=== PATIENT | male | born 1945 | race Caucasian/White ===

== ENCOUNTER 2018-04-30 09:05 | Emergency (ER) | payer MEDICARE, SELFPAY ==
[2018-04-30 09:10] VITALS: BP 137/78; PULSE 77; RESP 22; TEMP 36.6; O2SAT 96
--- NOTE | 2018-04-30 09:15 | ED.SKABFB ---
HPI - Skin/Abscess/Foreign Bdy General Chief complaint: Allergic Reaction Stated complaint: STUNG BY BEE ON RIGHT EYE, EYE SWOLLEN Time Seen by Provider: 04/30/18 09:06 Source: patient Mode of arrival: ambulatory Limitations: no limitations History of Present Illness HPI narrative: Patient is a 72-year-old male here for evaluation of irritation under his right eye. Patient states that he was stung by a yellow jacket under his right eye approximately 24 hr ago. He states since that he has had irritation and itching to the area. Has not tried anything at home for it. No problems breathing. Related Data Home Medications Medication Instructions Recorded Confirmed CA PANTOTHENATE/FOLIC ACID/VIT 1 tab PO QDAY #0 03/22/13 (MULTIVITAMIN) glipizide 5 mg PO BIDAC #0 03/22/13 loperamide 2 mg PO PRN #0 03/22/13 tamsulosin [Flomax] 0.4 mg PO HS #0 03/22/13 gabapentin 200 mg PO/SL BID #0 08/25/16 ipratropium-albuterol [Combivent #0 08/25/16 Respimat] metoprolol tartrate 25 mg PO BID #0 08/25/16 simvastatin 80 mg PO QHS #0 08/25/16 insulin glargine [Lantus U-100 10 unit SQ BID #0 11/01/16 Insulin] insulin aspart U-100 [Novolog 10 unit SQ ACHS #0 12/06/16 U-100 Insulin aspart] Previous Rx's Medication Instructions Recorded aspirin 325 mg PO QDAY #30 10/30/16 hydrocodone-acetaminophen [[place]] 1 - 2 tab PO Q6HP PRN #10 tab 11/23/16 prednisone 2 tab PO QDAY 3 Days #0 tab 11/23/16 oxycodone-acetaminophen [Percocet] 1 tab PO Q4HP PRN #10 tab 11/25/16 prednisone 10 mg PO QDAY #30 tab 11/25/16 ciprofloxacin HCl [Cipro] 500 mg PO BID #20 tab 12/04/16 clotrimazole 1 gm TOPICAL SEE INSTRUCTIONS 12/06/16 #14.1 gm prednisone 40 mg PO DAILY 2 Days #4 tab 04/30/18 Allergies Allergy/AdvReac Type Severity Reaction Status Date / Time No Known Drug Allergies Allergy Verified 04/30/18 09:41 Review of Systems Constitutional Denies fatigue, Denies fever(s) and Denies headache(s) Eyes Comments: Swelling under his right eye with irritation and itching over the site where he was stung ENT Ears, Nose, Mouth, and Throat: Denies headache(s), Denies sore throat, Denies throat swelling and Denies tongue swelling Cardiovascular Denies chest pain and Denies dyspnea Respiratory Denies dyspnea Gastrointestinal Gastrointestinal: Denies abdominal pain, Denies nausea and Denies vomiting Musculoskeletal Denies myalgias and Denies arthralgias Integumentary/Breasts Comments: Redness of the skin under his right eye Neurologic Denies headache(s) Endocrine Denies fatigue Hematologic/Lymphatic Denies easy bleeding Allergic/Immunologic Denies throat swelling and Denies tongue swelling [facility] Medical History Diabetes (Acute) Comment: Reviewed patient's past medical surgical family social history Exam Initial Vital Signs Initial Vital Signs: Vital Signs Temperature 97.8 F 04/30/18 09:10 Pulse Rate 77 04/30/18 09:10 Respiratory Rate 22 04/30/18 09:10 Blood Pressure 137/78 H 04/30/18 09:10 Pulse Oximetry 96 04/30/18 09:10 Const General: cooperative, healthy appearing, comfortable, well developed, well groomed and No acute distress Orientation: alert, awake and oriented x3 HENMT Head: normal to inspection and normocephalic Face and sinus: other (Patient with mild redness and swelling under his right eye.) Eyes General: appearance normal, both eyes and all related structures Sclera: sclerae normal Pupils: PERRL EOM: EOM intact bilaterally Resp Effort & Inspection: normal respiratory effort Skin Other: Redness and swelling under his right eye Neuro General: alert, awake and oriented x3 Psych Appearance: grossly normal and well kempt Course Orders Ordered: Discontinued Medications Prednisone (Deltasone) 40 mg PO NOW ONE Stop: 04/30/18 09:29 Last Admin: 04/30/18 09:42 Dose: 40 mg Vital Signs - 8 hr 04/30/18 09:10 Temperature 97.8 F Pulse Rate 77 Respiratory Rate 22 Blood Pressure 137/78 H Pulse Oximetry 96 MDM - Skin/Abscess/Foreign Bdy MDM Narrative Medical decision making narrative: Patient with redness and swelling under his right eye at the site where he states he was stung by a yellow jacket. I feel that given his physical exam today that cellulitis is less likely and that the redness is just from the irritation in him itching his eye. The orbit itself looks fine. Patient's physical exam is not consistent with anaphylaxis. Will start the patient on prednisone. We also discussed the use of Benadryl. He was given return precautions. He is instructed he needed to follow up with primary doctor. He expressed understanding and agreement with plan Discharge Plan Departure Patient Disposition: Home, Self-Care Clinical Impression: Allergic reaction Discharge Date/Time: 04/30/18 09:51 Interventions: ED Discharge Assessment Last Done: 04/30/18 09:49 Instructions: DI for General Allergic Reactions Activity Restrictions/Additional Instructions: Recommend you take the prednisone as directed. You can also take [id number] Benadryl every 4 hr as needed. Call your primary care doctor for a follow-up. Return to the emergency department for any new symptoms, worsening redness around your eye, problems breathing, or any other worsening symptoms. Prescriptions: New prednisone 20 mg tablet 40 mg PO DAILY 2 Days Qty: 4 RF: 0 No Action loperamide 2 MG capsule 2 mg PO PRN Qty: 0 RF: 0 tamsulosin [Flomax] 0.4 MG capsule,extended release 24hr 0.4 mg PO HS Qty: 0 RF: 0 glipizide 5 MG tablet 5 mg PO BIDAC Qty: 0 RF: 0 CA PANTOTHENATE/FOLIC ACID/VIT (MULTIVITAMIN) 1 tab PO QDAY Qty: 0 RF: 0 metoprolol tartrate 25 MG tablet 25 mg PO BID Qty: 0 RF: 0 ipratropium-albuterol [Combivent Respimat] 4 GM mist Qty: 0 RF: 0 simvastatin 40 MG tablet 80 mg PO QHS Qty: 0 RF: 0 gabapentin 100 MG capsule 200 mg PO/SL BID Qty: 0 RF: 0 aspirin 325 MG tablet,delayed release (DR/EC) 325 mg PO QDAY Qty: 30 RF: 0 insulin glargine [Lantus U-100 Insulin] 100 UNIT/1 ML solution 10 unit SQ BID Qty: 0 RF: 0 hydrocodone-acetaminophen [[place]] 5 MG/325 MG tablet 1 - 2 tab PO Q6HP PRNQty: 10 RF: 0 prednisone 20 MG tablet 2 tab PO QDAY 3 Days Qty: 0 RF: 0 prednisone 10 MG tablet 10 mg PO QDAY Qty: 30 RF: 0 oxycodone-acetaminophen [Percocet] 5 MG/325 MG tablet 1 tab PO Q4HP PRNQty: 10 RF: 0 ciprofloxacin HCl [Cipro] 500 MG tablet 500 mg PO BID Qty: 20 RF: 0 insulin aspart U-100 [Novolog U-100 Insulin aspart] 100 UNIT/1 ML solution 10 unit SQ ACHS Qty: 0 RF: 0 clotrimazole 1 % cream 1 gm Topical SEE INSTRUCTIONS Qty: 14.1 RF: 0
[2018-04-30] MEDS: predniSONE 20 MG TABLET 40 MG PO (09:42)
== END 2018-04-30 09:51 | disposition home or self-care (01) ==
PROVIDERS: Emergency Provider Emergency Medicine; PCP Internal Medicine
DX: T63.441A Toxic effect of venom of bees, accidental (unintentional), initial encounter (principal)
CPT/HCPCS: 99282; 99283

== ENCOUNTER 2020-01-11 12:36 | Emergency (ER) | payer MEDICARE, SELFPAY ==
[2020-01-11 12:45] VITALS: BP 164/70; PULSE 66; RESP 18; TEMP 36.2; O2SAT 95; BMI 38.5
--- NOTE | 2020-01-11 13:29 | ED.WOUNDLAC ---
HPI - Wound/Laceration <JUSTYNA Isaacs - Last Filed: 01/11/20 13:51> General Chief Complaint: Wound/Laceration Stated Complaint: Rt hand index finger cut Time Seen by Provider: 01/11/20 12:45 Source: patient Mode of arrival: Ambulatory Limitations: no limitations History of Present Illness HPI narrative: This is a 74-year-old male who presents to ED with laceration on right 2nd distal aspect on index finger from a pocket knife when he was working on a motorcycle. Patient reports his last tetanus immunization has been updated in 5-6 years ago. Right dominant hand. Patient has history of diabetes and takes 3 different medications including insulin. Patient states he was bleeding quite a lot immediately after the laceration but now it has been stopped. Patient denies severe pain, decreased sensation, weakness to affected finger. Related Data Home Medications Medication Instructions Recorded Confirmed CA PANTOTHENATE/FOLIC ACID/VIT 1 tab PO QDAY #0 03/22/13 (MULTIVITAMIN) glipizide 5 mg PO BIDAC #0 03/22/13 loperamide 2 mg PO PRN #0 03/22/13 tamsulosin [Flomax] 0.4 mg PO HS #0 03/22/13 gabapentin 200 mg PO/SL BID #0 08/25/16 ipratropium-albuterol [Combivent #0 08/25/16 Respimat] metoprolol tartrate 25 mg PO BID #0 08/25/16 simvastatin 80 mg PO QHS #0 08/25/16 insulin glargine [Lantus U-100 10 unit SQ BID #0 11/01/16 Insulin] insulin aspart U-100 [Novolog 10 unit SQ ACHS #0 12/06/16 U-100 Insulin aspart] Previous Rx's Medication Instructions Recorded aspirin 325 mg PO QDAY #30 10/30/16 hydrocodone-acetaminophen [[place]] 1 - 2 tab PO Q6HP PRN #10 tab 11/23/16 prednisone 2 tab PO QDAY 3 Days #0 tab 11/23/16 oxycodone-acetaminophen [Percocet] 1 tab PO Q4HP PRN #10 tab 11/25/16 prednisone 10 mg PO QDAY #30 tab 11/25/16 ciprofloxacin HCl [Cipro] 500 mg PO BID #20 tab 12/04/16 clotrimazole 1 gm TOPICAL SEE INSTRUCTIONS 12/06/16 #14.1 gm Allergies Allergy/AdvReac Type Severity Reaction Status Date / Time No Known Drug Allergies Allergy Verified 01/11/20 12:45 Review of Systems <JUSTYNA Isaacs - Last Filed: 01/11/20 13:51> Review of Systems Narrative: General: Denies fever, chills, fatigue, malaise, sweats. HEENT: Denies sinus pain, ear pain, sore throat, difficulty swallowing, dizziness. Respiratory: Denies dyspnea, cough, wheezing, hemoptysis, sputum. Cardiovascular: Denies chest pain, palpitations, orthopnea, edema. Gastrointestinal: Denies nausea, vomiting, abdominal pain, diarrhea, constipation, melena. : Denies dysuria, frequency, incontinence, hematuria, urinary retention. Musculoskeletal: See HPI Skin: See HPI Neurologic: Denies weakness, headache, numbness, change in speech, confusion, seizures, incoordination. Psychiatric: No concerning psychosocial issues. 12-point review of systems is negative except for those stated above. Patient History <JUSTYNA Isaacs - Last Filed: 01/11/20 13:51> Medical History Diabetes (Acute) Substance Use Type: does not use Exam <JUSTYNA Isaacs - Last Filed: 01/11/20 13:51> Narrative Exam Narrative: General appearance: well developed, well nourished, in no acute distress. Head: normocephalic, atraumatic, no scalp lesions, non-tender. ENT: Bilateral auditory canals and tympanic membranes clear. Mucous membrane moist, no mucosal lesion. Throat without erythema, tonsillar hypertrophy or exudate. Uvula in midline, airway patent. Neck/Thyroid: neck supple, full range of motion, no visible masses or meningeal signs. No JVD, non-tender without lymphadenopathy. Skin: 1.5 vertical superficial laceration to epidermis on right 2nd distal finger. No active bleeding noted. No suspicious rashes, lesions over visible areas. Warm and dry and appropriate color for ethnicity. Heart: no clubbing, no cyanosis, no edema. S1 and S2 normal. RRR w/o murmurs, clicks, or bruits. Lungs: Breathing even and unlabored. No stridor. No accessory muscles used. Able to speak in full sentences. Chest: normal shape and expansion. Abdomen: non-obese, non-distended. Neurologic: alert and oriented. Cognitive exam, PRACTICE ADVISOR and PNS grossly intact on informal exam. Psych: good eye contact, normal affect. Initial Vital Signs Initial Vital Signs: Vital Signs Temperature 97.1 F L 01/11/20 12:45 Pulse Rate 66 01/11/20 12:45 Respiratory Rate 18 01/11/20 12:45 Blood Pressure 164/70 H 01/11/20 12:45 Pulse Oximetry 95 01/11/20 12:45 <Tressa Mathew MD - Last Filed: 01/12/20 07:21> Initial Vital Signs Initial Vital Signs: Vital Signs Temperature 97.1 F L 01/11/20 12:45 Pulse Rate 66 01/11/20 12:45 Respiratory Rate 18 01/11/20 12:45 Blood Pressure 164/70 H 01/11/20 12:45 Pulse Oximetry 95 01/11/20 12:45 Procedures <JUSTYNA Isaacs - Last Filed: 01/11/20 13:51> Laceration Repair Laceration 1: Site: hand (2nd distal digit) Side (If applicable): right Size (cm): 1.5 Description: linear Depth: simple, single layer Pre-repair: wound explored and irrigated extensively Skin layer closed with: steri-strips Orthopedic Splinting/Casting Injury #1: Side: right Upper Extremity Injury Location: finger Upper Extremity Immobilizer: aluminum form splint Scores <JUSTYNA Isaacs - Last Filed: 01/11/20 13:51> GCS [place] coma scale eye opening: Spontaneous [place] coma scale verbal response: Orientated Chin coma scale motor response: Obey commands Chin coma scale total score: 15 Course <JUSTYNA Isaacs - Last Filed: 01/11/20 13:51> Vital Signs Vital signs: Vital Signs - 8 hr 01/11/20 12:45 Temperature 97.1 F L Pulse Rate 66 Respiratory Rate 18 Blood Pressure 164/70 H Pulse Oximetry 95 <Tressa Mathew MD - Last Filed: 01/12/20 07:21> Vital Signs Vital signs: Vital Signs - 8 hr 01/11/20 12:45 Temperature 97.1 F L Pulse Rate 66 Respiratory Rate 18 Blood Pressure 164/70 H Pulse Oximetry 95 [facility] - Wound/Laceration <JUSTYNA Isaacs - Last Filed: 01/11/20 13:51> Differential Diagnosis Differential diagnosis: Likely laceration Medical Records Attestation: I reviewed the patient's medical records. [facility] Narrative Medical decision making narrative: See procedure note for vertical 1.5 cm laceration repair on the right 2nd distal finger pad. Patient tolerated procedure well. We discussed wound care at home for laceration repaired with Steri-Strips and Dermabond and not to soak affected finger until laceration heals. Return precautions were discussed with patient and advised to follow up with PCP in 2 days for wound recheck. Patient verbalized understanding and agreement with the treatment plan. Discharge Plan Departure Patient Disposition: Home Clinical Impression: Laceration of finger of right hand Qualifiers: Encounter type: initial encounter Finger: index finger Damage to nail status: unspecified Foreign body presence: without foreign body Qualified Code(s): S61.210A - Laceration without foreign body of right index finger without damage to nail, initial encounter Discharge Date/Time: 01/11/20 13:45 Instructions: DI for Laceration Repair Steri-Strips, DI for Laceration Repair With Dermabond Activity Restrictions/Additional Instructions: You have been diagnosed with [right 2nd digit in distal finger laceration which has been repaired with Steri-Strips and Dermabond.]. What to do: *Take your medications as directed. No new medications to go home with. Please do not get your wound soaked in the water until the laceration has healed. Keep your dressing intact for next 24 hrs. After then, you could remove your dressing, wash with soap and water. Pat dry with clean papertowel and dress it. Please avoid using oil based ointment, cream, lotion and etc since this may make dermabond lose and remove prematurely. Dermabond will come off in 5-7 days on its own. Do not peel this off or pick on it. You can change dressing as needed and daily. Please monitor for signs and symptoms for infection such as increasing redness, swelling, warmth, pain, fever, purulent discharge. If this occurs, please return to ED or follow up with your primary care physician since your wound may be infected. Please follow up with your primary care provider in 2-3 days for recheck wound. Please keep your wound clean, dry and intact all times. If Steri-Strips and Dermabond does not come off in 10 days, you can use oil based lotion, ointment, Vaseline to removed days. Please avoid putting pressure on affected finger to prevent opening up the laceration/wound. Prescriptions: No Action loperamide 2 MG capsule 2 mg PO PRN Qty: 0 RF: 0 tamsulosin [Flomax] 0.4 MG capsule,extended release 24hr 0.4 mg PO HS Qty: 0 RF: 0 glipizide 5 MG tablet 5 mg PO BIDAC Qty: 0 RF: 0 CA PANTOTHENATE/FOLIC ACID/VIT (MULTIVITAMIN) 1 tab PO QDAY Qty: 0 RF: 0 metoprolol tartrate 25 MG tablet 25 mg PO BID Qty: 0 RF: 0 ipratropium-albuterol [Combivent Respimat] 4 GM mist Qty: 0 RF: 0 simvastatin 40 MG tablet 80 mg PO QHS Qty: 0 RF: 0 gabapentin 100 MG capsule 200 mg PO/SL BID Qty: 0 RF: 0 aspirin 325 MG tablet,delayed release (DR/EC) 325 mg PO QDAY Qty: 30 RF: 0 insulin glargine [Lantus U-100 Insulin] 100 UNIT/1 ML solution 10 unit SQ BID Qty: 0 RF: 0 hydrocodone-acetaminophen [[place]] 5 MG/325 MG tablet 1 - 2 tab PO Q6HP PRNQty: 10 RF: 0 prednisone 20 MG tablet 2 tab PO QDAY 3 Days Qty: 0 RF: 0 prednisone 10 MG tablet 10 mg PO QDAY Qty: 30 RF: 0 oxycodone-acetaminophen [Percocet] 5 MG/325 MG tablet 1 tab PO Q4HP PRNQty: 10 RF: 0 ciprofloxacin HCl [Cipro] 500 MG tablet 500 mg PO BID Qty: 20 RF: 0 insulin aspart U-100 [Novolog U-100 Insulin aspart] 100 UNIT/1 ML solution 10 unit SQ ACHS Qty: 0 RF: 0 clotrimazole 1 % cream 1 gm Topical SEE INSTRUCTIONS Qty: 14.1 RF: 0 Referrals: Edgardo Devlin MD [Primary Care Provider] - <Tressa Mathew MD - Last Filed: 01/12/20 07:21> Cosign ED Attending Cosignature Attestation: I was immediately available in the department for consultation throughout this patient's visit. I agree with documentation as above. Tressa Mathew MD
== END 2020-01-11 13:45 | disposition home or self-care (01) ==
PROVIDERS: Emergency Provider Nurse Practitioner Family; PCP Internal Medicine
DX: S61.210A Laceration without foreign body of right index finger without damage to nail, initial encounter (principal); W26.0XXA Contact with knife, initial encounter
CPT/HCPCS: 99282; 99283

== ENCOUNTER 2020-04-21 03:18 | Emergency (ER) | payer MEDICARE, SELFPAY ==
[2020-04-21 03:20] VITALS: BP 194/86; PULSE 65; RESP 20; O2SAT 97; BMI 38.5
[2020-04-21] MEDS: dexAMETHasone 4 MG TABLET 10 MG PO (04:02)
[2020-04-21] MEDS: KETOROLAC 60 MG/2 ML VIAL 30 MG IM (04:03)
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
[2020-04-21 05:12] VITALS: BP 187/88; PULSE 68; RESP 16; O2SAT 97
== END 2020-04-21 05:12 | disposition home or self-care (01) ==
PROVIDERS: Emergency Provider Emergency Medicine; PCP Internal Medicine
DX: M54.40 Lumbago with sciatica, unspecified side (principal); M48.07 Spinal stenosis, lumbosacral region; E11.9 Type 2 diabetes mellitus without complications; Z79.4 Long term (current) use of insulin
CPT/HCPCS: 96372; 99283; J1885

== ENCOUNTER 2020-04-25 01:49 | Emergency (ER) | payer MEDICARE, SELFPAY ==
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
[2020-04-25 02:03] VITALS: BP 178/65; PULSE 60; RESP 18; TEMP 36.6; O2SAT 100
[2020-04-25] MEDS: KETOROLAC 60 MG/2 ML VIAL IM (02:08)
[2020-04-25] MEDS: DEXAMETHASONE 10 MG/ML VIAL PO (02:21)
[2020-04-25 02:43] VITALS: BP 169/69; PULSE 64; RESP 18; O2SAT 96
--- NOTE | 2020-04-25 02:44 | PC.NURSE ---
he verbalized pain control and wanted to go home.
== END 2020-04-25 02:43 | disposition home or self-care (01) ==
PROVIDERS: Emergency Provider Emergency Medicine; PCP Internal Medicine
DX: M54.16 Radiculopathy, lumbar region (principal); M54.40 Lumbago with sciatica, unspecified side
CPT/HCPCS: 96372; 99283; J1100; J1885

== ENCOUNTER 2020-04-27 03:21 | Emergency (ER) | payer MEDICARE, SELFPAY ==
[2020-04-27 03:25] VITALS: BP 132/72; PULSE 56; RESP 16; TEMP 36.6; O2SAT 100; BMI 38.5
--- NOTE | 2020-04-27 03:29 | ED.GENADULT ---
HPI - General Adult General Chief complaint: Back Pain/Injury Stated complaint: sciatica really bad Time Seen by Provider: 04/27/20 03:25 Source: patient Mode of arrival: Ambulatory Limitations: no limitations History of Present Illness HPI narrative: Patient is a 74-year-old male who was seen here in the emergency department several times in the past couple days for the same symptoms that brought him in today. Patient has had radiologic studies performed if his back. He states he has a follow-up with Orthopedic Spine surgery coming up in the next several weeks. He states that the last 2 times that he was here he received a shot of a medication that seemed to improve/resolve his symptoms he is here seeking another shot. He is unsure what this medication is. Review the patient's medical record show that he has received a shot of Toradol the last 2 times that he was here. During his last visit he was given a prescription for Toradol however he states that he went to the pharmacy to pick it up and he was told by the pharmacist that if he started taking this medication ?it will kill me? patient has no other information why the pharmacist told him this other than it was because of the other medications that he was on. He reports no new symptoms just continued symptoms. Inform me multiple times ?I just want the shot ? Related Data Home Medications Medication Instructions Recorded Confirmed CA PANTOTHENATE/FOLIC ACID/VIT 1 tab PO QDAY #0 03/22/13 (MULTIVITAMIN) glipizide 5 mg PO BIDAC #0 03/22/13 loperamide 2 mg PO PRN #0 03/22/13 tamsulosin [Flomax] 0.4 mg PO HS #0 03/22/13 gabapentin 200 mg PO/SL BID #0 08/25/16 ipratropium-albuterol [Combivent #0 08/25/16 Respimat] metoprolol tartrate 25 mg PO BID #0 08/25/16 simvastatin 80 mg PO QHS #0 08/25/16 insulin glargine [Lantus U-100 10 unit SQ BID #0 11/01/16 Insulin] insulin aspart U-100 [Novolog 10 unit SQ ACHS #0 12/06/16 U-100 Insulin aspart] Previous Rx's Medication Instructions Recorded aspirin 325 mg PO QDAY #30 10/30/16 hydrocodone-acetaminophen [Baxter] 1 - 2 tab PO Q6HP PRN #10 tab 11/23/16 prednisone 2 tab PO QDAY 3 Days #0 tab 11/23/16 oxycodone-acetaminophen [Percocet] 1 tab PO Q4HP PRN #10 tab 11/25/16 prednisone 10 mg PO QDAY #30 tab 11/25/16 ciprofloxacin HCl [Cipro] 500 mg PO BID #20 tab 12/04/16 clotrimazole 1 gm TOPICAL SEE INSTRUCTIONS 12/06/16 #14.1 gm ketorolac 10 mg PO Q6H PRN #14 tab 04/25/20 Allergies Allergy/AdvReac Type Severity Reaction Status Date / Time No Known Drug Allergies Allergy Verified 04/27/20 03:31 Review of Systems Constitutional Constitutional: Denies fever(s) and Denies headache(s) ENT Ears, Nose, Mouth, and Throat: Denies headache(s) Cardiovascular Cardiovascular: Denies chest pain and Denies dyspnea Respiratory Respiratory: Denies dyspnea Gastrointestinal Gastrointestinal: Denies abdominal pain Genitourinary Genitourinary: Denies dysuria, Denies urinary hesitancy, Denies urinary incontinence and Denies urinary urgency Genitourinary: Denies dysuria, Denies urinary incontinence, Denies urinary hesitancy and Denies urinary urgency Musculoskeletal Musculoskeletal: Reports back pain and Reports radiating pain into limb (Right-sided) Integumentary/Breasts Skin/Breast: Denies lesions and Denies rash Neurologic Neurologic: Denies headache(s) and Reports radicular pain Psychiatric Psychiatric: Denies anxiety Hematologic/Lymphatic Hematologic/Lymphatic: Denies easy bleeding and Denies easy bruising Allergic/Immunologic Allergic/Immunologic: Denies urticaria Patient History Medical History Acute urinary retention (Inactive) Diabetes (Acute) Hyperlipidemia (Acute) TIA (transient ischemic attack) (Inactive) Surgical History H/O laminectomy (Acute) Social History Smoking Status: Never smoker Smoking Status: Never smoker Substance Use Type: does not use Exam Initial Vital Signs Initial Vital Signs: Vital Signs Temperature 97.9 F 04/27/20 03:25 Pulse Rate 56 L 04/27/20 03:25 Respiratory Rate 16 04/27/20 03:25 Blood Pressure 132/72 04/27/20 03:25 Pulse Oximetry 100 04/27/20 03:25 Const General: cooperative Limitations: mental status not altered [facility] Head: normal to inspection and normocephalic Resp Effort & Inspection: normal respiratory effort Cardio Rate: regular rate Back/Spine/Pelvis Thoracic/Lumbar Spine: paraspinal tenderness Skin Lesions: no lesions Rashes: no rashes Extrem General: normal to inspection and capillary refill normal Psych Appearance: grossly normal and well kempt Course Orders Ordered: ED Orders 04/27/20 03:46 Basic Metabolic Panel Stat Complete Blood Count AUTO DIFF Stat Discontinued Medications Ketorolac Tromethamine (Toradol) 30 mg IM NOW ONE Stop: 04/27/20 04:16 Last Admin: 04/27/20 04:24 Dose: 30 mg Documented by: CTRROSINA Vital Signs Vital signs: Vital Signs - 8 hr 04/27/20 03:25 04/27/20 04:55 Temperature 97.9 F Pulse Rate 56 L 75 Respiratory Rate 16 24 Blood Pressure 132/72 129/73 Pulse Oximetry 100 98 Medical Decision Making Lab Data Lab results reviewed: Yes I reviewed the patient's lab results. Result diagrams: 04/27/20 03:46 04/27/20 03:46 Labs: Lab Results 04/27/20 04/27/20 Range/Units 03:46 03:46 WBC 6.1 (4.5-11.0) X10^3/uL RBC 4.88 (4.5-5.9) X10^6/uL Hgb 13.1 L (13.5-17.5) g/dL Hct 39.7 L (41-53) % MCV 81.5 (80-100) fL MCH 26.9 (26-34) PG MCHC 33.0 (30-36) % RDW 14.0 (11.6-14.8) % Plt Count 144 L (150-400) X10^3/uL Neut % (Auto) 57.2 (50-75) % Lymph % (Auto) 31.6 (25-40) % [place] % (Auto) 10.9 (3-14) % Eos % (Auto) 0.1 L (2-4) % Baso % (Auto) 0.2 (0-2) % Neut # (Auto) 3500 (0773-8229) /uL Lymph # (Auto) 1900 (6461-2377) /uL [place] # (Auto) 700 (0-900) /uL Eos # (Auto) 0 (0-450) /uL Baso # (Auto) 0 (0-100) /uL Sodium 137 (137-145) mmol/L Potassium 4.0 (3.4-5.1) mmol/L Chloride 108 H (98-107) mmol/L Carbon Dioxide 23 (22-32) mmol/L BUN 37 H (9-20) mg/dL Creatinine 1.33 H (0.66-1.25) mg/dL Estimated GFR 52.3 L (>60) mL/min BUN/Creatinine Ratio 27.8 H (6-22) Glucose 222 H (80-110) mg/dL Calcium 9.1 (8.4-10.2) mg/dL MDM Narrative Medical decision making narrative: It is extremely difficult to determine what medications the patient is taking. He describes them by their shape and color not by what medications he is on. Does appear that he has not been taking the Toradol that he was given a prescription for during his last visit. I am also unsure whether not he is on any steroids. He does have a follow-up with Orthopedic Spine coming up in the next couple weeks. He has had radiologic studies of his back. He does have degenerative disc disease which has been seen on a CT scan per prior ED reports. I have low suspicion for cauda equina. Low suspicion for epidural abscess/hematoma. He has not had any instrumentation. Initially patient was very reluctant to have any blood drawn stating that he just wanted the shot of what is most likely Toradol given the prior ED notes. I did inform him that we do not have any recent kidney studies and given the fact that he has had 2 shots within the past couple days and also has diabetes that checking his kidney function would not be unreasonable. He did agree to have this done. After this was resulted he was given a shot of Toradol. He had minimal relief from the pain. Informed him that we could provide other pain medications however he would need to find a ride home. He states he does not have a ride. He does have oxycodone at home. Inform the patient that unfortunately we would not prescribe anything stronger than that out of the emergency department. I am hesitant to start any new medications on him given the uncertainty of what medications he is currently taking. I do not feel we need to perform any further radiologic studies today. I did try to reassure the patient. Informed him that he can contact his primary doctor or the orthopedic provider for further medications. He was given return precautions. He expressed understanding and agreement. Discharge Plan Departure Patient Disposition: Home Clinical Impression: Acute lumbar radiculopathy Instructions: DI for Low Back Pain, Activity May Be Better Than Rest for Low Back Pain Recovery, Exercise May Reduce Risk of Low Back Pain Activity Restrictions/Additional Instructions: Recommend that you increase the gabapentin to 200 mg 3 times a day. You can also increase your Percocets to 1 tablet every 4 hours or 2 tablets every 6 hours. Recommend that you contact your orthopedic provider on Tuesday to see if they can see you sooner. Prescriptions: No Action loperamide 2 MG capsule 2 mg PO PRN Qty: 0 RF: 0 tamsulosin [Flomax] 0.4 MG capsule,extended release 24hr 0.4 mg PO HS Qty: 0 RF: 0 glipizide 5 MG tablet 5 mg PO BIDAC Qty: 0 RF: 0 CA PANTOTHENATE/FOLIC ACID/VIT (MULTIVITAMIN) 1 tab PO QDAY Qty: 0 RF: 0 metoprolol tartrate 25 MG tablet 25 mg PO BID Qty: 0 RF: 0 ipratropium-albuterol [Combivent Respimat] 4 GM mist Qty: 0 RF: 0 simvastatin 40 MG tablet 80 mg PO QHS Qty: 0 RF: 0 gabapentin 100 MG capsule 200 mg PO/SL BID Qty: 0 RF: 0 aspirin 325 MG tablet,delayed release (DR/EC) 325 mg PO QDAY Qty: 30 RF: 0 insulin glargine [Lantus U-100 Insulin] 100 UNIT/1 ML solution 10 unit SQ BID Qty: 0 RF: 0 hydrocodone-acetaminophen [Baxter] 5 MG/325 MG tablet 1 - 2 tab PO Q6HP PRNQty: 10 RF: 0 prednisone 20 MG tablet 2 tab PO QDAY 3 Days Qty: 0 RF: 0 prednisone 10 MG tablet 10 mg PO QDAY Qty: 30 RF: 0 oxycodone-acetaminophen [Percocet] 5 MG/325 MG tablet 1 tab PO Q4HP PRNQty: 10 RF: 0 ciprofloxacin HCl [Cipro] 500 MG tablet 500 mg PO BID Qty: 20 RF: 0 insulin aspart U-100 [Novolog U-100 Insulin aspart] 100 UNIT/1 ML solution 10 unit SQ ACHS Qty: 0 RF: 0 clotrimazole 1 % cream 1 gm Topical SEE INSTRUCTIONS Qty: 14.1 RF: 0 ketorolac 10 mg tablet 10 mg PO Q6H PRN (Reason: pain) Qty: 14 RF: 0 Referrals: Edgardo Devlin MD [Primary Care Provider] -
[2020-04-27 04:00] LABS: Add Manual Diff / Slide Review NO; Basophils Absolute Auto 0 /uL (0-100); Basophils Percent Auto 0.2 % (0-2); Eosinophils Absolute Auto 0 /uL (0-450); Eosinophils Percent Auto 0.1 % (2-4); Hematocrit 39.7 % (41-53); Hemoglobin 13.1 g/dL (13.5-17.5); Lymphocytes Absolute Auto 1900 /uL (1100-4500); Lymphocytes Percent Auto 31.6 % (25-40); Mean Corpuscular Hemoglobin 26.9 PG (26-34); Mean Corpuscular Volume 81.5 fL (80-100); Monocytes Absolute Auto 700 /uL (0-900); Monocytes Percent Auto 10.9 % (3-14); Neutrophils Absolute Auto 3500 /uL (1500-7000); Neutrophils Percent Auto 57.2 % (50-75); Platelet Count 144 X10^3/uL (150-400); Red Blood Cell Count 4.88 X10^6/uL (4.5-5.9); White Blood Cell Count 6.1 X10^3/uL (4.5-11.0)
[2020-04-27 04:08] LABS: BUN Creatinine Ratio 27.8 (6-22); Blood Urea Nitrogen 37 mg/dL (9-20); Calcium 9.1 mg/dL (8.4-10.2); Carbon Dioxide 23 mmol/L (22-32); Chloride 108 mmol/L (98-107); Estimated Glomerular Filt Rate 52.3 mL/min (>60); Glucose 222 mg/dL (80-110); HEMOLYSIS < 15 (0-50); Sodium 137 mmol/L (137-145)
[2020-04-27] MEDS: KETOROLAC 60 MG/2 ML VIAL 30 MG IM (04:24)
[2020-04-27 04:55] VITALS: BP 129/73; PULSE 75; RESP 24; O2SAT 98
[2020-04-27 05:30] VITALS: BP 141/79; PULSE 79; RESP 16; O2SAT 95
== END 2020-04-27 05:30 | disposition home or self-care (01) ==
PROVIDERS: Emergency Provider Emergency Medicine; PCP Internal Medicine
DX: M54.16 Radiculopathy, lumbar region (principal); E11.9 Type 2 diabetes mellitus without complications
CPT/HCPCS: 36415; 80048; 85025; 96372; 99283; J1885

== ENCOUNTER 2020-05-04 11:28 | Emergency (ER) | payer MEDICARE, SELFPAY ==
[2020-05-04 11:34] VITALS: BP 158/76; PULSE 67; RESP 21; TEMP 37; O2SAT 97; BMI 38.5
--- NOTE | 2020-05-04 12:20 | ED.BACK ---
HPI - Back Pain/Injury <JUSTYNA Isaacs - Last Filed: 05/04/20 15:54> General Chief Complaint: Back Pain/Injury Stated Complaint: sciatica - wants rx Time Seen by Provider: 05/04/20 11:31 Source: patient Mode of arrival: Wheelchair Limitations: no limitations History of Present Illness HPI Narrative: This is a 74-year-old male, former smoker, who has history of L3 laminectomy, presents to ED with severe back pain in right low back radiating down to his right foot. This is his 4th visit in last 2 weeks with the same chief complain. Patient reports his back pain use to be radiating up to his right knee but noticed now it is down to his foot. Patient reports slightly decreased strength to right leg but intact sensation. Patient reports pain is constant and occasionally has tightening up right low back muscle. He has been staying off right low back to easy the pain. Patient has a history of BPH with urinary frequency but denies burning sensation or pain with urination. Patient reports he has been ambulating in the house holding onto delgado and funny triggers. He does have a cane at home but has not been using this when he is ambulating outside. Patient denies saddle anesthesia, incontinence for stool or urine, fever/chills, nausea or vomiting. Patient reports he has been taking oxycodone 2 tabs up to 4 times a day which ran out midnight last night. Patient has 1 tab of cyclobenzaprine left. He has been taking Naprosyn as instructed but little more frequently after oxycodone had ran out. Patient has been taking stool softener to prevent constipation. He noticed slightly decreased appetite. Patient denies prior IV drug use. Patient is to see Dr. Hoff in 2 days for his back pain. Related Data Home Medications Medication Instructions Recorded Confirmed CA PANTOTHENATE/FOLIC ACID/VIT 1 tab PO QDAY #0 03/22/13 (MULTIVITAMIN) glipizide 5 mg PO BIDAC #0 03/22/13 loperamide 2 mg PO PRN #0 03/22/13 tamsulosin [Flomax] 0.4 mg PO HS #0 03/22/13 gabapentin 200 mg PO/SL BID #0 08/25/16 ipratropium-albuterol [Combivent #0 08/25/16 Respimat] metoprolol tartrate 25 mg PO BID #0 08/25/16 simvastatin 80 mg PO QHS #0 08/25/16 insulin glargine [Lantus U-100 10 unit SQ BID #0 11/01/16 Insulin] insulin aspart U-100 [Novolog 10 unit SQ ACHS #0 12/06/16 U-100 Insulin aspart] Previous Rx's Medication Instructions Recorded oxycodone-acetaminophen [Percocet] 1 tab PO Q4HP PRN #10 tab 11/25/16 clotrimazole 1 gm TOPICAL SEE INSTRUCTIONS 12/06/16 #14.1 gm cyclobenzaprine 10 mg PO BID PRN #7 tab 05/04/20 lidocaine 1 patch TOP DAILY #30 each 05/04/20 oxycodone-acetaminophen [Percocet] 1 - 2 tab PO Q6H PRN #10 tab 05/04/20 prednisone 40 mg PO DAILY 5 Days #10 tab 05/04/20 Allergies Allergy/AdvReac Type Severity Reaction Status Date / Time No Known Drug Allergies Allergy Verified 04/27/20 03:31 Review of Systems <JUSTYNA Isaacs - Last Filed: 05/04/20 15:54> Review of Systems Narrative: General: Denies fever, chills, fatigue, malaise, sweats. HEENT: Denies sinus pain, ear pain, sore throat, difficulty swallowing, dizziness. Respiratory: Denies dyspnea, cough, wheezing, hemoptysis, sputum. Cardiovascular: Denies chest pain, palpitations, orthopnea, edema. Gastrointestinal: See HPI : See HPI Musculoskeletal: See HPI Skin: Denies rash, skin lesions, or other. Neurologic: Denies weakness, headache, numbness, change in speech, confusion, seizures, incoordination. Psychiatric: No concerning psychosocial issues. 12-point review of systems is negative except for those stated above. Patient History <JUSTYNA Isaacs - Last Filed: 05/04/20 15:54> Medical History Acute urinary retention (Inactive) Diabetes (Acute) Hyperlipidemia (Acute) TIA (transient ischemic attack) (Inactive) Surgical History H/O laminectomy (Acute) Social History Smoking Status: Never smoker Smoking Status: Never smoker Substance Use Type: does not use Exam <JUSTYNA Isaacs - Last Filed: 05/04/20 15:54> Narrative Exam Narrative: General appearance: well developed, well nourished, in no acute distress. Head: normocephalic, atraumatic, no scalp lesions, non-tender. ENT: Hearing difficulty. Nose without bleeding, purulent discharge. Airway patent. Neck/Thyroid: neck supple, full range of motion, no visible masses or meningeal signs. No JVD, non-tender without lymphadenopathy. Skin: no suspicious rashes, lesions over visible areas. Warm and dry and appropriate color for ethnicity. Heart: no clubbing, no cyanosis, no edema. Lungs: Breathing even and unlabored. No stridor. No accessory muscles used. Able to speak in full sentences. Chest: normal shape and expansion. Abdomen: non-obese, non-distended. Neurologic: alert and oriented. Cognitive exam, CARPENTER ROUGH and PNS grossly intact on informal exam. Psych: good eye contact, normal affect. Initial Vital Signs Initial Vital Signs: Vital Signs Temperature 98.6 F 05/04/20 11:34 Pulse Rate 67 05/04/20 11:34 Respiratory Rate 21 05/04/20 11:34 Blood Pressure 158/76 H 05/04/20 11:34 Pulse Oximetry 97 05/04/20 11:34 Back/Spine/Pelvis Thoracic/Lumbar Spine: thoracic and lumbar spine normal to inspection (No redness, rash, warmth on back. Old well-healed vertical surgical scar o), pain with thoraco-lumbar ROM, paraspinal tenderness (Right lumbar region), thoraco-lumbar ROM limited, No thoracic spinal tenderness and No lumbar spinal tenderness <Gee Villa MD - Last Filed: 05/04/20 19:50> Initial Vital Signs Initial Vital Signs: Vital Signs Temperature 98.6 F 05/04/20 11:34 Pulse Rate 67 05/04/20 11:34 Respiratory Rate 21 05/04/20 11:34 Blood Pressure 158/76 H 05/04/20 11:34 Pulse Oximetry 97 05/04/20 11:34 Scores <JUSTYNA Isaacs - Last Filed: 05/04/20 15:54> GCS Hickman coma scale eye opening: Spontaneous Hickman coma scale verbal response: Orientated Hickman coma scale motor response: Obey commands Hickman coma scale total score: 15 Course <JUSTYNA Isaacs - Last Filed: 05/04/20 15:54> Vital Signs Vital signs: Vital Signs - 8 hr 05/04/20 12:21 Pulse Rate 61 Respiratory Rate 16 Blood Pressure 165/74 H Pulse Oximetry 96 <Gee Villa MD - Last Filed: 05/04/20 19:50> Vital Signs Vital signs: Vital Signs - 8 hr 05/04/20 12:21 Pulse Rate 61 Respiratory Rate 16 Blood Pressure 165/74 H Pulse Oximetry 96 [facility] - Back Pain/Injury <JUSTYNA Isaacs - Last Filed: 05/04/20 15:54> Differential Diagnosis Differential diagnosis: Likely lumbar radiculopathy and sciatica Medical Records Attestation: I reviewed the patient's medical records. MDM Narrative Medical decision making narrative: This is a 74-year-old gentleman who presents to ED with recurring right low back pain and radiculopathy. Patient reports today he noticed pain is actually radiating down to his foot instead of anterior thigh. Patient reports mild weakness to right leg and physical exam is consistent with mildly decreased strength right leg. There is no rash in his back. Patient denies saddle anesthesia, fever, incontinence. He reports ran out of oxycodone last night that he has been taking 2 tabs 4 times a day. He has a follow-up appointment with Dr. Hoff in 2 days at [facility]. This is is 4th visit in last 2 weeks with similar discomfort. Patient has been taking Naprosyn frequently. Prior ED visit indicates prior CT scan report shows degenerative disc disease. Patient denies using IV drugs or recent instrumentation on his back. Considered epidural abscess but it is not likely. I have low suspicion for cauda equina. I have discussed with patient that since patient has been taking Naprosyn frequently, it is not suggested for IM Toradol medication at this time. I discussed medication side effects including GI irritations/bleed from using Naprosyn and Steroids concurrently. Also discussed hyperglycemic state by using steroids. Advised to use [id number] omeprazole to protect stomach. Since patient has drove to ED, informed patient that refill oxycodone, Flexeril, lidocaine, short course of prednisone will be transmitted to pharmacy and he can use it when he gets home. Narcotic medication, Flexeril medication precautions were discussed with patient. Advised to follow-up with Dr. Hoff in 2 days as scheduled and return precautions were discussed with patient. Patient advised to use a cane for ambulation to prevent falls. Patient verbalized understanding and agreement with the treatment plan. Discharge Plan Departure Patient Disposition: Home Clinical Impression: Back pain of lumbar region with sciatica Discharge Date/Time: 05/04/20 12:28 Instructions: DI for Back Pain With Sciatica Activity Restrictions/Additional Instructions: You have been diagnosed with [right-side low back pain radiating to your foot which likely sciatica. I have been prescribed the medication [facility] What to do: *Take your medications as directed. Please take oxycodone 1-2 tabs every 6 hours as needed for pain. You can take 1 tab of oxycodone with 1 tab of regular Tylenol. Cyclobenzaprine/Flexeril for muscle relaxant as needed. These medication will cause drowsiness so please do not drive, drink alcohol, or operate heavy equipments. When you take these 2 medications together, it can increase sedation so please take precautions and try to avoid taking together. Lidocaine patch on affected site on her back for pain. ED stays on for 12 hours and off for 12 hours. Prednisone/steroids for next 5 days. Steroids can increase her blood sugar and cause GI irritation. Please purchase [id number] omeprazole to avoid GI irritation especially if your taking Naprosyn together. 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 Increase hydration with water, eat high-fiber diets. *Follow up with your primary care provider in 2-3 days, call for an appointment. Please keep your appointment with Dr. maria on Tuesday as scheduled. Let them know you were seen in the ED and that we asked you to be seen in follow up. *Return to ED if you have any new, worsening, or concerning symptoms, such as [fever, chills, nausea or vomiting, chest pain, breathing difficulty, unable to tolerate fluids, increasing numbness/weakness on affected leg, rash or any acute concerns]. Prescriptions: New oxycodone-acetaminophen [Percocet] 5-325 mg tablet 1 - 2 tab PO Q6H PRN (Reason: pain) Qty: 10 RF: 0 cyclobenzaprine 10 mg tablet 10 mg PO BID PRN (Reason: muscle spasm) Qty: 7 RF: 0 lidocaine 5 % adhesive patch,medicated 1 patch TOP DAILY Qty: 30 RF: 0 prednisone 20 mg tablet 40 mg PO DAILY 5 Days Qty: 10 RF: 0 No Action loperamide 2 MG capsule 2 mg PO PRN Qty: 0 RF: 0 tamsulosin [Flomax] 0.4 MG capsule,extended release 24hr 0.4 mg PO HS Qty: 0 RF: 0 glipizide 5 MG tablet 5 mg PO BIDAC Qty: 0 RF: 0 CA PANTOTHENATE/FOLIC ACID/VIT (MULTIVITAMIN) 1 tab PO QDAY Qty: 0 RF: 0 metoprolol tartrate 25 MG tablet 25 mg PO BID Qty: 0 RF: 0 ipratropium-albuterol [Combivent Respimat] 4 GM mist Qty: 0 RF: 0 simvastatin 40 MG tablet 80 mg PO QHS Qty: 0 RF: 0 gabapentin 100 MG capsule 200 mg PO/SL BID Qty: 0 RF: 0 insulin glargine [Lantus U-100 Insulin] 100 UNIT/1 ML solution 10 unit SQ BID Qty: 0 RF: 0 oxycodone-acetaminophen [Percocet] 5 MG/325 MG tablet 1 tab PO Q4HP PRNQty: 10 RF: 0 insulin aspart U-100 [Novolog U-100 Insulin aspart] 100 UNIT/1 ML solution 10 unit SQ ACHS Qty: 0 RF: 0 clotrimazole 1 % cream 1 gm Topical SEE INSTRUCTIONS Qty: 14.1 RF: 0 Referrals: Papo Hoff MD [Physician] - Edgardo Devlin MD [Primary Care Provider] -
[2020-05-04 12:21] VITALS: BP 165/74; PULSE 61; RESP 16; O2SAT 96
== END 2020-05-04 12:28 | disposition home or self-care (01) ==
PROVIDERS: Emergency Provider Nurse Practitioner Family; PCP Internal Medicine
DX: M54.40 Lumbago with sciatica, unspecified side (principal)
CPT/HCPCS: 99281

== ENCOUNTER 2020-05-07 18:47 | Emergency (ER) | payer MEDICARE, SELFPAY ==
[2020-05-07 18:57] VITALS: BP 187/92; PULSE 73; RESP 18; TEMP 37.4; O2SAT 97; BMI 38.5
--- NOTE | 2020-05-07 19:27 | ED.ABDPAIN ---
HPI - Abdominal Pain General Chief Complaint: Abdominal Pain Stated Complaint: Back Pain/ Constipation Time Seen by Provider: 05/07/20 18:52 Source: patient and EMS Mode of arrival: EMS History of Present Illness HPI narrative: 74-year-old extremely [id number]-hjdgqpy gentleman with chronic back pain and recent acute exacerbation for which she has been treated with nonsteroidals, narcotics and prednisone who presents with severe obstipation. He had been taking stool softeners but clearly has not been as effective as they need to be. He is unable to pass any stool and is feeling that his belly is becoming increasingly crampy and painful. He did see Dr. maria and has an appointment for some type of procedure next week. He does note that the back pain is better and now the constipation pain clearly over read everything. Related Data Home Medications Medication Instructions Recorded Confirmed CA PANTOTHENATE/FOLIC ACID/VIT 1 tab PO QDAY #0 03/22/13 (MULTIVITAMIN) glipizide 5 mg PO BIDAC #0 03/22/13 loperamide 2 mg PO PRN #0 03/22/13 tamsulosin [Flomax] 0.4 mg PO HS #0 03/22/13 gabapentin 200 mg PO/SL BID #0 08/25/16 ipratropium-albuterol [Combivent #0 08/25/16 Respimat] metoprolol tartrate 25 mg PO BID #0 08/25/16 simvastatin 80 mg PO QHS #0 08/25/16 insulin glargine [Lantus U-100 10 unit SQ BID #0 11/01/16 Insulin] insulin aspart U-100 [Novolog 10 unit SQ ACHS #0 12/06/16 U-100 Insulin aspart] Previous Rx's Medication Instructions Recorded oxycodone-acetaminophen [Percocet] 1 tab PO Q4HP PRN #10 tab 11/25/16 clotrimazole 1 gm TOPICAL SEE INSTRUCTIONS 12/06/16 #14.1 gm cyclobenzaprine 10 mg PO BID PRN #7 tab 05/04/20 lidocaine 1 patch TOP DAILY #30 each 05/04/20 oxycodone-acetaminophen [Percocet] 1 - 2 tab PO Q6H PRN #10 tab 05/04/20 prednisone 40 mg PO DAILY 5 Days #10 tab 05/04/20 Allergies Allergy/AdvReac Type Severity Reaction Status Date / Time No Known Drug Allergies Allergy Verified 04/27/20 03:31 Review of Systems Review of Systems Narrative: Pertinent positive and negative findings as per HPI Remainder of review of systems is otherwise unremarkable for Constitutional: Fevers, chills, ENT: No sore throat, neck pain, ear pain CV: Chest pain, palpitations, dyspnea on exertion Respiratory: Cough, wheeze, dyspnea GI: Nausea, vomiting, : Dysuria, hematuria, flank pain Skin: Rashes, nonhealing lesions Neuro: Syncope, dizziness, tingling Patient History Medical History Acute urinary retention (Inactive) Diabetes (Acute) Hyperlipidemia (Acute) TIA (transient ischemic attack) (Inactive) Surgical History H/O laminectomy (Acute) Social History Smoking Status: Never smoker Smoking Status: Never smoker alcohol intake frequency: other Substance Use Type: does not use Exam Narrative Exam Narrative: General: Alert , hard of hearing, straining to have a bowel movement while lying in bed Respiratory: Able to speak in full sentences, no obvious respiratory distress Skin: No obvious rashes, warm and dry Neurologic: Grossly intact no obvious asymmetries or abnormalities Psych, appropriate insight and affect, cooperative Rectal exam: He has quite a bit of diarrhea stool seeping around the firmly impacted amount of hard stool in the lower rectum. He does not tolerate manual disimpaction. There is no blood in the stool. Initial Vital Signs Initial Vital Signs: Vital Signs Temperature 99.3 F 05/07/20 18:57 Pulse Rate 73 05/07/20 18:57 Respiratory Rate 18 05/07/20 18:57 Blood Pressure 187/92 H 05/07/20 18:57 Pulse Oximetry 97 05/07/20 18:57 Course Orders Ordered: Discontinued Medications Magnesium Citrate (Magnesium Citrate) 300 ml PO NOW ONE Stop: 05/07/20 20:10 Last Admin: 05/07/20 20:16 Dose: 300 ml Documented by: JOHAN Mineral Oil (Mineral Oil Enema) 1 each [place] NOW ONE Stop: 05/07/20 19:45 Last Admin: 05/07/20 19:55 Dose: 1 each Documented by: NAS Vital Signs Vital signs: Vital Signs - 8 hr 05/07/20 18:57 Temperature 99.3 F Pulse Rate 73 Respiratory Rate 18 Blood Pressure 187/92 H Pulse Oximetry 97 MDM - Abdominal Pain MDM Narrative Medical decision making narrative: Severe obstipation. Manual disimpaction attempted and poorly tolerated. Mineral oil enema followed. He was unable to retain any of the enema. A bit more stool did come down into the rectum and was able to be extracted. Minimal results overall. Will try magnesium citrate and allow him to sit on a commode for a bit of time. Hopefully will get some movement and then can try another and mother will be more effective when we can get the catheter past the largest pulse of stool. 9pm patient has had a large successful very firm bowel movement followed by quite a bit of liquid stool. Symptoms are dramatically improved and belly pain has resolved. He is safe for home discharge Discharge Plan Departure Patient Disposition: Home Clinical Impression: Constipation Qualifiers: Constipation type: drug induced constipation Qualified Code(s): K59.03 - Drug induced constipation Instructions: DI for Constipation Activity Restrictions/Additional Instructions: I am glad you were able to successfully have a bowel movement I would not be surprised if you have liquid stool for a day or so as your bowels clean themselves out. I agree with the plan for avoiding narcotics to avoid this degree of constipation in the future. I wish you the best Prescriptions: No Action loperamide 2 MG capsule 2 mg PO PRN Qty: 0 RF: 0 tamsulosin [Flomax] 0.4 MG capsule,extended release 24hr 0.4 mg PO HS Qty: 0 RF: 0 glipizide 5 MG tablet 5 mg PO BIDAC Qty: 0 RF: 0 CA PANTOTHENATE/FOLIC ACID/VIT (MULTIVITAMIN) 1 tab PO QDAY Qty: 0 RF: 0 metoprolol tartrate 25 MG tablet 25 mg PO BID Qty: 0 RF: 0 ipratropium-albuterol [Combivent Respimat] 4 GM mist Qty: 0 RF: 0 simvastatin 40 MG tablet 80 mg PO QHS Qty: 0 RF: 0 gabapentin 100 MG capsule 200 mg PO/SL BID Qty: 0 RF: 0 insulin glargine [Lantus U-100 Insulin] 100 UNIT/1 ML solution 10 unit SQ BID Qty: 0 RF: 0 oxycodone-acetaminophen [Percocet] 5 MG/325 MG tablet 1 tab PO Q4HP PRNQty: 10 RF: 0 insulin aspart U-100 [Novolog U-100 Insulin aspart] 100 UNIT/1 ML solution 10 unit SQ ACHS Qty: 0 RF: 0 clotrimazole 1 % cream 1 gm Topical SEE INSTRUCTIONS Qty: 14.1 RF: 0 oxycodone-acetaminophen [Percocet] 5-325 mg tablet 1 - 2 tab PO Q6H PRN (Reason: pain) Qty: 10 RF: 0 cyclobenzaprine 10 mg tablet 10 mg PO BID PRN (Reason: muscle spasm) Qty: 7 RF: 0 lidocaine 5 % adhesive patch,medicated 1 patch TOP DAILY Qty: 30 RF: 0 prednisone 20 mg tablet 40 mg PO DAILY 5 Days Qty: 10 RF: 0 Referrals: Edgardo Devlin MD [Primary Care Provider] -
[2020-05-07] MEDS: MINERAL OIL 1 EACH ENEMA PR (19:55)
[2020-05-07] MEDS: LIDOCAINE 2% (UROJET) 5 ML GEL 10 ML (20:12)
--- NOTE | 2020-05-07 20:13 | PC.NURSE ---
premedicating w/ lidocaine jelly, disempacted a small amount of stool. Then gave mineral oil enema. Pt independently transferred from stretcher to commode. Feet up on stool to assist patient in moving stool.
[2020-05-07] MEDS: MAGNESIUM CITRATE 300 ML SOLUTION PO (20:16)
[2020-05-07 21:14] VITALS: BP 174/89; PULSE 88; RESP 18; O2SAT 97
== END 2020-05-07 21:15 | disposition home or self-care (01) ==
PROVIDERS: Emergency Provider Emergency Medicine; PCP Internal Medicine
DX: K59.03 Drug induced constipation (principal)
CPT/HCPCS: 99283

== ENCOUNTER → 2020-07-08 08:18 | Outpatient (CLI) | payer MEDICARE, SELFPAY ==
[2020-07-09 07:48] LABS: COVID19 Sendout Not Detected (Not Detect)
== END ==
PROVIDERS: PCP Internal Medicine; Visit Provider Physician Assistant
DX: Z11.59 Encounter for screening for other viral diseases (principal)
CPT/HCPCS: 87635

== ENCOUNTER 2020-07-12 14:44 | Observation (INO) | payer OTHER, SELFPAY ==
[2020-07-10 12:57] VITALS: BMI 39.1
[2020-07-11] VITALS (15 sets, daily range): BP systolic 119–199; BP diastolic 54–99; PULSE 47–77; RESP 7–20; TEMP 36.1–37.1; O2SAT 92–100; BMI 37.5
--- NOTE | 2020-07-11 | DI.RAD.S_ITS ---
PROCEDURE: XR LUMBAR SPINE 2-3V INDICATIONS: L23 REVISION L34 LAMINECTOMY TECHNIQUE: 3 views of the lumbar spine were acquired. COMPARISON: [facility], CR, XR LUMBAR SPINE 2 OR 3 VIEWS, 04/18/2020, 16:28. [facility], CT, CT LUMBAR SPINE WITHOUT CONTRAST, 04/18/2020, 18:37. FINDINGS: Bones: Intraoperative evaluation, with access port initially centered over L4-L5 and thereafter centered over L2-L3. The initial image at 9:01 a.m. Shows a metallic probe with rounded tip just above the L4-L5 intervertebral disc space, and the 3rd available image at 9:48 a.m. Shows the metallic probe overlying the posterior elements of L2-L3 at slightly below the axial level of L2-L3. Soft tissues: Overlying bowel gas pattern is normal. No suspicious soft tissue calcifications. Remote prior L5 laminectomy, better seen by CT scanning 04/18/20. IMPRESSION: The images available show 2 separate levels of localization, the earliest at the L4-5 disc level and later at the L2-L3 level. This is in reference to the CT scanning report for segmentation, 04/18/20. Remote prior L5 laminectomy. Dictated by: Dustin Chavarria M.D. on 07/11/2020 at 11:35 Approved by: Dustin Chavarria M.D. on 07/11/2020 at 11:45
[2020-07-11] MEDS: LACTATED RINGERS 1,000 ML 42 ML IV ×2 (07:30→09:56)
--- NOTE | 2020-07-11 07:32 | PM.PREOP ---
Pre-operative Note COVID-19 COVID-19 status: Negative Result date/Date tested (Pos, Neg/Pending): 07/08/20 Interval Note History & Physical reviewed/Exam performed by Physician: Yes Changes to H&P: No
[2020-07-11] MEDS: CEFAZOLIN 2 GM/100 ML FROZ.PIGGY IV ×3 (07:46→23:56)
[2020-07-11 07:53] LABS: BUN Creatinine Ratio 17.2 (6-22); Blood Urea Nitrogen 17 mg/dL (9-20); Calcium 9.1 mg/dL (8.4-10.2); Carbon Dioxide 28 mmol/L (22-32); Chloride 106 mmol/L (98-107); Estimated Glomerular Filt Rate > 60.0 mL/min (>60); Glucose 85 mg/dL (80-110); HEMOLYSIS < 15 (0-50); Sodium 140 mmol/L (137-145)
[2020-07-11] MEDS: BUPIVACAINE 0.25% (PF) 8 ML, fentaNYL 100 MCG INJ (08:23)
[2020-07-11] MEDS: SODIUM CHLORIDE 0.9% 1,000 ML, GENTAMICIN 80 MG IRR (08:24)
[2020-07-11] MEDS: THROMBIN (RECOMBINANT) 5,000 UNIT VIAL 5000 UNIT TOP (08:35)
[2020-07-11] MEDS: VANCOMYCIN 1,000 MG VIAL 1000 MG TOP (08:35)
--- NOTE | 2020-07-11 08:37 | SUR.OPER ---
Prone on spine table, head in foam head support, padded chest and pelvic supports, gel pad at knees, lower legs supported by pillows; nipples, genitalia and toes free of pressure, arms secured on foam padded arm boards at <90 degrees abduction. Tape over blanket at thigh secured to table.
[2020-07-11] MEDS: ACETAMINOPHEN IV 1,000 MG/100 ML VIAL 400 MG IV (09:40)
--- NOTE | 2020-07-11 10:46 | P.OP_ITS ---
Operative Date/Time/Diagnoses Date of procedure: 07/11/20 Time of procedure: 10:46 Pre-op diagnosis: Lumbar stenosis with radiculopathy Post-op diagnosis: same Procedure & Clinicians Procedure: L2-3 laminectomy Revision right L3-4 laminectomy Same procedure as scheduled: Yes Indications: [age] year old male with intractable pain from stenosis. They had failed conservative management and requested operative intervention. Risks and benefits of surgery were discussed and appropriate consents were obtained. Surgeon: Papo Hoff Livestock Counter: Mary Dolan Anesthesia Type: General Operative Notes Findings: None Closure Type: primary Specimen(s): none sent Estimated Blood Loss (mL): 20 Procedure in detail: Patient was brought to the operating room and intubated on the table. A time-out was performed. There were rolled over the well-padded prone position on the Navneet table. The back was prepped and draped in standard sterile fashion. Preoperative antibiotics were given. Using fluoroscopy, a 3 cm incision was made to the well-marked right of the midline at the L4-5 level. We used Bovie to come down to and split the fascia. We then used the [employer] MaXcess dilators with fluoroscopy and then opened our retractors on top of his previous laminectomy and mostly centered on the facet joint. The soft tissue was cleared off with Bovie, a marker was placed, an x- ray was taken to confirm positioning. We then brought in the microscope. A combination of high-speed bur and Kerrison were used to perform a revision right-sided hemilaminotomy and hemifacetectomy. We had to go through scar tissue that was mostly clearing up the foramen. I did not think we were quite high enough and we took another x-ray and continued working up cephalad until we had adequately decompressed the L4 nerve root as it was exiting out the foramen. The wound was irrigated. We then removed our retractor. Another 2.5 cm incision was made with fluoroscopy higher up. We used fluoroscopy to come down to the L2-3 interspace with our dilators and then opened up our retractor. We cleared the soft tissue and placed a marker and confirmed positioning at L2-3. We used the microscope. We used combination of bur and Kerrison rongeur is to perform right-sided laminectomy. We carefully pressed down on the dura and got it out of the way while we decompressed the central canal on the left side as well. We cleared out the neural foramen and facet hypertrophy until everything was open. The wound was irrigated. An epidural catheter was filled with 100 mcg of fentanyl and 8 mL of 0.25% Marcaine. The dura was carefully depressed under the laminotomy site and the catheter was advanced 6 cm cephalad. The retractor was removed and the fascia was closed. The epidural catheter was then injected without resistance and removed. Vancomycin powder was placed in the wounds. Superficial and skin were closed. Sterile dressing was placed. The patient was then rolled over, transferred to the stretcher, and brought to recovery room without complications. Complications: none Post-operative Condition: stable Disposition: PACU Plan for aftercare: Overnight admission. Up with PT as tolerated.
--- NOTE | 2020-07-11 11:12 | SUR.PHASEI ---
To PACU from OR with oral airway, beginning to arouse but does not yet respond to voice. No longer needing jaw thrust, weaning down O2 supplement. Skin warm and dry
--- NOTE | 2020-07-11 11:29 | SUR.PHASEI ---
floor notified that pt will be coming to AC in the near future (to allow for meal planning of staff). VSS, resp unlabored, no assist necessary
--- NOTE | 2020-07-11 11:48 | SUR.PHASEI ---
1146 Pt arouses easily to voice, assisted with turning, declines PO intake. VSS. taken to floor with glasses, dentures, and clothing bag by other RNs. Denies pain/nausea.
[2020-07-11] MEDS: LACTATED RINGERS 1,000 ML 125 ML IV ×2 (12:38→22:36)
[2020-07-11] MEDS: METOCLOPRAMIDE 10 MG/2 ML INJ IV (12:41)
[2020-07-11] MEDS: HYDROMORPHONE 0.5 MG INJ IV ×3 (12:41→20:41)
[2020-07-11] MEDS: ONDANSETRON 4 MG/2 ML INJ IV (13:24)
[2020-07-11] MEDS: hydrOXYzine pamoate 25 MG CAPSULE PO (15:06)
[2020-07-11] MEDS: OXYCODONE IR 5 MG TABLET 10 MG PO (15:07)
--- NOTE | 2020-07-11 15:24 | PC.NURSE ---
Patient IV Site and infiltrated when he came to floor> Patient had IV compazine and diluadid, but it did not go into the body since the IV site was infiltrated. Patient had dry heaving and nausea but no emesis. Patient complaining pain 8/10. New IV was started to give Zofran 4mg and 0.5 Dilaudid. Patient has some hypertensive 180's. Patient is on room air at 97%. Lung sounds are clear. After Zofran patient has no more complaints of nausea. Will advance diet as tolerated. Patient was able to tolerate crackers and jello. Patient has been yelling at staff from [facility], patient was re-directed regarding behaviour and directed to use his call light.
--- NOTE | 2020-07-11 16:02 | PT-IP ANOTE ---
PT order received. Attempted to see pt at 1500. Pt was very agitated and yelling out for pain 09/11. Pt was very [place] but this PT was able to obtain social hx. He refused participating PT d/t severe pain. Will reattempt tomorrow morning.
[2020-07-11] MEDS: METOPROLOL IR 25 MG TABLET PO (17:10)
[2020-07-11] MEDS: GABAPENTIN 100 MG CAPSULE 200 MG PO (20:40)
[2020-07-11] MEDS: ACETAMINOPHEN 325 MG TABLET 650 MG PO (20:40)
[2020-07-11] MEDS: SIMVASTATIN 40 MG TABLET 80 MG PO (20:41)
[2020-07-11] MEDS: TAMSULOSIN 0.4 MG CAPSULE PO (20:41)
[2020-07-11] MEDS: SENNOSIDES 8.6 MG TABLET 17.2 MG PO (20:42)
[2020-07-11] MEDS: MULTIVITAMIN 1 TABLET 1 TAB PO (20:42)
[2020-07-11] MEDS: DOCUSATE 100 MG CAPSULE PO (20:42)
[2020-07-11] MEDS: CYCLOBENZAPRINE 10 MG TABLET PO (20:42)
--- NOTE | 2020-07-11 22:01 | PC.NURSE ---
VSS, A and O x 4, able to stand at bedside to use urinal, eat, drink and sleep. Rates pain 4-5/10. Drsg is c/d/i. LS clear, HRR. +BTs.
--- NOTE | 2020-07-11 22:41 | PC.NURSE ---
Pt refused his foot SCDs as they make him 'nauseous'.
[2020-07-12] VITALS (12 sets, daily range): BP systolic 136–176; BP diastolic 52–89; PULSE 51–80; RESP 16–20; TEMP 36.7–37.9; O2SAT 93–99
[2020-07-12] MEDS: OXYCODONE IR 5 MG TABLET 10 MG PO ×5 (00:12→19:40)
[2020-07-12] MEDS: KETOROLAC 30 MG/ML VIAL IV (03:27)
[2020-07-12] MEDS: CYCLOBENZAPRINE 10 MG TABLET PO (03:27)
[2020-07-12] MEDS: HYDROMORPHONE 0.5 MG INJ IV (05:21)
[2020-07-12 05:26] LABS: Hematocrit 36.4 % (41-53)
--- NOTE | 2020-07-12 06:57 | PC.NURSE ---
Talking with patient about his care at home. States doors are too narrow for a walker, has no family to help him at home. Mentioned a possible friend who may help for a few meals. Adamant he does not wish to go to a SNF.
[2020-07-12] MEDS: METOPROLOL IR 25 MG TABLET PO ×2 (08:35→20:18)
[2020-07-12] MEDS: ACETAMINOPHEN 325 MG TABLET 650 MG PO (08:35)
[2020-07-12] MEDS: GABAPENTIN 100 MG CAPSULE 200 MG PO ×2 (08:36→20:18)
[2020-07-12] MEDS: hydrOXYzine pamoate 25 MG CAPSULE PO (08:36)
[2020-07-12] MEDS: MULTIVITAMIN 1 TABLET 1 TAB PO ×2 (08:36→20:18)
[2020-07-12] MEDS: DOCUSATE 100 MG CAPSULE PO ×2 (08:36→20:18)
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
--- NOTE | 2020-07-12 09:20 | PT.IIE ---
Current Diagnoses Spinal stenosis, lumbar region with neurogenic claudication (07/11/20) Other specified postprocedural states (07/11/20) Surgery Performed Operation Date: 07/11/20 07:45 Actual Procedures p Right L23 & Revision L45 Laminectomies - Papo Hoff MD Surgical History (Last Updated 07/10/20 @ 13:06 by Janet Diaz, RN) H/O laminectomy (Acute) History of carpal tunnel release (Acute) History of repair of hiatal hernia (Acute) Hx of cholecystectomy (Acute) Hx of thumb surgery (Acute) S/P trigger finger release (Acute) Medical History (Last Updated 07/10/20 @ 13:16 by Janet Diaz RN) Acute urinary retention (Inactive) Amputation of left index finger (Acute) Diabetes (Acute) Hepatitis C (Acute) History of ischemic middle cerebral artery stroke (Acute) Hyperlipidemia (Acute) Macular degeneration (Acute) Myocardial infarction (Acute) Obstipation (Acute 05/07/20) KASSIDY (obstructive sleep apnea) (Acute) TIA (transient ischemic attack) (Inactive 10/29/16) Physical Therapy Inpatient Evaluation/Re-Eval M1 PT/OT-IP Prior Functional Status Start: 07/11/20 13:51 Freq: NEEDED Status: Active Protocol: Document 07/12/20 11:05 AB (Rec: 07/12/20 11:38 AB [id number]) Medical Review Prior Functional Status Medical History Reviewed Yes Diet/Fluid Consistency Regular Communication able to make needs known Mobility and Gait pt stated he was independent for mobility but mostly homebound. He does furniture/ wall cruising for support and his RV doesnt have room for walker use. Pt usually use scooter for grocery shop. He also stated he has difficulty for long walk and he usually walks very slowly. Activities of Daily Living and IADL's independent for ADLs but tends to use furniture and wall for support. He was able to drive and he stated he prefer to have someone to cook for him in the future. Social History Household Members none Living Arrangements RV Number of Floors (Floors) One Floor Number of Stairs To Enter/Railing? 1 step entery; pt holds on to door frame for support Home Environment Standard Height Toilet Home Equipment Straight Cane,Hand Held Shower ,Physical Director,Grab Bars In Shower Employment Status Retired M2 PT-IP Current Condition Start: 07/11/20 13:51 Freq: NEEDED Status: Active Protocol: Document 07/12/20 11:05 AB (Rec: 07/12/20 11:38 AB [id number]) Physical Therapy Current Condition Current Condition Evaluation Date 07/12/20 Treatment Diagnosis s/p L2-3, L3-4 laminectomy; difficulty in walking Onset Date 07/11/20 Precautions Lumbar Precautions Log Roll,No Twisting,Limit Bending,Lifting Restriction of 10 lbs,Gait Belt above Incisional Area M3 PT-IP Subjective Start: 07/11/20 13:51 Freq: NEEDED Status: Active Protocol: Document 07/12/20 11:05 AB (Rec: 07/12/20 11:38 AB [id number]) Subjective Physical Therapy Visit Type Type Initial Evaluation Visit Start Time 09:20 Visit Stop Time 09:55 Total Visit Minutes 35 Number of CARD DEALER Visits 0 Physical Therapy Visit Comments Patient Comments pt is agreeable to do PT Therapy Pain Assessment Pain When Pain Assessed At Rest Pain Present Pain Present Pain Reported Location Back Scale Used scale not provided Pain Management Techniques Distraction,Re-positioning, Timing of Activity with Medications M4 PT-IP Mobility and Gait Start: 07/11/20 13:51 Freq: NEEDED Status: Active Protocol: Document 07/12/20 11:05 AB (Rec: 07/12/20 11:38 AB [id number]) PT-Bed Mobility Assessment Rolling Type of Rolling Log Rolling Level of Assist Standby Assistance Supine to Sit Supine to Sit Standby Assistance,Bedrails Sit to Supine Sit to Supine Standby Assistance,Bedrails Scooting Scooting to Edge of Bed Standby Assistance PT-Transfer Assessment Sit to and From Stand Sit to and from Stand Standby Assistance,1 Person Assistance Equipment Transfer Assistive Device Gait Belt,Straight Cane,Front Wheeled Walker Orthotic/Prosthetic Devices or Brace: No Transfers Transfer Destination Bed,Chair,Toilet Transfer Technique ambulated Transfer Ability Level of Assist Standby Assistance,1 Person Assistance Comments Mobility Comments checked on pt and pt was about to get out from the toilet and ambulated using fWW to the chair sBA. educated pt on back precautions and log roll bed mobility. pt stated that he does not have a FWW and does not want one since it will not fit in his house and stated that he has lots of things at home that he can hold on to. pt has a SPC and is agreeable to at least walk with SPC with PT. ambulated in room using SPC SBA and holding on to bed/wall for support. completed bed mobility supine <>sit using bed rail SBA. pt stated that he has his side table to hold on to and push from at home. pt ambulated more in his room, completed up/down step stool and holding on to door frame for support SBA. pt ambulated back to chair SBA using SPC. Left pt with OT. Gait Assessment Gait Gait Assistance Required: Standby Assistance Distance (Feet) 30 Able to Maintain Weight Bearing Status Yes During Gait Assistive Devices Assistive Device Gait Belt,Straight Cane Orthotic/Prosthetic Devices or Brace: No Factors Limiting Gait Function Factors Limiting Gait Function Decreased Strength,Limited Range of Motion,Pain,Poor Balance,Poor Safety Awareness Stair Climbing Assessment Evaluation Level of Assist On Stairs Standby Assistance,1 Person Assistance Technique/Endurance Stair Climbing Direction Ascend and Descend Stair Climbing Technique Step to Step Number of Steps Climbed 1 Query Text: Stair Climbing Set # Repetitions (reps) 1 Comments Stair Climbing Comments holding on to door frame for support PT-Balance Assessment Sitting Balance and Reactions Static Sitting Balance Ability Good Dynamic Sitting Balance Ability Good Standing Balance and Reactions Static Standing Balance Ability Fair Dynamic Standing Balance Ability Fair Device Used SPC M5 PT-IP Objective Assessments Start: 07/11/20 13:51 Freq: NEEDED Status: Active Protocol: Document 07/12/20 11:05 AB (Rec: 07/12/20 11:38 AB [id number]) Orientation Orientation/Cognition Level of Alertness Alert Orientation Name,Age,Place,Situation Language Function Ability No Deficits Noted Safety Awareness Decreased Safety Awareness Memory Description No Deficits Noted Gross Range of Motion Lower Extremity ROM Assessment Within Functional Limits Strength Lower Extremity Strength Assessment Right Impaired Hip 3+/5 Knee 3+/5 Muscle Tone Muscle Tone WNL Yes M6 PT-IP Treatment Start: 07/11/20 13:51 Freq: NEEDED Status: Active Protocol: Document 07/12/20 11:05 AB (Rec: 07/12/20 11:38 AB [id number]) Physical Therapy Treatment Education Education Provided Precautions,Weight Bearing Status,Post-Op Packet,Safety M7 PT-IP Assessment and Plan Start: 07/11/20 13:51 Freq: NEEDED Status: Active Protocol: Document 07/12/20 11:05 AB (Rec: 07/12/20 11:38 AB [id number]) PT Summary Assessment and Plan Potential Rehabilitation Potential Good Status of Condition at Evaluation Stable Summary Impairments Pain,ROM,Strength,Balance, Coordination,Sensation,Tone, Cognition,Bed Mobility, Transfers,Gait,Activity Tolerance Assessment Summary pt requiring SBA with mobility and ambulation using SPC but stated that he does not need to use his SPC since he has a small RV and has lots of things he can hold on to for support. pt directs his own care but has shown to be safe and without LOB during mobility sith PT. pt may go home when medically stable. Goals Bed Mobility Goal Independent Transfer Goal Independent,Cane Gait Goal Independent,Cane Gait Distance 50 Other Goals ambulation without AD SBA 50 ft Days to Meet Goals 5 Frequency of Treatment Frequency Of Treatment Twice a Day Treatment Plan Physical Therapy Treatment Plan Bed Mobility Training,Transfer Training,Gait Training, Therapeutic Exercise,Balance Retraining,Post Op Education, Discharge Planning,Hot or Cold Pack,Neuromuscular Re-ed, Coordination Retraining Recommendations To Nursing Amount of Assist Needed Standby Assistance Discharge Recommendations PT Discharge Recommendations Home,Home Health Transportation Needs at Discharge Private Vehicle
[2020-07-12] MEDS: INSULIN ASPART 100 UNIT/ML INSULN PEN SUBCUT ×2 (09:48→12:54)
[2020-07-12] MEDS: INSULIN GLARGINE 100 UNIT/ML 3ML PEN 55 UNIT SUBCUT (09:48)
[2020-07-12] MEDS: INSULIN ASPART 100 UNIT/ML 10ML VIAL 30 UNIT SUBCUT ×2 (09:49→12:54)
--- NOTE | 2020-07-12 09:58 | OT.IP.EVAL ---
Current Diagnoses Spinal stenosis, lumbar region with neurogenic claudication (07/11/20) Other specified postprocedural states (07/11/20) Surgery Performed Operation Date: 07/11/20 07:45 Actual Procedures p Right L23 & Revision L45 Laminectomies - Papo Hoff MD Past Medical History (Last Updated 07/10/20 @ 13:16 by Janet Diaz, RN) Acute urinary retention (Inactive) Amputation of left index finger (Acute) Diabetes (Acute) Hepatitis C (Acute) History of ischemic middle cerebral artery stroke (Acute) Hyperlipidemia (Acute) Macular degeneration (Acute) Myocardial infarction (Acute) Obstipation (Acute 05/07/20) KASSIDY (obstructive sleep apnea) (Acute) TIA (transient ischemic attack) (Inactive 10/29/16) Surgical History (Last Updated 07/10/20 @ 13:06 by Janet Diaz RN) H/O laminectomy (Acute) History of carpal tunnel release (Acute) History of repair of hiatal hernia (Acute) Hx of cholecystectomy (Acute) Hx of thumb surgery (Acute) S/P trigger finger release (Acute) Occupational Therapy Inpatient Evaluation/Re-Eval M1 PT/OT-IP Prior Functional Status Start: 07/11/20 13:51 Freq: NEEDED Status: Active Protocol: Document 07/12/20 11:24 CGR (Rec: 07/12/20 11:40 CGR [email or web address]) Medical Review Prior Functional Status Medical History Reviewed Yes Diet/Fluid Consistency Regular Communication no deficits noted but with AMBLER Mobility and Gait pt stated he was independent for mobility but mostly homebound. He does furniture/ wall cruising for support and his RV doesnt have room for walker use. Pt usually use scooter for grocery shop. He also stated he has difficulty for long walk and he usually walks very slowly. Activities of Daily Living and IADL's independent for ADLs but tends to use furniture and wall for support. He was able to drive and he stated he prefer to have someone to cook for him in the future. Social History Household Members none Living Arrangements RV Number of Floors (Floors) One Floor Number of Stairs To Enter/Railing? 1 step to enter. Pt uses the door to hold himself as he enters. Home Environment Standard Height Toilet,Walk in Shower Home Equipment Straight Cane,Hand Held Shower ,Set O Type Operator,Sock Aid,Grab Bars In Shower Employment Status Retired M2 OT-IP Current Condition Start: 07/12/20 09:19 Freq: Status: Active Protocol: Document 07/12/20 11:24 CGR (Rec: 07/12/20 11:40 CGR [email or web address]) Occupational Therapy Current Condition Current Condition Evaluation Date 07/12/20 Treatment Diagnosis L2-4 lami and revision Diagnosis Onset Date 07/11/20 M3 OT- IP Subjective and Pain Start: 07/12/20 09:19 Freq: Status: Active Protocol: Document 07/12/20 11:24 CGR (Rec: 07/12/20 11:40 CGR [email or web address]) OT- Subjective Occupational Therapy Visit Type Type Initial Evaluation Visit Start Time 09:29 Visit Stop Time 09:58 Total Visit Minutes 29 Notes Partial co-treat with P.T. Occupational Therapy Visit Comments Patient Comments I don't have room for a walker in my RV. OT Pain Assessment Pain When Pain Assessed At Rest Pain Present Pain Present Pain Reported Location Back Intensity 4 Scale Used Numeric (0 - 10) Management Techniques Distraction,Modification of Treatment,Re-positioning M4 OT- IP ADL's Start: 07/12/20 09:19 Freq: Status: Active Protocol: Document 07/12/20 11:24 CGR (Rec: 07/12/20 11:40 CGR [email or web address]) OT [id number] Comments OT Self-Feeding Comments not meal time but drinks coffee without difficulty OT ADL-Grooming Comments OT Grooming Comments Pt declined OT ADL-Oral Care Comments Oral Care Comments Pt declined OT ADL-Dressing Comments OT Dressing Comments pt declined to demonstrate but states that it isn't a problem. Pt uses a sock aid for donning socks and states that he sits on the edge of the bed to don underwear and pants and he doesn't have to bend to do it. OT ADL-Toileting Comments OT Toileting Comments Pt declined to demonstrate OT ADL-Bathing Comments OT Bathing Comments Not performed M5 OT- IP IADL's Start: 07/12/20 09:19 Freq: Status: Active Protocol: Document 07/12/20 11:24 CGR (Rec: 07/12/20 11:40 CGR [email or web address]) OT-Instrumental Activities of Daily Living Deficits IADL Deficits Identified Deficits Home Safety Awareness Awareness of Need for Assistance at Home Decreased Awareness Ability to Problem Solve Emergency Able to Problem Solve Situations Medication Management Medication Management No Deficits Identified Money Management Money Management No Deficits Identified Meal Preparation Meal Preparation Comments Concern for pt's ability to do meal prep and shopping. Dietary Manager Dietary Manager No Deficits Identified Driving Driving Concerns Identified Regarding Safety M6 OT- IP Functional Cognition Start: 07/12/20 09:19 Freq: Status: Active Protocol: Document 07/12/20 11:24 CGR (Rec: 07/12/20 11:40 CGR [email or web address]) Cognitive Factors Limiting Selfcare Function Cognitive Ability Level of Alertness Alert Patient Orientation Name,Age,Birthday,Month,Date, Year,Day of Week,Place, Situation Attention Span Ability Capable of Focused Attention, Capable of Sustained Attention Ability to Follow Commands Able to Follow One Step Commands with Increased Time, Able to Follow One Step Commands with Repetition OT- Vision and Hearing OT- Hearing Assessment OT- Hearing Assessment Hearing Impaired OT- Vision Assessment Vision History Macular Degeneration Visual Acuity Glasses All The Time Visual Attentiveness WFL Occular Pursuits WFL Visual Convergence WFL Vision Assessment Comments Pt with extreme nastigmus for vertical and horizontal occular pursuits but state that he is not dizzy. Pt wears bifocals but states difficulty reading d/t macular degeneration. M7 OT- IP Mobility and Balance Start: 07/12/20 09:19 Freq: Status: Active Protocol: Document 07/12/20 11:24 CGR (Rec: 07/12/20 11:40 CGR [email or web address]) OT- Bed Mobility Assessment Rolling Type of Rolling Roll to Left Level of Assistance Standby Assistance Supine to Sit Supine to Sit Assist Standby Assistance Sit to Supine Sit to Supine Assist Standby Assistance Scooting Scooting to Edge of Bed Standby Assistance OT-Transfer Assessment Sit to and From Stand Sit to and from Stand Standby Assistance Transfers Transfer Ability Standby Assistance Technique Transfer Destination Bed,Chair Transfer Technique Stand Step Pivot Devices Transfer Assistive Devices Gait Belt,Straight Cane Comments Mobility Comments mobility around the room. OT- Balance Assessment Sitting Balance and Reactions Static Sitting Balance Ability Normal Dynamic Sitting Balance Ability Good M8 OT- IP Objective Assessments Start: 07/12/20 09:19 Freq: Status: Active Protocol: Document 07/12/20 11:24 CGR (Rec: 07/12/20 11:40 CGR [email or web address]) OT Gross Range of Motion Upper Extremity Range of Motion Assessment Within Functional Limits OT Strength Upper Extremity Strength Assessment Within Functional Limits Comments Strength Comments grossly 4+/5 OT- Coordination Assessment Upper Extremity Finger to Nose Test Within Functional Limits Finger Tapping Test Within Functional Limits OT-Muscle Tone Assessment Muscle Tone WNL Yes OT Sensation Assessment Edema Edema Absent M9 OT- IP Assessment and Plan Start: 07/12/20 09:19 Freq: Status: Active Protocol: Document 07/12/20 11:24 CGR (Rec: 07/12/20 11:40 CGR [email or web address]) OT Summary Assessment and Plan Potential Rehabilitation Potential Good Analytic Complexity at Evaluation Low Summary OT Impairments Pain,Balance,Activity Tolerance Progress Towards Goals Safe For Discharge,Goals Met Assessment Summary Pt presents as a low complexity evaluation s/p L2-4 lami and revision. Pt demonstrates SBA mobility and indicates that he is able to do his ADLs at home in a small space with limited need for mobility. Frequency of Treatment Frequency Of Treatment Discharge Discharge Recommendations OT Discharge Recommendations Home Transportation Needs at Discharge Private Vehicle
--- NOTE | 2020-07-12 10:21 | PM.PNPO.1 ---
Subjective Subjective Date Patient Seen: 07/12/20 Time Patient Seen: 10:21 Interval history: POD #1 s/p L2-3 laminectomy, and Revision right L3-[address] Hoff. He worked with PT this morning. His BS this AM was 136. He has been taking Oxycodone prior to surgery and will need a refill. Exam Vital Signs (past 8 hours): - 07/12/20 03:00 07/12/20 07:49 07/12/20 08:00 Temperature 98.8 F Pulse Rate 80 64 59 L Respiratory Rate 16 18 18 Blood Pressure 174/89 H 145/75 H Pulse Oximetry 96 93 99 07/12/20 08:51 Temperature 98.8 F Pulse Rate Respiratory Rate Blood Pressure Pulse Oximetry Oxygen Delivery Method Room Air Oxygen Flow Rate 0 Narrative Exam Narrative: Patient is sitting at bedside chair no acute distress. He is alert orient x3. Calves are soft, compressible, nontender bilaterally. Dorsalis pedis pulses 2+. Dressing on back is CDI. Objective Labs Result Diagrams: 07/12/20 05:05 07/11/20 07:15 Labs: Laboratory Results - last 24 hr 07/12/20 05:05 Hgb 12.0 L Hct 36.4 L Assessment & Plan Post-op Postoperative Procedures: Procedures Operation Date: 07/11/20 07:45 Actual Procedures Side Surgeon p Right L23 & Revision L45 Laminectomies Papo Hoff MD Patient will continue to mobilize with physical therapy. He does live at home alone and may need home health for his recovery after surgery. The goal will be to discharge home today if he is mobilizing safely with adequate pain control. Quality VTE Deep Vein Thrombosis/Pulmonary Embolism Present on Admission: No
[2020-07-12] MEDS: BISACODYL 10 MG SUPP PR (13:10)
--- NOTE | 2020-07-12 13:13 | PC.NURSE ---
Addendum entered by Kolton Collado R.N. 07/12/20 14:38: Per verbal order from Mary Strickland'Brien, ok for patient to stay if he was not ready to discharge today. Discharge order cancelled. Patient refuses to go home unitl he has a BM. Original Note: Patient 03/12 out of pain today, brought pain level down to 2-3 w/ 10mg Oxycodone PRN. Patient denies nausea today, bowel tones active in all qudrants, VSS. Patient stated it's the hospitals fault that I am constipated, I reminded patient about the bowel regimen he was on including senna, and Dos. Patient was given Dulcolax suppository at 1310. Patient was concerned about discharging home until he had a BM.
--- NOTE | 2020-07-12 15:30 | PT.IPTN ---
Current Diagnoses Spinal stenosis, lumbar region with neurogenic claudication (07/11/20) Other specified postprocedural states (07/11/20) Surgery Performed Operation Date: 07/11/20 07:45 Actual Procedures p Right L23 & Revision L45 Laminectomies - Papo Hoff MD Physical Therapy Treatment Note M2 PT-IP Current Condition Start: 07/11/20 13:51 Freq: NEEDED Status: Active Protocol: Document 07/12/20 11:05 AB (Rec: 07/12/20 11:38 AB [id number]) Physical Therapy Current Condition Current Condition Evaluation Date 07/12/20 Treatment Diagnosis s/p L2-3, L3-4 laminectomy; difficulty in walking Onset Date 07/11/20 Precautions Lumbar Precautions Log Roll,No Twisting,Limit Bending,Lifting Restriction of 10 lbs,Gait Belt above Incisional Area M3 PT-IP Subjective Start: 07/11/20 13:51 Freq: NEEDED Status: Active Protocol: Document 07/12/20 15:30 AB (Rec: 07/12/20 15:52 AB [id number]) Subjective Physical Therapy Visit Type Type Treatment Note Visit Start Time 15:30 Visit Stop Time 15:41 Total Visit Minutes 11 Number of PATTERN LEASE INSPECTOR Visits 0 Therapy Pain Assessment Pain When Pain Assessed At Rest Pain Present Pain Present Pain Reported Location Back Scale Used scale not stated but stated a lot of pain M4 PT-IP Mobility and Gait Start: 07/11/20 13:51 Freq: NEEDED Status: Active Protocol: Document 07/12/20 15:30 AB (Rec: 07/12/20 15:52 AB [id number]) PT-Bed Mobility Assessment Supine to Sit Supine to Sit Standby Assistance,Head of Bed Elevated PT-Transfer Assessment Sit to and From Stand Sit to and from Stand Standby Assistance Equipment Transfer Assistive Device Gait Belt,Straight Cane Orthotic/Prosthetic Devices or Brace: No Transfers Transfer Destination Toilet Transfer Technique ambulated using SPC Transfer Ability Level of Assist Standby Assistance,1 Person Assistance Comments Mobility Comments Pt has a d/c this morning but stated that pt will be staying for tonight. NAC stated that pt wanted to be able to move his bowels before he goes home and will be staying for tonight. Checked on pt and agreed to do some PT. stated that he will not walk too far. pt completed supine to sit with HOB elevated SBA. pt just got up without waiting for PT. completed sit to stand SBA and attempted to ambulate in room but stated that he has to use the toilet. ambulated using SPC and reaching for wall/door for support SBA. call light given to pt to ask for assistance when ready. nurse informed. Gait Assessment Gait Gait Assistance Required: Standby Assistance Distance (Feet) 8 Able to Maintain Weight Bearing Status Yes During Gait Assistive Devices Assistive Device Gait Belt,Straight Cane Orthotic/Prosthetic Devices or Brace: No Gait Deviations General Gait Pattern Antalgic,Ataxic,Decreased Stride Length,Decreased Feet Clearance,Step-to Gait,Wide Based Gait Factors Limiting Gait Function Factors Limiting Gait Function Decreased Strength,Limited Range of Motion,Pain,Poor Balance,Poor Safety Awareness M5 PT-IP Objective Assessments Start: 07/11/20 13:51 Freq: NEEDED Status: Active Protocol: Document 07/12/20 11:05 AB (Rec: 07/12/20 11:38 AB [id number]) Orientation Orientation/Cognition Level of Alertness Alert Orientation Name,Age,Place,Situation Language Function Ability No Deficits Noted Safety Awareness Decreased Safety Awareness Memory Description No Deficits Noted Gross Range of Motion Lower Extremity ROM Assessment Within Functional Limits Strength Lower Extremity Strength Assessment Right Impaired Hip 3+/5 Knee 3+/5 Muscle Tone Muscle Tone WNL Yes M6 PT-IP Treatment Start: 07/11/20 13:51 Freq: NEEDED Status: Active Protocol: Document 07/12/20 15:30 AB (Rec: 07/12/20 15:52 AB [id number]) Physical Therapy Treatment Education Education Provided Safety M7 PT-IP Assessment and Plan Start: 07/11/20 13:51 Freq: NEEDED Status: Active Protocol: Document 07/12/20 15:30 AB (Rec: 07/12/20 15:52 AB [id number]) PT Summary Assessment and Plan Potential Rehabilitation Potential Fair Summary Impairments Pain,ROM,Strength,Balance, Coordination,Sensation,Tone, Cognition,Bed Mobility, Transfers,Gait,Activity Tolerance Progress Towards Goals Slow Progress due to Pain Assessment Summary pt requiring SBA with mobility and directs his own care. pt lives alone and does not want to use a FWW or a SPC for mobility on d/c. stated that FWW will not fit his house. pt does have a SPC and agreed to use SPC during PT tx. pt usually just furniture cruise at home and is home bound . pt will benefit from homehealth PT. Goals Bed Mobility Goal Independent Transfer Goal Independent,Cane Gait Goal Independent,Cane Gait Distance 50 Other Goals ambulation without AD SBA 50 ft up/down 1 step mod I Days to Meet Goals 5 Frequency of Treatment Frequency Of Treatment Twice a Day Treatment Plan Physical Therapy Treatment Plan Bed Mobility Training,Transfer Training,Gait Training, Therapeutic Exercise,Balance Retraining,Post Op Education, Discharge Planning,Hot or Cold Pack,Neuromuscular Re-ed, Coordination Retraining Recommendations To Nursing Amount of Assist Needed Standby Assistance Discharge Recommendations PT Discharge Recommendations Home,Home Health Transportation Needs at Discharge Private Vehicle
[2020-07-12] MEDS: TAMSULOSIN 0.4 MG CAPSULE PO (20:18)
[2020-07-12] MEDS: SENNOSIDES 8.6 MG TABLET 17.2 MG PO (20:18)
[2020-07-12] MEDS: SIMVASTATIN 40 MG TABLET 80 MG PO (20:18)
[2020-07-12] MEDS: SODIUM CHLORIDE 0.9% FLUSH 10 ML IV (20:18)
[2020-07-13] MEDS: OXYCODONE IR 5 MG TABLET 10 MG PO ×2 (02:16→05:34)
[2020-07-13 05:37] VITALS: BP 145/73; PULSE 65; RESP 16; TEMP 37.4; O2SAT 95
[2020-07-13 07:42] VITALS: PULSE 58; RESP 16; O2SAT 95
[2020-07-13 08:00] VITALS: BP 169/80; PULSE 63; RESP 20; TEMP 37.6; O2SAT 96
[2020-07-13] MEDS: MULTIVITAMIN 1 TABLET 1 TAB PO (08:24)
[2020-07-13] MEDS: GABAPENTIN 100 MG CAPSULE 200 MG PO (08:24)
[2020-07-13] MEDS: DOCUSATE 100 MG CAPSULE PO (08:24)
[2020-07-13] MEDS: METOPROLOL IR 25 MG TABLET PO (08:24)
[2020-07-13] MEDS: INSULIN GLARGINE 100 UNIT/ML 3ML PEN 55 UNIT SUBCUT (08:25)
[2020-07-13] MEDS: INSULIN ASPART 100 UNIT/ML 10ML VIAL 30 UNIT SUBCUT (08:25)
[2020-07-13] MEDS: INSULIN ASPART 100 UNIT/ML INSULN PEN SUBCUT (08:25)
--- NOTE | 2020-07-13 08:35 | PM.PNPO.1 ---
Subjective Subjective Date Patient Seen: 07/13/20 Time Patient Seen: 08:35 Interval history: He is doing much better. Using much less pain medication. He had a small bowel movement. Back is doing well. Leg feels good. Exam Vital Signs (past 8 hours): - 07/13/20 05:37 07/13/20 07:42 Temperature 99.3 F Pulse Rate 65 58 L Respiratory Rate 16 16 Blood Pressure 145/73 H Pulse Oximetry 95 95 Oxygen Delivery Method Room Air Oxygen Flow Rate 0 Const Orientation: alert and oriented x3 Back/Spine/Pelvis Other: Mild drainage. 5/5 motor both lower extremities Objective Labs Result Diagrams: 07/12/20 05:05 07/11/20 07:15 Assessment & Plan Post-op Postoperative Procedures: Procedures Operation Date: 07/11/20 07:45 Actual Procedures Side Surgeon p Right L23 & Revision L45 Laminectomies Papo Hoff MD he is doing very well. He feels very comfortable with going home today and we will discharge him. Quality VTE Deep Vein Thrombosis/Pulmonary Embolism Present on Admission: No
--- NOTE | 2020-07-13 08:36 | PM.DS.1 ---
History of Present Illness History of Present Illness Date Patient Seen: 07/13/20 Time Patient Seen: 08:36 Chief complaint: RIGHT LUMBAR *OPB* Narrative: 74-year-old male with lumbar stenosis. He has a history of an L4-5 laminectomy many years ago. Recently he has been through epidural injections and pain medication with no relief. Discharge Providers Provider Discharge Date: 07/13/20 Primary care physician: Edgardo Devlin MD Consults: 07/11/20 07:10 Consult to Respiratory Therapy Evaluate & Treat Comment: Physician Instructions: Evaluate and treat 07/11/20 12:06 Consult to Occupational Therapy Evaluate & Treat Comment: Physician Instructions: Evaluate and treat Consult to Physical Therapy Evaluate & Treat Comment: Physician Instructions: Evaluate and Treat Discharge provider: Papo Hoff MD Summary Hospital Course Discharge Diagnosis: Lumbar stenosis with radiculopathy Hospital Course: He was brought to the operating room on 07/11/2020 where he underwent a L2-3 laminectomy and revision L4-5 laminectomy. He had significant pain the 1st day but it gradually became more manageable with just oral pain medication. He was quite concerned that he should have a bowel movement prior to discharge and did have 1 on postoperative day 2. By then he was mobilizing well with physical therapy and his pain was under good control. Status at Discharge Cognitive/behavioral status at discharge: oriented Functional status at discharge: uses cane/walker Overall status at discharge: patient is progressing back to baseline Exam Vital Signs (past 8 hours): - 07/13/20 05:37 07/13/20 07:42 Temperature 99.3 F Pulse Rate 65 58 L Respiratory Rate 16 16 Blood Pressure 145/73 H Pulse Oximetry 95 95 Oxygen Delivery Method Room Air Oxygen Flow Rate 0 Const Orientation: alert and oriented x3 Back/Spine/Pelvis Other: Mild drainage. 5/5 motor both lower extremities Objective Labs Result Diagrams: 07/12/20 05:05 07/11/20 07:15 Discharge Assessment & Plan Assessment and Plan Assessment: Lumbar stenosis with radiculopathy, now status post laminectomies. Plan of Treatment: Discharge home today. Discharge Plan Discharge Plan Patient Disposition: Home Discharge comment: Follow-up 1.5 weeks Discharge Med Rec/Prescriptions Prescriptions: New acetaminophen 325 mg Tablet 650 mg PO Q6HR PRN (Reason: Pain, Mild (1-3)) Qty: 20 RF: 0 docusate sodium [DOK] 100 mg Capsule 100 mg PO BID Qty: 20 RF: 0 oxycodone 10 mg tablet 10 mg PO Q4H PRN (Reason: pain) Qty: 40 RF: 0 Continued tamsulosin [Flomax] 0.4 MG capsule,extended release 24hr 0.4 mg PO HS Qty: 0 RF: 0 multivitamin Capsule 1 cap PO BID Qty: 0 RF: 0 metoprolol tartrate 25 MG tablet 25 mg PO BID Qty: 0 RF: 0 Combivent Respimat 4 GM mist 1 puff inhalation PRN PRN (Reason: Wheezing) Qty: 0 RF: 0 simvastatin 40 MG tablet 80 mg PO QHS Qty: 0 RF: 0 gabapentin 100 MG capsule 200 mg PO/SL BID Qty: 0 RF: 0 Lantus U-100 Insulin 100 UNIT/1 ML solution 55 unit SQ DAILY Qty: 0 RF: 0 insulin aspart U-100 [Novolog U-100 Insulin aspart] 100 UNIT/1 ML solution 30 unit SQ AC Qty: 0 RF: 0 clotrimazole 1 % cream 1 gm Topical SEE INSTRUCTIONS Qty: 14.1 RF: 0 cyclobenzaprine 10 mg tablet 10 mg PO BID PRN (Reason: muscle spasm) Qty: 7 RF: 0 Ozempic 0.25 mg or 0.5 mg(2 mg/1.5 mL) Pen Injector 0.5 mg SUBCUT QWEEK RF: 0 Discontinued oxycodone-acetaminophen [Percocet] 5 MG/325 MG tablet 1 tab PO Q4HP PRN (Reason: Pain) RF: 0 Follow up/Referrals: Papo Hoff MD [Physician] - 2 Weeks Discharge Orders: Discharge (Order); Ordered 07/13/20 Ordered By: Papo Hoff Provider Discharge Instructions Diet: Carb-consistent/Diabetic Activity: No excessive bending, lifting, or twisting. Skin/Wound/Dressing Care Report to your healthcare provider any signs of infection, such as:: chills, fever, night sweats, increased pain, unusual drainage and unusual redness Dressing: May shower with current dressing. Five days after surgery, on Tuesday, you may remove the dressing and shower over the incision area. Please replace this with a clean dressing when done. Visit Report/Discharge Packet Instructions: DI for Laminectomy Stand Alone Forms: Surgery Discharge Discharge Data Primary Care Provider: Edgardo Devlin Attending Provider: Papo Hoff VTE Deep Vein Thrombosis/Pulmonary Embolism Present on Admission: No
--- NOTE | 2020-07-13 08:47 | CM.DPC ---
Addendum entered by Brittany Holguin R.N. 07/13/20 09:38: Patient has been given option of taxi/transportation, but wants to drive home, since he can't peanut picker his car. Dr. Hoff is aware. Original Note: DCP Cont: Dr. Hoff is here discharging patient home today. He will drive himself. Discussed home health, but patient may not be compliant or want others coming into his home. Patient had BM yesterday, and is aware of discharge orders. P: Patient is discharging home today with no needs. Brittany Holguin RN/Communications Professional
--- NOTE | 2020-07-13 09:34 | PC.NURSE ---
Addendum entered by Kolton Collado R.N. 07/13/20 10:19: Patient was encouraged to have someone drive him home or take a taxi by staff and care management, but patient refused. Addendum entered by Kolton Collado R.N. 07/13/20 09:37: Patient educated about the use of walker and hand rails, Patient left facility via private vehicle and drove himself home. Dr. Hoff aware. Patient verbalized understanding to all discharge instructions. Original Note: Patient educated about discharge and given discharge instructions for medications/activity/diet/ss of stroke/ fall precautions. Patient was given paper prescription for Oxycodone to bring to pharmacy. Patient given coversite dressing change and extra dressings for discharge.
== END 2020-07-13 09:37 | disposition home or self-care (01) ==
LOC: OR 07-14 07:58 → AC 07-14 07:58
PROVIDERS: Anesthesiology; Admitting Provider Orthopaedic Surgery; PCP Internal Medicine; Referring Provider Orthopaedic Surgery; Visit Provider Orthopaedic Surgery
PROC: (CPT 63047; principal; 2020-07-11 07:45)
DX: M48.062 Spinal stenosis, lumbar region with neurogenic claudication (principal); M54.16 Radiculopathy, lumbar region; Z98.890 Other specified postprocedural states; G47.33 Obstructive sleep apnea (adult) (pediatric); Z86.73 Personal history of transient ischemic attack (TIA), and cerebral infarction without residual deficits; I25.2 Old myocardial infarction; J44.9 Chronic obstructive pulmonary disease, unspecified
CPT/HCPCS: 63047; 63042; 36415; 36592; 72100; 76000; 80048; 82962; 85014; 85018; 94760; 97161; 97165; 97530; 97535; G0378; J0131; J0330; J0690; J1170; J1885; J2405; J2704; J2765; J3010

== ENCOUNTER 2020-07-16 10:00 | Emergency (ER) | payer MEDICARE, OTHER, SELFPAY ==
[2020-07-11 12:46] VITALS: BMI 37.5
[2020-07-16 10:10] VITALS: BP 165/81; PULSE 67; RESP 15; TEMP 36.4; O2SAT 95
--- NOTE | 2020-07-16 10:30 | ED.SKABFB ---
HPI - Skin/Abscess/Foreign Bdy General Chief complaint: Skin/Abscess/Foreign Body Stated complaint: Needs Bandage changed on middle of back Time Seen by Provider: 07/16/20 10:18 Source: patient Mode of arrival: Wheelchair Limitations: no limitations History of Present Illness HPI narrative: Patient is a 74-year-old male who presents for bandage change. He is postop laminectomy day number 5. He was discharged from the hospital 3 days ago and states that he has no one to help him or changes bandage. He has no complaints except that he cannot read fine print after anesthesia. He denies any blacking or loss of vision he says he can needed dry he just can not see small words to rate so he has not read his discharge instructions. He denies any fever or chills. Related Data Home Medications Medication Instructions Recorded Confirmed multivitamin 1 cap PO BID #0 03/22/13 07/11/20 tamsulosin [Flomax] 0.4 mg PO HS #0 03/22/13 07/11/20 Combivent Respimat 1 puff INHALATION PRN PRN #0 08/25/16 07/11/20 gabapentin 200 mg PO/SL BID #0 08/25/16 07/11/20 metoprolol tartrate 25 mg PO BID #0 08/25/16 07/11/20 simvastatin 80 mg PO QHS #0 08/25/16 07/11/20 Lantus U-100 Insulin 55 unit SQ DAILY #0 11/01/16 07/11/20 insulin aspart U-100 [Novolog 30 unit SQ AC #0 12/06/16 07/11/20 U-100 Insulin aspart] Ozempic 0.5 mg SUBCUT QWEEK 07/11/20 07/11/20 Previous Rx's Medication Instructions Recorded clotrimazole 1 gm TOPICAL SEE INSTRUCTIONS 12/06/16 #14.1 gm cyclobenzaprine 10 mg PO BID PRN #7 tab 05/04/20 acetaminophen 650 mg PO Q6HR PRN #20 tab 07/12/20 docusate sodium [DOK] 100 mg PO BID #20 cap 07/12/20 oxycodone 10 mg PO Q4H PRN #40 tab 07/12/20 Allergies Allergy/AdvReac Type Severity Reaction Status Date / Time No Known Drug Allergies Allergy Verified 07/16/20 10:10 Review of Systems Review of Systems Narrative: GENERAL: Denies chills,fever HEENT: Denies throat pain RESPIRATORY: Denies dyspnea, cough, wheezing CARDIOVASCULAR: Denies chest pain, palpitations GASTROINTESTINAL: Denies nausea, vomiting MUSCULOSKELETAL: Denies extremity pain, injury SKIN: No rash, no laceration, no pruritus NEUROLOGIC: Denies weakness, dizziness, headache, numbness 8 point review of systems is negative except for those stated above and HPI Patient History Medical History Acute urinary retention (Inactive) Amputation of left index finger (Acute) Diabetes (Acute) Hepatitis C (Acute) History of ischemic middle cerebral artery stroke (Acute) Hyperlipidemia (Acute) Macular degeneration (Acute) Myocardial infarction (Acute) Obstipation (Acute 05/07/20) KASSIDY (obstructive sleep apnea) (Acute) TIA (transient ischemic attack) (Inactive 10/29/16) Surgical History H/O laminectomy (Acute) History of carpal tunnel release (Acute) History of repair of hiatal hernia (Acute) Hx of cholecystectomy (Acute) Hx of thumb surgery (Acute) S/P trigger finger release (Acute) Social History household members: none Smoking Status: Never smoker alcohol intake: former Smoking Status: Never smoker alcohol intake frequency: other Substance Use Type: does not use Exam Initial Vital Signs Initial Vital Signs: Vital Signs Temperature 97.5 F L 07/16/20 10:10 Pulse Rate 67 07/16/20 10:10 Respiratory Rate 15 07/16/20 10:10 Blood Pressure 165/81 H 07/16/20 10:10 Pulse Oximetry 95 07/16/20 10:10 GENERAL: Well-appearing, well-nourished and in no acute distress. CARDIOVASCULAR: peripheral pulses in tact, cap refill <2 sec RESPIRATORY: No respiratory distress, speaks in full sentences without difficulty EXTREMITIES: Normal range of motion, no clubbing or edema. Neurovascularly intact NEUROLOGICAL: Cranial nerves II through XII grossly intact. Normal gait and speech. SKIN: Incision sites are clean and dry no erythema bandages are dry no drainage. 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 Overall incision does not appear infected dressing exchanged without issues. Discharge Plan Departure Patient Disposition: Home Clinical Impression: Encounter for change or removal of surgical wound dressing, Worried well Discharge Date/Time: 07/16/20 10:54 Instructions: How to Care for a Surgical Wound Activity Restrictions/Additional Instructions: *You have been diagnosed with dressing change and wound care *What to do: Please change your dressing in 5 days. Social work may contact you to help you with wound care *Continue to take medications as directed *Follow up with your primary care provider in 2-3 days, follow-up with Dr. maria as previously scheduled *Return to ER if you should have increased pain, fever, night sweats, drainage or unusual redness or any new, worsening or concerning symptoms Prescriptions: No Action tamsulosin [Flomax] 0.4 MG capsule,extended release 24hr 0.4 mg PO HS Qty: 0 RF: 0 multivitamin Capsule 1 cap PO BID Qty: 0 RF: 0 metoprolol tartrate 25 MG tablet 25 mg PO BID Qty: 0 RF: 0 Combivent Respimat 4 GM mist 1 puff inhalation PRN PRN (Reason: Wheezing) Qty: 0 RF: 0 simvastatin 40 MG tablet 80 mg PO QHS Qty: 0 RF: 0 gabapentin 100 MG capsule 200 mg PO/SL BID Qty: 0 RF: 0 Lantus U-100 Insulin 100 UNIT/1 ML solution 55 unit SQ DAILY Qty: 0 RF: 0 insulin aspart U-100 [Novolog U-100 Insulin aspart] 100 UNIT/1 ML solution 30 unit SQ AC Qty: 0 RF: 0 clotrimazole 1 % cream 1 gm Topical SEE INSTRUCTIONS Qty: 14.1 RF: 0 cyclobenzaprine 10 mg tablet 10 mg PO BID PRN (Reason: muscle spasm) Qty: 7 RF: 0 Ozempic 0.25 mg or 0.5 mg(2 mg/1.5 mL) Pen Injector 0.5 mg SUBCUT QWEEK RF: 0 acetaminophen 325 mg Tablet 650 mg PO Q6HR PRN (Reason: Pain, Mild (1-3)) Qty: 20 RF: 0 docusate sodium [DOK] 100 mg Capsule 100 mg PO BID Qty: 20 RF: 0 oxycodone 10 mg tablet 10 mg PO Q4H PRN (Reason: pain) Qty: 40 RF: 0 Referrals: Papo Hoff MD [Physician] - Edgardo Devlin MD [Primary Care Provider] -
== END 2020-07-16 10:54 | disposition home or self-care (01) ==
PROVIDERS: Emergency Provider Emergency Medicine; PCP Internal Medicine
DX: Z48.01 Encounter for change or removal of surgical wound dressing (principal)
CPT/HCPCS: 99281

== ENCOUNTER 2020-08-01 18:47 | Emergency (ER) | payer MEDICARE, OTHER, SELFPAY ==
[2020-07-11 12:46] VITALS: BMI 37.5
[2020-08-01 18:50] VITALS: BP 183/87; PULSE 64; RESP 16; TEMP 36.9; O2SAT 97; BMI 37.2
--- NOTE | 2020-08-01 19:16 | ED_ITS ---
HPI - Back Pain/Injury General Chief Complaint: Back Pain/Injury Stated Complaint: LEFT SIDE ABD PAIN Time Seen by Provider: 08/01/20 18:55 Source: patient Mode of arrival: Ambulatory Limitations: no limitations History of Present Illness HPI Narrative: Patient is a 74-year-old male who has been seen multiple times that a outside facility for the symptoms that he presents to the emergency department today. He states he has a kidney infection. He states that he knows that he has a kidney infection because he has taken all of the lab tests that has been done over the past several days at other facilities and looked up his symptoms on the Internet and has come to the conclusion that he has a kidney infection. He states that he has left-sided back pain right near his kidney that radiates to his abdomen. He states that his skin is burning. He also states that he feels like that he urinates frequently. He states that his urine changes colors throughout the day. He does report that he drinks quite a bit of water during the day and when he is at home he urinates frequently but then when he comes to the emergency department he frequently does not have to urinate. Denies any nausea or vomiting. No fevers. He does state that lidocaine patches helps his symptoms. Related Data Home Medications Medication Instructions Recorded Confirmed multivitamin 1 cap PO BID #0 03/22/13 07/11/20 tamsulosin [Flomax] 0.4 mg PO HS #0 03/22/13 07/11/20 Combivent Respimat 1 puff INHALATION PRN PRN #0 08/25/16 07/11/20 gabapentin 200 mg PO/SL BID #0 08/25/16 07/11/20 metoprolol tartrate 25 mg PO BID #0 08/25/16 07/11/20 simvastatin 80 mg PO QHS #0 08/25/16 07/11/20 Lantus U-100 Insulin 55 unit SQ DAILY #0 11/01/16 07/11/20 insulin aspart U-100 [Novolog 30 unit SQ AC #0 12/06/16 07/11/20 U-100 Insulin aspart] Ozempic 0.5 mg SUBCUT QWEEK 07/11/20 07/11/20 Previous Rx's Medication Instructions Recorded clotrimazole 1 gm TOPICAL SEE INSTRUCTIONS 12/06/16 #14.1 gm cyclobenzaprine 10 mg PO BID PRN #7 tab 05/04/20 acetaminophen 650 mg PO Q6HR PRN #20 tab 07/12/20 docusate sodium [DOK] 100 mg PO BID #20 cap 07/12/20 oxycodone 10 mg PO Q4H PRN #40 tab 07/12/20 lidocaine 1 patch TOP DAILY PRN #10 each 08/01/20 Allergies Allergy/AdvReac Type Severity Reaction Status Date / Time No Known Drug Allergies Allergy Verified 07/16/20 10:10 Review of Systems Constitutional Constitutional: Denies fever(s) and Denies headache(s) ENT Ears, Nose, Mouth, and Throat: Denies headache(s) Cardiovascular Cardiovascular: Denies chest pain and Denies dyspnea Respiratory Respiratory: Denies dyspnea Gastrointestinal Gastrointestinal: Reports abdominal pain, Denies nausea and Denies vomiting Genitourinary Genitourinary: Reports flank pain and Reports urinary frequency Genitourinary: Reports urinary frequency and Reports flank pain Musculoskeletal Musculoskeletal: Denies arthralgias and Denies myalgias Integumentary/Breasts Skin/Breast: Denies rash Neurologic Neurologic: Denies behavioral changes and Denies headache(s) Psychiatric Psychiatric: Denies behavioral changes Hematologic/Lymphatic Hematologic/Lymphatic: Denies easy bleeding and Denies easy bruising Patient History Medical History Acute urinary retention (Inactive) Amputation of left index finger (Acute) Diabetes (Acute) Hepatitis C (Acute) History of ischemic middle cerebral artery stroke (Acute) Hyperlipidemia (Acute) Macular degeneration (Acute) Myocardial infarction (Acute) Obstipation (Acute 05/07/20) KASSIDY (obstructive sleep apnea) (Acute) TIA (transient ischemic attack) (Inactive 10/29/16) Surgical History H/O laminectomy (Acute) History of carpal tunnel release (Acute) History of repair of hiatal hernia (Acute) Hx of cholecystectomy (Acute) Hx of thumb surgery (Acute) S/P trigger finger release (Acute) Social History household members: none Smoking Status: Never smoker alcohol intake: former Smoking Status: Never smoker alcohol intake frequency: other Substance Use Type: does not use Exam Initial Vital Signs Initial Vital Signs: Vital Signs Temperature 98.4 F 08/01/20 18:50 Pulse Rate 64 08/01/20 18:50 Respiratory Rate 16 08/01/20 18:50 Blood Pressure 183/87 H 08/01/20 18:50 Pulse Oximetry 97 08/01/20 18:50 Const General: cooperative and comfortable Limitations: mental status not altered Resp Effort & Inspection: normal respiratory effort Cardio Rate: regular rate GI Inspection: non-distended Palpation: soft, No firm and No tender Back/Spine/Pelvis Back: CVA tenderness left Skin Lesions: no lesions Rashes: no rashes Neuro General: patient alert and patient awake Cognition: normal cognition Speech: speech normal Extrem General: normal to inspection and capillary refill normal Psych Appearance: grossly normal and well kempt Course Orders Ordered: ED Orders 08/01/20 19:05 Complete Blood Count AUTO DIFF Stat Comprehensive Metabolic Panel Stat Lipase Stat 08/01/20 20:45 Urine Culture Stat Urine Microscopic Stat Discontinued Medications Sodium Chloride (Normal Saline 0.9%) 1,000 mls @ 1,000 mls/hr IV BOLUS ONE Stop: 08/01/20 21:13 Last Infusion: 08/01/20 21:27 Dose: 0 mls/hr Documented by: Admin: 08/01/20 20:15 Dose: 1,000 mls/hr Documented by: NIKO Vital Signs Vital signs: Vital Signs - 8 hr 08/01/20 18:50 08/01/20 20:10 08/01/20 21:18 Temperature 98.4 F 98.4 F Pulse Rate 64 60 Respiratory Rate 16 15 Blood Pressure 183/87 H 190/92 H Pulse Oximetry 97 98 MDM - Back Pain/Injury Medical Records Attestation: I reviewed the patient's medical records. Lab Data Attestation: I reviewed the patient's lab results. Result diagrams: 08/01/20 19:05 08/01/20 19:05 Labs: Lab Results 08/01/20 08/01/20 08/01/20 Range/Units 19:05 19:05 20:45 WBC 5.3 (4.5-11.0) X10^3/uL RBC 4.91 (4.5-5.9) X10^6/uL Hgb 13.4 L (13.5-17.5) g/dL Hct 40.2 L (41-53) % MCV 81.8 (80-100) fL MCH 27.2 (26-34) PG MCHC 33.3 (30-36) % RDW 13.7 (11.6-14.8) % Plt Count 200 (150-400) X10^3/uL Neut % (Auto) 59.2 (50-75) % Lymph % (Auto) 31.2 (25-40) % [place] % (Auto) 8.9 (3-14) % Eos % (Auto) 0.2 L (2-4) % Baso % (Auto) 0.5 (0-2) % Neut # (Auto) 3200 (1139-9378) /uL Lymph # (Auto) 1700 (0409-3352) /uL [place] # (Auto) 500 (0-900) /uL Eos # (Auto) 0 (0-450) /uL Baso # (Auto) 0 (0-100) /uL Sodium 140 (137-145) mmol/L Potassium 3.8 (3.4-5.1) mmol/L Chloride 105 (98-107) mmol/L Carbon Dioxide 30 (22-32) mmol/L BUN 17 (9-20) mg/dL Creatinine 0.95 (0.66-1.25) mg/dL Estimated GFR > 60.0 (>60) mL/min BUN/Creatinine Ratio 17.9 (6-22) Glucose 132 H (80-110) mg/dL Calcium 9.3 (8.4-10.2) mg/dL Total Bilirubin 2.4 H (0.2-1.3) mg/dL AST 32 (17-59) IU/L ALT 24 (<50) IU/L Alkaline Phosphatase 63 (38-126) U/L Total Protein 7.6 (6.3-8.2) g/dL Albumin 4.4 (3.5-5.0) g/dL Globulin 3.2 (1.7-4.1) g/dL Albumin/Globulin Ratio 1.4 (1.0-2.8) Lipase 145 (23-300) U/L Urine RBC 0-1/hpf (0-5/HPF) Urine WBC 0-1/hpf (0-5/HPF) Ur Squamous Epith Cells 1-5 /hpf (0-5/HPF) Urine Bacteria Occasional (0-1) (None) Hyaline Casts 5-10/lpf (None) Urine Mucus 2+ H (Negative) Ur Culture Indicated? Cult not indicated Urine Dip Bedside Urine Glucose Negative Bedside Urine Bilirubin - Negative Bedside Urine Ketone - Negative Urine Specific [place] 1.030 Bedside Urine Occult Blood - Negative Bedside Urine pH 6 Bedside Urine Protein +++ 300 Bedside Urine Urobilinogen - Negative Bedside Urine Nitrite - Negative Bedside Urine Leukocytes - Negative Esterase MDM Narrative Medical decision making narrative: I was able to obtain records from the ED visit earlier in the week. He had a CT scan at that time which was unremarkable. Labs which are unremarkable. No definitive diagnosis other than abdominal pain was seen on this visit. Upon reading the note states that there potentially was some concern about the zoster however there was no rash present. Patient states that he was given a prescription for antiviral medicines and he only received those today and has not started taking them. Today he has a very benign exam. His urine shows no signs of urinary tract infection. I did inform him of this. I did order a urine culture although I have a strong suspi cion that the urine culture is going to be unremarkable. Informed him that we should hold on any antibiotics until this urine culture results. Where he describes his pain is below the level where his kidneys located. I have low suspicion for kidney infection. Initially thought that his symptoms could be consistent with zoster however he has no rash. He already has a prescription for antiviral medication which he states he is going to start taking today. I feel that we can hold on further workup for now. I will given prescription for lidocaine patches as he states this does improve his symptoms. He is given return precautions. He expressed understanding and agreement. Discharge Plan Departure Patient Disposition: Home Clinical Impression: Abdominal pain Qualifiers: Abdominal location: unspecified location Qualified Code(s): R10.9 - Unspecified abdominal pain Discharge Date/Time: 08/01/20 21:33 Instructions: DI for Abdominal Pain-Adult Activity Restrictions/Additional Instructions: I do recommend that you start taking the medicine that you were prescribed for the treatment of shingles. Take it as directed. Also use the lidocaine patches as directed. Contact your primary provider for follow-up. A urine culture was pending at the time of your discharge. We will contact you for any results that would require starting you on antibiotics. Return to the emergency department for any new or worsening symptoms Prescriptions: New lidocaine 4 % adhesive patch,medicated 1 patch TOP DAILY PRN (Reason: pain) Qty: 10 RF: 0 No Action tamsulosin [Flomax] 0.4 MG capsule,extended release 24hr 0.4 mg PO HS Qty: 0 RF: 0 multivitamin Capsule 1 cap PO BID Qty: 0 RF: 0 metoprolol tartrate 25 MG tablet 25 mg PO BID Qty: 0 RF: 0 Combivent Respimat 4 GM mist 1 puff inhalation PRN PRN (Reason: Wheezing) Qty: 0 RF: 0 simvastatin 40 MG tablet 80 mg PO QHS Qty: 0 RF: 0 gabapentin 100 MG capsule 200 mg PO/SL BID Qty: 0 RF: 0 Lantus U-100 Insulin 100 UNIT/1 ML solution 55 unit SQ DAILY Qty: 0 RF: 0 insulin aspart U-100 [Novolog U-100 Insulin aspart] 100 UNIT/1 ML solution 30 unit SQ AC Qty: 0 RF: 0 clotrimazole 1 % cream 1 gm Topical SEE INSTRUCTIONS Qty: 14.1 RF: 0 cyclobenzaprine 10 mg tablet 10 mg PO BID PRN (Reason: muscle spasm) Qty: 7 RF: 0 Ozempic 0.25 mg or 0.5 mg(2 mg/1.5 mL) Pen Injector 0.5 mg SUBCUT QWEEK RF: 0 acetaminophen 325 mg Tablet 650 mg PO Q6HR PRN (Reason: Pain, Mild (1-3)) Qty: 20 RF: 0 docusate sodium [DOK] 100 mg Capsule 100 mg PO BID Qty: 20 RF: 0 oxycodone 10 mg tablet 10 mg PO Q4H PRN (Reason: pain) Qty: 40 RF: 0 Referrals: Edgardo Devlin MD [Primary Care Provider] -
--- NOTE | 2020-08-01 20:00 | PC.NURSE ---
Pt had a back surgery here at [facility] 3 weeks ago as well; but states this Left flank/back pain started before he had the surgery
[2020-08-01 20:10] VITALS: TEMP 36.9
[2020-08-01] MEDS: SODIUM CHLORIDE 0.9% 1,000 ML 1000 ML IV (20:15)
[2020-08-01 20:23] LABS: Add Manual Diff / Slide Review NO; Basophils Absolute Auto 0 /uL (0-100); Basophils Percent Auto 0.5 % (0-2); Eosinophils Absolute Auto 0 /uL (0-450); Eosinophils Percent Auto 0.2 % (2-4); Hematocrit 40.2 % (41-53); Hemoglobin 13.4 g/dL (13.5-17.5); Lymphocytes Absolute Auto 1700 /uL (1100-4500); Lymphocytes Percent Auto 31.2 % (25-40); Mean Corpuscular HGB Conc 33.3 % (30-36); Mean Corpuscular Hemoglobin 27.2 PG (26-34); Mean Corpuscular Volume 81.8 fL (80-100); Monocytes Absolute Auto 500 /uL (0-900); Monocytes Percent Auto 8.9 % (3-14); Neutrophils Absolute Auto 3200 /uL (1500-7000); Neutrophils Percent Auto 59.2 % (50-75); Platelet Count 200 X10^3/uL (150-400); Red Blood Cell Count 4.91 X10^6/uL (4.5-5.9); Red Cell Distribution Width 13.7 % (11.6-14.8); White Blood Cell Count 5.3 X10^3/uL (4.5-11.0)
[2020-08-01 20:26] LABS: Alanine Aminotransferase 24 IU/L (<50); Albumin 4.4 g/dL (3.5-5.0); Albumin Globulin Ratio 1.4 (1.0-2.8); Alkaline Phosphatase 63 U/L (38-126); Aspartate Aminotransferase 32 IU/L (17-59); BUN Creatinine Ratio 17.9 (6-22); Bilirubin Total 2.4 mg/dL (0.2-1.3); Blood Urea Nitrogen 17 mg/dL (9-20); Calcium 9.3 mg/dL (8.4-10.2); Carbon Dioxide 30 mmol/L (22-32); Chloride 105 mmol/L (98-107); Estimated Glomerular Filt Rate > 60.0 mL/min (>60); Globulin 3.2 g/dL (1.7-4.1); Glucose 132 mg/dL (80-110); HEMOLYSIS < 15 (0-50); Lipase 145 U/L (23-300); Potassium 3.8 mmol/L (3.4-5.1); Sodium 140 mmol/L (137-145); Total Protein 7.6 g/dL (6.3-8.2)
[2020-08-01 21:04] LABS: Bacteria Urine Occasional (0-1); Culture Indicated Urine Cult Not Indicated; Hyaline Casts Urine 5-10/LPF; Mucus Urine 2+ (Negative); RBC Urine 0-1/HPF (0-5/HPF); Squamous Epithelial Cell Urine 1-5 /HPF (0-5/HPF); WBC Urine 0-1/HPF (0-5/HPF)
[2020-08-01 21:18] VITALS: BP 190/92; PULSE 60; RESP 15; O2SAT 98
== END 2020-08-01 21:33 | disposition home or self-care (01) ==
PROVIDERS: Emergency Provider Emergency Medicine; PCP Internal Medicine
DX: R10.9 Unspecified abdominal pain (principal); R35.0 Frequency of micturition
CPT/HCPCS: 36415; 80053; 81003; 81015; 83690; 85025; 87086; 96360; 99284

== ENCOUNTER 2020-08-15 02:15 | Emergency (ER) | payer OTHER, SELFPAY ==
[2020-07-11 12:46] VITALS: BMI 37.5
[2020-08-15 02:22] VITALS: BP 216/98; PULSE 67; RESP 20; TEMP 36.4; O2SAT 99
--- NOTE | 2020-08-15 02:27 | ED_ITS ---
HPI - Male Genitourinary General Chief complaint: Urogenital-Male Stated complaint: states cant pee Time Seen by Provider: 08/15/20 02:27 History of Present Illness HPI Narrative: 74-year-old gentleman with a history of COPD, ASCVD with NH x2, diabetes, hyperlipidemia and BPH presents with inability to void since approximately 5:00 p.m.. He reports increasing abdominal pain and significant left lower back pain radiating into his left leg. He notes that he had back surgery for spinal stenosis with neurogenic claudication approximately a month ago that resolved the right radicular back pain however the left radicular back pain has persisted. He has not started any new medications recently. He notes that he has had problems with acute urinary retention previously. He ended up with a Barnett catheter in place for over a month with tamsulosin started, he was seen by [facility] at that time. Related Data Home Medications Medication Instructions Recorded Confirmed multivitamin 1 cap PO BID #0 03/22/13 07/11/20 tamsulosin [Flomax] 0.4 mg PO HS #0 03/22/13 07/11/20 Combivent Respimat 1 puff INHALATION PRN PRN #0 08/25/16 07/11/20 gabapentin 200 mg PO/SL BID #0 08/25/16 07/11/20 metoprolol tartrate 25 mg PO BID #0 08/25/16 07/11/20 simvastatin 80 mg PO QHS #0 08/25/16 07/11/20 Lantus U-100 Insulin 55 unit SQ DAILY #0 11/01/16 07/11/20 insulin aspart U-100 [Novolog 30 unit SQ AC #0 12/06/16 07/11/20 U-100 Insulin aspart] Ozempic 0.5 mg SUBCUT QWEEK 07/11/20 07/11/20 Previous Rx's Medication Instructions Recorded clotrimazole 1 gm TOPICAL SEE INSTRUCTIONS 12/06/16 #14.1 gm cyclobenzaprine 10 mg PO BID PRN #7 tab 05/04/20 acetaminophen 650 mg PO Q6HR PRN #20 tab 07/12/20 docusate sodium [DOK] 100 mg PO BID #20 cap 07/12/20 oxycodone 10 mg PO Q4H PRN #40 tab 07/12/20 lidocaine 1 patch TOP DAILY PRN #10 each 08/01/20 Allergies Allergy/AdvReac Type Severity Reaction Status Date / Time No Known Drug Allergies Allergy Verified 07/16/20 10:10 Review of Systems Review of Systems Narrative: Pertinent positive and negative findings as per HPI Remainder of review of systems is otherwise unremarkable for Constitutional: Fevers, chills, weakness ENT: No sore throat, neck pain, ear pain CV: Chest pain, palpitations, dyspnea on exertion Respiratory: Cough, wheeze, dyspnea GI: Nausea, vomiting, diarrhea, Patient History Medical History Acute urinary retention (Inactive) Amputation of left index finger (Acute) Diabetes (Acute) Hepatitis C (Acute) History of ischemic middle cerebral artery stroke (Acute) Hyperlipidemia (Acute) Macular degeneration (Acute) Myocardial infarction (Acute) Obstipation (Acute 05/07/20) KASSIDY (obstructive sleep apnea) (Acute) TIA (transient ischemic attack) (Inactive 10/29/16) Surgical History H/O laminectomy (Acute) History of carpal tunnel release (Acute) History of repair of hiatal hernia (Acute) Hx of cholecystectomy (Acute) Hx of thumb surgery (Acute) S/P trigger finger release (Acute) Social History household members: none Smoking Status: Never smoker alcohol intake: former Smoking Status: Never smoker alcohol intake frequency: other Substance Use Type: does not use Exam Narrative Exam Narrative: General: Healthy appearing, in acute pain. Able to give a complete and coherent history. Well-nourished well-developed HEENT: Moist mucous membranes, normal sclera with reactive pupils, Respiratory: Lungs are clear to auscultation, no wheezing no rales no rhonchi. Full and symmetrical air movement Cardiac: Regular rate and rhythm no murmurs no bruits Abdomen: Mildly distended with diffuse abdominal tenderness worse in the lower abdomen with good bowel tones, no flank pain Skin: Warm and dry, no rashes and no evidence of recent left-sided abdominal zoster outbreak Neurologic: Grossly neurologically intact with no obvious asymmetries or abnormalities, complains of short-term memory loss Extremities: No trauma, well perfused, no lower extremity edema Psych: Cooperative, fluent speech pattern Initial Vital Signs Initial Vital Signs: Vital Signs Temperature 97.6 F 08/15/20 02:22 Pulse Rate 67 08/15/20 02:22 Respiratory Rate 20 08/15/20 02:22 Blood Pressure 216/98 H 08/15/20 02:22 Pulse Oximetry 99 08/15/20 02:22 Course Orders Ordered: ED Orders 08/15/20 02:30 Urinalysis and Microscopic Stat Vital Signs Vital signs: Vital Signs - 8 hr 08/15/20 02:22 08/15/20 02:45 Temperature 97.6 F Pulse Rate 67 63 Respiratory Rate 20 20 Blood Pressure 216/98 H 162/79 H Pulse Oximetry 99 97 MDM - Male Genitourinary Medical Records Attestation: I reviewed the patient's medical records. Lab Data Attestation: I reviewed the patient's lab results. Labs: Lab Results 08/15/20 Range/Units 02:30 Urine Color Yellow Urine Appearance Clear Urine pH 5.0 (4.5-8.0) Ur Specific [place] 1.015 (1.000-1.035) Urine Protein Trace H (Negative) Urine Glucose (UA) Negative (Negative) g/dL Urine Ketones Negative (NEGATIVE) Urine Occult Blood Negative (Negative) Urine Nitrate Negative (Negative) Urine Bilirubin Negative (NEGATIVE) Urine Urobilinogen 0.2 (0.2) E.U./dL Ur Leukocyte Esterase Negative (NEGATIVE) Urine RBC None seen (0-5/HPF) Urine WBC None seen (0-5/HPF) Amorphous Sediment 1+ Urine Bacteria None seen (None) Ur Culture Indicated? Cult not indicated MDM Narrative Medical decision making narrative: 74-year-old gentleman presents with 8 hours of acute urinary retention. Barnett catheter is placed with no difficulty and 1200 cc of yellow urine drains without problem. As his bladder distension is relieved blood pressure is coming down nicely. At this point we will leave his Barnett catheter in. He does request a leg bag. Instructed in Barnett catheter care and states that he is well aware of care needed. Discharged home with follow-up at [facility] in approximately a week. Will ask him to continue with his tamsulosin. Discharge Plan Departure Patient Disposition: Home Clinical Impression: Urinary retention Benign prostatic hyperplasia Qualifiers: Lower urinary tract symptom presence: symptoms present Lower urinary tract symptom detail: urinary obstruction Qualified Code(s): N40.1 - Benign prostatic hyperplasia with lower urinary tract symptoms Instructions: How to Care for Your Barnett Catheter -- Female, DI for Urinary Retention in Men Activity Restrictions/Additional Instructions: Thank you for coming in tonight. You had 1.2 L of fluid in your bladder. You now have a Barnett catheter in place that seems to be draining nicely. You will need to follow-up with [facility] as you did when you had this problem previously. Please continue your tamsulosin 0.4 mg daily Please contact [facility] tomorrow to schedule follow-up appointment in approximately 1 week. Prescriptions: No Action tamsulosin [Flomax] 0.4 MG capsule,extended release 24hr 0.4 mg PO HS Qty: 0 RF: 0 multivitamin Capsule 1 cap PO BID Qty: 0 RF: 0 metoprolol tartrate 25 MG tablet 25 mg PO BID Qty: 0 RF: 0 Combivent Respimat 4 GM mist 1 puff inhalation PRN PRN (Reason: Wheezing) Qty: 0 RF: 0 simvastatin 40 MG tablet 80 mg PO QHS Qty: 0 RF: 0 gabapentin 100 MG capsule 200 mg PO/SL BID Qty: 0 RF: 0 Lantus U-100 Insulin 100 UNIT/1 ML solution 55 unit SQ DAILY Qty: 0 RF: 0 insulin aspart U-100 [Novolog U-100 Insulin aspart] 100 UNIT/1 ML solution 30 unit SQ AC Qty: 0 RF: 0 clotrimazole 1 % cream 1 gm Topical SEE INSTRUCTIONS Qty: 14.1 RF: 0 lidocaine 4 % adhesive patch,medicated 1 patch TOP DAILY PRN (Reason: pain) Qty: 10 RF: 0 cyclobenzaprine 10 mg tablet 10 mg PO BID PRN (Reason: muscle spasm) Qty: 7 RF: 0 Ozempic 0.25 mg or 0.5 mg(2 mg/1.5 mL) Pen Injector 0.5 mg SUBCUT QWEEK RF: 0 acetaminophen 325 mg Tablet 650 mg PO Q6HR PRN (Reason: Pain, Mild (1-3)) Qty: 20 RF: 0 docusate sodium [DOK] 100 mg Capsule 100 mg PO BID Qty: 20 RF: 0 oxycodone 10 mg tablet 10 mg PO Q4H PRN (Reason: pain) Qty: 40 RF: 0 Referrals: Edgardo Devlin MD [Primary Care Provider] -
[2020-08-15 02:45] VITALS: BP 162/79; PULSE 63; RESP 20; O2SAT 97
[2020-08-15] MEDS: LIDOCAINE 2% (UROJET) 5 ML GEL (02:49)
[2020-08-15 02:56] LABS: Bacteria Urine None Seen
[2020-08-15 03:00] LABS: Appearance Urine UA CLEAR; Bilirubin Urine UA NEGATIVE (NEGATIVE); Color Urine UA YELLOW; Glucose Urine UA NEGATIVE (Negative); Ketones Urine UA NEGATIVE (NEGATIVE); Leukocyte Esterase Urine UA NEGATIVE (NEGATIVE); Nitrite Urine UA NEGATIVE (Negative); Occult Blood Urine UA NEGATIVE (Negative); Protein Urine UA TRACE (Negative); Specific Gravity Urine UA 1.015 (1.000-1.035); Urobilinogen Urine UA 0.2 E.U./dL (0.2)
[2020-08-15 03:02] LABS: Amorphous Sediment Urine 1+; Culture Indicated Urine Cult Not Indicated
[2020-08-15 03:03] LABS: RBC Urine None Seen (0-5/HPF); WBC Urine None Seen (0-5/HPF)
== END 2020-08-15 03:20 | disposition home or self-care (01) ==
PROVIDERS: Emergency Provider Emergency Medicine; PCP Internal Medicine
DX: R33.9 Retention of urine, unspecified (principal); N40.1 Benign prostatic hyperplasia with lower urinary tract symptoms; R10.9 Unspecified abdominal pain; M54.5 Low back pain
CPT/HCPCS: 81001; 99283

== ENCOUNTER 2020-08-24 08:41 | Emergency (ER) | payer OTHER, SELFPAY ==
[2020-07-11 12:46] VITALS: BMI 37.5
[2020-08-24 08:51] VITALS: BP 168/86; PULSE 76; RESP 18; TEMP 36.3; O2SAT 100; BMI 37.2
--- NOTE | 2020-08-24 09:15 | ED.MALEGU ---
HPI - Male Genitourinary General Chief complaint: Urogenital-Male Stated complaint: CATHETER IS PLUGGED Time Seen by Provider: 08/24/20 08:51 Source: patient Mode of arrival: Family Vehicle Limitations: no limitations History of Present Illness HPI Narrative: This is a 74-year-old male who comes to the emergency department with complaint of a plugged urinary catheter. Patient had a catheter placed 10 days ago. Patient noticed last night that there were 2 small stones which he suspected were kidney stones the traveled through the catheter itself and seem like they got stuck in the connecting port to the back. He states it was a little bit of urine flowing but it had difficulty draining. States overnight he did have any more drainage and feels like his bladder is full. He denies fevers or chills, no nausea or vomiting. No abdominal pain. He has been little bit constipated he started taking Ex-Lax tablets and had a large bowel movement yesterday and took 1 this morning. He has chronic back and lower extremity pain but has no new changes or worsening symptoms. Patient did attempt to contact Urology without success. He does have follow-up with his primary care this week and we discussed that if they were unable or unwilling to remove his catheter he can return here. He is on Flomax daily. Related Data Home Medications Medication Instructions Recorded Confirmed multivitamin 1 cap PO BID #0 03/22/13 07/11/20 tamsulosin [Flomax] 0.4 mg PO HS #0 03/22/13 07/11/20 Combivent Respimat 1 puff INHALATION PRN PRN #0 08/25/16 07/11/20 gabapentin 200 mg PO/SL BID #0 08/25/16 07/11/20 metoprolol tartrate 25 mg PO BID #0 08/25/16 07/11/20 simvastatin 80 mg PO QHS #0 08/25/16 07/11/20 Lantus U-100 Insulin 55 unit SQ DAILY #0 11/01/16 07/11/20 insulin aspart U-100 [Novolog 30 unit SQ AC #0 12/06/16 07/11/20 U-100 Insulin aspart] Ozempic 0.5 mg SUBCUT QWEEK 07/11/20 07/11/20 Previous Rx's Medication Instructions Recorded clotrimazole 1 gm TOPICAL SEE INSTRUCTIONS 12/06/16 #14.1 gm cyclobenzaprine 10 mg PO BID PRN #7 tab 05/04/20 acetaminophen 650 mg PO Q6HR PRN #20 tab 07/12/20 docusate sodium [DOK] 100 mg PO BID #20 cap 07/12/20 oxycodone 10 mg PO Q4H PRN #40 tab 07/12/20 lidocaine 1 patch TOP DAILY PRN #10 each 08/01/20 Allergies Allergy/AdvReac Type Severity Reaction Status Date / Time No Known Drug Allergies Allergy Verified 07/16/20 10:10 Review of Systems Review of Systems ROS Unobtainable: All systems reviewed & are unremarkable except as noted in HPI and below Patient History Medical History Acute urinary retention Amputation of left index finger Diabetes Hepatitis C History of ischemic middle cerebral artery stroke Hyperlipidemia Macular degeneration Myocardial infarction Obstipation (05/07/20) KASSIDY (obstructive sleep apnea) TIA (transient ischemic attack) (10/29/16) Surgical History H/O laminectomy History of carpal tunnel release History of repair of hiatal hernia Hx of cholecystectomy Hx of thumb surgery S/P trigger finger release Social History household members: none Smoking Status: Never smoker alcohol intake: former Smoking Status: Never smoker alcohol intake frequency: 0-2 drinks per day Substance Use Type: does not use Exam Narrative Exam Narrative: GENERAL: Alert and oriented x three, obese, well-appearing male in mild distress HEENT: Head normocephalic, atraumatic, EOMI, pupils reactive, face symmetric, moist mucous membranes NECK: Supple, full range of motion CARDIOVASCULAR: Regular rate and rhythm without murmurs, rubs or gallops. RESPIRATORY: Breath sounds equal bilaterally, no wheezes rales or rhonchi. ABDOMEN: Soft, nontender. Normoactive bowel sounds all 4 quadrants. No guarding or rebound, rigidity, no mass : No CVA tenderness, normal male genitalia with Barnett catheter in place. EXTREMITIES: Normal range of motion, no clubbing or edema. Neurovascularly intact NEUROLOGICAL: Cranial nerves II through XII grossly intact. Moving all extremities SKIN: Warm, dry, no petechiae, no rashes or lesions. Initial Vital Signs Initial Vital Signs: Vital Signs Temperature 97.4 F L 08/24/20 08:51 Pulse Rate 76 08/24/20 08:51 Respiratory Rate 18 08/24/20 08:51 Blood Pressure 168/86 H 08/24/20 08:51 Pulse Oximetry 100 08/24/20 08:51 Course Vital Signs Vital signs: Vital Signs - 8 hr 08/24/20 08:51 Temperature 97.4 F L Pulse Rate 76 Respiratory Rate 18 Blood Pressure 168/86 H Pulse Oximetry 100 MDM - Male Genitourinary MDM Narrative Medical decision making narrative: Patient comes in with blockage of his catheter, Barnett bag was replaced and the catheter is now draining clear urine easily. And patient feels much better. He is taking Flomax daily. He is attempting to set follow-up with his primary care this week for removal of the catheter but we discussed if he is unable to set up follow-up to return. He tried calling Urology but there are no appointments available until November. Discharge Plan Departure Patient Disposition: Home Clinical Impression: Malfunction of Barnett catheter Qualifiers: Encounter type: initial encounter Qualified Code(s): T83.011A - Breakdown (mechanical) of indwelling urethral catheter, initial encounter Instructions: How to Care for Your Barnett Catheter -- Male Activity Restrictions/Additional Instructions: Follow-up with your primary care physician in the next week for removal of your Barnett catheter. Continue to take a stool softener once daily. Return to the ER for fevers, lightheadedness or passing out, inability urinate or drain your Barnett catheter, abdominal pain, back or flank pain that is new or changed persistent vomiting or other new or concerning symptoms. Prescriptions: No Action tamsulosin [Flomax] 0.4 MG capsule,extended release 24hr 0.4 mg PO HS Qty: 0 RF: 0 multivitamin Capsule 1 cap PO BID Qty: 0 RF: 0 metoprolol tartrate 25 MG tablet 25 mg PO BID Qty: 0 RF: 0 Combivent Respimat 4 GM mist 1 puff inhalation PRN PRN (Reason: Wheezing) Qty: 0 RF: 0 simvastatin 40 MG tablet 80 mg PO QHS Qty: 0 RF: 0 gabapentin 100 MG capsule 200 mg PO/SL BID Qty: 0 RF: 0 Lantus U-100 Insulin 100 UNIT/1 ML solution 55 unit SQ DAILY Qty: 0 RF: 0 insulin aspart U-100 [Novolog U-100 Insulin aspart] 100 UNIT/1 ML solution 30 unit SQ AC Qty: 0 RF: 0 clotrimazole 1 % cream 1 gm Topical SEE INSTRUCTIONS Qty: 14.1 RF: 0 lidocaine 4 % adhesive patch,medicated 1 patch TOP DAILY PRN (Reason: pain) Qty: 10 RF: 0 cyclobenzaprine 10 mg tablet 10 mg PO BID PRN (Reason: muscle spasm) Qty: 7 RF: 0 Ozempic 0.25 mg or 0.5 mg(2 mg/1.5 mL) Pen Injector 0.5 mg SUBCUT QWEEK RF: 0 acetaminophen 325 mg Tablet 650 mg PO Q6HR PRN (Reason: Pain, Mild (1-3)) Qty: 20 RF: 0 docusate sodium [DOK] 100 mg Capsule 100 mg PO BID Qty: 20 RF: 0 oxycodone 10 mg tablet 10 mg PO Q4H PRN (Reason: pain) Qty: 40 RF: 0 Referrals: Edgardo Devlin MD [Primary Care Provider] -
--- NOTE | 2020-08-24 09:32 | PC.NURSE ---
Catheter bag changed. catheter was intact . leg bag was plugged. catheter is flowing without incident.
== END 2020-08-24 09:34 | disposition home or self-care (01) ==
PROVIDERS: Emergency Provider Emergency Medicine; PCP Internal Medicine
DX: T83.011A Breakdown (mechanical) of indwelling urethral catheter, initial encounter (principal); E66.9 Obesity, unspecified
CPT/HCPCS: 51798; 99282; 99283

== ENCOUNTER 2020-08-31 09:59 | Emergency (ER) | payer OTHER, SELFPAY ==
[2020-07-11 12:46] VITALS: BMI 37.5
--- NOTE | 2020-08-31 10:10 | ED.MALEGU ---
HPI - Male Genitourinary General Chief complaint: Urogenital-Male Stated complaint: Needs catheter taken out Time Seen by Provider: 08/31/20 10:05 Source: patient Mode of arrival: Ambulatory Limitations: no limitations History of Present Illness HPI Narrative: Patient is a 74-year-old male who presents with catheter issue. It was placed here on 08/15/2020 for urinary retention. He was seen again on the for a clogged catheter thought to have kidney stones blocking it. He is here today because he wants it out. He went to the [facility] and they say they cannot take it out until November. He says the bag smells and he wants set at. I do offer to take it out however cannot guarantee that it will stay out and a new 1 May need to be placed. He says at this time he will leave it in he just wants a new bag he denies any fever or pain. Related Data Home Medications Medication Instructions Recorded Confirmed multivitamin 1 cap PO BID #0 03/22/13 07/11/20 tamsulosin [Flomax] 0.4 mg PO HS #0 03/22/13 07/11/20 Combivent Respimat 1 puff INHALATION PRN PRN #0 08/25/16 07/11/20 gabapentin 200 mg PO/SL BID #0 08/25/16 07/11/20 metoprolol tartrate 25 mg PO BID #0 08/25/16 07/11/20 simvastatin 80 mg PO QHS #0 08/25/16 07/11/20 Lantus U-100 Insulin 55 unit SQ DAILY #0 11/01/16 07/11/20 insulin aspart U-100 [Novolog 30 unit SQ AC #0 12/06/16 07/11/20 U-100 Insulin aspart] Ozempic 0.5 mg SUBCUT QWEEK 07/11/20 07/11/20 Previous Rx's Medication Instructions Recorded clotrimazole 1 gm TOPICAL SEE INSTRUCTIONS 12/06/16 #14.1 gm cyclobenzaprine 10 mg PO BID PRN #7 tab 05/04/20 acetaminophen 650 mg PO Q6HR PRN #20 tab 07/12/20 docusate sodium [DOK] 100 mg PO BID #20 cap 07/12/20 oxycodone 10 mg PO Q4H PRN #40 tab 07/12/20 lidocaine 1 patch TOP DAILY PRN #10 each 08/01/20 sulfamethoxazole-trimethoprim 1 tab PO BID 7 Days #14 tab 08/31/20 [Bactrim DS] Allergies Allergy/AdvReac Type Severity Reaction Status Date / Time No Known Drug Allergies Allergy Verified 07/16/20 10:10 Review of Systems Review of Systems Narrative: GENERAL: Denies chills,fever HEENT: Denies throat pain RESPIRATORY: Denies dyspnea, cough, wheezing CARDIOVASCULAR: Denies chest pain, palpitations GASTROINTESTINAL: Denies nausea, vomiting : Barnett see HPI MUSCULOSKELETAL: Denies extremity pain, injury SKIN: No rash, no laceration, no pruritus NEUROLOGIC: Denies weakness, dizziness, headache, numbness 8 point review of systems is negative except for those stated above and HPI Patient History Medical History (Updated 08/31/20 @ 10:50 by Kaur Banks DO) Acute urinary retention Amputation of left index finger Diabetes Hepatitis C History of ischemic middle cerebral artery stroke Hyperlipidemia Macular degeneration Myocardial infarction Obstipation (05/07/20) KASSIDY (obstructive sleep apnea) TIA (transient ischemic attack) (10/29/16) Surgical History H/O laminectomy History of carpal tunnel release History of repair of hiatal hernia Hx of cholecystectomy Hx of thumb surgery S/P trigger finger release Social History household members: none Smoking Status: Never smoker alcohol intake: former Smoking Status: Never smoker alcohol intake frequency: 0-2 drinks per day Substance Use Type: does not use Exam Initial Vital Signs Initial Vital Signs: Vital Signs Temperature 98.2 F 08/31/20 10:12 Pulse Rate 71 08/31/20 10:12 Respiratory Rate 18 08/31/20 10:12 Blood Pressure 166/78 H 08/31/20 10:12 Pulse Oximetry 98 08/31/20 10:12 GENERAL: Well-appearing, well-nourished and in no acute distress. CARDIOVASCULAR: peripheral pulses in tact, cap refill <2 sec RESPIRATORY: No respiratory distress, speaks in full sentences without difficulty ABDOMEN: Soft, nontender, no guarding or rebound : Barnett catheter in place EXTREMITIES: Normal range of motion, no clubbing or edema. Neurovascularly intact NEUROLOGICAL: Cranial nerves II through XII grossly intact. Normal gait and speech. SKIN: Warm, dry, no petechiae, no rashes or lesions. Course Orders Ordered: ED Orders 08/31/20 10:20 Urinalysis and Microscopic Stat Urine Culture Stat Vital Signs Vital signs: Vital Signs - 8 hr 08/31/20 10:12 Temperature 98.2 F Pulse Rate 71 Respiratory Rate 18 Blood Pressure 166/78 H Pulse Oximetry 98 MDM - Male Genitourinary Lab Data Attestation: I reviewed the patient's lab results. Labs: Lab Results 08/31/20 Range/Units 10:20 Urine Color Yellow Urine Appearance Clear Urine pH 6.5 (4.5-8.0) Ur Specific [place] <=1.005 (1.000-1.035) Urine Protein Negative (Negative) Urine Glucose (UA) Negative (Negative) g/dL Urine Ketones Negative (NEGATIVE) Urine Occult Blood 2+ H (Negative) Urine Nitrate Negative (Negative) Urine Bilirubin Negative (NEGATIVE) Urine Urobilinogen 0.2 (0.2) E.U./dL Ur Leukocyte Esterase 1+ H (NEGATIVE) Urine RBC 1-5/hpf (0-5/HPF) Urine WBC 5-10/hpf H (0-5/HPF) Ur Squamous Epith Cells 0-1 /hpf (0-5/HPF) Amorphous Sediment 1+ Urine Bacteria Moderate (10-30) H (None) Ur Culture Indicated? Specimen cultured MDM Narrative Medical decision making narrative: Patient is afebrile appears well. I have offered to remove the Barnett catheter but explained that it may likely need to be replaced with his history of urinary retention. At this time he is agreeable to leave it in. Will start him on antibiotics for probable UTI with foul smelling and bacteria and leukocytes in urine Discharge Plan Departure Patient Disposition: Home Clinical Impression: Barnett catheter problem Qualifiers: Encounter type: initial encounter Qualified Code(s): T83.9XXA - Unspecified complication of genitourinary prosthetic device, implant and graft, initial encounter UTI (urinary tract infection) due to urinary indwelling catheter Qualifiers: Indwelling urinary catheter type: indwelling urethral catheter Encounter type: initial encounter Qualified Code(s): T83.511A - Infection and inflammatory reaction due to indwelling urethral catheter, initial encounter Instructions: DI for Urinary Tract Infection (UTI), DI for Urinary Retention in Men Activity Restrictions/Additional Instructions: *You have been diagnosed with Barnett catheter problem. UTI *What to do: At this time it is recommended that you keep her Barnett catheter in place. Continue to care for as you have been doing no infection is seen. Please talk to your primary or [facility] or [facility] to have the catheter removed *Continue to take medications as directed Bactrim 1 tablet twice a day for 7 days--> SENT TO [facility] IN [place] *Follow up with your primary care provider in 2-3 days *Return to ER if you should have Barnett not draining, blood in the tube, fever, nausea, abdominal pain or any new, worsening or concerning symptoms Prescriptions: New sulfamethoxazole-trimethoprim [Bactrim DS] 800-160 mg tablet 1 tab PO BID 7 Days Qty: 14 RF: 0 No Action tamsulosin [Flomax] 0.4 MG capsule,extended release 24hr 0.4 mg PO HS Qty: 0 RF: 0 multivitamin Capsule 1 cap PO BID Qty: 0 RF: 0 metoprolol tartrate 25 MG tablet 25 mg PO BID Qty: 0 RF: 0 Combivent Respimat 4 GM mist 1 puff inhalation PRN PRN (Reason: Wheezing) Qty: 0 RF: 0 simvastatin 40 MG tablet 80 mg PO QHS Qty: 0 RF: 0 gabapentin 100 MG capsule 200 mg PO/SL BID Qty: 0 RF: 0 Lantus U-100 Insulin 100 UNIT/1 ML solution 55 unit SQ DAILY Qty: 0 RF: 0 insulin aspart U-100 [Novolog U-100 Insulin aspart] 100 UNIT/1 ML solution 30 unit SQ AC Qty: 0 RF: 0 clotrimazole 1 % cream 1 gm Topical SEE INSTRUCTIONS Qty: 14.1 RF: 0 lidocaine 4 % adhesive patch,medicated 1 patch TOP DAILY PRN (Reason: pain) Qty: 10 RF: 0 cyclobenzaprine 10 mg tablet 10 mg PO BID PRN (Reason: muscle spasm) Qty: 7 RF: 0 Ozempic 0.25 mg or 0.5 mg(2 mg/1.5 mL) Pen Injector 0.5 mg SUBCUT QWEEK RF: 0 acetaminophen 325 mg Tablet 650 mg PO Q6HR PRN (Reason: Pain, Mild (1-3)) Qty: 20 RF: 0 docusate sodium [DOK] 100 mg Capsule 100 mg PO BID Qty: 20 RF: 0 oxycodone 10 mg tablet 10 mg PO Q4H PRN (Reason: pain) Qty: 40 RF: 0 Referrals: Edgardo Devlin MD [Primary Care Provider] -
[2020-08-31 10:12] VITALS: BP 166/78; PULSE 71; RESP 18; TEMP 36.8; O2SAT 98
--- NOTE | 2020-08-31 10:33 | PC.NURSE ---
pt comes in asking to have bhatt catheter removed, did not remove catheter per MD but did change tubing and bag. Pt tolerated well.
[2020-08-31 10:39] LABS: Appearance Urine UA CLEAR; Bilirubin Urine UA NEGATIVE (NEGATIVE); Color Urine UA YELLOW; Glucose Urine UA NEGATIVE (Negative); Ketones Urine UA NEGATIVE (NEGATIVE); Leukocyte Esterase Urine UA 1+ (NEGATIVE); Nitrite Urine UA NEGATIVE (Negative); Occult Blood Urine UA 2+ (Negative); Protein Urine UA NEGATIVE (Negative); Specific Gravity Urine UA <=1.005 (1.000-1.035); Urobilinogen Urine UA 0.2 E.U./dL (0.2); pH Urine UA 6.5 (4.5-8.0)
[2020-08-31 10:46] LABS: Amorphous Sediment Urine 1+; Bacteria Urine Moderate (10-30); Culture Indicated Urine Specimen Cultured; RBC Urine 1-5/HPF (0-5/HPF); Squamous Epithelial Cell Urine 0-1 /HPF (0-5/HPF); WBC Urine 5-10/HPF (0-5/HPF)
== END 2020-08-31 10:59 | disposition home or self-care (01) ==
PROVIDERS: Emergency Provider Emergency Medicine; PCP Internal Medicine
DX: T83.9XXA Unspecified complication of genitourinary prosthetic device, implant and graft, initial encounter (principal); T83.511A Infection and inflammatory reaction due to indwelling urethral catheter, initial encounter
CPT/HCPCS: 81001; 87077; 87086; 87186; 99281; 99282

== ENCOUNTER 2020-09-01 09:20 | Emergency (ER) | payer OTHER, SELFPAY ==
[2020-07-11 12:46] VITALS: BMI 37.5
[2020-09-01 09:38] VITALS: BP 145/70; PULSE 88; RESP 28; TEMP 36.5; O2SAT 98
[2020-09-01 10:23] LABS: Bacteria Urine Few (2-10); Culture Indicated Urine Specimen Cultured; RBC Urine >100/HPF (0-5/HPF); Squamous Epithelial Cell Urine 0-1 /HPF (0-5/HPF); WBC Urine 10-30/HPF (0-5/HPF)
--- NOTE | 2020-09-01 10:54 | PC.NURSE ---
I entered the room to answer patients call light. Patient immediately began yelling about leaving and what is taking us so long. I asked the patient to be patient as we only have one provider, and assured him they would be in the room as soon as they can make it. Patient was not kind and said he would take a glass of water or be on his way out of here. I confirmed with the provider that he could have water.
--- NOTE | 2020-09-01 11:09 | ED.MALEGU ---
HPI - Male Genitourinary General Chief complaint: Urogenital-Male Stated complaint: PISSING BLOOD Time Seen by Provider: 09/01/20 10:57 Source: patient Mode of arrival: Ambulatory Limitations: no limitations History of Present Illness HPI Narrative: Patient is a 74-year-old male who has a chronic indwelling Barnett catheter he was seen evaluated by me his urine culture did grow Gram-negative he is on Bactrim, no culture and sensitivity are back yet. Today he says his urine is dark. He has absolutely no fever he has no pain, no flank pain. He is only worried because his urine is dark. Sitting up in bed talking on phone. Related Data Home Medications Medication Instructions Recorded Confirmed multivitamin 1 cap PO BID #0 03/22/13 07/11/20 tamsulosin [Flomax] 0.4 mg PO HS #0 03/22/13 07/11/20 Combivent Respimat 1 puff INHALATION PRN PRN #0 08/25/16 07/11/20 gabapentin 200 mg PO/SL BID #0 08/25/16 07/11/20 metoprolol tartrate 25 mg PO BID #0 08/25/16 07/11/20 simvastatin 80 mg PO QHS #0 08/25/16 07/11/20 Lantus U-100 Insulin 55 unit SQ DAILY #0 11/01/16 07/11/20 insulin aspart U-100 [Novolog 30 unit SQ AC #0 12/06/16 07/11/20 U-100 Insulin aspart] Ozempic 0.5 mg SUBCUT QWEEK 07/11/20 07/11/20 Previous Rx's Medication Instructions Recorded clotrimazole 1 gm TOPICAL SEE INSTRUCTIONS 12/06/16 #14.1 gm cyclobenzaprine 10 mg PO BID PRN #7 tab 05/04/20 acetaminophen 650 mg PO Q6HR PRN #20 tab 07/12/20 docusate sodium [DOK] 100 mg PO BID #20 cap 07/12/20 oxycodone 10 mg PO Q4H PRN #40 tab 07/12/20 lidocaine 1 patch TOP DAILY PRN #10 each 08/01/20 sulfamethoxazole-trimethoprim 1 tab PO BID 7 Days #14 tab 08/31/20 [Bactrim DS] Allergies Allergy/AdvReac Type Severity Reaction Status Date / Time No Known Drug Allergies Allergy Verified 07/16/20 10:10 Review of Systems Review of Systems Narrative: GENERAL: Denies chills,fever HEENT: Denies throat pain RESPIRATORY: Denies dyspnea, cough, wheezing CARDIOVASCULAR: Denies chest pain, palpitations GASTROINTESTINAL: Denies nausea, vomiting : See HPI MUSCULOSKELETAL: Denies extremity pain, injury SKIN: No rash, no laceration, no pruritus NEUROLOGIC: Denies weakness, dizziness, headache, numbness 8 point review of systems is negative except for those stated above and HPI Patient History Medical History (Updated 09/01/20 @ 11:14 by Kaur Banks DO) Acute urinary retention Amputation of left index finger Diabetes Hepatitis C History of ischemic middle cerebral artery stroke Hyperlipidemia Macular degeneration Myocardial infarction Obstipation (05/07/20) KASSIDY (obstructive sleep apnea) TIA (transient ischemic attack) (10/29/16) Surgical History H/O laminectomy History of carpal tunnel release History of repair of hiatal hernia Hx of cholecystectomy Hx of thumb surgery S/P trigger finger release Social History household members: none Smoking Status: Never smoker alcohol intake: former Smoking Status: Never smoker alcohol intake frequency: 0-2 drinks per day Substance Use Type: does not use Exam Initial Vital Signs Initial Vital Signs: Vital Signs Temperature 97.7 F 09/01/20 09:38 Pulse Rate 88 09/01/20 09:38 Respiratory Rate 28 H 09/01/20 09:38 Blood Pressure 145/70 H 09/01/20 09:38 Pulse Oximetry 98 09/01/20 09:38 GENERAL: Well-appearing, well-nourished and in no acute distress. CARDIOVASCULAR: peripheral pulses in tact, cap refill <2 sec RESPIRATORY: No respiratory distress, speaks in full sentences without difficulty ABDOMEN: Soft, nontender, no guarding or rebound : Barnett catheter in place dark urine no gross blood, draining EXTREMITIES: Normal range of motion, no clubbing or edema. Neurovascularly intact NEUROLOGICAL: Cranial nerves II through XII grossly intact. Normal gait and speech. SKIN: Warm, dry, no petechiae, no rashes or lesions. Course Orders Ordered: ED Orders 09/01/20 09:53 Urine Culture Stat Urine Microscopic Stat Vital Signs Vital signs: Vital Signs - 8 hr 09/01/20 11:26 Pulse Rate 74 Respiratory Rate 16 Blood Pressure 130/64 Pulse Oximetry 99 MDM - Male Genitourinary Lab Data Labs: Lab Results 09/01/20 Range/Units 09:53 Urine RBC >100/hpf H D (0-5/HPF) Urine WBC 10-30/hpf H (0-5/HPF) Ur Squamous Epith Cells 0-1 /hpf (0-5/HPF) Urine Bacteria Few (2-10) H (None) Ur Culture Indicated? Specimen cultured Urine Dip Bedside Urine Glucose Negative Bedside Urine Bilirubin - Negative Bedside Urine Ketone - Negative Urine Specific [place] 1.015 Bedside Urine Occult Blood +++ Bedside Urine pH 7.5 Bedside Urine Protein + 30 Bedside Urine Urobilinogen - Negative Bedside Urine Nitrite + Positive Bedside Urine Leukocytes + 70 Esterase MDM Narrative Medical decision making narrative: Patient does not appear ill Or septic. He is currently on Bactrim waiting for culture and sensitivity from yesterday. He does not have gross blood or blood clots of Barnett catheter seems to be functioning properly at this time. Discharge Plan Departure Patient Disposition: Home Clinical Impression: Acute UTI Instructions: DI for Urinary Tract Infection (UTI) Activity Restrictions/Additional Instructions: *You have been diagnosed with UTI *What to do: Your urine is dark because he currently have infection. Be sure you are taking out of the full prescription of antibiotic *Continue to take medications as directed *Follow up with your primary care provider in 2-3 days *Return to ER if you should have fever, abdominal pain, flank pain, weakness, red blood in Barnett tube, or any new, worsening or concerning symptoms Prescriptions: No Action tamsulosin [Flomax] 0.4 MG capsule,extended release 24hr 0.4 mg PO HS Qty: 0 RF: 0 multivitamin Capsule 1 cap PO BID Qty: 0 RF: 0 metoprolol tartrate 25 MG tablet 25 mg PO BID Qty: 0 RF: 0 Combivent Respimat 4 GM mist 1 puff inhalation PRN PRN (Reason: Wheezing) Qty: 0 RF: 0 simvastatin 40 MG tablet 80 mg PO QHS Qty: 0 RF: 0 gabapentin 100 MG capsule 200 mg PO/SL BID Qty: 0 RF: 0 Lantus U-100 Insulin 100 UNIT/1 ML solution 55 unit SQ DAILY Qty: 0 RF: 0 insulin aspart U-100 [Novolog U-100 Insulin aspart] 100 UNIT/1 ML solution 30 unit SQ AC Qty: 0 RF: 0 clotrimazole 1 % cream 1 gm Topical SEE INSTRUCTIONS Qty: 14.1 RF: 0 lidocaine 4 % adhesive patch,medicated 1 patch TOP DAILY PRN (Reason: pain) Qty: 10 RF: 0 cyclobenzaprine 10 mg tablet 10 mg PO BID PRN (Reason: muscle spasm) Qty: 7 RF: 0 Ozempic 0.25 mg or 0.5 mg(2 mg/1.5 mL) Pen Injector 0.5 mg SUBCUT QWEEK RF: 0 acetaminophen 325 mg Tablet 650 mg PO Q6HR PRN (Reason: Pain, Mild (1-3)) Qty: 20 RF: 0 docusate sodium [DOK] 100 mg Capsule 100 mg PO BID Qty: 20 RF: 0 oxycodone 10 mg tablet 10 mg PO Q4H PRN (Reason: pain) Qty: 40 RF: 0 sulfamethoxazole-trimethoprim [Bactrim DS] 800-160 mg tablet 1 tab PO BID 7 Days Qty: 14 RF: 0 Referrals: Edgardo Devlin MD [Primary Care Provider] -
[2020-09-01 11:26] VITALS: BP 130/64; PULSE 74; RESP 16; O2SAT 99
== END 2020-09-01 11:28 | disposition home or self-care (01) ==
PROVIDERS: Emergency Provider Emergency Medicine; PCP Internal Medicine
DX: N39.0 Urinary tract infection, site not specified (principal)
CPT/HCPCS: 81003; 81015; 87077; 87086; 87186; 99281; 99282

== ENCOUNTER 2020-09-07 06:48 | Emergency (ER) | payer OTHER, SELFPAY ==
[2020-07-11 12:46] VITALS: BMI 37.5
[2020-09-07 06:50] VITALS: BP 123/82; PULSE 86; RESP 20; TEMP 36.6; O2SAT 99; BMI 36.1
--- NOTE | 2020-09-07 07:09 | ED_ITS ---
HPI - Male Genitourinary General Chief complaint: Urogenital-Male Stated complaint: think I need a catheter again Time Seen by Provider: 09/07/20 07:09 Source: patient and old records reviewed Mode of arrival: Ambulatory Limitations: no limitations History of Present Illness HPI Narrative: This is a 74-year-old male who comes to the emergency department with complaint of urinary retention. Patient has been seen multiple times in department by myself and other providers. He does have known BPH, he has had a prostate biopsy with Urology through the OR. He cannot get in to see them until November. Patient had his catheter most recently removed on , 3 days prior. Patient states he noticed that it felt like he was incompletely emptying more and more over the last several days until he felt like he could not urinated at all today. He denies fevers, no chills. No cold cough congestion. No nausea or vomiting. He states he has been somewhat constipated he also complained this on his last visit. He is having bowel movements intermittently. He also has some left lower quadrant pain which has been present chronically. He attributes this to constipation and/or his low back issues. He is actually scheduled for an MRI of his back this coming week at [facility]. Patient is currently taking antibiotics for a UTI that was diagnosed on his last ER visit on 08/31/20. Related Data Home Medications Medication Instructions Recorded Confirmed multivitamin 1 cap PO BID #0 03/22/13 07/11/20 tamsulosin [Flomax] 0.4 mg PO HS #0 03/22/13 07/11/20 Combivent Respimat 1 puff INHALATION PRN PRN #0 08/25/16 07/11/20 gabapentin 200 mg PO/SL BID #0 08/25/16 07/11/20 metoprolol tartrate 25 mg PO BID #0 08/25/16 07/11/20 simvastatin 80 mg PO QHS #0 08/25/16 07/11/20 Lantus U-100 Insulin 55 unit SQ DAILY #0 11/01/16 07/11/20 insulin aspart U-100 [Novolog 30 unit SQ AC #0 12/06/16 07/11/20 U-100 Insulin aspart] Ozempic 0.5 mg SUBCUT QWEEK 10/09/20 10/09/20 Previous Rx's Medication Instructions Recorded clotrimazole 1 gm TOPICAL SEE INSTRUCTIONS 12/06/16 #14.1 gm cyclobenzaprine 10 mg PO BID PRN #7 tab 05/04/20 acetaminophen 650 mg PO Q6HR PRN #20 tab 07/12/20 docusate sodium [DOK] 100 mg PO BID #20 cap 07/12/20 oxycodone 10 mg PO Q4H PRN #40 tab 07/12/20 lidocaine 1 patch TOP DAILY PRN #10 each 08/01/20 Allergies Allergy/AdvReac Type Severity Reaction Status Date / Time No Known Drug Allergies Allergy Verified 07/16/20 10:10 Review of Systems Review of Systems ROS Unobtainable: All systems reviewed & are unremarkable except as noted in HPI and below Patient History Medical History (Updated 09/07/20 @ 08:42 by Coral Barton DO) Acute urinary retention Amputation of left index finger Diabetes Hepatitis C History of ischemic middle cerebral artery stroke Hyperlipidemia Macular degeneration Myocardial infarction Obstipation (05/07/20) KASSIDY (obstructive sleep apnea) TIA (transient ischemic attack) (10/29/16) Surgical History H/O laminectomy History of carpal tunnel release History of repair of hiatal hernia Hx of cholecystectomy Hx of thumb surgery S/P trigger finger release Social History household members: none Smoking Status: Never smoker alcohol intake: former Smoking Status: Never smoker alcohol intake frequency: 0-2 drinks per day Substance Use Type: does not use Exam Narrative Exam Narrative: GENERAL: Alert and oriented x three, obese male in mild distress. HEENT: Head normocephalic, atraumatic, EOMI, pupils reactive, face symmetric, moist mucous membranes NECK: Supple, full range of motion CARDIOVASCULAR: Regular rate and rhythm without murmurs, rubs or gallops. RESPIRATORY: Breath sounds equal bilaterally, no wheezes rales or rhonchi. ABDOMEN: Soft, mild left lower quadrant tenderness. Normoactive bowel sounds all 4 quadrants. No guarding or rebound, rigidity, no mass : No CVA tenderness, Bhatt catheter has been placed by nursing is draining yellow fluid, there is approximately 150 cc in the bag. EXTREMITIES: Normal range of motion, no clubbing or edema. Neurovascularly intact NEUROLOGICAL: Cranial nerves II through XII grossly intact. Moving all extremities SKIN: Warm, dry, no petechiae, no rashes or lesions. Initial Vital Signs Initial Vital Signs: Vital Signs Temperature 98 F 09/07/20 06:50 Pulse Rate 86 09/07/20 06:50 Respiratory Rate 20 09/07/20 06:50 Blood Pressure 123/82 09/07/20 06:50 Pulse Oximetry 99 09/07/20 06:50 Course Orders Ordered: Discontinued Medications Lidocaine HCl (Lidocaine 2% (Urojet) 5 Ml Gel) 5 ml TOP NOW ONE Stop: 09/07/20 07:11 Last Admin: 09/07/20 07:14 Dose: 5 ml Documented by: JYOTI Reevaluation(s) Reevaluation #1: Patient updated on lab and imaging findings, recommendations to monitor cyst on kidney. All questions answered. Time: 08:42 Vital Signs Vital signs: Vital Signs - 8 hr 09/07/20 06:50 Temperature 98 F Pulse Rate 86 Respiratory Rate 20 Blood Pressure 123/82 Pulse Oximetry 99 MDM - Male Genitourinary Lab Data Attestation: I reviewed the patient's lab results. Lab results narrative: CBC shows a mild leukopenia which has changed from his normal. Anemia which is slightly decreased from his normal baseline, normal platelets. His renal function is 1.34 which is up from the and and of July but similar to April of 2020. Patient's BUN slightly elevated as is chloride. Point of care urine is negative. Result diagrams: 09/07/20 07:21 09/07/20 07:21 Labs: Lab Results 09/07/20 09/07/20 Range/Units 07:21 07:21 WBC 4.1 L (4.5-11.0) X10^3/uL RBC 4.73 (4.5-5.9) X10^6/uL Hgb 12.7 L (13.5-17.5) g/dL Hct 39.2 L (41-53) % MCV 82.9 (80-100) fL MCH 26.9 (26-34) PG MCHC 32.5 (30-36) % RDW 14.0 (11.6-14.8) % Plt Count 152 (150-400) X10^3/uL Neut % (Auto) 59.6 (50-75) % Lymph % (Auto) 29.1 (25-40) % [place] % (Auto) 10.5 (3-14) % Eos % (Auto) 0.0 L (2-4) % Baso % (Auto) 0.8 (0-2) % Neut # (Auto) 2400 (6321-1188) /uL Lymph # (Auto) 1200 (4901-3039) /uL [place] # (Auto) 400 (0-900) /uL Eos # (Auto) 0 (0-450) /uL Baso # (Auto) 0 (0-100) /uL Sodium 139 (137-145) mmol/L Potassium 4.5 (3.4-5.1) mmol/L Chloride 108 H (98-107) mmol/L Carbon Dioxide 26 (22-32) mmol/L BUN 21 H (9-20) mg/dL Creatinine 1.34 H (0.66-1.25) mg/dL Estimated GFR 51.8 L (>60) mL/min BUN/Creatinine Ratio 15.7 (6-22) Glucose 116 H (80-110) mg/dL Calcium 8.8 (8.4-10.2) mg/dL Urine Dip Bedside Urine Glucose Negative Bedside Urine Bilirubin - Negative Bedside Urine Ketone - Negative Urine Specific [place] 1.020 Bedside Urine Occult Blood - Negative Bedside Urine pH 6 Bedside Urine Protein - Negative Bedside Urine Urobilinogen - Negative Bedside Urine Nitrite - Negative Bedside Urine Leukocytes - Negative Esterase Imaging Data CT scan - abdomen/pelvis: Radiologist's Impression: [address] [id number] Scan ReportSigned Patient: Jose Maria Mata RMR#: [id number]: [id number]:[id number]/Sex: 74 / MDate of Service: 09/07/20Loc: EDAccession Number: [id number] Procedure: CT kidney ureter bladder (KUB) Ordering Provider: Coral Barton D.O. PROCEDURE: CT KIDNEY URETER BLADDER (KUB) INDICATIONS: urinary retention, LLQ pain TECHNIQUE: Noncontrast 5 mm thick sections acquired from the diaphragms to the symphysis. 5 mm thick coronal and sagittal reformats were then performed. For radiation dose reduction, the following was used: automated exposure control, adjustment of mA and/or kV according to patient size. COMPARISON: [facility], CT, CT ABDOMEN PELVIS WITH CONTRAST, 07/28/2020, 14:01. [facility], CT, ABDOMEN/PELVIS WITH CONTRAST, 11/25/2016, 17:58. [facility], CT, ABDOMEN/PELVIS WITH CONTRAST, 11/23/2016, 10:51. [facility], CT, KIDNEY/ URETER/BLADDER, 08/25/2016, 20:00. FINDINGS: Image quality: Excellent. Lung bases: Lung bases are clear. Heart size is normal. Urinary system: Both kidneys are normal in size. Nonobstructing right-sided kidney stones are seen, with the largest measuring 4-5 mm. No left-sided kidney stones can be seen. No hydronephrosis or perinephric fat stranding. Stable areas of cortical loss can be seen involving the right inferior kidney. At the superior pole of the right kidney, there is a 2 cm hyperdense nodule that measures 44 Hounsfield units. On the prior recent contrast enhanced CT, this measured 31 Hounsfield units. Both ureters appear non-dilated throughout their expected courses. No ureteral stones are seen. The bladder is decompressed by a Bhatt catheter. Other solid organs: Liver is normal in size. Gallbladder has been removed. Pancreas is normal in contours. Spleen is normal in size. No adrenal nodules. Peritoneum and bowel: In this patient with this given history, scrutiny is given to the sigmoid colon and the left lower quadrant. No significant diverticulosis is seen. No significant left lower quadrant inflammatory change can be seen. Unenhanced bowel loops demonstrate normal wall thickness and caliber. No free fluid or air. Nodes and vessels: No retroperitoneal or mesenteric adenopathy by size criteria. Aorta and inferior vena cava are normal in caliber. Abdominal wall: No ventral hernias. Pelvis: No free pelvic fluid. No inguinal adenopathy. Bilateral fat containing inguinal hernias are seen. The prostate is prominent, measuring 6.2 cm transversely. Bones: No suspicious bony lesions. No vertebral body compression fractures. Mild levoconvex scoliotic curvature is noted. 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 Degenerative changes are seen throughout, which are worst at the L5-S1 level. IMPRESSION: Negative for diverticulitis. Nonobstructing right-sided kidney stones are seen. No findings of obstructive uropathy are seen. Right inferior kidney cortical loss, as before. There is a hyperdense nodule at the superior pole of the right kidney. This has grown over time. However, this is felt most likely to be related to a benign, hyperdense cyst. Attention should be paid to this focus on any future follow-up studies. MDM Narrative Medical decision making narrative: This is a 74-year-old male with multiple visits for urinary retention and UTI typically related to Bahtt catheter usage. Patient has had some left lower quadrant pain he has a mild leukopenia which is new and a decrease in his hemoglobin. His renal function has also decreased with his creatinine elevated from his normal baseline. Plan for KUB is patient cannot follow with Urology until November, he does have known BPH but has also been complaining of some left lower quadrant pain which was not totally relieved after Bhatt catheter was placed in the department. Urine was negative for infection today. The rest of his abdominal discomfort has significantly improved. CT KUB shows no signs of inflammation, no diverticulitis or colitis, there is some nonobstructing right kidney stones, no evidence of obstructive uropathy. There is stable right kidney cortical loss and a hyperdense nodule in the right kidney which has grown over time. They suspect this is benign, hyperdense cyst but recommend attention on future follow-up studies. Patient d/c'd home with bhatt catheter, I do recommend that he likely needs to leave in place longer term until urology can see him as he has required catherization multiple times. Discharge Plan Departure Patient Disposition: Home Clinical Impression: Urinary retention, Renal cyst Instructions: DI for Urinary Retention in Men Activity Restrictions/Additional Instructions: Follow-up with your urologist at your appointment in November. Your imaging does show a 2cm cyst on the right kidney which is larger than on last films but felt to be benign. It is recommended that tell your urologist or primary care physician about the cyst and they should continue to monitor for any further growth. Your creatinine was elevated, like from urinary retention, ask your physician to recheck it in the next several days or week. This can be an outpatient lab drawy. I also highly encourage you to keep your appointment for your MRI for your back tomorrow. Continue your antibiotics until they have been completed. Return to the ER for fevers, new or worsening abdominal, back or flank pain, new numbness, tingling or weakness in your extremities or groin, inability to drain here urinary catheter or if it appears locked, if you very dark urine, persistent vomiting or other new or concerning symptoms. Prescriptions: No Action tamsulosin [Flomax] 0.4 MG capsule,extended release 24hr 0.4 mg PO HS Qty: 0 RF: 0 multivitamin Capsule 1 cap PO BID Qty: 0 RF: 0 metoprolol tartrate 25 MG tablet 25 mg PO BID Qty: 0 RF: 0 Combivent Respimat 4 GM mist 1 puff inhalation PRN PRN (Reason: Wheezing) Qty: 0 RF: 0 simvastatin 40 MG tablet 80 mg PO QHS Qty: 0 RF: 0 gabapentin 100 MG capsule 200 mg PO/SL BID Qty: 0 RF: 0 Lantus U-100 Insulin 100 UNIT/1 ML solution 55 unit SQ DAILY Qty: 0 RF: 0 insulin aspart U-100 [Novolog U-100 Insulin aspart] 100 UNIT/1 ML solution 30 unit SQ AC Qty: 0 RF: 0 clotrimazole 1 % cream 1 gm Topical SEE INSTRUCTIONS Qty: 14.1 RF: 0 lidocaine 4 % adhesive patch,medicated 1 patch TOP DAILY PRN (Reason: pain) Qty: 10 RF: 0 cyclobenzaprine 10 mg tablet 10 mg PO BID PRN (Reason: muscle spasm) Qty: 7 RF: 0 Ozempic 0.25 mg or 0.5 mg(2 mg/1.5 mL) Pen Injector 0.5 mg SUBCUT QWEEK RF: 0 acetaminophen 325 mg Tablet 650 mg PO Q6HR PRN (Reason: Pain, Mild (1-3)) Qty: 20 RF: 0 docusate sodium [DOK] 100 mg Capsule 100 mg PO BID Qty: 20 RF: 0 oxycodone 10 mg tablet 10 mg PO Q4H PRN (Reason: pain) Qty: 40 RF: 0 Referrals: Edgardo Devlin MD [Primary Care Provider] -
[2020-09-07] MEDS: LIDOCAINE 2% (UROJET) 5 ML GEL TOP (07:14)
[2020-09-07 07:37] LABS: Add Manual Diff / Slide Review NO; Basophils Absolute Auto 0 /uL (0-100); Basophils Percent Auto 0.8 % (0-2); Eosinophils Absolute Auto 0 /uL (0-450); Hematocrit 39.2 % (41-53); Hemoglobin 12.7 g/dL (13.5-17.5); Lymphocytes Absolute Auto 1200 /uL (1100-4500); Lymphocytes Percent Auto 29.1 % (25-40); Mean Corpuscular HGB Conc 32.5 % (30-36); Mean Corpuscular Hemoglobin 26.9 PG (26-34); Mean Corpuscular Volume 82.9 fL (80-100); Monocytes Absolute Auto 400 /uL (0-900); Monocytes Percent Auto 10.5 % (3-14); Neutrophils Absolute Auto 2400 /uL (1500-7000); Neutrophils Percent Auto 59.6 % (50-75); Platelet Count 152 X10^3/uL (150-400); Red Blood Cell Count 4.73 X10^6/uL (4.5-5.9); White Blood Cell Count 4.1 X10^3/uL (4.5-11.0)
--- NOTE | 2020-09-07 07:44 | DI.CT.S_ITS ---
PROCEDURE: CT KIDNEY URETER BLADDER (KUB) INDICATIONS: urinary retention, LLQ pain TECHNIQUE: Noncontrast 5 mm thick sections acquired from the diaphragms to the symphysis. 5 mm thick coronal and sagittal reformats were then performed. For radiation dose reduction, the following was used: automated exposure control, adjustment of mA and/or kV according to patient size. COMPARISON: [facility], CT, CT ABDOMEN PELVIS WITH CONTRAST, 07/28/2020, 14:01. [facility], CT, ABDOMEN/PELVIS WITH CONTRAST, 11/25/2016, 17:58. [facility], CT, ABDOMEN/PELVIS WITH CONTRAST, 11/23/2016, 10:51. [facility], CT, KIDNEY/ URETER/BLADDER, 08/25/2016, 20:00. FINDINGS: Image quality: Excellent. Lung bases: Lung bases are clear. Heart size is normal. Urinary system: Both kidneys are normal in size. Nonobstructing right-sided kidney stones are seen, with the largest measuring 4-5 mm. No left-sided kidney stones can be seen. No hydronephrosis or perinephric fat stranding. Stable areas of cortical loss can be seen involving the right inferior kidney. At the superior pole of the right kidney, there is a 2 cm hyperdense nodule that measures 44 Hounsfield units. On the prior recent contrast enhanced CT, this measured 31 Hounsfield units. Both ureters appear non-dilated throughout their expected courses. No ureteral stones are seen. The bladder is decompressed by a Barnett catheter. Other solid organs: Liver is normal in size. Gallbladder has been removed. Pancreas is normal in contours. Spleen is normal in size. No adrenal nodules. Peritoneum and bowel: In this patient with this given history, scrutiny is given to the sigmoid colon and the left lower quadrant. No significant diverticulosis is seen. No significant left lower quadrant inflammatory change can be seen. Unenhanced bowel loops demonstrate normal wall thickness and caliber. No free fluid or air. Nodes and vessels: No retroperitoneal or mesenteric adenopathy by size criteria. Aorta and inferior vena cava are normal in caliber. Abdominal wall: No ventral hernias. Pelvis: No free pelvic fluid. No inguinal adenopathy. Bilateral fat containing inguinal hernias are seen. The prostate is prominent, measuring 6.2 cm transversely. Bones: No suspicious bony lesions. No vertebral body compression fractures. Mild levoconvex scoliotic curvature is noted. 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 Degenerative changes are seen throughout, which are worst at the L5-S1 level. IMPRESSION: Negative for diverticulitis. Nonobstructing right-sided kidney stones are seen. No findings of obstructive uropathy are seen. Right inferior kidney cortical loss, as before. There is a hyperdense nodule at the superior pole of the right kidney. This has grown over time. However, this is felt most likely to be related to a benign, hyperdense cyst. Attention should be paid to this focus on any future follow-up studies. Incidental note is made of: Cholecystectomy Prominent prostate Bilateral fat containing inguinal hernias Transitional lumbar anatomy Focal L5-S1 degenerative change Dictated by: Kelvin Hemls M.D. on 09/07/2020 at 7:21 Approved by: Kelvin Helms M.D. on 09/07/2020 at 7:29
[2020-09-07 07:46] LABS: BUN Creatinine Ratio 15.7 (6-22); Blood Urea Nitrogen 21 mg/dL (9-20); Calcium 8.8 mg/dL (8.4-10.2); Carbon Dioxide 26 mmol/L (22-32); Chloride 108 mmol/L (98-107); Estimated Glomerular Filt Rate 51.8 mL/min (>60); Glucose 116 mg/dL (80-110); HEMOLYSIS < 15 (0-50); Potassium 4.5 mmol/L (3.4-5.1); Sodium 139 mmol/L (137-145)
[2020-09-07 09:05] VITALS: BP 121/81; PULSE 72; RESP 16; O2SAT 99
== END 2020-09-07 09:21 | disposition home or self-care (01) ==
PROVIDERS: Emergency Provider Emergency Medicine; PCP Internal Medicine
DX: R33.8 Other retention of urine (principal); N28.1 Cyst of kidney, acquired; N40.1 Benign prostatic hyperplasia with lower urinary tract symptoms; K59.00 Constipation, unspecified; R10.32 Left lower quadrant pain; E11.9 Type 2 diabetes mellitus without complications; Z79.4 Long term (current) use of insulin; Z86.73 Personal history of transient ischemic attack (TIA), and cerebral infarction without residual deficits; E78.5 Hyperlipidemia, unspecified; E66.9 Obesity, unspecified; Z68.36 Body mass index [BMI] 36.0-36.9, adult; D72.829 Elevated white blood cell count, unspecified; D64.9 Anemia, unspecified
CPT/HCPCS: 51798; 74176; 80048; 81003; 85025; 99284

== ENCOUNTER 2020-09-09 14:16 | Emergency (ER) | payer OTHER, SELFPAY ==
[2020-07-11 12:46] VITALS: BMI 37.5
[2020-09-09 14:25] VITALS: BP 135/71; PULSE 67; RESP 16; TEMP 37.3; O2SAT 97; BMI 36.5
[2020-09-09 15:51] LABS: Add Manual Diff / Slide Review NO; Basophils Absolute Auto 0 /uL (0-100); Basophils Percent Auto 0.4 % (0-2); Eosinophils Absolute Auto 0 /uL (0-450); Hemoglobin 12.6 g/dL (13.5-17.5); Lymphocytes Absolute Auto 1400 /uL (1100-4500); Lymphocytes Percent Auto 30.2 % (25-40); Mean Corpuscular HGB Conc 33.2 % (30-36); Mean Corpuscular Hemoglobin 27.2 PG (26-34); Mean Corpuscular Volume 81.9 fL (80-100); Monocytes Absolute Auto 600 /uL (0-900); Monocytes Percent Auto 13.3 % (3-14); Neutrophils Absolute Auto 2700 /uL (1500-7000); Neutrophils Percent Auto 56.1 % (50-75); Platelet Count 146 X10^3/uL (150-400); Red Blood Cell Count 4.64 X10^6/uL (4.5-5.9); Red Cell Distribution Width 13.7 % (11.6-14.8); White Blood Cell Count 4.8 X10^3/uL (4.5-11.0)
[2020-09-09 15:59] LABS: Alanine Aminotransferase 23 IU/L (<50); Albumin Globulin Ratio 1.4 (1.0-2.8); Alkaline Phosphatase 54 U/L (38-126); Aspartate Aminotransferase 25 IU/L (17-59); BUN Creatinine Ratio 16.7 (6-22); Bilirubin Total 0.9 mg/dL (0.2-1.3); Blood Urea Nitrogen 19 mg/dL (9-20); Calcium 8.7 mg/dL (8.4-10.2); Carbon Dioxide 25 mmol/L (22-32); Chloride 105 mmol/L (98-107); Estimated Glomerular Filt Rate > 60.0 mL/min (>60); Globulin 2.8 g/dL (1.7-4.1); Glucose 129 mg/dL (80-110); HEMOLYSIS 18 (0-50); Potassium 4.1 mmol/L (3.4-5.1); Sodium 136 mmol/L (137-145); Total Protein 6.8 g/dL (6.3-8.2)
[2020-09-09 16:27] LABS: Bacteria Urine None Seen; WBC Urine None Seen (0-5/HPF)
[2020-09-09 16:30] LABS: Appearance Urine UA CLEAR; Bilirubin Urine UA NEGATIVE (NEGATIVE); Color Urine UA YELLOW; Glucose Urine UA NEGATIVE (Negative); Ketones Urine UA NEGATIVE (NEGATIVE); Leukocyte Esterase Urine UA NEGATIVE (NEGATIVE); Nitrite Urine UA NEGATIVE (Negative); Occult Blood Urine UA 2+ (Negative); Protein Urine UA 1+ (Negative); Specific Gravity Urine UA >=1.030 (1.000-1.035); Urobilinogen Urine UA 0.2 E.U./dL (0.2); pH Urine UA 5.5 (4.5-8.0)
[2020-09-09 16:36] LABS: Culture Indicated Urine Cult Not Indicated; Mucus Urine 2+ (Negative); RBC Urine 10-30/HPF (0-5/HPF)
[2020-09-09 16:55] VITALS: BP 176/80; PULSE 85; RESP 20; O2SAT 99
--- NOTE | 2020-09-09 18:23 | ED.MALEGU ---
HPI - Male Genitourinary <Coral Berman, OYSTERMAN-BC - Last Filed: 09/09/20 18:28> General Chief complaint: Urogenital-Male Stated complaint: Catheter Not Working Time Seen by Provider: 09/09/20 14:25 Source: patient Mode of arrival: Wheelchair Limitations: no limitations History of Present Illness HPI Narrative: The patient is a 74-year-old male nonsmoker with history of acute UTI, urinary retention renal cyst presents with a chief complaint of a urinary catheter not working. You seen and evaluated in this emergency department a few days ago, had a Barnett catheter placed related urinary tension. He states that he feels some pressure in his bladder any concern that is not draining. He states he finished his antibiotic this morning. Denies any fevers nausea vomiting or diarrhea. He is also concerned about the size of the catheter, as it might be larger than any other catheter he seen before. Related Data Home Medications Medication Instructions Recorded Confirmed multivitamin 1 cap PO BID #0 03/22/13 07/11/20 tamsulosin [Flomax] 0.4 mg PO HS #0 03/22/13 07/11/20 Combivent Respimat 1 puff INHALATION PRN PRN #0 08/25/16 07/11/20 gabapentin 200 mg PO/SL BID #0 08/25/16 07/11/20 metoprolol tartrate 25 mg PO BID #0 08/25/16 07/11/20 simvastatin 80 mg PO QHS #0 08/25/16 07/11/20 Lantus U-100 Insulin 55 unit SQ DAILY #0 11/01/16 07/11/20 insulin aspart U-100 [Novolog 30 unit SQ AC #0 12/06/16 07/11/20 U-100 Insulin aspart] Ozempic 0.5 mg SUBCUT QWEEK 07/11/20 07/11/20 Previous Rx's Medication Instructions Recorded clotrimazole 1 gm TOPICAL SEE INSTRUCTIONS 12/06/16 #14.1 gm cyclobenzaprine 10 mg PO BID PRN #7 tab 05/04/20 acetaminophen 650 mg PO Q6HR PRN #20 tab 07/12/20 docusate sodium [DOK] 100 mg PO BID #20 cap 07/12/20 oxycodone 10 mg PO Q4H PRN #40 tab 07/12/20 lidocaine 1 patch TOP DAILY PRN #10 each 08/01/20 Allergies Allergy/AdvReac Type Severity Reaction Status Date / Time No Known Drug Allergies Allergy Verified 07/16/20 10:10 Review of Systems <RAE Francis - Last Filed: 09/09/20 18:28> Review of Systems Narrative: GENERAL: Denies chills, fatigue, malaise, fever, sweats. HEENT: Denies sinus pain, ear pain, sore throat, difficulty swallowing, dizziness. RESPIRATORY: Denies dyspnea, cough, wheezing, hemoptysis, sputum. CARDIOVASCULAR: Denies chest pain, palpitations, orthopnea, edema, GASTROINTESTINAL: Denies nausea, vomiting, abdominal pain, diarrhea, constipation, melena. : See HPI MUSCULOSKELETAL: denies weakness, joint pain, or bony pain SKIN: Denies rash, skin lesions, or other NEUROLOGIC: Denies weakness, headache, numbness, change in speech, confusion, seizures, incoordination. PSYCHIATRIC: No concerning psychosocial issues. 12 point review of systems is negative except for those stated above Patient History <RAE Francis - Last Filed: 09/09/20 18:28> Medical History Acute urinary retention Amputation of left index finger Diabetes Hepatitis C History of ischemic middle cerebral artery stroke Hyperlipidemia Macular degeneration Myocardial infarction Obstipation (05/07/20) KASSIDY (obstructive sleep apnea) TIA (transient ischemic attack) (10/29/16) Surgical History H/O laminectomy History of carpal tunnel release History of repair of hiatal hernia Hx of cholecystectomy Hx of thumb surgery S/P trigger finger release Social History household members: none Smoking Status: Never smoker alcohol intake: former Smoking Status: Never smoker alcohol intake frequency: 0-2 drinks per day Substance Use Type: does not use Exam <RAE Francis - Last Filed: 09/09/20 18:28> Narrative Exam Narrative: GENERAL: This is a well-nourished, well-developed patient, in no acute distress HEAD: Atraumatic. Normocephalic. No temporal or scalp tenderness. EYES: Pupils equal round and reactive. Extraocular motions intact. No scleral icterus. No injection or drainage. ENT: Nose without bleeding, purulent drainage or septal hematoma. Wearing a mask. Airway patent. NECK: Trachea midline. No JVD or lymphadenopathy. Supple, nontender, no meningeal signs. CARDIOVASCULAR: Regular rate and rhythm RESPIRATORY: Clear to auscultation. Breath sounds equal bilaterally. No wheezes, rales, or rhonchi. GASTROINTESTINAL: Abdomen soft, non-tender, nondistended. No hepato-splenomegaly, or palpable masses. No guarding. Barnett catheter in place draining clear yellow urine. EXTREMITIES: No clubbing, cyanosis, or edema. No joint tenderness, effusion, or edema noted. BACK: Nontender without deformity or crepitance. No CVA tenderness bilaterally NEURO: Alert oriented, interactive SKIN: No rash or erythema on visible skin Initial Vital Signs Initial Vital Signs: Vital Signs Temperature 99.1 F 09/09/20 14:25 Pulse Rate 67 09/09/20 14:25 Respiratory Rate 16 09/09/20 14:25 Blood Pressure 135/71 09/09/20 14:25 Pulse Oximetry 97 09/09/20 14:25 <Brett Holt DO - Last Filed: 09/09/20 18:29> Initial Vital Signs Initial Vital Signs: Vital Signs Temperature 99.1 F 09/09/20 14:25 Pulse Rate 67 09/09/20 14:25 Respiratory Rate 16 09/09/20 14:25 Blood Pressure 135/71 09/09/20 14:25 Pulse Oximetry 97 09/09/20 14:25 Scores <RAE Francis - Last Filed: 09/09/20 18:28> GCS Chin coma scale eye opening: Spontaneous [place] coma scale verbal response: Orientated [place] coma scale motor response: Obey commands [place] coma scale total score: 15 Course <RAE Francis - Last Filed: 09/09/20 18:28> Course Course Narrative: The patient had to be encouraged to wear a mask when care providers were in the room. Patient then had to be reminded to wear a mask over his nose. The patient stated he did not need to wear a mask as nobody else was in the room, I reminded him that care providers were in the room with him and referred him to the remediation consultant on the wall. Orders Ordered: ED Orders 09/09/20 14:32 Urinalysis and Microscopic Stat 09/09/20 15:39 Complete Blood Count AUTO DIFF Stat Comprehensive Metabolic Panel Stat Vital Signs Vital signs: Vital Signs - 8 hr 09/09/20 14:25 09/09/20 16:55 Temperature 99.1 F Pulse Rate 67 85 Respiratory Rate 16 20 Blood Pressure 135/71 176/80 H Pulse Oximetry 97 99 <Brett Holt DO - Last Filed: 09/09/20 18:29> Orders Ordered: ED Orders 09/09/20 14:32 Urinalysis and Microscopic Stat 09/09/20 15:39 Complete Blood Count AUTO DIFF Stat Comprehensive Metabolic Panel Stat Vital Signs Vital signs: Vital Signs - 8 hr 09/09/20 14:25 09/09/20 16:55 Temperature 99.1 F Pulse Rate 67 85 Respiratory Rate 16 20 Blood Pressure 135/71 176/80 H Pulse Oximetry 97 99 MDM - Male Genitourinary <PING Francis-LESIA - Last Filed: 09/09/20 18:28> Lab Data Result diagrams: 09/09/20 15:39 09/09/20 15:39 Labs: Lab Results 09/09/20 09/09/20 09/09/20 Range/Units 14:32 15:39 15:39 WBC 4.8 (4.5-11.0) X10^3/uL RBC 4.64 (4.5-5.9) X10^6/uL Hgb 12.6 L (13.5-17.5) g/dL Hct 38.0 L (41-53) % MCV 81.9 (80-100) fL MCH 27.2 (26-34) PG MCHC 33.2 (30-36) % RDW 13.7 (11.6-14.8) % Plt Count 146 L (150-400) X10^3/uL Neut % (Auto) 56.1 (50-75) % Lymph % (Auto) 30.2 (25-40) % Child[place] % (Auto) 13.3 (3-14) % Eos % (Auto) 0.0 L (2-4) % Baso % (Auto) 0.4 (0-2) % Neut # (Auto) 2700 (9546-5295) /uL Lymph # (Auto) 1400 (2194-1651) /uL Child[place] # (Auto) 600 (0-900) /uL Eos # (Auto) 0 (0-450) /uL Baso # (Auto) 0 (0-100) /uL Sodium 136 L (137-145) mmol/L Potassium 4.1 (3.4-5.1) mmol/L Chloride 105 (98-107) mmol/L Carbon Dioxide 25 (22-32) mmol/L BUN 19 (9-20) mg/dL Creatinine 1.14 (0.66-1.25) mg/dL Estimated GFR > 60.0 (>60) mL/min BUN/Creatinine Ratio 16.7 (6-22) Glucose 129 H (80-110) mg/dL Calcium 8.7 (8.4-10.2) mg/dL Total Bilirubin 0.9 (0.2-1.3) mg/dL AST 25 (17-59) IU/L ALT 23 (<50) IU/L Alkaline Phosphatase 54 (38-126) U/L Total Protein 6.8 (6.3-8.2) g/dL Albumin 4.0 (3.5-5.0) g/dL Globulin 2.8 (1.7-4.1) g/dL Albumin/Globulin Ratio 1.4 (1.0-2.8) Urine Color Yellow Urine Appearance Clear Urine pH 5.5 (4.5-8.0) Ur Specific Bat[place]lor >=1.030 H (1.000-1.035) Urine Protein 1+ H (Negative) Urine Glucose (UA) Negative (Negative) g/dL Urine Ketones Negative (NEGATIVE) Urine Occult Blood 2+ H (Negative) Urine Nitrate Negative (Negative) Urine Bilirubin Negative (NEGATIVE) Urine Urobilinogen 0.2 (0.2) E.U./dL Ur Leukocyte Esterase Negative (NEGATIVE) Urine RBC 10-30/hpf H (0-5/HPF) Urine WBC None seen (0-5/HPF) Urine Bacteria None seen (None) Urine Mucus 2+ H (Negative) Ur Culture Indicated? Cult not indicated MDM Narrative Medical decision making narrative: The patient is a 74-year-old male who presents with a chief complaint of concerned that his Barnett catheter is not working appropriately. It is draining urine well, and had multiple normal bladder scans. He has no signs of urinary tract infection on his repeat urinalysis. Basic labs or taking, he has no leukocytosis, and normal renal function. Patient was reassured repeatedly that his Barnett catheter appears to be working well. Encouraged follow-up with primary care provider as well as other providers. <Brett Holt, DO - Last Filed: 09/09/20 18:29> Lab Data Labs: Lab Results 09/09/20 09/09/20 09/09/20 Range/Units 14:32 15:39 15:39 WBC 4.8 (4.5-11.0) X10^3/uL RBC 4.64 (4.5-5.9) X10^6/uL Hgb 12.6 L (13.5-17.5) g/dL Hct 38.0 L (41-53) % MCV 81.9 (80-100) fL MCH 27.2 (26-34) PG MCHC 33.2 (30-36) % RDW 13.7 (11.6-14.8) % Plt Count 146 L (150-400) X10^3/uL Neut % (Auto) 56.1 (50-75) % Lymph % (Auto) 30.2 (25-40) % Child[place] % (Auto) 13.3 (3-14) % Eos % (Auto) 0.0 L (2-4) % Baso % (Auto) 0.4 (0-2) % Neut # (Auto) 2700 (5341-5731) /uL Lymph # (Auto) 1400 (4209-8668) /uL Child[place] # (Auto) 600 (0-900) /uL Eos # (Auto) 0 (0-450) /uL Baso # (Auto) 0 (0-100) /uL Sodium 136 L (137-145) mmol/L Potassium 4.1 (3.4-5.1) mmol/L Chloride 105 (98-107) mmol/L Carbon Dioxide 25 (22-32) mmol/L BUN 19 (9-20) mg/dL Creatinine 1.14 (0.66-1.25) mg/dL Estimated GFR > 60.0 (>60) mL/min BUN/Creatinine Ratio 16.7 (6-22) Glucose 129 H (80-110) mg/dL Calcium 8.7 (8.4-10.2) mg/dL Total Bilirubin 0.9 (0.2-1.3) mg/dL AST 25 (17-59) IU/L ALT 23 (<50) IU/L Alkaline Phosphatase 54 (38-126) U/L Total Protein 6.8 (6.3-8.2) g/dL Albumin 4.0 (3.5-5.0) g/dL Globulin 2.8 (1.7-4.1) g/dL Albumin/Globulin Ratio 1.4 (1.0-2.8) Urine Color Yellow Urine Appearance Clear Urine pH 5.5 (4.5-8.0) Ur Specific [place] >=1.030 H (1.000-1.035) Urine Protein 1+ H (Negative) Urine Glucose (UA) Negative (Negative) g/dL Urine Ketones Negative (NEGATIVE) Urine Occult Blood 2+ H (Negative) Urine Nitrate Negative (Negative) Urine Bilirubin Negative (NEGATIVE) Urine Urobilinogen 0.2 (0.2) E.U./dL Ur Leukocyte Esterase Negative (NEGATIVE) Urine RBC 10-30/hpf H (0-5/HPF) Urine WBC None seen (0-5/HPF) Urine Bacteria None seen (None) Urine Mucus 2+ H (Negative) Ur Culture Indicated? Cult not indicated Discharge Plan Departure Patient Disposition: Home Clinical Impression: Barnett catheter in place Instructions: How to Care for Your Barnett Catheter -- Male Activity Restrictions/Additional Instructions: Thank you for trusting us with your care today. As discussed, I believe that your urine catheter is working well. There is no evidence of urinary retention, infection in your kidney function is good today. Please continue to keep your catheter clean. I have included information on how to take care of it. Please come back to emergency department for any acute concerns. Please follow-up with your primary care provider as well Prescriptions: No Action tamsulosin [Flomax] 0.4 MG capsule,extended release 24hr 0.4 mg PO HS Qty: 0 RF: 0 multivitamin Capsule 1 cap PO BID Qty: 0 RF: 0 metoprolol tartrate 25 MG tablet 25 mg PO BID Qty: 0 RF: 0 Combivent Respimat 4 GM mist 1 puff inhalation PRN PRN (Reason: Wheezing) Qty: 0 RF: 0 simvastatin 40 MG tablet 80 mg PO QHS Qty: 0 RF: 0 gabapentin 100 MG capsule 200 mg PO/SL BID Qty: 0 RF: 0 Lantus U-100 Insulin 100 UNIT/1 ML solution 55 unit SQ DAILY Qty: 0 RF: 0 insulin aspart U-100 [Novolog U-100 Insulin aspart] 100 UNIT/1 ML solution 30 unit SQ AC Qty: 0 RF: 0 clotrimazole 1 % cream 1 gm Topical SEE INSTRUCTIONS Qty: 14.1 RF: 0 lidocaine 4 % adhesive patch,medicated 1 patch TOP DAILY PRN (Reason: pain) Qty: 10 RF: 0 cyclobenzaprine 10 mg tablet 10 mg PO BID PRN (Reason: muscle spasm) Qty: 7 RF: 0 Ozempic 0.25 mg or 0.5 mg(2 mg/1.5 mL) Pen Injector 0.5 mg SUBCUT QWEEK RF: 0 acetaminophen 325 mg Tablet 650 mg PO Q6HR PRN (Reason: Pain, Mild (1-3)) Qty: 20 RF: 0 docusate sodium [DOK] 100 mg Capsule 100 mg PO BID Qty: 20 RF: 0 oxycodone 10 mg tablet 10 mg PO Q4H PRN (Reason: pain) Qty: 40 RF: 0 Referrals: Edgardo Devlin MD [Primary Care Provider] - <Brett Holt DO - Last Filed: 09/09/20 18:29> Cosign ED Attending Cosignature Attestation: Dr Holt Co-Sign Statement: I was available for consultation during this patient's emergency department visit. This chart is signed by myself for administrative purposes only. I did not have direct contact with this patient during this visit. They were seen independently by the APC.
== END 2020-09-09 16:56 | disposition home or self-care (01) ==
PROVIDERS: Emergency Provider Nurse Practitioner Family; PCP Internal Medicine
DX: T83.9XXA Unspecified complication of genitourinary prosthetic device, implant and graft, initial encounter (principal); N28.1 Cyst of kidney, acquired; E11.9 Type 2 diabetes mellitus without complications; E78.5 Hyperlipidemia, unspecified; G47.33 Obstructive sleep apnea (adult) (pediatric); Z86.73 Personal history of transient ischemic attack (TIA), and cerebral infarction without residual deficits
CPT/HCPCS: 36415; 51700; 80053; 81001; 85025; 99283; 99284

== ENCOUNTER 2020-09-18 16:43 | Emergency (ER) | payer OTHER, SELFPAY ==
[2020-07-11 12:46] VITALS: BMI 37.5
[2020-09-18 16:50] VITALS: BP 131/62; PULSE 76; RESP 16; TEMP 36.7; O2SAT 98; BMI 36.1
== END 2020-09-18 18:51 | disposition left against medical advice (07) ==
PROVIDERS: Emergency Provider Emergency Medicine; PCP Internal Medicine
CPT/HCPCS: 99281

== ENCOUNTER 2020-10-27 16:18 | Emergency (ER) | payer OTHER, SELFPAY ==
[2020-07-11 12:46] VITALS: BMI 37.5
[2020-10-27 16:29] VITALS: BP 201/88; PULSE 89; RESP 24; TEMP 36.6; O2SAT 97
--- NOTE | 2020-10-27 17:14 | DI.CT.S_ITS ---
PROCEDURE: CT KIDNEY URETER BLADDER (KUB) INDICATIONS: left flank pain TECHNIQUE: Noncontrast 5 mm thick sections acquired from the diaphragms to the symphysis. 5 mm thick coronal and sagittal reformats were then performed. For radiation dose reduction, the following was used: automated exposure control, adjustment of mA and/or kV according to patient size. COMPARISON: [facility], CT, CT ABDOMEN PELVIS WITH CONTRAST, 07/28/2020, 14:01. FINDINGS: Image quality: Excellent. Lung bases: Lung bases are clear. Heart size is normal. Urinary system: There is no renal or ureteral calculus demonstrated on the left. There is a nonobstructing right renal calculus in the lower pole measuring approximately 4 mm. Scarring and atrophic changes in the lower pole right kidney likely reflective of prior infection. Relatively symmetric bilateral perinephric fat stranding. No gross unenhanced CT evidence of renal mass, although exam is of limited sensitivity without IV contrast. Marked enlargement of the prostate which is masslike and asymmetric on the left with suggestion of an approximately 5 cm prostate mass. This is similar but increased in size when compared with 07/28/2020 examination. This does exert mild mass effect on the left UVJ. Mild urinary bladder thickening is presumably a function of chronic outlet obstruction. Other solid organs: Liver is normal in size. Gallbladder has been removed. Pancreas is normal in contours. Spleen is normal in size. No adrenal nodules. Peritoneum and bowel: Unenhanced bowel loops demonstrate normal wall thickness and caliber. No free fluid or air. Nodes and vessels: No retroperitoneal or mesenteric adenopathy by size criteria. Aorta and inferior vena cava are normal in caliber. Abdominal wall: No ventral hernias. Pelvis: No free pelvic fluid. No inguinal hernias or adenopathy. Bones: No suspicious bony lesions. No vertebral body compression fractures. IMPRESSION: No urinary tract calculus or hydronephrosis on the left to explain left-sided flank pain. Prostatomegaly with asymmetric enlargement on the left which exerts mild mass effect on the left UVJ. Appearance is slightly more pronounced when compared with the 07/28/2020 examination. Correlate with PSA and consider urology consultation for additional evaluation. CT scan is of low sensitivity and specificity for prostate carcinoma, although the appearance on the current exam is concerning. Scarring in the lower pole right kidney with an associated small nonobstructing calculus. Concentric urinary bladder wall thickening presumably a function of chronic outlet obstruction related to prostatomegaly. Dictated by: Ruben Daniels M.D. on 10/27/2020 at 17:31 Approved by: Ruben Daniels M.D. on 10/27/2020 at 17:37
--- NOTE | 2020-10-27 17:30 | ED.ABDPAIN ---
HPI - Abdominal Pain General Chief Complaint: Back Pain/Injury Stated Complaint: SEVERE PAIN ON BACK NO SLEEP FOR 3 DAYS Time Seen by Provider: 10/27/20 16:29 Source: patient Mode of arrival: Ambulatory History of Present Illness HPI narrative: Patient is a 74-year-old male with history of chronic ongoing back pain and history of urinary retention. He he states he has had left-sided back pain and flank pain radiating around to his stomach for at least a month and half. However has progressively gotten worse over the last 3 days. He states that he is urinating fine without any difficulties no fevers or chills. He has been taking lidocaine patches however they do not seem to be working. He was post to have further ongoing back surgery which has been delayed, he is not sure why. Denies any changes in bowel or bladder habits no numbness tingling or weakness in his lower extremities. He says that he does have some chronic right anterior thigh pain for which there is a lidocaine patch. MD complaint: abdominal pain, flank pain and other (Back) Onset (ago): day(s) (3) Pain Consistency: colicky Severity: severe Quality: stabbing Migration to: LLQ Relieving factors: nothing Exacerbating factors: nothing Related Data Home Medications Medication Instructions Recorded Confirmed multivitamin 1 cap PO BID #0 03/22/13 07/11/20 tamsulosin [Flomax] 0.4 mg PO HS #0 03/22/13 07/11/20 Combivent Respimat 1 puff INHALATION PRN PRN #0 08/25/16 07/11/20 gabapentin 200 mg PO/SL BID #0 08/25/16 07/11/20 metoprolol tartrate 25 mg PO BID #0 08/25/16 07/11/20 simvastatin 80 mg PO QHS #0 08/25/16 07/11/20 Lantus U-100 Insulin 55 unit SQ DAILY #0 11/01/16 07/11/20 insulin aspart U-100 [Novolog 30 unit SQ AC #0 12/06/16 07/11/20 U-100 Insulin aspart] Ozempic 0.5 mg SUBCUT QWEEK 07/11/20 07/11/20 Previous Rx's Medication Instructions Recorded clotrimazole 1 gm TOPICAL SEE INSTRUCTIONS 12/06/16 #14.1 gm cyclobenzaprine 10 mg PO BID PRN #7 tab 05/04/20 acetaminophen 650 mg PO Q6HR PRN #20 tab 07/12/20 docusate sodium [DOK] 100 mg PO BID #20 cap 07/12/20 oxycodone 10 mg PO Q4H PRN #40 tab 07/12/20 lidocaine 1 patch TOP DAILY PRN #10 each 08/01/20 sulfamethoxazole-trimethoprim 1 tab PO BID 7 Days #14 tab 10/27/20 [Bactrim DS] Allergies Allergy/AdvReac Type Severity Reaction Status Date / Time No Known Drug Allergies Allergy Verified 09/18/20 16:53 Review of Systems Review of Systems ROS Unobtainable: All systems reviewed & are unremarkable except as noted in HPI and below Constitutional Constitutional: Denies chills, Denies fever(s), Denies lethargy and Denies weakness Cardiovascular Cardiovascular: Denies chest pain, Denies irregular heart rhythm, Denies lightheadedness, Denies palpitations, Denies dyspnea, Denies dyspnea on exertion and Denies orthopnea Respiratory Respiratory: Denies cough, Denies dyspnea, Denies dyspnea on exertion and Denies wheezing Gastrointestinal Gastrointestinal: Reports abdominal pain, Denies diarrhea and Denies nausea Musculoskeletal Musculoskeletal: Reports as per HPI and Reports back pain Integumentary/Breasts Skin/Breast: Denies pruritus, Denies erythema, Denies rash and Denies wounds Neurologic Neurologic: Denies weakness Endocrine Endocrine: Denies palpitations Allergic/Immunologic Allergic/Immunologic: Denies wheezing Patient History Medical History (Updated 10/27/20 @ 19:05 by Kaur Banks DO) Acute urinary retention Amputation of left index finger Diabetes Hepatitis C History of ischemic middle cerebral artery stroke Hyperlipidemia Macular degeneration Myocardial infarction Obstipation (05/07/20) KASSIDY (obstructive sleep apnea) TIA (transient ischemic attack) (10/29/16) Surgical History H/O laminectomy History of carpal tunnel release History of repair of hiatal hernia Hx of cholecystectomy Hx of thumb surgery S/P trigger finger release Social History household members: none Smoking Status: Never smoker alcohol intake: former Smoking Status: Never smoker alcohol intake frequency: 0-2 drinks per day Substance Use Type: does not use Exam Initial Vital Signs Initial Vital Signs: Vital Signs Temperature 97.8 F 10/27/20 16:29 Pulse Rate 89 10/27/20 16:29 Respiratory Rate 24 10/27/20 16:29 Blood Pressure 201/88 H 10/27/20 16:29 Pulse Oximetry 97 10/27/20 16:29 GENERAL: Alert female appears in moderate discomfort holding left lower quadrant and in [no acute] distress. HEENT: Head atraumatic,EOMI, pupils reactive, face symmetric, [moist] mucous membranes CARDIOVASCULAR: Regular rate and rhythm without murmurs, rubs or gallops. RESPIRATORY: Breath sounds equal bilaterally, no wheezes rales or rhonchi. ABDOMEN: Soft, mild tenderness left lower quadrant some tenderness on the right well but more on left : Mild left CVA tenderness EXTREMITIES: Normal range of motion, no clubbing or edema. Neurovascularly intact NEUROLOGICAL: Alert and oriented x4.Normal gait and speech. Cranial nerves II through XII grossly intact. SKIN: Warm, dry, no laceration, no petechiae, no rashes or lesions. Course Orders Ordered: Discontinued Medications Ketorolac Tromethamine (Ketorolac 60 Mg/2 Ml Vial) 30 mg IM NOW ONE Stop: 10/27/20 17:15 Last Admin: 10/27/20 19:27 Dose: Not Given Documented by: Vital Signs Vital signs: Vital Signs - 8 hr 10/27/20 16:29 Temperature 97.8 F Pulse Rate 89 Respiratory Rate 24 Blood Pressure 201/88 H Pulse Oximetry 97 MDM - Abdominal Pain Lab Data Attestation: I reviewed the patient's lab results. Result diagrams: 10/27/20 17:44 10/27/20 17:44 Labs: Lab Results 10/27/20 10/27/20 10/27/20 Range/Units 17:44 17:44 18:47 WBC 5.0 (4.5-11.0) X10^3/uL RBC 5.10 (4.5-5.9) X10^6/uL Hgb 13.6 (13.5-17.5) g/dL Hct 41.1 (41-53) % MCV 80.6 (80-100) fL MCH 26.7 (26-34) PG MCHC 33.1 (30-36) % RDW 14.1 (11.6-14.8) % Plt Count 158 (150-400) X10^3/uL Neut % (Auto) 57.5 (50-75) % Lymph % (Auto) 31.0 (25-40) % [place] % (Auto) 11.3 (3-14) % Eos % (Auto) 0.0 L (2-4) % Baso % (Auto) 0.2 (0-2) % Neut # (Auto) 2900 (1040-6272) /uL Lymph # (Auto) 1500 (0375-1006) /uL [place] # (Auto) 600 (0-900) /uL Eos # (Auto) 0 (0-450) /uL Baso # (Auto) 0 (0-100) /uL Sodium 140 (137-145) mmol/L Potassium 3.8 (3.4-5.1) mmol/L Chloride 107 (98-107) mmol/L Carbon Dioxide 27 (22-32) mmol/L BUN 17 (9-20) mg/dL Creatinine 1.15 (0.66-1.25) mg/dL Estimated GFR > 60.0 (>60) mL/min BUN/Creatinine Ratio 14.8 (6-22) Glucose 130 H (80-110) mg/dL Calcium 8.9 (8.4-10.2) mg/dL Total Bilirubin 1.5 H (0.2-1.3) mg/dL AST 24 (17-59) IU/L ALT 24 (<50) IU/L Alkaline Phosphatase 58 (38-126) U/L Total Protein 7.1 (6.3-8.2) g/dL Albumin 4.3 (3.5-5.0) g/dL Globulin 2.8 (1.7-4.1) g/dL Albumin/Globulin Ratio 1.5 (1.0-2.8) Urine Color Yellow Urine Appearance Sl cloudy Urine pH 5.5 (4.5-8.0) Ur Specific [place] >=1.030 H (1.000-1.035) Urine Protein 2+ H (Negative) Urine Glucose (UA) Negative (Negative) g/dL Urine Ketones Negative (NEGATIVE) Urine Occult Blood 2+ H (Negative) Urine Nitrate Positive (Negative) Urine Bilirubin Negative (NEGATIVE) Urine Urobilinogen 0.2 (0.2) E.U./dL Ur Leukocyte Esterase 2+ H (NEGATIVE) Urine RBC None seen (0-5/HPF) Urine WBC >100/hpf H (0-5/HPF) Urine Bacteria Many (>30) H (None) Ur Culture Indicated? Specimen cultured Imaging Data CT scan - abdomen/pelvis: Radiologist's Impression: PROCEDURE: CT KIDNEY URETER BLADDER (KUB) INDICATIONS: left flank pain TECHNIQUE: Noncontrast 5 mm thick sections acquired from the diaphragms to the symphysis. 5 mm thick coronal and sagittal reformats were then performed. For radiation dose reduction, the following was used: automated exposure control, adjustment of mA and/or kV according to patient size. COMPARISON: [facility], CT, CT ABDOMEN PELVIS WITH CONTRAST, 07/28/2020, 14:01. FINDINGS: Image quality: Excellent. Lung bases: Lung bases are clear. Heart size is normal. Urinary system: There is no renal or ureteral calculus demonstrated on the left. There is a nonobstructing right renal calculus in the lower pole measuring approximately 4 mm. Scarring and atrophic changes in the lower pole right kidney likely reflective of prior infection. Relatively symmetric bilateral perinephric fat stranding. No gross unenhanced CT evidence of renal mass, although exam is of limited sensitivity without IV contrast. Marked enlargement of the prostate which is masslike and asymmetric on the left with suggestion of an approximately 5 cm prostate mass. This is similar but increased in size when compared with 07/28/2020 examination. This does exert mild mass effect on the left UVJ. Mild urinary bladder thickening is presumably a function of chronic outlet obstruction. Other solid organs: Liver is normal in size. Gallbladder has been removed. Pancreas is normal in contours. Spleen is normal in size. No adrenal nodules. Peritoneum and bowel: Unenhanced bowel loops demonstrate normal wall thickness and caliber. No free fluid or air. Nodes and vessels: No retroperitoneal or mesenteric adenopathy by size criteria. Aorta and inferior vena cava are normal in caliber. Abdominal wall: No ventral hernias. Pelvis: No free pelvic fluid. No inguinal hernias or adenopathy. Bones: No suspicious bony lesions. No vertebral body compression fractures. IMPRESSION: No urinary tract calculus or hydronephrosis on the left to explain left-sided flank pain. Prostatomegaly with asymmetric enlargement on the left which exerts mild mass effect on the left UVJ. Appearance is slightly more pronounced when compared with the 07/28/2020 examination. Correlate with PSA and consider urology consultation for additional evaluation. CT scan is of low sensitivity and specificity for prostate carcinoma, although the appearance on the current exam is concerning. Scarring in the lower pole right kidney with an associated small nonobstructing calculus. Concentric urinary bladder wall thickening presumably a function of chronic outlet obstruction related to prostatomegaly. Dictated by: Ruben Daniels M.D. on 10/27/2020 at 17:31 MDM Narrative Medical decision making narrative: Patient has chronic ongoing back pain here frequently. He does have a history of urinary retention but is not currently having urinary retention. CT does show a left-sided prostate mass with mass effect on left UVJ. He is also found to have UTI based on previous culture from seems to be in appropriate location. He overall appears not septic. Initially refused Toradol then later wantwed it. 7:[address] Denise agrees with out patient follow up Discharge Plan Departure Patient Disposition: Home Clinical Impression: Acute exacerbation of chronic low back pain, Prostate mass, Acute UTI Instructions: DI for Low Back Pain, DI for Urinary Tract Infection (UTI) Activity Restrictions/Additional Instructions: *You have been diagnosed with acute on chronic back pain and enlarged prostate *What to do: Please follow-up with your urologist in regards to your prostate. You also need to follow-up with pain clinic in regards to your on going pain issues. *Continue to take medications as directed Bactrim 1 tab twice a day for 7 days sent to [facility] emergency department *Follow up with your primary care provider in 2-3 days *Return to ER if you should have increasing pain, weakness, fever or any new, worsening or concerning symptoms Prescriptions: New sulfamethoxazole-trimethoprim [Bactrim DS] 800-160 mg tablet 1 tab PO BID 7 Days Qty: 14 RF: 0 No Action tamsulosin [Flomax] 0.4 MG capsule,extended release 24hr 0.4 mg PO HS Qty: 0 RF: 0 multivitamin Capsule 1 cap PO BID Qty: 0 RF: 0 metoprolol tartrate 25 MG tablet 25 mg PO BID Qty: 0 RF: 0 Combivent Respimat 4 GM mist 1 puff inhalation PRN PRN (Reason: Wheezing) Qty: 0 RF: 0 simvastatin 40 MG tablet 80 mg PO QHS Qty: 0 RF: 0 gabapentin 100 MG capsule 200 mg PO/SL BID Qty: 0 RF: 0 Lantus U-100 Insulin 100 UNIT/1 ML solution 55 unit SQ DAILY Qty: 0 RF: 0 insulin aspart U-100 [Novolog U-100 Insulin aspart] 100 UNIT/1 ML solution 30 unit SQ AC Qty: 0 RF: 0 clotrimazole 1 % cream 1 gm Topical SEE INSTRUCTIONS Qty: 14.1 RF: 0 lidocaine 4 % adhesive patch,medicated 1 patch TOP DAILY PRN (Reason: pain) Qty: 10 RF: 0 cyclobenzaprine 10 mg tablet 10 mg PO BID PRN (Reason: muscle spasm) Qty: 7 RF: 0 Ozempic 0.25 mg or 0.5 mg(2 mg/1.5 mL) Pen Injector 0.5 mg SUBCUT QWEEK RF: 0 acetaminophen 325 mg Tablet 650 mg PO Q6HR PRN (Reason: Pain, Mild (1-3)) Qty: 20 RF: 0 docusate sodium [DOK] 100 mg Capsule 100 mg PO BID Qty: 20 RF: 0 oxycodone 10 mg tablet 10 mg PO Q4H PRN (Reason: pain) Qty: 40 RF: 0 Referrals: [place] Denise MD [Physician] - Edgardo Devlin MD [Primary Care Provider] -
--- NOTE | 2020-10-27 17:52 | PC.NURSE ---
pt pressing on rt flank, states pressure feels good.
--- NOTE | 2020-10-27 17:55 | PC.NURSE ---
went in to provide toradol medication ordered, pt refused at this time.
[2020-10-27 18:19] LABS: Add Manual Diff / Slide Review NO; Basophils Absolute Auto 0 /uL (0-100); Basophils Percent Auto 0.2 % (0-2); Eosinophils Absolute Auto 0 /uL (0-450); Hematocrit 41.1 % (41-53); Hemoglobin 13.6 g/dL (13.5-17.5); Lymphocytes Absolute Auto 1500 /uL (1100-4500); Mean Corpuscular HGB Conc 33.1 % (30-36); Mean Corpuscular Hemoglobin 26.7 PG (26-34); Mean Corpuscular Volume 80.6 fL (80-100); Monocytes Absolute Auto 600 /uL (0-900); Monocytes Percent Auto 11.3 % (3-14); Neutrophils Absolute Auto 2900 /uL (1500-7000); Neutrophils Percent Auto 57.5 % (50-75); Platelet Count 158 X10^3/uL (150-400); Red Cell Distribution Width 14.1 % (11.6-14.8)
[2020-10-27 18:34] LABS: Alanine Aminotransferase 24 IU/L (<50); Albumin 4.3 g/dL (3.5-5.0); Albumin Globulin Ratio 1.5 (1.0-2.8); Alkaline Phosphatase 58 U/L (38-126); Aspartate Aminotransferase 24 IU/L (17-59); BUN Creatinine Ratio 14.8 (6-22); Bilirubin Total 1.5 mg/dL (0.2-1.3); Blood Urea Nitrogen 17 mg/dL (9-20); Calcium 8.9 mg/dL (8.4-10.2); Carbon Dioxide 27 mmol/L (22-32); Chloride 107 mmol/L (98-107); Estimated Glomerular Filt Rate > 60.0 mL/min (>60); Globulin 2.8 g/dL (1.7-4.1); Glucose 130 mg/dL (80-110); HEMOLYSIS < 15 (0-50); Potassium 3.8 mmol/L (3.4-5.1); Sodium 140 mmol/L (137-145); Total Protein 7.1 g/dL (6.3-8.2)
[2020-10-27 18:59] LABS: RBC Urine None Seen (0-5/HPF)
[2020-10-27 19:00] LABS: Appearance Urine UA SL CLOUDY; Bilirubin Urine UA NEGATIVE (NEGATIVE); Color Urine UA YELLOW; Glucose Urine UA NEGATIVE (Negative); Ketones Urine UA NEGATIVE (NEGATIVE); Leukocyte Esterase Urine UA 2+ (NEGATIVE); Nitrite Urine UA POSITIVE (Negative); Occult Blood Urine UA 2+ (Negative); Protein Urine UA 2+ (Negative); Specific Gravity Urine UA >=1.030 (1.000-1.035); Urobilinogen Urine UA 0.2 E.U./dL (0.2); pH Urine UA 5.5 (4.5-8.0)
[2020-10-27 19:14] LABS: Bacteria Urine Many (>30); Culture Indicated Urine Specimen Cultured; WBC Urine >100/HPF (0-5/HPF)
[2020-10-27 19:20] VITALS: BP 184/81; PULSE 88; RESP 20; O2SAT 95
== END 2020-10-27 19:20 | disposition home or self-care (01) ==
PROVIDERS: Emergency Provider Emergency Medicine; PCP Internal Medicine
DX: M54.5 Low back pain (principal); N39.0 Urinary tract infection, site not specified; N42.89 Other specified disorders of prostate; R10.32 Left lower quadrant pain; E11.9 Type 2 diabetes mellitus without complications; E78.5 Hyperlipidemia, unspecified; I25.2 Old myocardial infarction; Z86.73 Personal history of transient ischemic attack (TIA), and cerebral infarction without residual deficits
CPT/HCPCS: 36415; 74176; 80053; 81001; 85025; 87077; 87086; 87186; 99283; 99284

== ENCOUNTER 2020-11-04 08:50 | Emergency (ER) | payer OTHER, SELFPAY ==
[2020-07-11 12:46] VITALS: BMI 37.5
[2020-11-04 09:08] VITALS: BP 149/72; PULSE 68; RESP 24; O2SAT 99; BMI 35.4
--- NOTE | 2020-11-04 09:47 | ED_ITS ---
HPI - General Adult General Chief complaint: Back Pain/Injury Stated complaint: hasnt slept if 4 days/back pain/no pain killers Time Seen by Provider: 11/04/20 09:03 Source: patient Mode of arrival: Wheelchair Limitations: no limitations History of Present Illness HPI narrative: 74-year-old male with chronic back pain on the left side also chronic kidney issues and history of urinary retention secondary to enlarged prostate here for evaluation of left-sided back pain. He states he has not slept in the past 4 days because of the discomfort that he has having. He did have a prescription for pain medication but he is out of this medicine and states he cannot get another refill until the 12th of this month. He is here for pain control. Related Data Home Medications Medication Instructions Recorded Confirmed multivitamin 1 cap PO BID #0 03/22/13 07/11/20 tamsulosin [Flomax] 0.4 mg PO HS #0 03/22/13 07/11/20 Combivent Respimat 1 puff INHALATION PRN PRN #0 08/25/16 07/11/20 gabapentin 200 mg PO/SL BID #0 08/25/16 07/11/20 metoprolol tartrate 25 mg PO BID #0 08/25/16 07/11/20 simvastatin 80 mg PO QHS #0 08/25/16 07/11/20 Lantus U-100 Insulin 55 unit SQ DAILY #0 11/01/16 07/11/20 insulin aspart U-100 [Novolog 30 unit SQ AC #0 12/06/16 07/11/20 U-100 Insulin aspart] Ozempic 0.5 mg SUBCUT QWEEK 07/11/20 07/11/20 Previous Rx's Medication Instructions Recorded clotrimazole 1 gm TOPICAL SEE INSTRUCTIONS 12/06/16 #14.1 gm cyclobenzaprine 10 mg PO BID PRN #7 tab 05/04/20 acetaminophen 650 mg PO Q6HR PRN #20 tab 07/12/20 docusate sodium [DOK] 100 mg PO BID #20 cap 07/12/20 oxycodone 10 mg PO Q4H PRN #40 tab 07/12/20 lidocaine 1 patch TOP DAILY PRN #10 each 08/01/20 Allergies Allergy/AdvReac Type Severity Reaction Status Date / Time No Known Drug Allergies Allergy Verified 09/18/20 16:53 Review of Systems Constitutional Constitutional: Denies fever(s) and Denies headache(s) ENT Ears, Nose, Mouth, and Throat: Denies headache(s) Cardiovascular Cardiovascular: Denies chest pain and Denies dyspnea Respiratory Respiratory: Denies dyspnea Gastrointestinal Gastrointestinal: Reports abdominal pain Genitourinary Genitourinary: Reports urinary frequency, Reports urinary hesitancy and Reports urinary urgency Genitourinary: Reports urinary frequency, Reports urinary hesitancy and Reports urinary urgency Musculoskeletal Musculoskeletal: Reports back pain Integumentary/Breasts Skin/Breast: Denies rash Neurologic Neurologic: Denies headache(s) and Denies paresthesias Psychiatric Psychiatric: Denies anxiety Hematologic/Lymphatic On Anticoagulants: No Allergic/Immunologic Allergic/Immunologic: Denies urticaria Patient History Medical History (Updated 11/04/20 @ 10:05 by Brett Holt DO) Acute urinary retention Amputation of left index finger Diabetes Hepatitis C History of ischemic middle cerebral artery stroke Hyperlipidemia Macular degeneration Myocardial infarction Obstipation (05/07/20) KASSIDY (obstructive sleep apnea) TIA (transient ischemic attack) (10/29/16) Surgical History H/O laminectomy History of carpal tunnel release History of repair of hiatal hernia Hx of cholecystectomy Hx of thumb surgery S/P trigger finger release Social History household members: none Smoking Status: Never smoker alcohol intake: former Smoking Status: Never smoker alcohol intake frequency: 0-2 drinks per day Substance Use Type: does not use Exam Initial Vital Signs Initial Vital Signs: Vital Signs Pulse Rate 68 11/04/20 09:08 Respiratory Rate 24 11/04/20 09:08 Blood Pressure 149/72 H 11/04/20 09:08 Pulse Oximetry 99 11/04/20 09:08 Const General: cooperative Limitations: mental status not altered [facility] Head: normal to inspection and normocephalic Resp Effort & Inspection: normal respiratory effort Cardio Rate: regular rate GI Inspection: non-distended Other: Tenderness lower abdomen Back/Spine/Pelvis Thoracic/Lumbar Spine: paraspinal tenderness (Left lumbar) Skin Lesions: no lesions Rashes: no rashes Neuro General: patient alert and patient awake Cognition: normal cognition Extrem General: normal to inspection Psych Appearance: grossly normal and well kempt Course Vital Signs Vital signs: Vital Signs - 8 hr 11/04/20 09:08 Pulse Rate 68 Respiratory Rate 24 Blood Pressure 149/72 H Pulse Oximetry 99 Medical Decision Making Medical Records Medical records reviewed: Yes I reviewed the patient's medical records. Lab Data Lab results reviewed: Yes I reviewed the patient's lab results. Labs: Urine Dip Bedside Urine Glucose Negative Bedside Urine Bilirubin - Negative Bedside Urine Ketone - Negative Urine Specific [place] 1.025 Bedside Urine Occult Blood - Negative Bedside Urine pH 6 Bedside Urine Protein - Negative Bedside Urine Urobilinogen - Negative Bedside Urine Nitrite - Negative Bedside Urine Leukocytes - Negative Esterase Point of care testing: Urine Dip Bedside Urine Glucose Negative Bedside Urine Bilirubin - Negative Bedside Urine Ketone - Negative Urine Specific [place] 1.025 Bedside Urine Occult Blood - Negative Bedside Urine pH 6 Bedside Urine Protein - Negative Bedside Urine Urobilinogen - Negative Bedside Urine Nitrite - Negative Bedside Urine Leukocytes - Negative Esterase MDM Narrative Medical decision making narrative: Urinalysis today shows less than 30 cc of urine by bladder scan and a postvoid residual. There is no signs of infection. Patient has the same left-sided back pain that he has had for an extended period of time. Informed patient that unfortunately I will be unable to provide him with opioid pain medication for home use. According to reports it shows that he had 84 tablets of 5 mg oxycodone filled on October 13 which is less than 30 days ago. I did offer him medication here in the ER however he declined. He does have a lidocaine patch on. Will have him continue with his scheduled follow-up with his primary doctor and also his urologist. He does state that he purchased catheters over the Internet and has occasionally been self cathing himself at home. Informed him that if he feels like he is retaining urine or develops any other issues that he needs to return to the emergency department. He expressed understanding and agreement. Discharge Plan Departure Patient Disposition: Home Clinical Impression: Chronic low back pain Instructions: DI for Low Back Pain Activity Restrictions/Additional Instructions: Unfortunately the emergency department is unable to prescribe medications for chronic pain issues. This needs to be prescribed by 1 provider either your primary doctor or a stage setting painter apprentice. Keep all of your schedule medical appointments especially with the urologist. Return to the emergency department for any new symptoms. Continue all of your medications as directed. Prescriptions: No Action tamsulosin [Flomax] 0.4 MG capsule,extended release 24hr 0.4 mg PO HS Qty: 0 RF: 0 multivitamin Capsule 1 cap PO BID Qty: 0 RF: 0 metoprolol tartrate 25 MG tablet 25 mg PO BID Qty: 0 RF: 0 Combivent Respimat 4 GM mist 1 puff inhalation PRN PRN (Reason: Wheezing) Qty: 0 RF: 0 simvastatin 40 MG tablet 80 mg PO QHS Qty: 0 RF: 0 gabapentin 100 MG capsule 200 mg PO/SL BID Qty: 0 RF: 0 Lantus U-100 Insulin 100 UNIT/1 ML solution 55 unit SQ DAILY Qty: 0 RF: 0 insulin aspart U-100 [Novolog U-100 Insulin aspart] 100 UNIT/1 ML solution 30 unit SQ AC Qty: 0 RF: 0 clotrimazole 1 % cream 1 gm Topical SEE INSTRUCTIONS Qty: 14.1 RF: 0 lidocaine 4 % adhesive patch,medicated 1 patch TOP DAILY PRN (Reason: pain) Qty: 10 RF: 0 cyclobenzaprine 10 mg tablet 10 mg PO BID PRN (Reason: muscle spasm) Qty: 7 RF: 0 Ozempic 0.25 mg or 0.5 mg(2 mg/1.5 mL) Pen Injector 0.5 mg SUBCUT QWEEK RF: 0 acetaminophen 325 mg Tablet 650 mg PO Q6HR PRN (Reason: Pain, Mild (1-3)) Qty: 20 RF: 0 docusate sodium [DOK] 100 mg Capsule 100 mg PO BID Qty: 20 RF: 0 oxycodone 10 mg tablet 10 mg PO Q4H PRN (Reason: pain) Qty: 40 RF: 0 Referrals: Edgardo Devlin MD [Primary Care Provider] -
== END 2020-11-04 10:13 | disposition home or self-care (01) ==
PROVIDERS: Emergency Provider Emergency Medicine; PCP Internal Medicine
DX: M54.5 Low back pain (principal); R39.15 Urgency of urination; R10.9 Unspecified abdominal pain; Z86.73 Personal history of transient ischemic attack (TIA), and cerebral infarction without residual deficits; E78.5 Hyperlipidemia, unspecified
CPT/HCPCS: 51798; 81003; 99281; 99283

== ENCOUNTER 2020-11-22 10:02 | Emergency (ER) | payer OTHER, SELFPAY ==
[2020-07-11 12:46] VITALS: BMI 37.5
[2020-11-22 10:08] VITALS: BP 197/90; PULSE 64; RESP 16; TEMP 36.1; O2SAT 99; BMI 35.9
--- NOTE | 2020-11-22 11:23 | ED.NAVMDI ---
HPI - Nausea/Vomiting/Diarrhea General Chief complaint: Nausea/Vomiting/Diarrhea Stated complaint: post injection, metallic taste, N/V/D Time Seen by Provider: 11/22/20 10:48 Source: patient Mode of arrival: Wheelchair Limitations: no limitations History of Present Illness HPI Narrative: Patient is a 75-year-old male well known to myself and to the facility presenting today with variety of complaints. He had injections in his back 2 days ago yesterday he started noticing a metallic taste in his mouth and has had at least 3 very large episodes of diarrhea. He has persistent ongoing left flank pain which radiates around to his groin which seems to be little bit worse today. He is scheduled to see urology for this pain next week. He states that he is cold and cannot get warm he is currently under at least 3 blankets. Afebrile. He feels little nauseous no vomiting. MD complaint: diarrhea and abdominal pain Description of Diarrhea: watery Associated Abdominal Pain: Yes Location of pain: LLQ and left flank Quality: cramping Related Data Home Medications Medication Instructions Recorded Confirmed multivitamin 1 cap PO BID #0 03/22/13 07/11/20 tamsulosin [Flomax] 0.4 mg PO HS #0 03/22/13 07/11/20 Combivent Respimat 1 puff INHALATION PRN PRN #0 08/25/16 07/11/20 gabapentin 200 mg PO/SL BID #0 08/25/16 07/11/20 metoprolol tartrate 25 mg PO BID #0 08/25/16 07/11/20 simvastatin 80 mg PO QHS #0 08/25/16 07/11/20 Lantus U-100 Insulin 55 unit SQ DAILY #0 11/01/16 07/11/20 insulin aspart U-100 [Novolog 30 unit SQ AC #0 12/06/16 07/11/20 U-100 Insulin aspart] Ozempic 0.5 mg SUBCUT QWEEK 07/11/20 07/11/20 Previous Rx's Medication Instructions Recorded clotrimazole 1 gm TOPICAL SEE INSTRUCTIONS 12/06/16 #14.1 gm cyclobenzaprine 10 mg PO BID PRN #7 tab 05/04/20 acetaminophen 650 mg PO Q6HR PRN #20 tab 07/12/20 docusate sodium [DOK] 100 mg PO BID #20 cap 07/12/20 oxycodone 10 mg PO Q4H PRN #40 tab 07/12/20 lidocaine 1 patch TOP DAILY PRN #10 each 08/01/20 Allergies Allergy/AdvReac Type Severity Reaction Status Date / Time No Known Drug Allergies Allergy Verified 11/22/20 10:16 Review of Systems Review of Systems Narrative: GENERAL: Denies chills, fatigue, malaise, fever, sweats, travel HEENT: Denies sinus pain, ear pain, sore throat, difficulty swallowing, neck pain RESPIRATORY: Denies dyspnea, cough, wheezing, hemoptysis, sputum. CARDIOVASCULAR: Denies chest pain, palpitations, orthopnea, edema GASTROINTESTINAL: See HPI : Denies dysuria, frequency, incontinence, hematuria, urinary retention, flank pain. MUSCULOSKELETAL: Denies weakness, joint pain, or bony pain SKIN: No rash, no erythema, no pruritus NEUROLOGIC: Denies weakness, dizziness, headache, numbness, change in speech, confusion PSYCHIATRIC: No concerning psychosocial issues. 12 point review of systems is negative except for those stated above and HPI Patient History Medical History Acute urinary retention Amputation of left index finger COPD (chronic obstructive pulmonary disease) Diabetes Hepatitis C History of ischemic middle cerebral artery stroke HTN (hypertension) Hyperlipidemia Macular degeneration Myocardial infarction Obstipation (05/07/20) KASSIDY (obstructive sleep apnea) PUD (peptic ulcer disease) TIA (transient ischemic attack) (10/29/16) Surgical History H/O laminectomy History of appendectomy History of carpal tunnel release History of repair of hiatal hernia Hx of cholecystectomy Hx of thumb surgery Previous back surgery S/P trigger finger release Social History marital status: number of children: 2 household members: none Smoking Status: Former smoker Tobacco: How many years used: 30 alcohol intake: former Smoking Status: Former smoker alcohol intake frequency: 0-2 drinks per day Substance Use Type: does not use Exam Initial Vital Signs Initial Vital Signs: Vital Signs Temperature 97.0 F L 11/22/20 10:08 Pulse Rate 64 11/22/20 10:08 Respiratory Rate 16 11/22/20 10:08 Blood Pressure 197/90 H 11/22/20 10:08 Pulse Oximetry 99 11/22/20 10:08 GENERAL: Alert pleasant 75-year-old male and in no acute distress. HEENT: Head atraumatic,EOMI, pupils reactive, face symmetric, moist mucous membranes CARDIOVASCULAR: Regular rate and rhythm without murmurs, rubs or gallops. RESPIRATORY: Breath sounds equal bilaterally, no wheezes rales or rhonchi. ABDOMEN: Soft, mild left lower quadrant pain no guarding no rebound : Mild left CVA tenderness EXTREMITIES: Normal range of motion, no clubbing or edema. Neurovascularly intact NEUROLOGICAL: Alert and oriented x4.Normal gait and speech. SKIN: Warm, dry, no laceration, no petechiae, no rashes or lesions. Course Orders Ordered: ED Orders 11/22/20 10:55 Complete Blood Count AUTO DIFF Stat Comprehensive Metabolic Panel Stat Lipase Stat 11/22/20 12:45 Urinalysis and Microscopic Stat Urine Culture Stat Discontinued Medications Sodium Chloride (Normal Saline 0.9%) 1,000 mls @ 1,000 mls/hr IV CONT LIONEL Last Infusion: 11/22/20 13:00 Dose: 0 mls/hr Documented by: Admin: 11/22/20 11:36 Dose: 1,000 mls/hr Documented by: CRISTIAN Ketorolac Tromethamine (Ketorolac 60 Mg/2 Ml Vial) 30 mg IV NOW ONE Stop: 11/22/20 11:32 Last Admin: 11/22/20 11:36 Dose: 30 mg Documented by: CRISTIAN Vital Signs Vital signs: Vital Signs - 8 hr 11/22/20 10:08 11/22/20 12:28 11/22/20 13:23 Temperature 97.0 F L Pulse Rate 64 55 L Respiratory Rate 16 16 Blood Pressure 197/90 H 176/77 H Pulse Oximetry 99 100 11/22/20 13:28 Temperature 97.1 F L Pulse Rate 54 L Respiratory Rate 24 Blood Pressure 179/77 H Pulse Oximetry 98 MDM - Nausea/Vomiting/Diarrhea Lab Data Attestation: I reviewed the patient's lab results. Result diagrams: 11/22/20 10:55 11/22/20 10:55 Labs: Lab Results 0211/22/20 11/22/20 Range/Units 10:55 10:55 12:45 WBC 5.3 (4.5-11.0) X10^3/uL RBC 4.67 (4.5-5.9) X10^6/uL Hgb 12.7 L (13.5-17.5) g/dL Hct 38.3 L (41-53) % MCV 82.1 (80-100) fL MCH 27.2 (26-34) PG MCHC 33.2 (30-36) % RDW 14.0 (11.6-14.8) % Plt Count 128 L (150-400) X10^3/uL Neut % (Auto) 57.5 (50-75) % Lymph % (Auto) 31.1 (25-40) % [place] % (Auto) 10.9 (3-14) % Eos % (Auto) 0.2 L (2-4) % Baso % (Auto) 0.3 (0-2) % Neut # (Auto) 3100 (0109-3557) /uL Lymph # (Auto) 1700 (3236-7404) /uL [place] # (Auto) 600 (0-900) /uL Eos # (Auto) 0 (0-450) /uL Baso # (Auto) 0 (0-100) /uL Sodium 138 (137-145) mmol/L Potassium 4.2 (3.4-5.1) mmol/L Chloride 108 H (98-107) mmol/L Carbon Dioxide 27 (22-32) mmol/L BUN 21 H (9-20) mg/dL Creatinine 0.91 (0.66-1.25) mg/dL Estimated GFR > 60.0 (>60) mL/min BUN/Creatinine Ratio 23.1 H (6-22) Glucose 134 H (80-110) mg/dL Calcium 9.1 (8.4-10.2) mg/dL Total Bilirubin 1.3 (0.2-1.3) mg/dL AST 25 (17-59) IU/L ALT 22 (<50) IU/L Alkaline Phosphatase 53 (38-126) U/L Total Protein 7.0 (6.3-8.2) g/dL Albumin 4.0 (3.5-5.0) g/dL Globulin 3.0 (1.7-4.1) g/dL Albumin/Globulin Ratio 1.3 (1.0-2.8) Lipase 132 (23-300) U/L Urine Color Yellow Urine Appearance Clear Urine pH 5.0 (4.5-8.0) Ur Specific [place] 1.025 (1.000-1.035) Urine Protein 1+ H (Negative) Urine Glucose (UA) Negative (Negative) g/dL Urine Ketones Negative (NEGATIVE) Urine Occult Blood Negative (Negative) Urine Nitrate Negative (Negative) Urine Bilirubin Negative (NEGATIVE) Urine Urobilinogen 0.2 (0.2) E.U./dL Ur Leukocyte Esterase Negative (NEGATIVE) Urine RBC None seen (0-5/HPF) Urine WBC 5-10/hpf H (0-5/HPF) Urine Bacteria None seen (None) Ur Culture Indicated? Specimen cultured MDM Narrative Medical decision making narrative: Patient has had a few episodes of diarrhea but overall is not terribly dehydrated. No vomiting able to tolerate oral fluids. He has had chronic ongoing left flank pain and has had workup of this in the past. Recent CT Was 10/27/2020. At this time I do not believe him to need repeat CT. overall does not appear septic. Discharge Plan Departure Patient Disposition: Home Clinical Impression: Gastroenteritis Instructions: DI for Viral Gastroenteritis -- Adult Activity Restrictions/Additional Instructions: *You have been diagnosed with gastroenteritis *What to do: Increase fluid intake *Continue to take medications as directed *Follow up with your primary care provider in 2-3 days *Return to ER if you should have inability to tolerate fluids, persistent diarrhea worsening pain or any new, worsening or concerning symptoms Prescriptions: No Action tamsulosin [Flomax] 0.4 MG capsule,extended release 24hr 0.4 mg PO HS Qty: 0 RF: 0 multivitamin Capsule 1 cap PO BID Qty: 0 RF: 0 metoprolol tartrate 25 MG tablet 25 mg PO BID Qty: 0 RF: 0 Combivent Respimat 4 GM mist 1 puff inhalation PRN PRN (Reason: Wheezing) Qty: 0 RF: 0 simvastatin 40 MG tablet 80 mg PO QHS Qty: 0 RF: 0 gabapentin 100 MG capsule 200 mg PO/SL BID Qty: 0 RF: 0 Lantus U-100 Insulin 100 UNIT/1 ML solution 55 unit SQ DAILY Qty: 0 RF: 0 insulin aspart U-100 [Novolog U-100 Insulin aspart] 100 UNIT/1 ML solution 30 unit SQ AC Qty: 0 RF: 0 clotrimazole 1 % cream 1 gm Topical SEE INSTRUCTIONS Qty: 14.1 RF: 0 lidocaine 4 % adhesive patch,medicated 1 patch TOP DAILY PRN (Reason: pain) Qty: 10 RF: 0 cyclobenzaprine 10 mg tablet 10 mg PO BID PRN (Reason: muscle spasm) Qty: 7 RF: 0 Ozempic 0.25 mg or 0.5 mg(2 mg/1.5 mL) Pen Injector 0.5 mg SUBCUT QWEEK RF: 0 acetaminophen 325 mg Tablet 650 mg PO Q6HR PRN (Reason: Pain, Mild (1-3)) Qty: 20 RF: 0 docusate sodium [DOK] 100 mg Capsule 100 mg PO BID Qty: 20 RF: 0 oxycodone 10 mg tablet 10 mg PO Q4H PRN (Reason: pain) Qty: 40 RF: 0 Referrals: Edgardo Devlin MD [Primary Care Provider] -
[2020-11-22] MEDS: SODIUM CHLORIDE 0.9% 1,000 ML 1000 ML IV (11:36)
[2020-11-22] MEDS: KETOROLAC 60 MG/2 ML VIAL 30 MG IV (11:36)
[2020-11-22 11:38] LABS: Add Manual Diff / Slide Review NO; Basophils Absolute Auto 0 /uL (0-100); Basophils Percent Auto 0.3 % (0-2); Eosinophils Absolute Auto 0 /uL (0-450); Eosinophils Percent Auto 0.2 % (2-4); Hematocrit 38.3 % (41-53); Hemoglobin 12.7 g/dL (13.5-17.5); Lymphocytes Absolute Auto 1700 /uL (1100-4500); Lymphocytes Percent Auto 31.1 % (25-40); Mean Corpuscular HGB Conc 33.2 % (30-36); Mean Corpuscular Hemoglobin 27.2 PG (26-34); Mean Corpuscular Volume 82.1 fL (80-100); Monocytes Absolute Auto 600 /uL (0-900); Monocytes Percent Auto 10.9 % (3-14); Neutrophils Absolute Auto 3100 /uL (1500-7000); Neutrophils Percent Auto 57.5 % (50-75); Platelet Count 128 X10^3/uL (150-400); Red Blood Cell Count 4.67 X10^6/uL (4.5-5.9); White Blood Cell Count 5.3 X10^3/uL (4.5-11.0)
[2020-11-22 11:43] LABS: Alanine Aminotransferase 22 IU/L (<50); Albumin Globulin Ratio 1.3 (1.0-2.8); Alkaline Phosphatase 53 U/L (38-126); Aspartate Aminotransferase 25 IU/L (17-59); BUN Creatinine Ratio 23.1 (6-22); Bilirubin Total 1.3 mg/dL (0.2-1.3); Blood Urea Nitrogen 21 mg/dL (9-20); Calcium 9.1 mg/dL (8.4-10.2); Carbon Dioxide 27 mmol/L (22-32); Chloride 108 mmol/L (98-107); Estimated Glomerular Filt Rate > 60.0 mL/min (>60); Glucose 134 mg/dL (80-110); HEMOLYSIS 21 (0-50); Lipase 132 U/L (23-300); Potassium 4.2 mmol/L (3.4-5.1); Sodium 138 mmol/L (137-145)
[2020-11-22 12:28] VITALS: BP 176/77; PULSE 55; O2SAT 100
[2020-11-22 12:54] LABS: Bacteria Urine None Seen; RBC Urine None Seen (0-5/HPF)
[2020-11-22 12:55] LABS: Appearance Urine UA CLEAR; Bilirubin Urine UA NEGATIVE (NEGATIVE); Color Urine UA YELLOW; Glucose Urine UA NEGATIVE (Negative); Ketones Urine UA NEGATIVE (NEGATIVE); Leukocyte Esterase Urine UA NEGATIVE (NEGATIVE); Nitrite Urine UA NEGATIVE (Negative); Occult Blood Urine UA NEGATIVE (Negative); Protein Urine UA 1+ (Negative); Specific Gravity Urine UA 1.025 (1.000-1.035); Urobilinogen Urine UA 0.2 E.U./dL (0.2)
[2020-11-22 13:02] LABS: Culture Indicated Urine Specimen Cultured; WBC Urine 5-10/HPF (0-5/HPF)
[2020-11-22 13:23] VITALS: RESP 16
[2020-11-22 13:28] VITALS: BP 179/77; PULSE 54; RESP 24; TEMP 36.2; O2SAT 98
== END 2020-11-22 13:30 | disposition home or self-care (01) ==
PROVIDERS: Emergency Provider Emergency Medicine; PCP Internal Medicine
DX: K52.9 Noninfective gastroenteritis and colitis, unspecified (principal); R11.0 Nausea; I10 Essential (primary) hypertension; E78.5 Hyperlipidemia, unspecified; Z86.73 Personal history of transient ischemic attack (TIA), and cerebral infarction without residual deficits
CPT/HCPCS: 36415; 51798; 80053; 81001; 83690; 85025; 87086; 96361; 96374; 99284; J1885

== ENCOUNTER → 2020-12-10 14:55 | Outpatient (CLI) | payer OTHER, SELFPAY ==
[2020-07-11 12:46] VITALS: BMI 37.5
[2020-12-10 16:14] LABS: Prostate Specific Antigen 2.32 ng/mL (0.10-4.00)
== END ==
PROVIDERS: PCP Internal Medicine; Referring Provider Specialist; Visit Provider Specialist
DX: N40.0 Benign prostatic hyperplasia without lower urinary tract symptoms (principal)
CPT/HCPCS: 36415; 84153

== ENCOUNTER 2020-12-18 10:21 | Emergency (ER) | payer OTHER, SELFPAY ==
[2020-07-11 12:46] VITALS: BMI 37.5
--- NOTE | 2020-12-18 10:25 | DI.RAD.S_ITS ---
PROCEDURE: XR CHEST 1V INDICATIONS: Chest pain TECHNIQUE: One view of the chest was acquired. COMPARISON: [facility], , CHEST 1 VIEW, 11/01/2016, 12:09. FINDINGS: Surgical changes and devices: None. Lungs and pleura: Lungs are clear. No pleural effusions or pneumothorax. Mediastinum: Mediastinal contours appear normal. Heart size is normal. Bones and chest wall: No suspicious bony lesions. Overlying soft tissues appear unremarkable. IMPRESSION: No acute disease. Dictated by: Edward Moeller M.D. on 12/18/2020 at 10:58 Approved by: Edward Moeller M.D. on 12/18/2020 at 10:59
[2020-12-18 10:27] VITALS: PULSE 60; O2SAT 99
[2020-12-18 10:29] VITALS: BP 177/79; PULSE 55; RESP 22; TEMP 36.6; O2SAT 99; BMI 35.9
[2020-12-18 10:30] VITALS: BP 177/79; PULSE 54; RESP 20; O2SAT 98
[2020-12-18 10:38] LABS: Add Manual Diff / Slide Review NO; Basophils Absolute Auto 0 /uL (0-100); Basophils Percent Auto 0.2 % (0-2); Eosinophils Absolute Auto 0 /uL (0-450); Hematocrit 39.4 % (41-53); Hemoglobin 13.1 g/dL (13.5-17.5); Lymphocytes Absolute Auto 1600 /uL (1100-4500); Lymphocytes Percent Auto 32.9 % (25-40); Mean Corpuscular HGB Conc 33.2 % (30-36); Mean Corpuscular Hemoglobin 27.3 PG (26-34); Mean Corpuscular Volume 82.1 fL (80-100); Monocytes Absolute Auto 500 /uL (0-900); Monocytes Percent Auto 10.9 % (3-14); Neutrophils Absolute Auto 2700 /uL (1500-7000); Platelet Count 157 X10^3/uL (150-400); Red Cell Distribution Width 14.5 % (11.6-14.8); White Blood Cell Count 4.8 X10^3/uL (4.5-11.0)
[2020-12-18 10:42] LABS: INR 1.1 (0.9-1.3); Prothrombin Time 12.5 SECONDS (10.1-12.7)
[2020-12-18 10:45] LABS: PTT Partial Thromboplastin Tim 29 SECONDS (26.4-36.2)
[2020-12-18 10:46] LABS: Alanine Aminotransferase 26 IU/L (<50); Albumin 4.3 g/dL (3.5-5.0); Albumin Globulin Ratio 1.5 (1.0-2.8); Alkaline Phosphatase 55 U/L (38-126); Aspartate Aminotransferase 25 IU/L (17-59); Bilirubin Total 1.4 mg/dL (0.2-1.3); Blood Urea Nitrogen 19 mg/dL (9-20); Calcium 9.1 mg/dL (8.4-10.2); Carbon Dioxide 26 mmol/L (22-32); Chloride 108 mmol/L (98-107); Creatine Kinase 68 U/L (55-170); Estimated Glomerular Filt Rate > 60.0 mL/min (>60); Globulin 2.9 g/dL (1.7-4.1); Glucose 78 mg/dL (80-110); HEMOLYSIS < 15 (0-50); Lipase 188 U/L (23-300); Potassium 3.9 mmol/L (3.4-5.1); Sodium 140 mmol/L (137-145); Total Protein 7.2 g/dL (6.3-8.2)
--- NOTE | 2020-12-18 10:57 | ED_ITS ---
HPI - Chest Pain General Chief Complaint: Chest Pain Stated Complaint: Chest pain Time Seen by Provider: 12/18/20 10:23 Source: patient Mode of arrival: EMS Limitations: no limitations History of Present Illness HPI narrative: 75-year-old male who is brought in by EMS for evaluation of left- sided chest discomfort. He states that he was sitting on his couch when the symptoms started. He did describe it as a pressure and sharp pain. Did not seem to get worse with palpation or movement. He did receive 1 nitroglycerin prior to arrival however he states that he did not think that it improved his symptoms all that much. By the time I evaluated him he was symptom free. Two days ago he received a spinal epidural steroid injection. He states that the last time he had this done 2 days afterwards he developed the same symptoms that brought him in today. He has had 2 heart attacks in the past. He states this felt different than those. He states that he cannot take aspirin because of prior GI issues and bleeding. Related Data Home Medications Medication Instructions Recorded Confirmed multivitamin 1 cap PO BID #0 03/22/13 11/27/20 tamsulosin [Flomax] 0.4 mg PO HS #0 03/22/13 11/27/20 Combivent Respimat 1 puff INHALATION PRN PRN #0 08/25/16 11/27/20 gabapentin 200 mg PO/SL BID #0 08/25/16 11/27/20 metoprolol tartrate 25 mg PO BID #0 08/25/16 11/27/20 simvastatin 80 mg PO QHS #0 08/25/16 11/27/20 Lantus U-100 Insulin 55 unit SQ DAILY #0 11/01/16 11/27/20 insulin aspart U-100 [Novolog 30 unit SQ AC #0 12/06/16 11/27/20 U-100 Insulin aspart] Ozempic 0.5 mg SUBCUT QWEEK 07/11/20 11/27/20 Previous Rx's Medication Instructions Recorded clotrimazole 1 gm TOPICAL SEE INSTRUCTIONS 12/06/16 #14.1 gm cyclobenzaprine 10 mg PO BID PRN #7 tab 05/04/20 acetaminophen 650 mg PO Q6HR PRN #20 tab 07/12/20 docusate sodium [DOK] 100 mg PO BID #20 cap 07/12/20 oxycodone 10 mg PO Q4H PRN #40 tab 07/12/20 lidocaine 1 patch TOP DAILY PRN #10 each 08/01/20 Allergies Allergy/AdvReac Type Severity Reaction Status Date / Time No Known Drug Allergies Allergy Verified 11/22/20 10:16 Review of Systems Constitutional Constitutional: Denies fever(s) and Denies headache(s) ENT Ears, Nose, Mouth, and Throat: Denies headache(s) Cardiovascular Cardiovascular: Reports chest pain, Denies rapid heart rate, Denies irregular heart rhythm and Reports dyspnea Respiratory Respiratory: Denies cough and Reports dyspnea Gastrointestinal Gastrointestinal: Denies abdominal pain, Denies nausea and Denies vomiting Genitourinary Genitourinary: Denies dysuria Genitourinary: Denies dysuria Musculoskeletal Musculoskeletal: Denies arthralgias and Denies myalgias Integumentary/Breasts Skin/Breast: Denies rash Neurologic Neurologic: Denies headache(s) Hematologic/Lymphatic On Anticoagulants: No Allergic/Immunologic Allergic/Immunologic: Denies urticaria Patient History Medical History Acute urinary retention 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 COPD (chronic obstructive pulmonary disease) Diabetes Hepatitis C History of ischemic middle cerebral artery stroke History of urinary retention HTN (hypertension) Hyperlipidemia Macular degeneration Myocardial infarction Nephrolithiasis Obstipation (05/07/20) KASSIDY (obstructive sleep apnea) PUD (peptic ulcer disease) TIA (transient ischemic attack) (10/29/16) Surgical History H/O laminectomy History of appendectomy History of carpal tunnel release History of repair of hiatal hernia Hx of cholecystectomy Hx of thumb surgery Previous back surgery S/P trigger finger release Social History marital status: number of children: 2 household members: none Smoking Status: Former smoker Tobacco: How many years used: 30 alcohol intake: former caffeine: Yes Smoking Status: Former smoker alcohol intake frequency: 0-2 drinks per day Substance Use Type: does not use Exam Initial Vital Signs Initial Vital Signs: Vital Signs Pulse Rate 60 12/18/20 10:27 Pulse Oximetry 99 12/18/20 10:27 Const General: cooperative, healthy appearing, comfortable and well developed [facility] Head: normal to inspection and normocephalic Resp Effort & Inspection: normal respiratory effort Auscultation: clear to auscultation bilaterally Cardio Rate: regular rate Rhythm: regular rhythm GI Inspection: non-distended Palpation: soft and No firm Skin Lesions: no lesions Rashes: no rashes Neuro General: patient alert and patient awake Cognition: normal cognition Speech: speech normal Extrem General: capillary refill normal Psych Appearance: grossly normal and well kempt Course Orders Ordered: ED Orders 12/18/20 10:22 EKG-12 Lead Stat 12/18/20 10:25 XR chest 1V Stat 12/18/20 10:30 Complete Blood Count AUTO DIFF Stat Comprehensive Metabolic Panel Stat Lipase Stat NT-proBNP (BNP-Adult 18+) Stat Partial Thromboplastin Time Stat Prothrombin Time INR Stat Troponin & CK Cardiac Panel Stat Vital Signs Vital signs: Vital Signs - 8 hr 12/18/20 10:27 12/18/20 10:29 12/18/20 10:30 Temperature 97.9 F Pulse Rate 60 55 L 54 L Respiratory Rate 22 20 Blood Pressure 177/79 H 177/79 H Pulse Oximetry 99 99 98 12/18/20 11:00 Temperature Pulse Rate 47 L Respiratory Rate 18 Blood Pressure Pulse Oximetry 98 MDM - Chest Pain Lab Data Attestation: I reviewed the patient's lab results. Result diagrams: 12/18/20 10:30 12/18/20 10:30 Labs: Lab Results 12/18/20 12/18/20 12/18/20 Range/Units 10:30 10:30 10:30 WBC 4.8 (4.5-11.0) X10^3/uL RBC 4.80 (4.5-5.9) X10^6/uL Hgb 13.1 L (13.5-17.5) g/dL Hct 39.4 L (41-53) % MCV 82.1 (80-100) fL MCH 27.3 (26-34) PG MCHC 33.2 (30-36) % RDW 14.5 (11.6-14.8) % Plt Count 157 (150-400) X10^3/uL Neut % (Auto) 56.0 (50-75) % Lymph % (Auto) 32.9 (25-40) % [place] % (Auto) 10.9 (3-14) % Eos % (Auto) 0.0 L (2-4) % Baso % (Auto) 0.2 (0-2) % Neut # (Auto) 2700 (8821-8631) /uL Lymph # (Auto) 1600 (8665-5423) /uL [place] # (Auto) 500 (0-900) /uL Eos # (Auto) 0 (0-450) /uL Baso # (Auto) 0 (0-100) /uL PT 12.5 (10.1-12.7) SECONDS INR 1.1 (0.9-1.3) APTT 29 (26.4-36.2) SECONDS Sodium 140 (137-145) mmol/L Potassium 3.9 (3.4-5.1) mmol/L Chloride 108 H (98-107) mmol/L Carbon Dioxide 26 (22-32) mmol/L BUN 19 (9-20) mg/dL Creatinine 1.00 (0.66-1.25) mg/dL Estimated GFR > 60.0 (>60) mL/min BUN/Creatinine Ratio 19.0 (6-22) Glucose 78 L (80-110) mg/dL Calcium 9.1 (8.4-10.2) mg/dL Total Bilirubin 1.4 H (0.2-1.3) mg/dL AST 25 (17-59) IU/L ALT 26 (<50) IU/L Alkaline Phosphatase 55 (38-126) U/L Total Creatine Kinase 68 (55-170) U/L CK-MB (CK-2) TNP CK-MB (CK-2) Rel Index TNP Troponin I < 0.012 (0.01-0.034) ng/mL NT-Pro-B Natriuret Pep 53 (<450) pg/mL Total Protein 7.2 (6.3-8.2) g/dL Albumin 4.3 (3.5-5.0) g/dL Globulin 2.9 (1.7-4.1) g/dL Albumin/Globulin Ratio 1.5 (1.0-2.8) Lipase 188 (23-300) U/L Imaging Data Chest x-ray: Radiologist's Impression: [place] [id number] ReportSigned Patient: Jose Maria Mata RMR#: [id number]: 4Acct:[id number]/Sex: 75 / MDate of Service: 12/18/20Loc: EDAccession Number: [id number] Procedure: XR chest 1V Ordering Provider: Brett Holt D.O. PROCEDURE: XR CHEST 1V INDICATIONS: Chest pain TECHNIQUE: One view of the chest was acquired. COMPARISON: [facility], CHEST 1 VIEW, 11/01/2016, 12:09. FINDINGS: Surgical changes and devices: None. Lungs and pleura: Lungs are clear. No pleural effusions or pneumothorax. Mediastinum: Mediastinal contours appear normal. Heart size is normal. Bones and chest wall: No suspicious bony lesions. Overlying soft tissues appear unremarkable. IMPRESSION: No acute disease. Dictated by: Edward Moeller M.D. on 12/18/2020 at 10:58 Approved by: Edward Moeller M.D. on 12/18/2020 at 10:59 ECG Data Attestation: I personally reviewed and interpreted this ECG as follows: Prior ECG tracings: available for review Interpretation: Pre-hospital EKG shows sinus rhythm with a heart rate of 54 Right bundle branch block Left axis deviation No ST T wave changes EKG at this facility Sinus bradycardia Ventricular rate of 55 Right bundle branch block Left axis deviation No ST T wave changes Unchanged from pre-hospital EKG MDM Narrative Medical decision making narrative: Patient was chest pain-free since my arrival. Has no ST T wave changes on his EKG. His chest x-ray and troponins are negative. Discussed with him about staying in the emergency department for repeat troponin however he declined. We did discuss the risks and benefits this. He does have a follow-up with his primary doctor already scheduled will rr to discuss his high blood pressure. Patient is alert oriented x3 my opinion has capacity make decisions. He was given return precautions. Expressed understanding agreement. Discharge Plan Departure Patient Disposition: Home Clinical Impression: Atypical chest pain Instructions: DI for Atypical Chest Pain Activity Restrictions/Additional Instructions: Recommend you continue all of your medications as directed. Keep your appointment that you have with your primary doctor tomorrow to discuss your high blood pressure and also to discuss the indications for a stress test to further evaluate your chest pain today. Return to the emergency department for any new or worsening symptoms Prescriptions: No Action tamsulosin [Flomax] 0.4 MG capsule,extended release 24hr 0.4 mg PO HS Qty: 0 RF: 0 multivitamin Capsule 1 cap PO BID Qty: 0 RF: 0 metoprolol tartrate 25 MG tablet 25 mg PO BID Qty: 0 RF: 0 Combivent Respimat 4 GM mist 1 puff inhalation PRN PRN (Reason: Wheezing) Qty: 0 RF: 0 simvastatin 40 MG tablet 80 mg PO QHS Qty: 0 RF: 0 gabapentin 100 MG capsule 200 mg PO/SL BID Qty: 0 RF: 0 Lantus U-100 Insulin 100 UNIT/1 ML solution 55 unit SQ DAILY Qty: 0 RF: 0 insulin aspart U-100 [Novolog U-100 Insulin aspart] 100 UNIT/1 ML solution 30 unit SQ AC Qty: 0 RF: 0 clotrimazole 1 % cream 1 gm Topical SEE INSTRUCTIONS Qty: 14.1 RF: 0 lidocaine 4 % adhesive patch,medicated 1 patch TOP DAILY PRN (Reason: pain) Qty: 10 RF: 0 cyclobenzaprine 10 mg tablet 10 mg PO BID PRN (Reason: muscle spasm) Qty: 7 RF: 0 Ozempic 0.25 mg or 0.5 mg(2 mg/1.5 mL) Pen Injector 0.5 mg SUBCUT QWEEK RF: 0 acetaminophen 325 mg Tablet 650 mg PO Q6HR PRN (Reason: Pain, Mild (1-3)) Qty: 20 RF: 0 docusate sodium [DOK] 100 mg Capsule 100 mg PO BID Qty: 20 RF: 0 oxycodone 10 mg tablet 10 mg PO Q4H PRN (Reason: pain) Qty: 40 RF: 0 Referrals: Edgardo Devlin MD [Primary Care Provider] -
[2020-12-18 11:00] VITALS: PULSE 47; RESP 18; O2SAT 98
[2020-12-18 11:00] LABS: NT-proBNP (BNP-Adult 18+) 53 pg/mL (<450); Troponin I < 0.012 ng/mL (0.01-0.034)
[2020-12-18 11:15] VITALS: BP 158/68; BP 167/74; PULSE 51; RESP 17; O2SAT 93
[2020-12-18 11:30] VITALS: BP 158/68; PULSE 53; RESP 20; O2SAT 97
== END 2020-12-18 11:55 | disposition home or self-care (01) ==
PROVIDERS: Emergency Provider Emergency Medicine; PCP Internal Medicine
DX: R07.89 Other chest pain (principal); R00.1 Bradycardia, unspecified; R06.00 Dyspnea, unspecified
CPT/HCPCS: 71045; 80053; 82550; 83690; 83880; 84484; 85025; 85610; 85730; 93005; 93010; 99283; 99284

== ENCOUNTER → 2021-03-17 16:58 | Outpatient (CLI) | payer OTHER, SELFPAY ==
[2020-07-11 12:46] VITALS: BMI 37.5
== END ==
PROVIDERS: PCP Internal Medicine; Referring Provider Physical Medicine & Rehabilitation Pain Medicine; Visit Provider Physical Medicine & Rehabilitation Pain Medicine
DX: M75.101 Unspecified rotator cuff tear or rupture of right shoulder, not specified as traumatic (principal); Z53.20 Procedure and treatment not carried out because of patient's decision for unspecified reasons

== ENCOUNTER 2021-04-29 12:11 | Emergency (ER) | payer OTHER, SELFPAY ==
[2020-07-11 12:46] VITALS: BMI 37.5
[2021-04-29] VITALS (18 sets, daily range): BP systolic 122–167; BP diastolic 60–102; PULSE 45–66; RESP 14–19; TEMP 36.5; O2SAT 91–98; BMI 38.5
--- NOTE | 2021-04-29 12:19 | DI.RAD.S_ITS ---
PROCEDURE: XR CHEST 1V INDICATIONS: chest pain TECHNIQUE: One view of the chest was acquired. COMPARISON: [facility], CR, XR CHEST 1V, 12/18/2020, 10:37. FINDINGS: Surgical changes and devices: None. Lungs and pleura: Lungs are clear. No pleural effusions or pneumothorax. Mediastinum: Mediastinal contours appear normal. Heart size is normal. Bones and chest wall: No suspicious bony lesions. Overlying soft tissues appear unremarkable. IMPRESSION: No evidence acute pulmonary process. Dictated by: Theo Callaway M.D. on 04/29/2021 at 12:44 Approved by: Theo Callaway M.D. on 04/29/2021 at 12:46
[2021-04-29 12:54] LABS: Add Manual Diff / Slide Review NO; Basophils Absolute Auto 0 /uL (0-100); Basophils Percent Auto 0.1 % (0-2); Eosinophils Absolute Auto 0 /uL (0-450); Hemoglobin 12.7 g/dL (13.5-17.5); Lymphocytes Absolute Auto 1300 /uL (1100-4500); Lymphocytes Percent Auto 30.3 % (25-40); Mean Corpuscular HGB Conc 33.4 % (30-36); Mean Corpuscular Hemoglobin 27.2 PG (26-34); Mean Corpuscular Volume 81.5 fL (80-100); Monocytes Absolute Auto 600 /uL (0-900); Monocytes Percent Auto 13.1 % (3-14); Neutrophils Absolute Auto 2400 /uL (1500-7000); Neutrophils Percent Auto 56.5 % (50-75); Platelet Count 140 X10^3/uL (150-400); Red Blood Cell Count 4.67 X10^6/uL (4.5-5.9); Red Cell Distribution Width 14.3 % (11.6-14.8); White Blood Cell Count 4.2 X10^3/uL (4.5-11.0)
[2021-04-29 13:04] LABS: Alanine Aminotransferase 26 IU/L (<50); Albumin Globulin Ratio 1.4 (1.0-2.8); Alkaline Phosphatase 48 U/L (38-126); Aspartate Aminotransferase 27 IU/L (17-59); BUN Creatinine Ratio 20.6 (6-22); Bilirubin Total 1.9 mg/dL (0.2-1.3); Blood Urea Nitrogen 22 mg/dL (9-20); Calcium 8.9 mg/dL (8.4-10.2); Carbon Dioxide 22 mmol/L (22-32); Chloride 111 mmol/L (98-107); Creatine Kinase 140 U/L (55-170); Estimated Glomerular Filt Rate > 60.0 mL/min (>60); Globulin 2.8 g/dL (1.7-4.1); Glucose 142 mg/dL (80-110); HEMOLYSIS < 15 (0-50); Lipase 127 U/L (23-300); Potassium 3.8 mmol/L (3.4-5.1); Sodium 141 mmol/L (137-145); Total Protein 6.8 g/dL (6.3-8.2)
[2021-04-29 13:16] LABS: Troponin I < 0.012 ng/mL (0.01-0.034)
[2021-04-29 13:19] LABS: CKMB % Relative Index 2.4 % (1.5-5.0); Creatine Kinase MB 3.37 ng/mL (<2.37)
[2021-04-29] MEDS: NITROGLYCERIN 0.4 MG SL TAB SL (13:38)
--- NOTE | 2021-04-29 13:51 | ED_ITS ---
HPI - Chest Pain General Chief Complaint: Chest Pain Stated Complaint: CHEST PAIN AROUND HEART Time Seen by Provider: 04/29/21 13:32 Mode of arrival: Ambulatory History of Present Illness HPI narrative: Patient is a 75-year-old male with history of hypertension aidan betes, hyperlipidemia presenting today with chest pain. He says it started this morning around 12 30 while he was eating once. He gets sharp shooting pain on the left side. It lasted few minutes and then goes away. It was lasting a little bit longer he came to the emergency department. He was given nitroglycerin seemed to help. He states that he does not take aspirin or Plavix he is allergic to aspirin. He previously had catheterization at the [facility] about 2 years ago he says which is the time he was started on losartan. He says does not have any stents in his heart. He denies any shortness of breath. Pain does not radiate. It seems to happen while at rest. Related Data Home Medications Medication Instructions Recorded Confirmed multivitamin 1 cap PO BID #0 03/22/13 12/31/20 gabapentin 100 mg capsule 200 mg PO/SL BID #0 08/25/16 12/31/20 ipratropium 20 mcg-albuterol 100 1 puff INHALATION PRN PRN #0 08/25/16 12/31/20 mcg/actuation mist for inhalation (Combivent Respimat) metoprolol tartrate 25 mg tablet 25 mg PO BID #0 08/25/16 12/31/20 simvastatin 40 mg tablet 80 mg PO QHS #0 08/25/16 12/31/20 insulin glargine 100 unit/mL 55 unit SQ DAILY #0 11/01/16 12/31/20 subcutaneous solution (Lantus U-100 Insulin) insulin aspart U-100 100 unit/mL 30 unit SQ AC #0 12/06/16 12/31/20 subcutaneous solution (Novolog U-100 Insulin aspart) semaglutide (Ozempic) 0.5 mg SUBCUT QWEEK 07/11/20 12/31/20 tamsulosin 0.4 mg capsule (Flomax) 0.4 mg PO .B.i.d. #0 cap 12/31/20 12/31/20 Previous Rx's Medication Instructions Recorded clotrimazole 1 % topical cream 1 gm TOPICAL SEE INSTRUCTIONS 12/06/16 #14.1 gm cyclobenzaprine 10 mg tablet 10 mg PO BID PRN #7 tab 05/04/20 acetaminophen 325 mg tablet 650 mg PO Q6HR PRN #20 tab 07/12/20 docusate sodium 100 mg capsule 100 mg PO BID #20 cap 07/12/20 (DOK) oxycodone 10 mg tablet 10 mg PO Q4H PRN #40 tab 07/12/20 lidocaine 4 % topical patch 1 patch TOP DAILY PRN #10 each 08/01/20 Allergies Allergy/AdvReac Type Severity Reaction Status Date / Time No Known Drug Allergies Allergy Verified 04/29/21 12:16 Review of Systems Review of Systems Narrative: GENERAL: Denies chills, fatigue, malaise, fever, sweats, travel HEENT: Denies sinus pain, ear pain, sore throat, difficulty swallowing, neck pain RESPIRATORY: Denies dyspnea, cough, wheezing, hemoptysis, sputum. CARDIOVASCULAR: See HPI GASTROINTESTINAL: Denies nausea, vomiting, abdominal pain, diarrhea, constipation, melena. : Denies dysuria, frequency, incontinence, hematuria, urinary retention, flank pain. MUSCULOSKELETAL: Denies weakness, joint pain, or bony pain SKIN: No rash, no erythema, no pruritus NEUROLOGIC: Denies weakness, dizziness, headache, numbness, change in speech, confusion PSYCHIATRIC: No concerning psychosocial issues. 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 COPD (chronic obstructive pulmonary disease) Diabetes Hepatitis C History of ischemic middle cerebral artery stroke History of nephrolithiasis History of urinary retention HTN (hypertension) Hyperlipidemia Macular degeneration Myocardial infarction Nephrolithiasis Obstipation (05/07/20) KASSIDY (obstructive sleep apnea) PUD (peptic ulcer disease) TIA (transient ischemic attack) (10/29/16) Surgical History H/O laminectomy History of appendectomy History of carpal tunnel release History of repair of hiatal hernia Hx of cholecystectomy Hx of thumb surgery Previous back surgery S/P trigger finger release Social History marital status: number of children: 2 household members: none Smoking Status: Former smoker Tobacco: How many years used: 30 alcohol intake: former caffeine: Yes Smoking Status: Former smoker alcohol intake frequency: holidays/special occasions only Substance Use Type: does not use Exam Initial Vital Signs Initial Vital Signs: Vital Signs Temperature 97.7 F 04/29/21 12:16 Pulse Rate 66 04/29/21 12:16 Respiratory Rate 14 04/29/21 12:16 Blood Pressure 139/65 04/29/21 12:16 Pulse Oximetry 97 04/29/21 12:16 GENERAL: Alert 75-year-old male appears comfortable and in no acute distress. HEENT: Head atraumatic,EOMI, pupils reactive, face symmetric, moist mucous membranes CARDIOVASCULAR: Regular rate and rhythm without murmurs, rubs or gallops. RESPIRATORY: Breath sounds equal bilaterally, no wheezes rales or rhonchi. ABDOMEN: Soft, nontender. Normoactive bowel sounds all 4 quadrants. No guarding or rebound. EXTREMITIES: Normal range of motion, no clubbing or edema. Neurovascularly intact NEUROLOGICAL: Alert and oriented x4.Normal gait and speech. Cranial nerves II through XII grossly intact. SKIN: Warm, dry, no laceration, no petechiae, no rashes or lesions. Course Orders Ordered: ED Orders 04/29/21 12:19 XR chest 1V Stat EKG-12 Lead Stat 04/29/21 12:25 Complete Blood Count AUTO DIFF Stat Comprehensive Metabolic Panel Stat Lipase Stat Troponin & CK Cardiac Panel Stat 04/29/21 14:28 Troponin I Stat Discontinued Medications Aspirin (Aspirin 81 Mg Chew Tab) 324 mg PO NOW ONE Stop: 04/29/21 13:34 Last Admin: 04/29/21 13:39 Dose: Not Given Documented by: KENNETH Nitroglycerin (Nitroglycerin 0.4 Mg Sl Tab) 0.4 mg SL NOW ONE Stop: 04/29/21 13:33 Last Admin: 04/29/21 13:38 Dose: 0.4 mg Documented by: KENNETH Nitroglycerin (Nitroglycerin 0.4 Mg Sl Tab) 0.4 mg SL [id number] PRN PRN Reason: Chest Pain Vital Signs Vital signs: Vital Signs - 8 hr 04/29/21 12:59 04/29/21 13:00 04/29/21 13:30 Pulse Rate 56 L 50 L Respiratory Rate 15 Blood Pressure 154/67 H Pulse Oximetry 96 97 96 04/29/21 13:31 04/29/21 13:38 04/29/21 13:39 Pulse Rate 52 L 50 L 54 L Respiratory Rate 16 19 Blood Pressure 149/72 H 149/102 H 130/71 Pulse Oximetry 95 91 04/29/21 14:00 04/29/21 14:30 04/29/21 15:00 Pulse Rate 47 L 53 L 47 L Respiratory Rate 18 18 Blood Pressure 141/68 H 122/64 Pulse Oximetry 96 93 98 04/29/21 15:03 04/29/21 15:04 04/29/21 15:30 Pulse Rate 45 L 48 L Respiratory Rate 16 16 Blood Pressure 151/70 H 122/60 Pulse Oximetry 96 98 04/29/21 15:31 04/29/21 16:00 04/29/21 16:01 Pulse Rate 49 L 63 66 Respiratory Rate 16 14 15 Blood Pressure 155/70 H 166/77 H Pulse Oximetry 97 97 96 04/29/21 16:30 04/29/21 16:31 Pulse Rate 50 L Respiratory Rate 18 Blood Pressure 167/78 H Pulse Oximetry 97 MDM - Chest Pain Lab Data Result diagrams: 04/29/21 12:25 04/29/21 12:25 Labs: Lab Results 04/29/21 04/29/21 04/29/21 Range/Units 12:25 12:25 14:28 WBC 4.2 L (4.5-11.0) X10^3/uL RBC 4.67 (4.5-5.9) X10^6/uL Hgb 12.7 L (13.5-17.5) g/dL Hct 38.0 L (41-53) % MCV 81.5 (80-100) fL MCH 27.2 (26-34) PG MCHC 33.4 (30-36) % RDW 14.3 (11.6-14.8) % Plt Count 140 L (150-400) X10^3/uL Neut % (Auto) 56.5 (50-75) % Lymph % (Auto) 30.3 (25-40) % [place] % (Auto) 13.1 (3-14) % Eos % (Auto) 0.0 L (2-4) % Baso % (Auto) 0.1 (0-2) % Neut # (Auto) 2400 (6431-1807) /uL Lymph # (Auto) 1300 (0264-8554) /uL [place] # (Auto) 600 (0-900) /uL Eos # (Auto) 0 (0-450) /uL Baso # (Auto) 0 (0-100) /uL Sodium 141 (137-145) mmol/L Potassium 3.8 (3.4-5.1) mmol/L Chloride 111 H (98-107) mmol/L Carbon Dioxide 22 (22-32) mmol/L BUN 22 H (9-20) mg/dL Creatinine 1.07 (0.66-1.25) mg/dL Estimated GFR > 60.0 (>60) mL/min BUN/Creatinine Ratio 20.6 (6-22) Glucose 142 H (80-110) mg/dL Calcium 8.9 (8.4-10.2) mg/dL Total Bilirubin 1.9 H (0.2-1.3) mg/dL AST 27 (17-59) IU/L ALT 26 (<50) IU/L Alkaline Phosphatase 48 (38-126) U/L Total Creatine Kinase 140 (55-170) U/L CK-MB (CK-2) 3.37 H (<2.37) ng/mL CK-MB (CK-2) Rel Index 2.4 (1.5-5.0) % Troponin I < 0.012 < 0.012 (0.01-0.034) ng/mL Total Protein 6.8 (6.3-8.2) g/dL Albumin 4.0 (3.5-5.0) g/dL Globulin 2.8 (1.7-4.1) g/dL Albumin/Globulin Ratio 1.4 (1.0-2.8) Lipase 127 (23-300) U/L Imaging Data Chest x-ray: Radiologist's Impression: PROCEDURE: XR CHEST 1V INDICATIONS: chest pain TECHNIQUE: One view of the chest was acquired. COMPARISON: [facility], CR, XR CHEST 1V, 12/18/2020, 10:37. FINDINGS: Surgical changes and devices: None. Lungs and pleura: Lungs are clear. No pleural effusions or pneumothorax. Mediastinum: Mediastinal contours appear normal. Heart size is normal. Bones and chest wall: No suspicious bony lesions. Overlying soft tissues appear unremarkable. IMPRESSION: No evidence acute pulmonary process. Dictated by: Theo Callaway M.D. on 04/29/2021 at 12:44 ECG Data Interpretation: EKG EKG sinus rhythm rate 57 WI interval [address] changes or T-wave inversions similar to previous EKG MDM Narrative Medical decision making narrative: Patient is here for a 2nd time in the last few months for atypical chest pain. Chest pain is resolved with nitroglycerin. We do have a bed is available ice suggested patient stay in the hospital to have a stress test. It does not sound like he has followed up with Cardiology or his primary care doctors. At this time he is opting to go home. Stating that he has nitroglycerin at home he just in have any with him. I have explained to him that he needs further testing and he may return to the emergency department any time. The patient is clinically sober, free from distracting injury, appears to have intact insight, judgment and reason. Does not meet criteria for involuntary hospitalization. Patient has the capacity to make decisions. I discussed all findings with the patient, Education has been performed regarding treatment plan, diagnosis, warning signs and symptoms and all concerns have been addressed. Verbally agree with and understood all of the above. Discharge Plan Departure Patient Disposition: Home Clinical Impression: Atypical chest pain Instructions: DI for Atypical Chest Pain Activity Restrictions/Additional Instructions: *You have been diagnosed with atypical chest pain *What to do: You have not been completely ruled out for heart attack. You need a stress test any need to be seen by Cardiology. You are offered admission to the hospital for the things however your opting to go home. *Continue to take medications as directed *Follow up with your primary care provider in 2-3 days *Return to ER if you should have worsening chest pain, shortness of breath, palpitation or any new, worsening or concerning symptoms Prescriptions: No Action multivitamin Capsule 1 cap PO BID Qty: 0 RF: 0 metoprolol tartrate 25 MG tablet 25 mg PO BID Qty: 0 RF: 0 Combivent Respimat 4 GM mist 1 puff inhalation PRN PRN (Reason: Wheezing) Qty: 0 RF: 0 simvastatin 40 MG tablet 80 mg PO QHS Qty: 0 RF: 0 gabapentin 100 MG capsule 200 mg PO/SL BID Qty: 0 RF: 0 Lantus U-100 Insulin 100 UNIT/1 ML solution 55 unit SQ DAILY Qty: 0 RF: 0 insulin aspart U-100 [Novolog U-100 Insulin aspart] 100 UNIT/1 ML solution 30 unit SQ AC Qty: 0 RF: 0 clotrimazole 1 % cream 1 gm Topical SEE INSTRUCTIONS Qty: 14.1 RF: 0 lidocaine 4 % adhesive patch,medicated 1 patch TOP DAILY PRN (Reason: pain) Qty: 10 RF: 0 cyclobenzaprine 10 mg tablet 10 mg PO BID PRN (Reason: muscle spasm) Qty: 7 RF: 0 Ozempic 0.25 mg or 0.5 mg(2 mg/1.5 mL) Pen Injector 0.5 mg SUBCUT QWEEK RF: 0 acetaminophen 325 mg Tablet 650 mg PO Q6HR PRN (Reason: Pain, Mild (1-3)) Qty: 20 RF: 0 docusate sodium [DOK] 100 mg Capsule 100 mg PO BID Qty: 20 RF: 0 oxycodone 10 mg tablet 10 mg PO Q4H PRN (Reason: pain) Qty: 40 RF: 0 tamsulosin [Flomax] 0.4 mg capsule 0.4 mg PO .B.i.d. Qty: 0 RF: 0 Referrals: Edgardo Devlin MD [Primary Care Provider] -
[2021-04-29 15:21] LABS: Troponin I < 0.012 ng/mL (0.01-0.034)
== END 2021-04-29 16:47 | disposition home or self-care (01) ==
PROVIDERS: Emergency Provider Emergency Medicine; PCP Internal Medicine
DX: R07.89 Other chest pain (principal)
CPT/HCPCS: 36415; 71045; 80053; 82550; 82553; 83690; 84484; 85025; 93005; 99284

== ENCOUNTER → 2021-06-17 13:15 | Outpatient (CLI) | payer OTHER, SELFPAY ==
[2020-07-11 12:46] VITALS: BMI 37.5
[2021-06-17 15:23] LABS: Blood Urea Nitrogen 20 mg/dL (9-20); Carbon Dioxide 25 mmol/L (22-32); Chloride 108 mmol/L (98-107); Potassium 4.4 mmol/L (3.4-5.1); Sodium 141 mmol/L (137-145)
[2021-06-17 15:24] LABS: BUN Creatinine Ratio 17.4 (6-22); Calcium 8.9 mg/dL (8.4-10.2); Estimated Glomerular Filt Rate > 60.0 mL/min (>60); Glucose 157 mg/dL (80-110); HEMOLYSIS < 15 (0-50)
== END ==
PROVIDERS: PCP Internal Medicine; Referring Provider Orthopaedic Surgery; Visit Provider Orthopaedic Surgery
DX: Z01.818 Encounter for other preprocedural examination (principal); R73.9 Hyperglycemia, unspecified; Z01.812 Encounter for preprocedural laboratory examination
CPT/HCPCS: 36415; 80048; 83036; 93005; 93010

== ENCOUNTER 2021-07-06 11:25 | Emergency (ER) | payer OTHER, SELFPAY ==
[2020-07-11 12:46] VITALS: BMI 37.5
[2021-07-06 11:29] VITALS: BP 189/100; PULSE 70; RESP 18; TEMP 36.2; O2SAT 99; BMI 35.9
== END 2021-07-06 12:58 | disposition left against medical advice (07) ==
PROVIDERS: Emergency Provider Emergency Medicine; PCP Internal Medicine
CPT/HCPCS: 99281

== ENCOUNTER 2021-07-20 00:24 | Emergency (ER) | payer OTHER, SELFPAY ==
[2020-07-11 12:46] VITALS: BMI 37.5
[2021-07-20] VITALS (13 sets, daily range): BP systolic 158–192; BP diastolic 75–86; PULSE 47–55; RESP 14–28; TEMP 36.1; O2SAT 94–98; BMI 36.6
--- NOTE | 2021-07-20 00:43 | ED.CHESTPAIN ---
HPI - Chest Pain General Chief Complaint: Chest Pain Stated Complaint: chest pain Time Seen by Provider: 07/20/21 00:30 History of Present Illness HPI narrative: 75-year-old male former smoker with history of hypertension, hyperlipidemia and diabetes with known coronary artery disease presents with left-sided chest pain that started while at rest earlier in the day. It is been present much of the day and seems to be made worse when he lies flat. He states it is sharp and stabbing and does not radiate. He states very similar to prior episodes. He took nitro at home, stating the had consumed a total of 6 pills and it made his pain go away. He is not having any discomfort on arrival. He denies any shortness of breath, fever or chills. He denies any nausea, vomiting or diarrhea. He states that he went down to the [facility] about a month ago and had a stress test and just received the results last week. He was told by his primary care provider that he has some bad arteries feeding his heart and they want a put stents in. Last Tuesday (1 week ago) he called the Cardiology group at the [facility] is yet to hear back. Related Data Home Medications Medication Instructions Recorded Confirmed multivitamin 1 cap PO BID #0 03/22/13 12/31/20 gabapentin 100 mg capsule 200 mg PO/SL BID #0 08/25/16 12/31/20 ipratropium 20 mcg-albuterol 100 1 puff INHALATION PRN PRN #0 08/25/16 12/31/20 mcg/actuation mist for inhalation (Combivent Respimat) metoprolol tartrate 25 mg tablet 25 mg PO BID #0 08/25/16 12/31/20 simvastatin 40 mg tablet 80 mg PO QHS #0 08/25/16 12/31/20 insulin glargine 100 unit/mL 55 unit SQ DAILY #0 11/01/16 12/31/20 subcutaneous solution (Lantus U-100 Insulin) insulin aspart U-100 100 unit/mL 30 unit SQ AC #0 12/06/16 12/31/20 subcutaneous solution (Novolog U-100 Insulin aspart) semaglutide (Ozempic) 0.5 mg SUBCUT QWEEK 07/11/20 12/31/20 tamsulosin 0.4 mg capsule (Flomax) 0.4 mg PO .B.i.d. #0 cap 12/31/20 12/31/20 Previous Rx's Medication Instructions Recorded clotrimazole 1 % topical cream 1 gm TOPICAL SEE INSTRUCTIONS 12/06/16 #14.1 gm cyclobenzaprine 10 mg tablet 10 mg PO BID PRN #7 tab 05/04/20 acetaminophen 325 mg tablet 650 mg PO Q6HR PRN #20 tab 07/12/20 docusate sodium 100 mg capsule 100 mg PO BID #20 cap 07/12/20 (DOK) oxycodone 10 mg tablet 10 mg PO Q4H PRN #40 tab 07/12/20 lidocaine 4 % topical patch 1 patch TOP DAILY PRN #10 each 08/01/20 isosorbide mononitrate 30 mg 30 mg PO DAILY #30 tab 07/20/21 tablet,extended release 24 hr Allergies Allergy/AdvReac Type Severity Reaction Status Date / Time No Known Drug Allergies Allergy Verified 04/29/21 12:16 Review of Systems Review of Systems Narrative: GENERAL: Denies chills, fatigue, malaise, fever, sweats. HEENT: Denies sinus pain, ear pain, sore throat, difficulty swallowing, dizziness. RESPIRATORY: Denies dyspnea, cough, wheezing, hemoptysis, sputum. CARDIOVASCULAR: See HPI GASTROINTESTINAL: Denies nausea, vomiting, abdominal pain, diarrhea, constipation, melena. : Denies dysuria, frequency, incontinence, hematuria, urinary retention. MUSCULOSKELETAL: denies weakness, joint pain, or bony pain SKIN: Denies rash, skin lesions, or other NEUROLOGIC: Denies weakness, headache, numbness, change in speech, confusion, seizures, incoordination. PSYCHIATRIC: No concerning psychosocial issues. 12 point review of systems is negative except for those stated above Patient History Medical History Acute urinary retention 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 COPD (chronic obstructive pulmonary disease) Diabetes Hepatitis C History of ischemic middle cerebral artery stroke History of nephrolithiasis History of urinary retention HTN (hypertension) Hyperlipidemia Macular degeneration Myocardial infarction Nephrolithiasis Obstipation (05/07/20) KASSIDY (obstructive sleep apnea) PUD (peptic ulcer disease) TIA (transient ischemic attack) (10/29/16) Surgical History H/O laminectomy History of appendectomy History of carpal tunnel release History of repair of hiatal hernia Hx of cholecystectomy Hx of thumb surgery Previous back surgery S/P trigger finger release Social History marital status: number of children: 2 household members: none Smoking Status: Former smoker Tobacco: How many years used: 30 alcohol intake: former caffeine: Yes Smoking Status: Former smoker alcohol intake frequency: holidays/special occasions only Substance Use Type: does not use Exam Narrative Exam Narrative: GENERAL: [75] year old patient appears stated age. Well-developed patient, in mild distress. Very hard of hearing now HEAD: Atraumatic. Normocephalic. EYES: Pupils equal round and reactive. Extraocular motions intact. No scleral icterus. No injection or drainage. ENT: Nose without bleeding, purulent drainage. Throat without erythema, tonsillar hypertrophy or exudate. Airway patent. NECK: Trachea midline. Non tender CARDIOVASCULAR: Regular rate and rhythm without murmurs, gallops, or rubs. RESPIRATORY: Clear to auscultation. Breath sounds equal bilaterally. No wheezes, rales, or rhonchi. GASTROINTESTINAL: Abdomen soft, non-tender, nondistended. EXTREMITIES: No edema or joint tenderness. BACK: Nontender without deformity or crepitance. No flank tenderness. NEURO: AOx3. SKIN: No rash or erythema of visible areas Initial Vital Signs Initial Vital Signs: Vital Signs Temperature 97.0 F L 07/20/21 00:40 Pulse Rate 55 L 07/20/21 00:40 Respiratory Rate 18 07/20/21 00:40 Blood Pressure 184/84 H 07/20/21 00:40 Pulse Oximetry 96 07/20/21 00:40 Course Orders Ordered: ED Orders 07/20/21 00:40 Complete Blood Count AUTO DIFF Stat Comprehensive Metabolic Panel Stat Erythrocyte Sedimentation Rate Stat Lipase Stat Magnesium Stat NT-proBNP (BNP-Adult 18+) Stat Troponin & CK Cardiac Panel Stat 07/20/21 00:43 EKG-12 Lead Stat 07/20/21 01:13 XR chest 1V Stat 07/20/21 02:10 COVID19 - ADMIT (STEEL CUTTER swab/PCR) Stat 07/20/21 02:52 Troponin & CK Cardiac Panel Stat Discontinued Medications Aspirin (Aspirin 81 Mg Chew Tab) 324 mg PO NOW ONE Stop: 07/20/21 00:41 Last Admin: 07/20/21 00:50 Dose: 324 mg Documented by: JOHAN Al Hydrox/Mg Hydrox/Simethicone 20 ml/ Lidocaine HCl 15 ml 0 ml PO NOW ONE Stop: 07/20/21 00:41 Last Admin: 07/20/21 00:50 Dose: 15 ml Documented by: JOHAN Nitroglycerin (Nitroglycerin Oint 1 Inch/Gm Oint...G.) 1 inch TOP NOW ONE Stop: 07/20/21 00:50 Last Admin: 07/20/21 00:56 Dose: 1 inch Documented by: JOHAN Consultations Consultation #1: call to national account representative cardiology at [facility], who directs us to the employment coordinator at [facility] who confirms no beds available but suggests we call back in the morning ([phone]) Consultation #2: call to cardiology at [facility]. Case reviewed, given lack of EKG changes, lab findings, and chronicity of symptoms she recommends addition of long acting NG, such as imdur 30 to patient medication regimen and encourages him to follow up with his cardiology group to pursue heart cath. Vital Signs Vital signs: Vital Signs - 8 hr 07/20/21 00:40 07/20/21 00:42 07/20/21 01:00 Temperature 97.0 F L Pulse Rate 55 L 54 L 49 L Respiratory Rate 18 19 25 H Blood Pressure 184/84 H Pulse Oximetry 96 07/20/21 01:01 07/20/21 01:30 07/20/21 01:31 Temperature Pulse Rate 50 L 54 L 52 L Respiratory Rate 26 H 28 H 18 Blood Pressure 189/84 H 176/81 H Pulse Oximetry 98 96 07/20/21 02:00 07/20/21 02:01 Temperature Pulse Rate 51 L 52 L Respiratory Rate 14 15 Blood Pressure 160/75 H Pulse Oximetry 94 94 MDM - Chest Pain Medical Records Data Medical records narrative: Scintigraphic evidence of a small reversible perfusion defect involving the basal 2/3 of the anterior anterior lateral wall for myocardial ischemia. Scintigraphic evidence of a small to moderate reversible perfusion defect involving the basal half of the true lateral and inferior lateral delgado concerning for myocardial ischemia. No evidence of [place]. normal hemodynamic response to stress test. Regional wall motion abnormalities including mild hypokinesis in the basal 2/3 of the anterolateral wall. Lab Data Result diagrams: 07/20/21 00:40 07/20/21 00:40 Labs: Lab Results 07/20/21 07/20/21 07/20/21 Range/Units 00:40 00:40 02:10 WBC 5.5 (4.5-11.0) X10^3/uL RBC 4.74 (4.5-5.9) X10^6/uL Hgb 12.9 L (13.5-17.5) g/dL Hct 39.0 L (41-53) % MCV 82.2 (80-100) fL MCH 27.2 (26-34) PG MCHC 33.0 (30-36) % RDW 13.7 (11.6-14.8) % Plt Count 153 (150-400) X10^3/uL Neut % (Auto) 57.5 (50-75) % Lymph % (Auto) 29.1 (25-40) % [place] % (Auto) 13.3 (3-14) % Eos % (Auto) 0.0 L (2-4) % Baso % (Auto) 0.1 (0-2) % Neut # (Auto) 3200 (8997-3950) /uL Lymph # (Auto) 1600 (4110-9249) /uL [place] # (Auto) 700 (0-900) /uL Eos # (Auto) 0 (0-450) /uL Baso # (Auto) 0 (0-100) /uL ESR 10 (0-15) MM/HR Sodium 141 (137-145) mmol/L Potassium 3.8 (3.4-5.1) mmol/L Chloride 108 H (98-107) mmol/L Carbon Dioxide 27 (22-32) mmol/L BUN 19 (9-20) mg/dL Creatinine 1.05 (0.66-1.25) mg/dL Estimated GFR > 60.0 (>60) mL/min BUN/Creatinine Ratio 18.1 (6-22) Glucose 119 H (80-110) mg/dL Calcium 9.0 (8.4-10.2) mg/dL Magnesium 2.0 (1.6-2.3) mg/dL Total Bilirubin 1.4 H (0.2-1.3) mg/dL AST 23 (17-59) IU/L ALT 25 (<50) IU/L Alkaline Phosphatase 45 (38-126) U/L Total Creatine Kinase 82 (55-170) U/L CK-MB (CK-2) TNP CK-MB (CK-2) Rel Index TNP Troponin I < 0.012 (0.01-0.034) ng/mL NT-Pro-B Natriuret Pep 55 (<450) pg/mL Total Protein 7.0 (6.3-8.2) g/dL Albumin 4.3 (3.5-5.0) g/dL Globulin 2.7 (1.7-4.1) g/dL Albumin/Globulin Ratio 1.6 (1.0-2.8) Lipase 78 (23-300) U/L SARS-CoV-2 (PCR) Negative (Negative) 07/20/21 Range/Units 02:52 WBC (4.5-11.0) X10^3/uL RBC (4.5-5.9) X10^6/uL Hgb (13.5-17.5) g/dL Hct (41-53) % MCV (80-100) fL MCH (26-34) PG MCHC (30-36) % RDW (11.6-14.8) % Plt Count (150-400) X10^3/uL Neut % (Auto) (50-75) % Lymph % (Auto) (25-40) % [place] % (Auto) (3-14) % Eos % (Auto) (2-4) % Baso % (Auto) (0-2) % Neut # (Auto) (3808-7413) /uL Lymph # (Auto) (4403-7367) /uL [place] # (Auto) (0-900) /uL Eos # (Auto) (0-450) /uL Baso # (Auto) (0-100) /uL ESR (0-15) MM/HR Sodium (137-145) mmol/L Potassium (3.4-5.1) mmol/L Chloride (98-107) mmol/L Carbon Dioxide (22-32) mmol/L BUN (9-20) mg/dL Creatinine (0.66-1.25) mg/dL Estimated GFR (>60) mL/min BUN/Creatinine Ratio (6-22) Glucose (80-110) mg/dL Calcium (8.4-10.2) mg/dL Magnesium (1.6-2.3) mg/dL Total Bilirubin (0.2-1.3) mg/dL AST (17-59) IU/L ALT (<50) IU/L Alkaline Phosphatase (38-126) U/L Total Creatine Kinase 78 (55-170) U/L CK-MB (CK-2) TNP CK-MB (CK-2) Rel Index TNP Troponin I < 0.012 (0.01-0.034) ng/mL NT-Pro-B Natriuret Pep (<450) pg/mL Total Protein (6.3-8.2) g/dL Albumin (3.5-5.0) g/dL Globulin (1.7-4.1) g/dL Albumin/Globulin Ratio (1.0-2.8) Lipase (23-300) U/L SARS-CoV-2 (PCR) (Negative) Imaging Data Chest x-ray: Radiologist's Impression: AdolfoJose Maria??75??M??1945 ? Allergy/Adv: No Known Drug Allergies (More??) Close Chest X-Ray (Signed) Michela Her - 07/20/21 Chest X-Ray (Signed) Theo Callaway - 04/29/21 Chest X-Ray (Signed) Edward Moeller - 12/18/20 Telemetry Strips 12/18/20 Abdomen/Pelvis CT (Signed) Ruben Daniels - 10/27/20 Abdomen/Pelvis CT (Signed) Kelvin Helms - 09/07/20 Lumbar Spine X-Ray (Signed) Dustin Chavarria - 07/11/20 Outside EKG 05/27/20 Radiology - Historical 11/25/16 Radiology - Historical 11/23/16 Radiology - Historical 11/19/16 Radiology - Historical 11/19/16 Radiology - Historical 11/01/16 Telemetry Strips 10/29/16 Radiology - Historical 10/29/16 Radiology - Historical 10/29/16 Radiology - Historical 08/25/16 Launch?[address] [address] XRay Report Signed Patient: Jose Maria Mata MR#: [id number] : 1945 Acct:[id number] Age/Sex: 75 / M Date of Service: 07/20/21 Loc: ED Accession Number: [id number] ?? Procedure: XR chest 1V Ordering Provider: Nato Alexander D.O. PROCEDURE:? XR CHEST 1V ? INDICATIONS:? chest pain ? TECHNIQUE:? One view of the chest was acquired.? ? COMPARISON:? [facility], , XR CHEST 1V, 04/29/2021, 12:30. ? FINDINGS:? ? Surgical changes and devices:? None.? ? Lungs and pleura:? There is coarsening at the bases.? No pleural effusions or pneumothorax.? ? Mediastinum:? Mediastinal contours appear normal.? Heart size is enlarged. ? Bones and chest wall:? No suspicious bony lesions.? Overlying soft tissues appear unremarkable.? ? IMPRESSION:? Bibasilar coarsening suggestive of dependent change/edema.? Developing pneumonia cannot be definitively excluded.? ? ? Dictated by: Michela Her M.D. on 07/20/2021 at 1:38 ? ? Approved by: Michela Her M.D. on 07/20/2021 at 1:39 ? ECG Data Interpretation: EKG #1: NSR 54. Bifascicular block (seen on multiple prior) . No ST segmental elevations or depressions MDM Narrative Medical decision making narrative: Patient presents with a sharp and stabbing left-sided chest pain that is made worse with motion and deep breaths and is improved with rest and nitro. He does state, however, that it is the same pain that he has been dealing with for many months that frequently was called noncardiac chest pain he eventually went to the [facility] and had a stress test that demonstrated some reversible ischemia about 1 month ago. He denies any worsening symptoms. He denies exertional symptoms. He rested comfortably for the majority of the visit. I have spoken with to staff certified nurse midwife, reviewed his stress test and recommendations are to add long-acting nitrate and continued of make plans to follow-up as an outpatient. There is no indication for transfer or immediate need for heart catheterization after discussion of history, physical, last heart catheterization findings and the stress test from 1 month ago. Patient has been given return precautions and questions answered to his apparent satisfaction. His prescription was sent to [facility] at his request Discharge Plan Departure Patient Disposition: Home Clinical Impression: Chest pain Qualifiers: Chest pain type: unspecified Qualified Code(s): R07.9 - Chest pain, unspecified Instructions: DI for Chest Pain Activity Restrictions/Additional Instructions: *You have been diagnosed with [chest pain with reassuring EKG and labs. I have discussed with Cardiology at the [facility] as well as locally at [facility] and both agree that discharge with the addition of medications and follow-up is appropriate *What to do: *Please continue to take your regular medications as directed. [x ] New medication prescriptions sent to your pharmacy: [ [facility]] [ ] New medication written as a paper prescription [ ] No new medications given * follow closely with your primary care provider and staff certified nurse midwife at the [facility]. I spoken with representatives of Cardiology and they want to connect with you to get you set up for a heart catheterization. *Return to Emergency Department if you should have any new, worsening or concerning symptoms, such as [fever greater than 101 F, shaking chills, worsening pain, persistent vomiting or other bothersome symptoms] Prescriptions: New isosorbide mononitrate 30 mg tablet extended release 24 hr 30 mg PO DAILY Qty: 30 RF: 0 No Action multivitamin Capsule 1 cap PO BID Qty: 0 RF: 0 metoprolol tartrate 25 MG tablet 25 mg PO BID Qty: 0 RF: 0 Combivent Respimat 4 GM mist 1 puff inhalation PRN PRN (Reason: Wheezing) Qty: 0 RF: 0 simvastatin 40 MG tablet 80 mg PO QHS Qty: 0 RF: 0 gabapentin 100 MG capsule 200 mg PO/SL BID Qty: 0 RF: 0 Lantus U-100 Insulin 100 UNIT/1 ML solution 55 unit SQ DAILY Qty: 0 RF: 0 insulin aspart U-100 [Novolog U-100 Insulin aspart] 100 UNIT/1 ML solution 30 unit SQ AC Qty: 0 RF: 0 clotrimazole 1 % cream 1 gm Topical SEE INSTRUCTIONS Qty: 14.1 RF: 0 lidocaine 4 % adhesive patch,medicated 1 patch TOP DAILY PRN (Reason: pain) Qty: 10 RF: 0 cyclobenzaprine 10 mg tablet 10 mg PO BID PRN (Reason: muscle spasm) Qty: 7 RF: 0 Ozempic 0.25 mg or 0.5 mg(2 mg/1.5 mL) Pen Injector 0.5 mg SUBCUT QWEEK RF: 0 acetaminophen 325 mg Tablet 650 mg PO Q6HR PRN (Reason: Pain, Mild (1-3)) Qty: 20 RF: 0 docusate sodium [DOK] 100 mg Capsule 100 mg PO BID Qty: 20 RF: 0 oxycodone 10 mg tablet 10 mg PO Q4H PRN (Reason: pain) Qty: 40 RF: 0 tamsulosin [Flomax] 0.4 mg capsule 0.4 mg PO .B.i.d. Qty: 0 RF: 0 Referrals: Edgardo Devlin MD [Primary Care Provider] -
[2021-07-20] MEDS: MAG HYDROX/ALUMINUM/SIMETH SUS 20 ML, LIDOCAINE VISCOUS 2% 15 ML PO (00:50)
[2021-07-20] MEDS: ASPIRIN 81 MG CHEW TAB 324 MG PO (00:50)
[2021-07-20 00:52] LABS: Add Manual Diff / Slide Review NO; Basophils Absolute Auto 0 /uL (0-100); Basophils Percent Auto 0.1 % (0-2); Eosinophils Absolute Auto 0 /uL (0-450); Hemoglobin 12.9 g/dL (13.5-17.5); Lymphocytes Absolute Auto 1600 /uL (1100-4500); Lymphocytes Percent Auto 29.1 % (25-40); Mean Corpuscular Hemoglobin 27.2 PG (26-34); Mean Corpuscular Volume 82.2 fL (80-100); Monocytes Absolute Auto 700 /uL (0-900); Monocytes Percent Auto 13.3 % (3-14); Neutrophils Absolute Auto 3200 /uL (1500-7000); Neutrophils Percent Auto 57.5 % (50-75); Platelet Count 153 X10^3/uL (150-400); Red Blood Cell Count 4.74 X10^6/uL (4.5-5.9); Red Cell Distribution Width 13.7 % (11.6-14.8); White Blood Cell Count 5.5 X10^3/uL (4.5-11.0)
[2021-07-20] MEDS: NITROGLYCERIN OINT 1 INCH/GM OINT...G. TOP (00:56)
[2021-07-20 00:58] LABS: Alanine Aminotransferase 25 IU/L (<50); Albumin 4.3 g/dL (3.5-5.0); Albumin Globulin Ratio 1.6 (1.0-2.8); Alkaline Phosphatase 45 U/L (38-126); Aspartate Aminotransferase 23 IU/L (17-59); BUN Creatinine Ratio 18.1 (6-22); Bilirubin Total 1.4 mg/dL (0.2-1.3); Blood Urea Nitrogen 19 mg/dL (9-20); Carbon Dioxide 27 mmol/L (22-32); Chloride 108 mmol/L (98-107); Creatine Kinase 82 U/L (55-170); Estimated Glomerular Filt Rate > 60.0 mL/min (>60); Globulin 2.7 g/dL (1.7-4.1); Glucose 119 mg/dL (80-110); HEMOLYSIS < 15 (0-50); Lipase 78 U/L (23-300); Potassium 3.8 mmol/L (3.4-5.1); Sodium 141 mmol/L (137-145)
[2021-07-20 01:09] LABS: NT-proBNP (BNP-Adult 18+) 55 pg/mL (<450); Troponin I < 0.012 ng/mL (0.01-0.034)
--- NOTE | 2021-07-20 01:13 | DI.RAD.S_ITS ---
PROCEDURE: XR CHEST 1V INDICATIONS: chest pain TECHNIQUE: One view of the chest was acquired. COMPARISON: [facility], CR, XR CHEST 1V, 04/29/2021, 12:30. FINDINGS: Surgical changes and devices: None. Lungs and pleura: There is coarsening at the bases. No pleural effusions or pneumothorax. Mediastinum: Mediastinal contours appear normal. Heart size is enlarged. Bones and chest wall: No suspicious bony lesions. Overlying soft tissues appear unremarkable. IMPRESSION: Bibasilar coarsening suggestive of dependent change/edema. Developing pneumonia cannot be definitively excluded. Dictated by: Michela Her M.D. on 07/20/2021 at 1:38 Approved by: Michela Her M.D. on 07/20/2021 at 1:39
[2021-07-20 01:18] LABS: Erythrocyte Sedimentation Rate 10 MM/HR (0-15)
[2021-07-20 03:08] LABS: COVID19 - ADMIT (NP swab/PCR) Negative (Negative)
[2021-07-20 03:10] LABS: Creatine Kinase 78 U/L (55-170)
[2021-07-20 03:23] LABS: Troponin I < 0.012 ng/mL (0.01-0.034)
== END 2021-07-20 03:54 | disposition home or self-care (01) ==
PROVIDERS: Emergency Provider Emergency Medicine; PCP Internal Medicine
DX: R07.9 Chest pain, unspecified (principal); Z20.822 Contact with and (suspected) exposure to COVID-19
CPT/HCPCS: 36415; 71045; 80053; 82550; 83690; 83735; 83880; 84484; 85025; 85651; 87635; 93005; 93010; 99284; 99285; C9803

== ENCOUNTER → 2021-09-02 09:46 | Outpatient (CLI) | payer OTHER, SELFPAY ==
[2020-07-11 12:46] VITALS: BMI 37.5
[2021-09-02 12:26] LABS: COVID19 -Nasal RAPID Negative (Negative)
== END ==
PROVIDERS: PCP Internal Medicine; Referring Provider Physician Assistant; Visit Provider Physician Assistant
DX: Z20.822 Contact with and (suspected) exposure to COVID-19 (principal)
CPT/HCPCS: 87635; C9803

== ENCOUNTER 2021-09-03 12:44 | Day surgery (SDC) | payer OTHER, SELFPAY ==
[2020-07-11 12:46] VITALS: BMI 37.5
[2021-08-25 08:22] VITALS: BMI 36.1
[2021-09-03 13:32] VITALS: BP 147/68; PULSE 50; RESP 16; TEMP 36.4; O2SAT 97; BMI 36.1
[2021-09-03] MEDS: DEXTROSE 50 % IN WATER 25 GM/50 ML SYRINGE IV (14:17)
--- NOTE | 2021-09-03 14:20 | SUR.PREOP ---
When getting ready for OR checked blood sugar which was 68. 1/2 amp D50 given per orders from Dr Villafuerte
--- NOTE | 2021-09-03 15:15 | SUR.PREOP ---
Patient adamant that he is staying the night after procedure. Dr. Rich stated that patient is to discharge home after surgery. Patient states he has his car here and has no other way of getting home and no one at home to help him or take him home. States he will sleep on the floor if I have to. Dr. Rich updated and came and discussed situation with patient. Due to there being no available post op beds in the hospital and his procedure being elective the decision was made between Dr. Rich and patient to cancel surgery for today. IV removed without complication. Patient given a snack to take home and states he will watch his blood glucose closely, currently having no symptoms of hyper or hypoglycemia. Supervisor [employer] notified and patient left building in stable condition with all belongings.
== END 2021-09-03 15:20 | disposition home or self-care (01) ==
LOC: OR 12:45 → AC 15:16
PROVIDERS: PCP Internal Medicine; Referring Provider Orthopaedic Surgery; Visit Provider Orthopaedic Surgery
DX: M19.011 Primary osteoarthritis, right shoulder (principal); M75.51 Bursitis of right shoulder; Z53.09 Procedure and treatment not carried out because of other contraindication
CPT/HCPCS: 29824; 29826; 82962; J1100; J2250; J3010

== ENCOUNTER 2021-09-29 10:11 | Day surgery (SDC) | payer OTHER, SELFPAY ==
[2020-07-11 12:46] VITALS: BMI 37.5
[2021-09-23 14:22] VITALS: BMI 36.1
[2021-09-29] VITALS (9 sets, daily range): BP systolic 119–182; BP diastolic 61–83; PULSE 52–82; RESP 12–16; TEMP 36.2–37; O2SAT 71–97; BMI 39.5
[2021-09-29 11:12] LABS: COVID19 -Nasal RAPID Negative (Negative)
[2021-09-29] MEDS: ACETAMINOPHEN 325 MG TABLET 975 MG PO (12:44)
[2021-09-29] MEDS: CELECOXIB 200 MG CAPSULE PO (12:45)
--- NOTE | 2021-09-29 14:33 | PM.PREOP ---
Pre-operative Note COVID-19 COVID-19 status: Negative Interval Note History & Physical reviewed/Exam performed by Physician: Yes Changes to H&P: No H&P completed within 30 days and has changed as indicated here:: see updated H&P in chart, recent fall, increased weakness, consented for possible rotator cuff repair.
--- NOTE | 2021-09-29 14:40 | SUR.OPER ---
Lateral on padded OR bed with sharma bag positioner, head on pillow, gel axillary roll in place, bottom leg bent with gel pad under knee to foot, upper leg straight and supported with pillows. Operative arm secured in shoulder positioning suspension device. non-operative arm secured on padded arm board. Safety belt at hip, tape over blanket securing lower legs.
[2021-09-29] MEDS: DEXTROSE 5%-LACTATED RINGERS 1,000 ML 100 ML IV (14:47)
[2021-09-29] MEDS: CEFAZOLIN 2 GM/20 ML SYRINGE IV (15:12)
[2021-09-29] MEDS: BUPIVACAINE 0.5% W/ EPI (PF) 30 ML VIAL INJ (15:32)
[2021-09-29] MEDS: BUPIVACAINE 0.25% (PF) 60 ML, EPINEPHrine 0.3 MG INJ (15:33)
--- NOTE | 2021-09-29 16:52 | P.OP_ITS ---
Operative Date/Time/Diagnoses Date of procedure: 09/29/21 Time of procedure: 14:30 Pre-op diagnosis: Right shoulder impingement, right shoulder AC arthritis, partial-thickness rotator cuff tear Post-op diagnosis: other (Adhesive capsulitis right shoulder) Procedure & Clinicians Procedure: Right shoulder manipulation under anesthesia, right shoulder arthroscopic subacromial decompression, right shoulder open distal clavicle excision Same procedure as scheduled: Yes Indications: This is a 75-year-old gentleman with incapacitating right shoulder pain which has failed to respond to very extensive conservative treatment. He was worked up with an MRI scan which showed evidence of a partial-thickness rotator cuff tear and AC osteoarthritis. He noted continued incapacitating pain which did not respond to conservative treatment. He did have a recent fall and was felt to have a possible full-thickness rotator cuff tear. Is brought the operating room for arthroscopic treatment and probable open distal clavicle excision. Surgeon: Natacha Rich Physical Therapy Assistant Instructor: Shital Cedeno Anesthesia Type: General Operative Notes Findings: Partial-thickness rotator cuff tear, no evidence of a full-thickness rotator cuff tear, moderate significant adhesions in the right shoulder consistent with adhesive capsulitis. Passive external rotation 10? with external rotation to 60 with sensation of lysis of adhesions, adhesions felt to release with abduction greater than 90?, forward flexion to 180? with adhesion release from 150? to 180?, severe degenerative changes in the AC joint, Closure Type: primary Specimen(s): none sent Blood products transfused: none Procedure in detail: Patient brought the operating room he underwent induction of a general anesthesia. A time-out was performed. His examination under anesthesia showed that forward flexion prior to manipulation was 150?. He could be manipulated to 180? with obvious release of adhesions. His external rotation was 10? with release of adhesions palpable from 10-70 degrees of external rotation. His abduction was to 90? with release of adhesions palpable between 90? and 180? of abduction. It was also carefully extended and internally rotated to confirm full mobility. Next, His right upper extremity is prepped and draped in is standard sterile fashion after positioning him on a beanbag. He was positioned laterally and traction was used. A time-out was performed. He was given IV antibiotics. Posterior portal was established. There was good visualization of the humeral head biceps but there was evidence of capsular tearing some difficulty obtaining adequate capsular distension. Specific evaluation of the insertion of the rotator cuff did not show significant tearing of the rotator cuff at its humeral head insertion. There was some moderate blood in the capsule. Scope was removed and placed in the subacromial space. Lateral portal was established. A combination of the Holter ablator and mechanical shaver was used to resect subacromial adhesions from the subacromial space. Coracoacromial ligament was carefully released. Meticulously evaluation of the acromial side of the rotator cuff did not show evidence of a full-thickness rotator cuff tear. There was slight deformity in the rotator cuff but no full-thickness tear. The AC joint was noted to be slightly hyper mobile. It was opted to proceed with an open distal clavicle excision. An incision was made directly over the distal aspect of the clavicle. Dissection was carried out through skin and subcutaneous tissues. Overlying capsule was incised. A bur was then used to resect approximately 8 mm from the distal end of the clavicle. Good quality decompression was achieved and I specifically also checked cross-body adduction and there was no residual impingement and there was no residual posterior clavicular impingement or residual spur. Undersurface of the clavicle was checked and it was noted that there was no residual spurring. The wound was meticulously irrigated with normal saline. Arthroscopic light was used for further visualization confirmation that the AC joint had been completely released. The wound was closed with interrupted Vicryl and nylon stitches. Wounds were dressed sterilely. Patient was transferred to cart room in satisfactory condition. Complications none. Complications: none Post-operative Condition: stable Disposition: Acute Care Plan for aftercare: Okay to begin range of motion exercises for the right shoulder. He will benefit from outpatient physical therapy. He did have moderate adhesive capsulitis and there was moderate bleeding noted in the intracapsular region and some issues with capsular distension after his manipulation. He needs to work on a fairly aggressive range of motion. No strengthening for 6 weeks postoperatively.
[2021-09-29] MEDS: HYDROMORPHONE 2 MG INJ IV ×5 (17:02→17:27)
[2021-09-29] MEDS: OXYCODONE IR 5 MG TABLET PO (17:25)
[2021-09-29] MEDS: hydrOXYzine 50 MG/ML INJ 25 MG IM (17:26)
[2021-09-29] MEDS: ONDANSETRON 4 MG/2 ML INJ IV (17:37)
--- NOTE | 2021-09-29 17:44 | SUR.PHASEI ---
0 Was in alot of pain post op. Dilaudid given, then oxycodone. [place] a little nauseated. Zofran given. Eating applesauce and crackers
== END 2021-09-29 18:30 | disposition home or self-care (01) ==
PROVIDERS: Family Provider Internal Medicine; PCP Internal Medicine; Referring Provider Orthopaedic Surgery; Visit Provider Orthopaedic Surgery
PROC: (CPT 29805; principal; 2021-09-29 14:15)
DX: M75.51 Bursitis of right shoulder (principal); M19.011 Primary osteoarthritis, right shoulder; M75.01 Adhesive capsulitis of right shoulder; I25.10 Atherosclerotic heart disease of native coronary artery without angina pectoris; E11.9 Type 2 diabetes mellitus without complications; Z79.4 Long term (current) use of insulin; I10 Essential (primary) hypertension; E78.5 Hyperlipidemia, unspecified; G47.33 Obstructive sleep apnea (adult) (pediatric); J44.9 Chronic obstructive pulmonary disease, unspecified; Z86.73 Personal history of transient ischemic attack (TIA), and cerebral infarction without residual deficits; Z20.822 Contact with and (suspected) exposure to COVID-19
CPT/HCPCS: 29824; 29826; 82962; 87635; J0171; J0330; J0690; J1170; J2405; J2704; J2765; J3010; J3410; J7121

== ENCOUNTER 2021-10-01 05:41 | Emergency (ER) | payer OTHER, SELFPAY ==
[2020-07-11 12:46] VITALS: BMI 37.5
[2021-10-01 05:45] VITALS: BP 204/92; PULSE 64; RESP 22; TEMP 36.6; O2SAT 98; BMI 39.5
--- NOTE | 2021-10-01 06:24 | ED_ITS ---
HPI - Male Genitourinary <Nato Alexander - Last Filed: 10/01/21 20:09> General Chief complaint: Urogenital-Male Stated complaint: ABD Pain Time Seen by Provider: 10/01/21 05:45 Source: patient and EMS Mode of arrival: Ambulatory History of Present Illness HPI Narrative: 5-year-old male former smoker with history of hypertension, hyperlipidemia and diabetes with known coronary artery disease presents with a chief complaint of right shoulder pain as well as abdominal pain and difficulty urinating for the past few days. He was recently treated here for shoulder pain and had surgical intervention by our orthopedic group. He was discharged with appropriate pain control but due to the weather and various other circumstances he has been unable to fill his prescriptions. He does have pain in his shoulder which is aching and painful. He denies any falls or injuries. He has no numbness, tingling or weakness. He has no drainage, fever or chills. He denies any significant swelling or redness. Furthermore, since the procedure he has been having increasing difficulty with urination, he does have a history of urinary retention and states this feels the same. Since the difficulty in urinating he complains of difficulty having bowel movements. He states this discomfort is made worse when he moves and improves with rest. He denies any back pain or numbness in his groin. He has his prescription with him that he was given on discharge, obviously he has been unable to fill it. Related Data Home Medications Medication Instructions Recorded Confirmed multivitamin 1 cap PO BID #0 03/22/13 09/29/21 gabapentin 100 mg capsule 200 mg PO/SL BID #0 08/25/16 09/29/21 ipratropium 20 mcg-albuterol 100 1 puff INHALATION PRN PRN #0 08/25/16 09/29/21 mcg/actuation mist for inhalation (Combivent Respimat) simvastatin 40 mg tablet 80 mg PO QHS #0 08/25/16 09/29/21 insulin glargine 100 unit/mL 55 unit SQ DAILY #0 11/01/16 09/23/21 subcutaneous solution (Lantus U-100 Insulin) insulin aspart U-100 100 unit/mL 30 unit SQ AC #0 12/06/16 09/29/21 subcutaneous solution (Novolog U-100 Insulin aspart) semaglutide (Ozempic) 0.5 mg SUBCUT QWEEK 07/11/20 09/29/21 tamsulosin 0.4 mg capsule (Flomax) 0.4 mg PO .B.i.d. #0 cap 12/31/20 09/29/21 Previous Rx's Medication Instructions Recorded clotrimazole 1 % topical cream 1 gm TOPICAL SEE INSTRUCTIONS 12/06/16 #14.1 gm docusate sodium 100 mg capsule 100 mg PO BID #20 cap 07/12/20 (DOK) oxycodone 10 mg tablet 10 mg PO Q4H PRN #40 tab 07/12/20 isosorbide mononitrate 30 mg 30 mg PO DAILY #30 tab 07/20/21 tablet,extended release 24 hr oxycodone-acetaminophen 10 mg-325 2 tab PO Q6H PRN #60 tab 09/29/21 mg tablet (Percocet) Allergies Allergy/AdvReac Type Severity Reaction Status Date / Time No Known Drug Allergies Allergy Verified 09/29/21 11:51 Review of Systems <Nato Alexander DO - Last Filed: 10/01/21 20:09> Review of Systems Narrative: GENERAL: Denies chills, fatigue, malaise, fever, sweats. HEENT: Denies sinus pain, ear pain, sore throat, difficulty swallowing, dizziness. RESPIRATORY: Denies dyspnea, cough, wheezing, hemoptysis, sputum. CARDIOVASCULAR: Denies chest pain, palpitations, orthopnea, edema, GASTROINTESTINAL: Denies nausea, vomiting, abdominal pain, diarrhea, constipation, melena. : See HPI MUSCULOSKELETAL: See HPI SKIN: Denies rash, skin lesions, or other NEUROLOGIC: Denies weakness, headache, numbness, change in speech, confusion, seizures, incoordination. PSYCHIATRIC: No concerning psychosocial issues. 12 point review of systems is negative except for those stated above Patient History <DO Gato Garcia Last Filed: 10/01/21 20:09> Medical History Acute urinary retention 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 COPD (chronic obstructive pulmonary disease) Diabetes Hepatitis C History of ischemic middle cerebral artery stroke History of nephrolithiasis History of urinary retention HTN (hypertension) Hyperlipidemia Macular degeneration Myocardial infarction Nephrolithiasis Obstipation (05/07/20) KASSIDY (obstructive sleep apnea) PUD (peptic ulcer disease) TIA (transient ischemic attack) (10/29/16) Surgical History H/O laminectomy History of appendectomy History of carpal tunnel release History of repair of hiatal hernia Hx of cholecystectomy Hx of laminectomy (07/11/20) Hx of thumb surgery Previous back surgery S/P trigger finger release Social History marital status: number of children: 2 household members: friend(s) and none Smoking Status: Former smoker Tobacco: How many years used: 30 alcohol intake: former caffeine: Yes Smoking Status: Former smoker alcohol intake frequency: holidays/special occasions only Substance Use Type: does not use Exam <Nato Alexander DO - Last Filed: 10/01/21 20:09> Narrative Exam Narrative: GEN: AOx3 and in mild distress EYES: Pupils are equal, round, and reactive to light and accommodation. Extraoccular muscles are intact bilaterally. There is no subconjunctival hemorrhage or exudate. CHEST: Lungs are clear to auscultation bilaterally and free of wheezes, rales, or rhonchi. Heart rate is regular rhythm, there are no murmurs, clicks, rubs, or gallops. There is no chest wall tenderness. ABD: Abdomen is soft and mildly tender with some distension, bowel sounds are decreased but present. EXT: Decreased range of motion secondary to pain, arm in appropriate splint. Distal sensation intact, no evidence of infection SKIN: Warm, pink, and dry. No erythema or rash Initial Vital Signs Initial Vital Signs: Vital Signs Temperature 97.8 F 10/01/21 05:45 Pulse Rate 64 10/01/21 05:45 Respiratory Rate 22 10/01/21 05:45 Blood Pressure 204/92 H 10/01/21 05:45 Pulse Oximetry 98 10/01/21 05:45 Course <Nato Alexander DO - Last Filed: 10/01/21 20:09> Course Course Narrative: Bladder scan would suggest at least 600 mL in the bladder. Barnett catheter placed and over 600 out, patient has complete resolution of of abdominal discomfort. At this point he is given some water as he is thirsty and prepack for oxycodone, he will take the 1st dose. Orders Ordered: Discontinued Medications Ibuprofen (Ibuprofen 400 Mg Tablet) 400 mg PO NOW ONE Stop: 10/01/21 08:43 Last Admin: 10/01/21 08:49 Dose: Not Given Documented by: KENNETH Ketorolac Tromethamine (Ketorolac 30 Mg/Ml Vial) 30 mg IM NOW ONE Stop: 10/01/21 08:45 Last Admin: 10/01/21 08:55 Dose: 30 mg Documented by: KENNETH Losartan Potassium (Losartan 50 Mg Tablet) 100 mg PO NOW ONE Stop: 10/01/21 08:43 Last Admin: 10/01/21 09:09 Dose: 100 mg Documented by: KENNETH Oxycodone/Acetaminophen (Oxycodone/Apap 5/325 Prepack) 1 bottle MISC SEEINSTR ONE Stop: 10/01/21 06:16 Last Admin: 10/01/21 06:30 Dose: 1 bottle Documented by: NAS Vital Signs Vital signs: Vital Signs - 8 hr 10/01/21 05:45 Temperature 97.8 F Pulse Rate 64 Respiratory Rate 22 Blood Pressure 204/92 H Pulse Oximetry 98 Discharge Plan Departure Patient Disposition: Home Clinical Impression: Acute urinary retention Instructions: DI for Urinary Retention in Men Activity Restrictions/Additional Instructions: *You have been diagnosed with [abdominal pain from urinary retention. Shoulder pain due to lack of access to pain medications *What to do: *Please continue to take your regular medications as directed. [ ] New medication prescriptions sent to your pharmacy: [ ] [ ] New medication written as a paper prescription [ x] No new medications given *Please follow up with your primary care provider in 2-3 days, call for an appointment. Let them know you were seen in the Emergency Department and that we ask that you be seen in follow up. We will electronically transmit a record of today's note if your PCP is in our system *If you do not have a primary care provider please contact the [facility] Resource line at [phone]. They will ask some questions about your medical history and help get you set up with a doctor in the community. *Return to Emergency Department if you should have any new, worsening or concerning symptoms, such as [fever greater than 101 F, shaking chills, worsening pain, persistent vomiting or other bothersome symptoms] Prescriptions: No Action multivitamin Capsule 1 cap PO BID Qty: 0 0RF Combivent Respimat 4 GM mist 1 puff inhalation PRN PRN (Reason: Wheezing) Qty: 0 0RF simvastatin 40 MG tablet 80 mg PO QHS Qty: 0 0RF gabapentin 100 MG capsule 200 mg PO/SL BID Qty: 0 0RF Lantus U-100 Insulin 100 UNIT/1 ML solution 55 unit SQ DAILY Qty: 0 0RF insulin aspart U-100 [Novolog U-100 Insulin aspart] 100 UNIT/1 ML solution 30 unit SQ AC Qty: 0 0RF clotrimazole 1 % cream 1 gm Topical SEE INSTRUCTIONS Qty: 14.1 0RF isosorbide mononitrate 30 mg tablet extended release 24 hr 30 mg PO DAILY Qty: 30 0RF oxycodone-acetaminophen [Percocet] 10-325 mg tablet 2 tab PO Q6H PRN (Reason: pain) Qty: 60 0RF Ozempic 0.25 mg or 0.5 mg(2 mg/1.5 mL) Pen Injector 0.5 mg SUBCUT QWEEK 0RF docusate sodium [DOK] 100 mg Capsule 100 mg PO BID Qty: 20 0RF oxycodone 10 mg tablet 10 mg PO Q4H PRN (Reason: pain) Qty: 40 0RF Rx Instructions: 1 tab po every 4-6 hours as needed for severe pain. exempt. post op pain. tamsulosin [Flomax] 0.4 mg capsule 0.4 mg PO .B.i.d. Qty: 0 0RF Referrals: [place] Denise MD [Physician] - Edgardo Devlin MD [Primary Care Provider] -
[2021-10-01] MEDS: OXYCODONE/APAP 5/325 PREPACK 1 BOTTLE MISC (06:30)
[2021-10-01 08:35] VITALS: BP 212/84; PULSE 69; RESP 18; O2SAT 98
[2021-10-01] MEDS: KETOROLAC 30 MG/ML VIAL IM (08:55)
[2021-10-01 09:09] VITALS: BP 212/84; PULSE 83
[2021-10-01] MEDS: LOSARTAN 50 MG TABLET 100 MG PO (09:09)
== END 2021-10-01 09:45 | disposition home or self-care (01) ==
PROVIDERS: Emergency Provider Emergency Medicine; Family Provider Internal Medicine; PCP Internal Medicine
DX: R33.9 Retention of urine, unspecified (principal); Z87.891 Personal history of nicotine dependence; Z46.6 Encounter for fitting and adjustment of urinary device
CPT/HCPCS: 51798; 99283; J1885

== ENCOUNTER 2021-10-01 14:37 | Emergency (ER) | payer OTHER, SELFPAY ==
[2020-07-11 12:46] VITALS: BMI 37.5
[2021-10-01 14:48] VITALS: BP 179/82; PULSE 65; RESP 17; O2SAT 97; BMI 37.3
--- NOTE | 2021-10-01 14:53 | ED_ITS ---
HPI - General Adult General Chief complaint: Urogenital-Male Stated complaint: Here earlier, cath not working Time Seen by Provider: 10/01/21 14:48 History of Present Illness HPI narrative: 75-year-old gentleman who left the emergency department approximately 4 hours ago. He was seen early this morning with complaints of abdominal pain and shoulder pain. He apparently had left shoulder surgery 48 hours ago has not yet been able to fill his pain prescription. He has had increasing urinary retention postoperatively had 600 cc in his bladder this morning with for Barnett catheter was successfully placed. It continues to drain clear urine. States that once he was able to get a ride home after his 5 our emergency stay this morning he drank a number of cups of coffee and feels that there is not enough urine in the bag and he returns complaining of catheter problems. He states t hat it is slightly irritating any feels that he needs to pee. He is not having fevers in the hours since ED discharge. Related Data Home Medications Medication Instructions Recorded Confirmed multivitamin 1 cap PO BID #0 03/22/13 09/29/21 gabapentin 100 mg capsule 200 mg PO/SL BID #0 08/25/16 09/29/21 ipratropium 20 mcg-albuterol 100 1 puff INHALATION PRN PRN #0 08/25/16 09/29/21 mcg/actuation mist for inhalation (Combivent Respimat) simvastatin 40 mg tablet 80 mg PO QHS #0 08/25/16 09/29/21 insulin glargine 100 unit/mL 55 unit SQ DAILY #0 11/01/16 09/23/21 subcutaneous solution (Lantus U-100 Insulin) insulin aspart U-100 100 unit/mL 30 unit SQ AC #0 12/06/16 09/29/21 subcutaneous solution (Novolog U-100 Insulin aspart) semaglutide (Ozempic) 0.5 mg SUBCUT QWEEK 07/11/20 09/29/21 tamsulosin 0.4 mg capsule (Flomax) 0.4 mg PO .B.i.d. #0 cap 12/31/20 09/29/21 Previous Rx's Medication Instructions Recorded clotrimazole 1 % topical cream 1 gm TOPICAL SEE INSTRUCTIONS 12/06/16 #14.1 gm docusate sodium 100 mg capsule 100 mg PO BID #20 cap 07/12/20 (DOK) oxycodone 10 mg tablet 10 mg PO Q4H PRN #40 tab 07/12/20 isosorbide mononitrate 30 mg 30 mg PO DAILY #30 tab 07/20/21 tablet,extended release 24 hr oxycodone-acetaminophen 10 mg-325 2 tab PO Q6H PRN #60 tab 09/29/21 mg tablet (Percocet) Allergies Allergy/AdvReac Type Severity Reaction Status Date / Time No Known Drug Allergies Allergy Verified 09/29/21 11:51 Review of Systems Review of Systems Narrative: Remainder of complete review of systems is otherwise unremarkable except for that included in the HPI. Patient History Medical History Acute urinary retention 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 COPD (chronic obstructive pulmonary disease) Diabetes Hepatitis C History of ischemic middle cerebral artery stroke History of nephrolithiasis History of urinary retention HTN (hypertension) Hyperlipidemia Macular degeneration Myocardial infarction Nephrolithiasis Obstipation (05/07/20) KASSIDY (obstructive sleep apnea) PUD (peptic ulcer disease) TIA (transient ischemic attack) (10/29/16) Surgical History H/O laminectomy History of appendectomy History of carpal tunnel release History of repair of hiatal hernia Hx of cholecystectomy Hx of laminectomy (07/11/20) Hx of thumb surgery Previous back surgery S/P trigger finger release Social History marital status: number of children: 2 household members: friend(s) and none Smoking Status: Former smoker Tobacco: How many years used: 30 alcohol intake: former caffeine: Yes Smoking Status: Former smoker alcohol intake frequency: holidays/special occasions only Substance Use Type: does not use Exam Narrative Exam Narrative: General: Alert appropriate in no acute distress Respiratory: Able to speak in full sentences, no obvious respiratory distress Skin: No obvious rashes, warm and dry Neurologic: Grossly intact no obvious asymmetries or abnormalities Psych: appropriate insight and affect, cooperative Bladder: Barnett catheter in place with clear urine drainage, 600 cc in the bag, bladder scan shows 22 cc of urine in the bladder. Initial Vital Signs Initial Vital Signs: Vital Signs Pulse Rate 65 10/01/21 14:48 Respiratory Rate 17 10/01/21 14:48 Blood Pressure 179/82 H 10/01/21 14:48 Pulse Oximetry 97 10/01/21 14:48 Course Vital Signs Vital signs: Vital Signs - 8 hr 10/01/21 14:48 Pulse Rate 65 Respiratory Rate 17 Blood Pressure 179/82 H Pulse Oximetry 97 Medical Decision Making MDM Narrative Medical decision making narrative: 75-year-old gentleman with acute urinary retention this morning Barnett catheter in place and working appropriately returns because he feels there is not enough urine. Reassured him that it is draining appropriately and there is no additional intervention that needs to occur. He is again discharged home. Discharge Plan Departure Patient Disposition: Home Clinical Impression: Urinary retention Instructions: DI for Urinary Retention in Men Activity Restrictions/Additional Instructions: Please follow-up with your primary care provider early next week to let them know that you had a Barnett catheter placed 2 days after your shoulder surgery. They can help you decide when and if it is safe to remove the Barnett catheter. It is common to have some mild irritation at the tip of your penis and mild sense that you still need to void even with an appropriately functioning Barnett catheter in place. Please your use your pain medications as prescribed to help with your postoperative shoulder pain Prescriptions: No Action multivitamin Capsule 1 cap PO BID Qty: 0 0RF Combivent Respimat 4 GM mist 1 puff inhalation PRN PRN (Reason: Wheezing) Qty: 0 0RF simvastatin 40 MG tablet 80 mg PO QHS Qty: 0 0RF gabapentin 100 MG capsule 200 mg PO/SL BID Qty: 0 0RF Lantus U-100 Insulin 100 UNIT/1 ML solution 55 unit SQ DAILY Qty: 0 0RF insulin aspart U-100 [Novolog U-100 Insulin aspart] 100 UNIT/1 ML solution 30 unit SQ AC Qty: 0 0RF clotrimazole 1 % cream 1 gm Topical SEE INSTRUCTIONS Qty: 14.1 0RF isosorbide mononitrate 30 mg tablet extended release 24 hr 30 mg PO DAILY Qty: 30 0RF oxycodone-acetaminophen [Percocet] 10-325 mg tablet 2 tab PO Q6H PRN (Reason: pain) Qty: 60 0RF Ozempic 0.25 mg or 0.5 mg(2 mg/1.5 mL) Pen Injector 0.5 mg SUBCUT QWEEK 0RF docusate sodium [DOK] 100 mg Capsule 100 mg PO BID Qty: 20 0RF oxycodone 10 mg tablet 10 mg PO Q4H PRN (Reason: pain) Qty: 40 0RF Rx Instructions: 1 tab po every 4-6 hours as needed for severe pain. exempt. post op pain. tamsulosin [Flomax] 0.4 mg capsule 0.4 mg PO .B.i.d. Qty: 0 0RF Referrals: Edgardo Devlin MD [Primary Care Provider] -
== END 2021-10-01 15:15 | disposition home or self-care (01) ==
PROVIDERS: Emergency Provider Emergency Medicine; Family Provider Internal Medicine; PCP Internal Medicine
DX: R33.9 Retention of urine, unspecified (principal); Z87.891 Personal history of nicotine dependence; Z96.0 Presence of urogenital implants; Z46.6 Encounter for fitting and adjustment of urinary device
CPT/HCPCS: 51798; 96372; 99281; 99282; 99283; J1885

== ENCOUNTER → 2021-10-07 08:34 | Outpatient (CLI) | payer OTHER, SELFPAY ==
[2020-07-11 12:46] VITALS: BMI 37.5
[2021-10-07 15:53] LABS: Appearance Urine UA CLEAR; Bilirubin Urine UA NEGATIVE (NEGATIVE); Color Urine UA YELLOW; Glucose Urine UA NEGATIVE (Negative); Ketones Urine UA NEGATIVE (NEGATIVE); Leukocyte Esterase Urine UA NEGATIVE (NEGATIVE); Nitrite Urine UA NEGATIVE (Negative); Occult Blood Urine UA NEGATIVE (Negative); Protein Urine UA TRACE (Negative); Urobilinogen Urine UA 0.2 E.U./dL (0.2); pH Urine UA 5.5 (4.5-8.0)
[2021-10-07 16:31] LABS: RBC Urine None Seen (0-5/HPF); Squamous Epithelial Cell Urine 1-5 /HPF (0-5/HPF); WBC Urine 1-5/HPF (0-5/HPF)
[2021-10-07 16:32] LABS: Bacteria Urine None Seen; Culture Indicated Urine Cult Not Indicated
== END ==
PROVIDERS: Family Provider Internal Medicine; PCP Internal Medicine; Visit Provider Specialist
DX: R30.0 Dysuria (principal); R33.9 Retention of urine, unspecified
CPT/HCPCS: 51798; 81001

== ENCOUNTER 2022-01-27 15:59 | Emergency (ER) | payer OTHER, SELFPAY ==
[2021-10-15 10:45] VITALS: BMI 37.5
[2022-01-27] VITALS (7 sets, daily range): BP systolic 166–203; BP diastolic 82–98; PULSE 69–87; RESP 16–24; TEMP 36.6; O2SAT 95–99; BMI 39.1
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
[2022-01-27 16:51] LABS: Add Manual Diff / Slide Review NO; Basophils Absolute Auto 0 /uL (0-100); Basophils Percent Auto 0.2 % (0-2); Eosinophils Absolute Auto 0 /uL (0-450); Hematocrit 38.4 % (41-53); Lymphocytes Absolute Auto 900 /uL (1100-4500); Lymphocytes Percent Auto 15.6 % (25-40); Mean Corpuscular HGB Conc 33.9 % (30-36); Mean Corpuscular Hemoglobin 27.1 PG (26-34); Mean Corpuscular Volume 79.8 fL (80-100); Monocytes Absolute Auto 600 /uL (0-900); Monocytes Percent Auto 9.4 % (3-14); Neutrophils Absolute Auto 4500 /uL (1500-7000); Neutrophils Percent Auto 74.8 % (50-75); Platelet Count 143 X10^3/uL (150-400); Red Blood Cell Count 4.82 X10^6/uL (4.5-5.9); Red Cell Distribution Width 14.2 % (11.6-14.8); White Blood Cell Count 6.1 X10^3/uL (4.5-11.0)
[2022-01-27 16:58] LABS: BUN Creatinine Ratio 14.8 (6-22); Blood Urea Nitrogen 17 mg/dL (9-20); Calcium 8.9 mg/dL (8.4-10.2); Carbon Dioxide 22 mmol/L (22-32); Chloride 110 mmol/L (98-107); Estimated Glomerular Filt Rate > 60 mL/min (>60); Glucose 135 mg/dL (80-110); HEMOLYSIS < 15 (0-50); Potassium 3.8 mmol/L (3.4-5.1); Sodium 140 mmol/L (137-145)
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
== END 2022-01-27 18:19 | disposition home or self-care (01) ==
PROVIDERS: Emergency Provider Emergency Medicine; Family Provider Internal Medicine; PCP Internal Medicine
DX: S70.01XA Contusion of right hip, initial encounter (principal); M25.511 Pain in right shoulder; V09.00XA Pedestrian injured in nontraffic accident involving unspecified motor vehicles, initial encounter; Y92.488 Other paved roadways as the place of occurrence of the external cause
CPT/HCPCS: 36415; 73030; 74177; 80048; 85025; 99284; 99285; Q9967

== ENCOUNTER 2022-04-12 12:43 | Emergency (ER) | payer OTHER, SELFPAY ==
[2021-10-15 10:45] VITALS: BMI 37.5
[2022-04-12 12:39] VITALS: BP 175/81; PULSE 52; RESP 20; TEMP 36.4; O2SAT 97; BMI 39.8
[2022-04-12 12:49] VITALS: PULSE 51; O2SAT 95
[2022-04-12 12:59] VITALS: PULSE 48; O2SAT 95
[2022-04-12 13:01] VITALS: BP 144/65
--- NOTE | 2022-04-12 13:22 | ED.ABDPAIN ---
HPI - Abdominal Pain <JUSTYNA Medley - Last Filed: 04/12/22 15:39> General Chief Complaint: Abdominal Pain Stated Complaint: Constipation Time Seen by Provider: 04/12/22 12:52 Source: patient and EMS Mode of arrival: EMS History of Present Illness HPI narrative: 76-year-old male presents to the emergency department via EMS with complaints constipation x6 days. Patient states that he has bone spurs in his back which causes pain for which he takes oxycodone for. Patient states that he does not have the sensation to have a bowel movement, even after sitting on the toilet for quite awhile. Patient states he has had constipation in the past that has required disimpaction. Related Data Home Medications Medication Instructions Recorded Confirmed multivitamin 1 cap PO BID ##0 03/22/13 09/29/21 gabapentin 100 mg capsule 200 mg PO/SL BID ##0 08/25/16 09/29/21 ipratropium 20 mcg-albuterol 100 1 puff inhalation PRN PRN Wheezing 08/25/16 09/29/21 mcg/actuation mist for inhalation ##0 (Combivent Respimat) simvastatin 40 mg tablet 80 mg PO QHS ##0 08/25/16 09/29/21 insulin glargine 100 unit/mL 55 unit SQ DAILY ##0 11/01/16 09/23/21 subcutaneous solution (Lantus U-100 Insulin) insulin aspart U-100 100 unit/mL 30 unit SQ AC ##0 12/06/16 09/29/21 subcutaneous solution (Novolog U-100 Insulin aspart) semaglutide 0.25 mg or 0.5 mg (2 0.5 mg SUBCUT QWEEK 07/11/20 09/29/21 mg/1.5 mL) subcutaneous pen injector (Ozempic) tamsulosin 0.4 mg capsule (Flomax) 0.4 mg PO .B.i.d. #0 caps 12/31/20 09/29/21 Previous Rx's Medication Instructions Recorded clotrimazole 1 % topical cream 1 gm topical SEE INSTRUCTIONS 12/06/16 ##14.1 docusate sodium 100 mg capsule 100 mg PO BID #20 caps 07/12/20 (DOK) oxycodone 10 mg tablet 10 mg PO Q4H PRN pain #40 tabs 07/12/20 isosorbide mononitrate 30 mg 30 mg PO DAILY #30 tabs 07/20/21 tablet,extended release 24 hr oxycodone-acetaminophen 10 mg-325 2 tab PO Q6H PRN pain #60 tabs 09/29/ mg tablet (Percocet) Allergies Allergy/AdvReac Type Severity Reaction Status Date / Time No Known Drug Allergies Allergy Verified 04/12/22 12:43 Review of Systems <JUSTYNA Medley - Last Filed: 04/12/22 15:39> Review of Systems Narrative: Narrative: GENERAL: Denies chills, fatigue, fever, sweats. See HPI HEENT: Denies sinus pain, ear pain, sore throat, difficulty swallowing, dizziness. RESPIRATORY: Denies dyspnea, cough, wheezing, sputum. CARDIOVASCULAR: Denies chest pain, palpitations, edema. GASTROINTESTINAL: Denies vomiting, diarrhea. : Denies dysuria, frequency, incontinence, hematuria, urinary retention, flank pain. MUSCULOSKELETAL: Denies weakness, joint pain, or bony pain. SKIN: Denies rash, skin lesions, or pruritis. NEUROLOGIC: Denies weakness, dizziness, headache, numbness, confusion. PSYCHIATRIC: No concerning psychosocial issues. 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 COPD (chronic obstructive pulmonary disease) Diabetes Hepatitis C History of ischemic middle cerebral artery stroke History of nephrolithiasis History of urinary retention HTN (hypertension) Hyperlipidemia Macular degeneration Myocardial infarction Nephrolithiasis Obstipation (05/07/20) KASSIDY (obstructive sleep apnea) PUD (peptic ulcer disease) TIA (transient ischemic attack) (10/29/16) Surgical History H/O laminectomy History of appendectomy History of carpal tunnel release History of repair of hiatal hernia Hx of cholecystectomy Hx of laminectomy (07/11/20) Hx of thumb surgery Previous back surgery S/P trigger finger release Social History marital status: number of children: 2 household members: friend(s) and none Smoking Status: Former smoker Tobacco: How many years used: 30 alcohol intake: former caffeine: Yes Smoking Status: Former smoker alcohol intake frequency: holidays/special occasions only Substance Use Type: does not use Exam <JUSTYNA Medley - Last Filed: 04/12/22 15:39> Narrative Exam Narrative: Exam Narrative: GENERAL: This is a well-nourished, well-developed patient, in no acute distress HEAD: Atraumatic. Normocephalic. EYES: Pupils equal round and reactive. Extraocular motions intact. No scleral icterus, injection or drainage. ENT: Nose without bleeding, purulent drainage. Throat without erythema, tonsillar hypertrophy or exudate. Airway patent. NECK: Trachea midline. No JVD or lymphadenopathy. Nontender. CARDIOVASCULAR: Regular rate and rhythm without murmurs, peripheral pulses intact, cap refill <2 sec. RESPIRATORY: Breath sounds equal and clear bilaterally. No wheezes, rales, or rhonchi. No cough. No increased respiratory effort. No accessory muscle use. GASTROINTESTINAL: Abdomen distended, per patient, generalized tenderness without guarding or rebound. No suprapubic pain. Digital rectal exam revealed no impacted stool. EXTREMITIES: Normal range of motion, no clubbing or edema. Neurovascularly intact. NEURO: A&O x 3. SKIN: Warm, dry, no rashes or lesions noted. Initial Vital Signs Initial Vital Signs: Vital Signs Temperature 97.6 F 04/12/22 12:39 Pulse Rate 52 L 04/12/22 12:39 Respiratory Rate 20 04/12/22 12:39 Blood Pressure 175/81 H 04/12/22 12:39 Pulse Oximetry 97 04/12/22 12:39 Oxygen Delivery Method 04/12/22 12:39 Reviewed <Kaur Banks DO - Last Filed: 04/13/22 07:43> Initial Vital Signs Initial Vital Signs: Vital Signs Temperature 97.6 F 04/12/22 12:39 Pulse Rate 52 L 04/12/22 12:39 Respiratory Rate 04/12/22 12:39 Blood Pressure 175/81 H 04/12/22 12:39 Pulse Oximetry 97 04/12/22 12:39 Oxygen Delivery Method 04/12/22 12:39 Course <JUSTYNA Medley - Last Filed: 04/12/22 15:39> Orders Ordered: ED Orders 04/12/22 13:25 CBC Auto Diff [Complete Blood Count AUTO DIFF] Stat CMP [Comprehensive Metabolic Panel] Stat Lipase Stat 04/12/22 13:26 CT abdomen pelvis wo con Stat Vital Signs Vital signs: Vital Signs - 8 hr 04/12/22 12:39 04/12/22 12:49 04/12/22 12:59 Temperature 97.6 F Pulse Rate 52 L 51 L 48 L Respiratory Rate 20 Blood Pressure 175/81 H Pulse Oximetry 97 95 95 Oxygen Delivery Method Room Air 04/12/22 13:01 Temperature Pulse Rate Respiratory Rate Blood Pressure 144/65 H Pulse Oximetry Oxygen Delivery Method <Kaur Banks DO - Last Filed: 04/13/22 07:43> Orders Ordered: ED Orders 04/12/22 13:25 CBC Auto Diff [Complete Blood Count AUTO DIFF] Stat CMP [Comprehensive Metabolic Panel] Stat Lipase Stat 04/12/22 13:26 CT abdomen pelvis wo con Stat Vital Signs Vital signs: Vital Signs - 8 hr 04/12/22 12:39 04/12/22 12:49 04/12/22 12:59 Temperature 97.6 F Pulse Rate 52 L 51 L 48 L Respiratory Rate 20 Blood Pressure 175/81 H Pulse Oximetry 97 95 95 Oxygen Delivery Method Room Air 04/12/22 13:01 Temperature Pulse Rate Respiratory Rate Blood Pressure 144/65 H Pulse Oximetry Oxygen Delivery Method MDM - Abdominal Pain <JUSTYNA Medley - Last Filed: 04/12/22 15:39> Differential Diagnosis Differential diagnosis: Likely abdominal pain and calculus of kidney; Unlikely small bowel obstruction Lab Data Result diagrams: 04/12/22 13:49 04/12/22 13:49 Labs: Lab Results 04/12/22 04/12/22 Range/Units 13:49 13:49 WBC 3.9 L (4.5-11.0) X10^3/uL RBC 4.86 (4.5-5.9) X10^6/uL Hgb 13.2 L (13.5-17.5) g/dL Hct 39.2 L (41-53) % MCV 80.7 (80-100) fL MCH 27.2 (26-34) PG MCHC 33.7 (30-36) % RDW 13.3 (11.6-14.8) % Plt Count 139 L (150-400) X10^3/uL Neut % (Auto) 53.1 (50-75) % Lymph % (Auto) 33.2 (25-40) % Carson % (Auto) 13.6 (3-14) % Eos % (Auto) 0.0 L (2-4) % Baso % (Auto) 0.1 (0-2) % Neut # (Auto) 2000 (1475-6097) /uL Lymph # (Auto) 1300 (5254-4597) /uL Carson # (Auto) 500 (0-900) /uL Eos # (Auto) 0 (0-450) /uL Baso # (Auto) 0 (0-100) /uL Sodium 139 (137-145) mmol/L Potassium 3.7 (3.4-5.1) mmol/L Chloride 106 (98-107) mmol/L Carbon Dioxide 27 (22-32) mmol/L BUN 23 H (9-20) mg/dL Creatinine 1.22 (0.66-1.25) mg/dL Estimated GFR > 60 (>60) mL/min BUN/Creatinine Ratio 18.9 (6-22) Glucose 63 L (80-110) mg/dL Calcium 8.8 (8.4-10.2) mg/dL Total Bilirubin 2.0 H (0.2-1.3) mg/dL AST 44 (17-59) IU/L ALT 44 (<50) IU/L Alkaline Phosphatase 49 (38-126) U/L Total Protein 7.0 (6.3-8.2) g/dL Albumin 4.2 (3.5-5.0) g/dL Globulin 2.8 (1.7-4.1) g/dL Albumin/Globulin Ratio 1.5 (1.0-2.8) Lipase 51 (23-300) U/L Imaging Data CT scan - abdomen/pelvis: Radiologist's Impression: Close Abdomen/Pelvis CT (Signed) Varun Ambrocio - 04/12/22 Launch?[address] [address] [address] Scan Report Signed Patient: Jose Maria Mata MR#: [id number] : 1945 Acct:[id number] Age/Sex: 76 / M Date of Service: 04/12/22 Loc: ED Accession Number: [id number] ?? Procedure: CT abdomen pelvis wo con Ordering Provider: Brett Benavides PROCEDURE:? CT ABDOMEN PELVIS WO CON ? INDICATIONS:? abdominal pain ? TECHNIQUE:? Noncontrast 5 mm thick sections acquired from the diaphragms to the symphysis.? 5 mm coronal and sagittal reformats were then performed.? For radiation dose reduction, the following was used:? automated exposure control, adjustment of mA and/or kV according to patient size.? ? COMPARISON:? [facility], CT, CT KIDNEY URETER BLADDER (KUB), 10/27/2020, 17:15.? [facility], CT, CT ABDOMEN PELVIS W CON, 01/27/2022, 17:08. ? FINDINGS:? Image quality:? Excellent.? ? ABDOMEN:? Lung bases:? Lung bases are clear.? Heart size is normal.? ? Solid organs:? Liver is normal in size.? Gallbladder is surgically absent .? Pancreas is normal in contours.? Spleen is normal in size.? No adrenal nodules.? Stable appearance of 4 mm nonobstructing right nephrolith.? Remainder of the visualized bilateral kidneys are stable in size without hydronephrosis or nephrolithiasis.? Persistent atrophy of the inferior pole of the right kidney.? Previously described partially exophytic cyst off the superior pole of the right kidney measures 1.7 x 2.1 cm. Accounting for slight differences in imaging technique, this is relatively stable. ? Peritoneum and bowel:? Unenhanced bowel loops demonstrate normal wall thickness and caliber.? No free fluid or air.? Moderate fecal material seen throughout the colon.? No acute inflammatory changes noted. ? Nodes and vessels:? No retroperitoneal or mesenteric adenopathy by size criteria.? Aorta and inferior vena cava are normal in caliber.? Scattered atherosclerotic calcifications. ? Miscellaneous:? No ventral hernias.? ? ? PELVIS:? Genitourinary:? Bladder wall thickness is normal.? Prostate is mildly enlarged. ? Miscellaneous:? No pelvic adenopathy.? Small fat containing bilateral inguinal hernias without acute inflammation. ? Bones:? No suspicious bony lesions.? No acute vertebral body compression fractures.? Multilevel lumbar spondylosis.? Findings are most pronounced at L4-5 and L5-S1. ? IMPRESSION:? ? Status post cholecystectomy. ? Atherosclerosis. ? Mild prostatic enlargement. ? Stable appearance of nonobstructing 4 mm right nephrolith.? Otherwise, no evidence for obstructive uropathy. ? Stable appearance of partially exophytic superior pole right renal cyst as well as appearance of partially atrophic inferior right kidney. ? Other chronic findings as above. ? Dictated by: Varun Ambrocio M.D. on 04/12/2022 at 14:38 ? ? Approved by: Varun Ambrocio M.D. on 04/12/2022 at 14:53 ? MDM Narrative Medical decision making narrative: 76-year-old male with complaints of constipation x6 days. Digital rectal exam revealed no impacted stool. CT revealed no over abundance of stool, 4 mm kidney stone. Symptoms completely resolved after a bowel movement in the ED restroom. Patient reports a history of kidney stones and is used to passing them regular basis. Labs reveal decreased WBC, all other values are consistent with previous results. We will discharge home with instructions to return to the emergency department for intolerable pain, difficulty breathing, chest pain, etc.. Discussed plan of care with patient, who is agreeable with course of action. <Kaur Banks, DO - Last Filed: 04/13/22 07:43> Lab Data Labs: Lab Results 04/12/22 04/12/22 Range/Units 13:49 13:49 WBC 3.9 L (4.5-11.0) X10^3/uL RBC 4.86 (4.5-5.9) X10^6/uL Hgb 13.2 L (13.5-17.5) g/dL Hct 39.2 L (41-53) % MCV 80.7 (80-100) fL MCH 27.2 (26-34) PG MCHC 33.7 (30-36) % RDW 13.3 (11.6-14.8) % Plt Count 139 L (150-400) X10^3/uL Neut % (Auto) 53.1 (50-75) % Lymph % (Auto) 33.2 (25-40) % Carson % (Auto) 13.6 (3-14) % Eos % (Auto) 0.0 L (2-4) % Baso % (Auto) 0.1 (0-2) % Neut # (Auto) 2000 (2050-8165) /uL Lymph # (Auto) 1300 (9163-3031) /uL Carson # (Auto) 500 (0-900) /uL Eos # (Auto) 0 (0-450) /uL Baso # (Auto) 0 (0-100) /uL Sodium 139 (137-145) mmol/L Potassium 3.7 (3.4-5.1) mmol/L Chloride 106 (98-107) mmol/L Carbon Dioxide 27 (22-32) mmol/L BUN 23 H (9-20) mg/dL Creatinine 1.22 (0.66-1.25) mg/dL Estimated GFR > 60 (>60) mL/min BUN/Creatinine Ratio 18.9 (6-22) Glucose 63 L (80-110) mg/dL Calcium 8.8 (8.4-10.2) mg/dL Total Bilirubin 2.0 H (0.2-1.3) mg/dL AST 44 (17-59) IU/L ALT 44 (<50) IU/L Alkaline Phosphatase 49 (38-126) U/L Total Protein 7.0 (6.3-8.2) g/dL Albumin 4.2 (3.5-5.0) g/dL Globulin 2.8 (1.7-4.1) g/dL Albumin/Globulin Ratio 1.5 (1.0-2.8) Lipase 51 (23-300) U/L Discharge Plan Departure Patient Disposition: Home Clinical Impression: Abdominal pain Instructions: DI for Kidney Stones, DI for Abdominal Pain-Adult Activity Restrictions/Additional Instructions: *You have been diagnosed with a 4 mm kidney stone. Your concerns over fecal impaction been resolved with satisfying bowel movement. In the future, you may try magnesium citrate, up to 1 bottle per day, to solve any constipation. Your CT scan was consistent with symptoms you are already aware of and nothing new or dangerous. Please follow-up with your family doctor or return to the emergency department for any concerning symptoms that include intolerable pain, difficulty breathing, etc.. *What to do: *Please continue to take your regular medications as directed. [ ] New medication prescriptions sent to your pharmacy: [ ] [ ] New medication written as a paper prescription [x ] No new medications given *Please follow up with your primary care provider in 2-3 days, call for an appointment. Let them know you were seen in the Emergency Department and that we ask that you be seen in follow up. We will electronically transmit a record of today's note if your PCP is in our system *If you do not have a primary care provider please contact the [facility] Resource line at [phone]. They will ask some questions about your medical history and help get you set up with a doctor in the community. ? Return to ER if you should have any new, worsening or concerning symptoms, such as worsening pain, severe headache, confusion, chest pain, difficulty breathing, fever greater than 101 F, shaking chills, persistent vomiting to the point that you cannot drink fluids, or other new or worsening symptoms. Prescriptions: No Action multivitamin Capsule 1 cap PO BID Qty: 0 Combivent Respimat 4 GM mist 1 puff inhalation PRN PRN (Reason: Wheezing) Qty: 0 simvastatin 40 MG tablet 80 mg PO QHS Qty: 0 gabapentin 100 MG capsule 200 mg PO/SL BID Qty: 0 Lantus U-100 Insulin 100 UNIT/1 ML solution 55 unit SQ DAILY Qty: 0 insulin aspart U-100 [Novolog U-100 Insulin aspart] 100 UNIT/1 ML solution 30 unit SQ AC Qty: 0 clotrimazole 1 % cream 1 gm Topical SEE INSTRUCTIONS Qty: 14.1 0RF isosorbide mononitrate 30 mg tablet extended release 24 hr 30 mg PO DAILY Qty: 30 0RF oxycodone-acetaminophen [Percocet] 10-325 mg tablet 2 tab PO Q6H PRN (Reason: pain) Qty: 60 0RF Ozempic 0.25 mg or 0.5 mg(2 mg/1.5 mL) Pen Injector 0.5 mg SUBCUT QWEEK docusate sodium [DOK] 100 mg Capsule 100 mg PO BID Qty: 20 0RF oxycodone 10 mg tablet 10 mg PO Q4H PRN (Reason: pain) Qty: 40 0RF Rx Instructions: 1 tab po every 4-6 hours as needed for severe pain. exempt. post op pain. tamsulosin [Flomax] 0.4 mg capsule 0.4 mg PO .B.i.d. Qty: 0 Referrals: Edgardo Devlin MD [Primary Care Provider] - Visit Report Forms: Patient Portal/API <Kaur Banks DO - Last Filed: 04/13/22 07:43> Cosign ED Attending Cosignature Attestation: I was immediately available in the department for consultation. Documentation has been reviewed. I agree with assessment and plan.
--- NOTE | 2022-04-12 13:26 | DI.CT.S_ITS ---
PROCEDURE: CT ABDOMEN PELVIS WO CON INDICATIONS: abdominal pain TECHNIQUE: Noncontrast 5 mm thick sections acquired from the diaphragms to the symphysis. 5 mm coronal and sagittal reformats were then performed. For radiation dose reduction, the following was used: automated exposure control, adjustment of mA and/or kV according to patient size. COMPARISON: [facility], CT, CT KIDNEY URETER BLADDER (KUB), 10/27/2020, 17:15. [facility], CT, CT ABDOMEN PELVIS W CON, 01/27/2022, 17:08. FINDINGS: Image quality: Excellent. ABDOMEN: Lung bases: Lung bases are clear. Heart size is normal. Solid organs: Liver is normal in size. Gallbladder is surgically absent . Pancreas is normal in contours. Spleen is normal in size. No adrenal nodules. Stable appearance of 4 mm nonobstructing right nephrolith. Remainder of the visualized bilateral kidneys are stable in size without hydronephrosis or nephrolithiasis. Persistent atrophy of the inferior pole of the right kidney. Previously described partially exophytic cyst off the superior pole of the right kidney measures 1.7 x 2.1 cm. Accounting for slight differences in imaging technique, this is relatively stable. Peritoneum and bowel: Unenhanced bowel loops demonstrate normal wall thickness and caliber. No free fluid or air. Moderate fecal material seen throughout the colon. No acute inflammatory changes noted. Nodes and vessels: No retroperitoneal or mesenteric adenopathy by size criteria. Aorta and inferior vena cava are normal in caliber. Scattered atherosclerotic calcifications. Miscellaneous: No ventral hernias. PELVIS: Genitourinary: Bladder wall thickness is normal. Prostate is mildly enlarged. Miscellaneous: No pelvic adenopathy. Small fat containing bilateral inguinal hernias without acute inflammation. Bones: No suspicious bony lesions. No acute vertebral body compression fractures. Multilevel lumbar spondylosis. Findings are most pronounced at L4-5 and L5-S1. IMPRESSION: Status post cholecystectomy. Atherosclerosis. Mild prostatic enlargement. Stable appearance of nonobstructing 4 mm right nephrolith. Otherwise, no evidence for obstructive uropathy. Stable appearance of partially exophytic superior pole right renal cyst as well as appearance of partially atrophic inferior right kidney. Other chronic findings as above. Dictated by: Varun Ambrocio M.D. on 04/12/2022 at 14:38 Approved by: Varun Ambrocio M.D. on 04/12/2022 at 14:53
[2022-04-12 13:55] LABS: Add Manual Diff / Slide Review NO; Basophils Absolute Auto 0 /uL (0-100); Basophils Percent Auto 0.1 % (0-2); Eosinophils Absolute Auto 0 /uL (0-450); Hematocrit 39.2 % (41-53); Hemoglobin 13.2 g/dL (13.5-17.5); Lymphocytes Absolute Auto 1300 /uL (1100-4500); Lymphocytes Percent Auto 33.2 % (25-40); Mean Corpuscular HGB Conc 33.7 % (30-36); Mean Corpuscular Hemoglobin 27.2 PG (26-34); Mean Corpuscular Volume 80.7 fL (80-100); Monocytes Absolute Auto 500 /uL (0-900); Monocytes Percent Auto 13.6 % (3-14); Neutrophils Absolute Auto 2000 /uL (1500-7000); Neutrophils Percent Auto 53.1 % (50-75); Platelet Count 139 X10^3/uL (150-400); Red Blood Cell Count 4.86 X10^6/uL (4.5-5.9); Red Cell Distribution Width 13.3 % (11.6-14.8); White Blood Cell Count 3.9 X10^3/uL (4.5-11.0)
[2022-04-12 14:06] LABS: Alanine Aminotransferase 44 IU/L (<50); Albumin 4.2 g/dL (3.5-5.0); Albumin Globulin Ratio 1.5 (1.0-2.8); Alkaline Phosphatase 49 U/L (38-126); Aspartate Aminotransferase 44 IU/L (17-59); BUN Creatinine Ratio 18.9 (6-22); Blood Urea Nitrogen 23 mg/dL (9-20); Calcium 8.8 mg/dL (8.4-10.2); Carbon Dioxide 27 mmol/L (22-32); Chloride 106 mmol/L (98-107); Estimated Glomerular Filt Rate > 60 mL/min (>60); Globulin 2.8 g/dL (1.7-4.1); Glucose 63 mg/dL (80-110); HEMOLYSIS < 15 (0-50); Lipase 51 U/L (23-300); Potassium 3.7 mmol/L (3.4-5.1); Sodium 139 mmol/L (137-145)
== END 2022-04-12 15:56 | disposition home or self-care (01) ==
PROVIDERS: Emergency Provider Registered Nurse; Family Provider Internal Medicine; PCP Internal Medicine
DX: R10.9 Unspecified abdominal pain (principal); Z87.442 Personal history of urinary calculi
CPT/HCPCS: 36415; 74176; 80053; 83690; 85025; 99283; 99284

== ENCOUNTER 2023-07-11 04:29 | Emergency (ER) | payer OTHER, SELFPAY ==
[2021-10-15 10:45] VITALS: BMI 37.5
[2023-07-11] VITALS (7 sets, daily range): BP systolic 153–179; BP diastolic 75–86; PULSE 49–64; RESP 20–24; TEMP 36.6–36.7; O2SAT 95–98; BMI 43.0
--- NOTE | 2023-07-11 06:01 | ED.EXTPRO ---
HPI - Extremity Problem General Chief complaint: Extremity Problem,Nontraumatic Stated complaint: leg pain Time Seen by Provider: 07/11/23 06:00 Source: patient and EMS Mode of arrival: EMS History of Present Illness HPI Narrative: Patient is a 77-year-old male multiple medical problems including diabetes, chronic pain presenting today with sudden onset of right leg pain and spasm. He reports that he was in his sleep he rolled over and suddenly had spasming in his medial thigh. Tried to get up and walk around however knee tried to stand and bear weight he instantly had a spasm on the left side. It is obviously coming and going while I am talking to him. He denies any change in bowel or bladder habits. No injury. He is chronic numbness in his extremities was not any worse than normal. Related Data Home Medications Medication Instructions Recorded Confirmed multivitamin 1 cap PO BID ##0 03/22/13 09/29/21 gabapentin 100 mg capsule 200 mg PO/SL BID ##0 08/25/16 09/29/21 ipratropium 20 mcg-albuterol 100 1 puff inhalation PRN PRN Wheezing 08/25/16 09/29/21 mcg/actuation mist for inhalation ##0 (Combivent Respimat) simvastatin 40 mg tablet 80 mg PO QHS ##0 08/25/16 09/29/21 insulin glargine 100 unit/mL 55 unit SQ DAILY ##0 11/01/16 09/23/21 subcutaneous solution (Lantus U-100 Insulin) insulin aspart U-100 100 unit/mL 30 unit SQ AC ##0 12/06/16 09/29/21 subcutaneous solution (Novolog U-100 Insulin aspart) semaglutide 0.25 mg or 0.5 mg (2 0.5 mg SUBCUT QWEEK 07/11/20 09/29/21 mg/1.5 mL) subcutaneous pen injector (Ozempic) tamsulosin 0.4 mg capsule (Flomax) 0.4 mg PO .B.i.d. #0 caps 12/31/20 09/29/21 Previous Rx's Medication Instructions Recorded clotrimazole 1 % topical cream 1 gm topical SEE INSTRUCTIONS 12/06/16 ##14.1 docusate sodium 100 mg capsule 100 mg PO BID #20 caps 07/12/20 (DOK) oxycodone 10 mg tablet 10 mg PO Q4H PRN pain #40 tabs 07/12/20 isosorbide mononitrate 30 mg 30 mg PO DAILY #30 tabs 07/20/21 tablet,extended release 24 hr oxycodone-acetaminophen 10 mg-325 2 tab PO Q6H PRN pain #60 tabs 09/29/ mg tablet (Percocet) Allergies Allergy/AdvReac Type Severity Reaction Status Date / Time No Known Drug Allergies Allergy Verified 04/12/22 12:43 Review of Systems Review of Systems ROS Unobtainable: All systems reviewed & are unremarkable except as noted in HPI and below Patient History Medical History History of nephrolithiasis Nephrolithiasis BPH w urinary obs/LUTS History of urinary retention PUD (peptic ulcer disease) HTN (hypertension) COPD (chronic obstructive pulmonary disease) Obstipation (05/07/20) 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 KASSIDY (obstructive sleep apnea) Hepatitis C Myocardial infarction Macular degeneration Hyperlipidemia Diabetes TIA (transient ischemic attack) (10/29/16) Acute urinary retention Surgical History Hx of laminectomy (07/11/20) Previous back surgery History of appendectomy Hx of thumb surgery History of repair of hiatal hernia Hx of cholecystectomy S/P trigger finger release History of carpal tunnel release H/O laminectomy Social History marital status: number of children: 2 household members: friend(s) and none Smoking Status: Former smoker Tobacco: How many years used: 30 alcohol intake: former caffeine: Yes Smoking Status: Former smoker alcohol intake frequency: holidays/special occasions only Substance Use Type: does not use Exam Initial Vital Signs Initial Vital Signs: Vital Signs Temperature 98 F 07/11/23 04:35 Pulse Rate 57 L 07/11/23 04:35 Respiratory Rate 24 07/11/23 04:35 Blood Pressure 153/76 H 07/11/23 04:35 Pulse Oximetry 98 07/11/23 04:35 Oxygen Delivery Method Room Air 07/11/23 04:35 GENERAL: Alert well-appearing 77-year-old CARDIOVASCULAR: peripheral pulses in tact, cap refill <2 sec RESPIRATORY: No respiratory distress, speaks in full sentences without difficulty ABDOMEN: Soft, nontender, no guarding or rebound EXTREMITIES: Normal range of motion, no clubbing or edema. Neurovascularly intact NEUROLOGICAL: Cranial nerves II through XII grossly intact. Normal gait and speech. SKIN: Warm, dry, no petechiae, no rashes or lesions. Course Orders Ordered: Discontinued Medications Cyclobenzaprine HCl (Cyclobenzaprine 10 Mg Tablet) 5 mg PO NOW ONE Stop: 07/11/23 06:07 Last Admin: 07/11/23 06:22 Dose: 5 mg Documented By: GC Ketorolac Tromethamine (Ketorolac 30 Mg/Ml Vial) 30 mg IM NOW ONE Stop: 07/11/23 06:07 Last Admin: 07/11/23 06:22 Dose: 30 mg Documented By: ROSA ISELA Vital Signs Vital signs: Vital Signs - 8 hr 07/11/23 04:35 07/11/23 04:37 07/11/23 05:00 Temperature 98 F Pulse Rate 57 L 54 L 49 L Pulse Rate [Bilateral Dorsalis Pedis] Respiratory Rate 24 Blood Pressure 153/76 H Pulse Oximetry 98 97 97 Oxygen Delivery Method Room Air 07/11/23 05:01 07/11/23 05:01 07/11/23 05:03 Temperature Pulse Rate 49 L Pulse Rate [Bilateral Dorsalis Pedis] 50 L Respiratory Rate Blood Pressure 179/75 H Pulse Oximetry 95 Oxygen Delivery Method 07/11/23 05:32 07/11/23 06:34 Temperature 98.1 F Pulse Rate 55 L 64 Pulse Rate [Bilateral Dorsalis Pedis] Respiratory Rate 20 Blood Pressure 168/86 H Pulse Oximetry 97 97 Oxygen Delivery Method Room Air MDM - Extremity (Nontraumatic) MDM Narrative Medical decision making narrative: 77-year-old male who has a ongoing neuropathy and diabetes presents today with obvious leg spasms. Happens while I talked to him last briefly for a few seconds they appear painful. No suspicion for cauda equina he is having absolutely no back pain. He reports he did not take anything for pain prior to arrival the a actually has a whole bottle muscle relaxers at home. He is just now remembering. Discharge Plan Departure Patient Disposition: Home Clinical Impression: Leg muscle spasm Instructions: DI for Muscle Spasm Activity Restrictions/Additional Instructions: *You have been diagnosed with legs spasm *What to do: At this time recommend fluids take your muscle relaxer at home as previously prescribed *Continue to take medications as directed Tylenol or Motrin as needed *Follow up with your primary care provider in 2-3 days or call [phone] *Return to ER if you should have increasing like spasm increasing leg weakness loss of urine or stool or any new, worsening or concerning symptoms Prescriptions: No Action multivitamin Capsule 1 cap PO BID Qty: 0 Combivent Respimat 4 GM mist 1 puff inhalation PRN PRN (Reason: Wheezing) Qty: 0 simvastatin 40 MG tablet 80 mg PO QHS Qty: 0 gabapentin 100 MG capsule 200 mg PO/SL BID Qty: 0 Lantus U-100 Insulin 100 UNIT/1 ML solution 55 unit SQ DAILY Qty: 0 insulin aspart U-100 [Novolog U-100 Insulin aspart] 100 UNIT/1 ML solution 30 unit SQ AC Qty: 0 clotrimazole 1 % cream 1 gm Topical SEE INSTRUCTIONS Qty: 14.1 0RF isosorbide mononitrate 30 mg tablet extended release 24 hr 30 mg PO DAILY Qty: 30 0RF oxycodone-acetaminophen [Percocet] 10-325 mg tablet 2 tab PO Q6H PRN (Reason: pain) Qty: 60 0RF Ozempic 0.25 mg or 0.5 mg(2 mg/1.5 mL) Pen Injector 0.5 mg SUBCUT QWEEK docusate sodium [DOK] 100 mg Capsule 100 mg PO BID Qty: 20 0RF oxycodone 10 mg tablet 10 mg PO Q4H PRN (Reason: pain) Qty: 40 0RF Rx Instructions: 1 tab po every 4-6 hours as needed for severe pain. exempt. post op pain. tamsulosin [Flomax] 0.4 mg capsule 0.4 mg PO .B.i.d. Qty: 0 Referrals: Edgardo Devlin MD [Primary Care Provider] - Stand Alone Forms: Patient Portal/API
[2023-07-11] MEDS: KETOROLAC 30 MG/ML VIAL IM (06:22)
[2023-07-11] MEDS: CYCLOBENZAPRINE 10 MG TABLET 5 MG PO (06:22)
== END 2023-07-11 06:35 | disposition home or self-care (01) ==
PROVIDERS: Emergency Provider Emergency Medicine; Family Provider Internal Medicine; PCP Internal Medicine
DX: M62.838 Other muscle spasm (principal)
CPT/HCPCS: 99282; 99283; J1885

== ENCOUNTER 2023-11-17 23:50 | Emergency (ER) | payer OTHER, SELFPAY ==
[2021-10-15 10:45] VITALS: BMI 37.5
[2023-11-18 00:12] VITALS: BP 160/73; PULSE 55; RESP 20; TEMP 36.6; O2SAT 99; BMI 40.8
== END 2023-11-18 01:08 | disposition left against medical advice (07) ==
PROVIDERS: Emergency Provider Emergency Medicine; Family Provider Internal Medicine; PCP Internal Medicine
CPT/HCPCS: 99281

== ENCOUNTER 2023-12-01 13:00 | Day surgery (SDC) | payer OTHER, SELFPAY ==
[2021-10-15 10:45] VITALS: BMI 37.5
[2023-11-30 15:09] VITALS: BMI 38.9
[2023-12-01 13:38] VITALS: BP 189/78; PULSE 62; RESP 20; TEMP 36.6; O2SAT 100; BMI 38.9
[2023-12-01] MEDS: LACTATED RINGERS 1,000 ML 42 ML IV (13:45)
--- NOTE | 2023-12-01 14:06 | P.HP_ITS ---
History of Present Illness History of Present Illness Date Patient Seen: 12/01/23 Time Patient Seen: 14:06 Chief complaint: Right cubital tunnel release Narrative: Numbness in the ulnar nerve distribution. 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 KASSIDY (obstructive sleep apnea) Hepatitis C Myocardial infarction Macular degeneration Hyperlipidemia Diabetes TIA (transient ischemic attack) (10/29/16) Acute urinary retention Surgical History Hx of shoulder surgery (09/29/21) Hx of laminectomy (07/11/20) Previous back surgery History of appendectomy Hx of thumb surgery History of repair of hiatal hernia Hx of cholecystectomy S/P trigger finger release History of carpal tunnel release H/O laminectomy Social History marital status: number of children: 2 household members: friend(s) and none Smoking Status: Former smoker Tobacco: How many years used: 30 alcohol intake: never caffeine: Yes Meds Home Medications and Allergies Home Medications Medication Instructions Recorded Confirmed Type multivitamin 1 cap PO BID ##0 03/22/13 09/29/21 History gabapentin 100 mg capsule 200 mg PO/SL BID ##0 08/25/16 12/01/23 History ipratropium 20 mcg-albuterol 100 1 puff inhalation PRN PRN Wheezing 08/25/16 12/01/23 History mcg/actuation mist for inhalation ##0 (Combivent Respimat) simvastatin 40 mg tablet 80 mg PO QHS ##0 08/25/16 12/01/23 History insulin glargine 100 unit/mL 55 unit SQ DAILY ##0 11/01/16 12/01/23 History subcutaneous solution (Lantus U-100 Insulin) clotrimazole 1 % topical cream 1 gm topical SEE INSTRUCTIONS 12/06/16 09/29/21 Rx ##14.1 insulin aspart U-100 100 unit/mL 30 unit SQ AC ##0 12/06/16 12/01/23 History subcutaneous solution (Novolog U-100 Insulin aspart) semaglutide 0.25 mg or 0.5 mg (2 0.5 mg SUBCUT QWEEK 07/11/20 12/01/23 History mg/1.5 mL) subcutaneous pen injector (Ozempic) docusate sodium 100 mg capsule 100 mg PO BID #20 caps 07/12/20 09/29/21 Rx (DOK) oxycodone 10 mg tablet 10 mg PO Q4H PRN pain #40 tabs 07/12/20 09/29/21 Rx tamsulosin 0.4 mg capsule (Flomax) 0.4 mg PO .B.i.d. #0 caps 12/31/20 12/01/23 History isosorbide mononitrate 30 mg 30 mg PO DAILY #30 tabs 07/20/21 12/01/23 Rx tablet,extended release 24 hr oxycodone-acetaminophen 10 mg-325 2 tab PO Q6H PRN pain #60 tabs 09/29/21 Rx mg tablet (Percocet) Allergies Allergy/AdvReac Type Severity Reaction Status Date / Time No Known Drug Allergies Allergy Verified 12/01/23 13:31 Exam Vital Signs (past 8 hours): - 12/01/23 13:38 Temperature 97.8 F Pulse Rate 62 Respiratory Rate 20 Blood Pressure 189/78 H Pulse Oximetry 100 Oxygen Delivery Method Room Air Oxygen Delivery Method Room Air Narrative Exam Narrative: Decreased sensation in the ulnar nerve distribution. No sign of any significant thenar atrophy or intrinsic wasting. Positive Tinel's at the cubital tunnel. Negative Tinel's at the carpal tunnel. 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 Patient is interested in surgical treatment. The risk, benefits, alternatives, possible complications, operative course, and postop outcomes were discussed. Complications including but not limiting to bleeding, infection, fracture, nerve injury, continued pain postoperatively or instability postoperatively were discussed in detail. Medical complications including but not limited to deep venous thrombosis event, anesthesia complications with excessive bleeding, vascular events or cardiac events and other possible complications were discussed in detail. Need for postoperative rehabilitation and anticipated hospital stay and clinical course were discussed in detail. Patient acknowledges understanding and elects to proceed with surgery.
--- NOTE | 2023-12-01 14:07 | PM.PREOP ---
Pre-operative Note Interval Note History & Physical reviewed/Exam performed by Physician: Yes Changes to H&P: No
[2023-12-01] MEDS: CEFAZOLIN 2 GM/100 ML PREMIX 100 ML IV (14:13)
--- NOTE | 2023-12-01 14:39 | SUR.OPER ---
Supine on padded OR bed, head on pillow, left arm secured on padded arm board at <90 degrees abduction,right arm draped free on black hand table, legs uncrossed, safety belt at thigh, tape over blanket over lower legs.
[2023-12-01] MEDS: CEFAZOLIN VIAL 1 GM in SODIUM CHLORIDE 0.9% 100 ML IV (14:47)
[2023-12-01] MEDS: BUPIVACAINE 0.5% (PF) 30 ML, EPINEPHrine 0.15 MG INJ (14:49)
--- NOTE | 2023-12-01 15:01 | PM.OP.1 ---
Operative Date/Time/Diagnoses Date of procedure: 12/01/23 Time of procedure: 14:30 Pre-op diagnosis: Right cubital tunnel Post-op diagnosis: same Procedure & Clinicians Procedure: Right cubital tunnel release Same procedure as scheduled: Yes Indications: Right cubital tunnel Surgeon: Gregory Servin Click Yes if Unassisted: Yes Anesthesia Type: General Operative Notes Findings: Compression of the ulnar nerve at the carpal tunnel. Closure Type: primary Estimated Blood Loss (mL): 1 Tourniquet time (min): 19 Procedure in detail: On date of service, the patient was met in the holding area. Patients operative site was signed and witnessed by the OR staff. The surgery was once again discussed with the patient, and any remaining questions they had were answered fully. Patient was taken back to the operating theater and placed on the operating table in a supine position. Great care was taken to ensure that all bony prominences were carefully padded. A well-padded tourniquet was placed up along the upper extremity. A timeout was performed to verify patient's name, procedure, and operative site. The arm was then prepped and draped in the normal sterile fashion. We then turned our attention to the cubital tunnel. Ten blade was used to make an incision centered over the cubital tunnel. Ten blade was used incise through skin and fascial tissue. Electrocautery was used to achieve hemostasis. Deep knife was used to proceed with sharp dissection. Next, Metzenbaum scissors were used to identify the nerve proximal to the cubital tunnel. This was then decompressed proximally. Next, the ulnar nerve was decompressed through the cubital tunnel by releasing the cubital tunnel. This decompression was continued distally providing a complete decompression of the nerve. Wound was irrigated and then closed in a layered fashion. The hand was then cleaned, dried, and dressed. Patient was taken to the PACU in stable condition. Complications: none Post-operative Condition: stable Disposition: PACU Plan for aftercare: Patient will follow our postoperative protocol for a cubital tunnel release.
[2023-12-01 15:06] VITALS: BP 181/87; PULSE 88; RESP 12; TEMP 36.5; O2SAT 96
[2023-12-01 15:10] VITALS: BP 175/85; PULSE 81; RESP 18; TEMP 36.3; O2SAT 96
[2023-12-01 15:15] VITALS: BP 174/92; PULSE 93; RESP 14; TEMP 36.6; O2SAT 98
[2023-12-01 15:20] VITALS: BP 171/87; PULSE 83; RESP 20; TEMP 36.3; O2SAT 96
== END 2023-12-01 15:44 | disposition home or self-care (01) ==
PROVIDERS: Family Provider Internal Medicine; PCP Internal Medicine; Referring Provider Orthopaedic Surgery; Visit Provider Orthopaedic Surgery
PROC: (CPT 64718; principal; 2023-12-01 13:30)
DX: G56.21 Lesion of ulnar nerve, right upper limb (principal); S60.221A Contusion of right hand, initial encounter
CPT/HCPCS: 64718; J0171; J0330; J0690; J2405; J2704; J3010

== ENCOUNTER 2024-03-12 15:00 | Emergency (ER) | payer OTHER, SELFPAY ==
[2021-10-15 10:45] VITALS: BMI 37.5
[2024-03-12 15:13] VITALS: BP 173/74; PULSE 68; RESP 17; TEMP 36.6; O2SAT 98
== END 2024-03-12 16:43 | disposition left against medical advice (07) ==
PROVIDERS: Emergency Provider Student in an Organized Health Care Education/Training Program; Family Provider Internal Medicine; PCP Internal Medicine
DX: R42 Dizziness and giddiness (principal)
CPT/HCPCS: 93005; 99281

== ENCOUNTER 2025-07-10 17:51 | Emergency (ER) | payer OTHER, SELFPAY ==
[2021-10-15 10:45] VITALS: BMI 37.5
[2025-07-10 18:15] VITALS: BP 125/67; PULSE 67; RESP 18; TEMP 36.7; O2SAT 99; BMI 38.2
--- NOTE | 2025-07-10 18:15 | ED.WOUNDLAC ---
HPI - Wound/Laceration <Becky Almazan PA-C - Last Filed: 07/10/25 19:27> General Chief Complaint: Wound/Laceration Stated Complaint: Lt hand laceration Time Seen by Provider: 07/10/25 18:12 History of Present Illness HPI narrative: Mr. Mata is a very pleasant 79-year-old male with a past medical history of hypertension, hyperlipidemia, diabetes who presents to the emergency department for laceration to dorsal aspect of his left hand that occurred 20 minutes prior to arrival. Patient is right-hand dominant and was using his pocket knife to cut tape at home when he accidentally cut the back of his left hand. He now has a 2 cm linear laceration overlying the 2nd meta carpal region. 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 He is neurovascularly intact, still has full range of motion of the hand, brisk cap refill distal to the wound and sensation intact to light touch distal to the wound. Does not take blood thinners. He is unsure of his last Tdap Related Data Home Medications ?Medication ?Instructions ?Recorded ?Confirmed multivitamin 1 cap PO BID ##0 03/22/13 09/29/21 gabapentin 100 mg capsule 200 mg PO/SL BID ##0 08/25/16 12/01/23 ipratropium 20 mcg-albuterol 100 1 puff inhalation PRN PRN Wheezing 08/25/16 12/01/23 mcg/actuation mist for inhalation ##0 (Combivent Respimat) simvastatin 40 mg tablet 80 mg PO QHS ##0 08/25/16 12/01/23 insulin glargine 100 unit/mL 55 unit SQ DAILY ##0 11/01/16 12/01/23 subcutaneous solution (Lantus U-100 Insulin) insulin aspart U-100 100 unit/mL 30 unit SQ AC ##0 12/06/16 12/01/23 subcutaneous solution (Novolog U-100 Insulin aspart) semaglutide 0.25 mg or 0.5 mg (2 0.5 mg SUBCUT QWEEK 07/11/20 12/01/23 mg/1.5 mL) subcutaneous pen injector (Ozempic) tamsulosin 0.4 mg capsule (Flomax) 0.4 mg PO .B.i.d. #0 caps 12/31/20 12/01/23 Previous Rx's ?Medication ?Instructions ?Recorded clotrimazole 1 % topical cream 1 gm topical SEE INSTRUCTIONS 12/06/16 ##14.1 docusate sodium 100 mg capsule 100 mg PO BID #20 caps 07/12/20 (DOK) oxycodone 10 mg tablet 10 mg PO Q4H PRN pain #40 tabs 07/12/20 isosorbide mononitrate 30 mg 30 mg PO DAILY #30 tabs 07/20/21 tablet,extended release 24 hr oxycodone-acetaminophen 10 mg-325 2 tab PO Q6H PRN pain #60 tabs 09/29/21 mg tablet (Percocet) hydrocodone 5 mg-acetaminophen 325 2 tab PO Q4-6H PRN pain #20 tabs 12/01/23 mg tablet Allergies Allergy/AdvReac Type Severity Reaction Status Date / Time No Known Drug Allergies Allergy Verified 07/10/25 18:36 Review of Systems <Becky Almazan PA-C - Last Filed: 07/10/25 19:27> Review of Systems ROS Unobtainable: All systems reviewed & are unremarkable except as noted in HPI and below Patient History <Becky Almazan PA-C - Last Filed: 07/10/25 19:27> Medical History History of nephrolithiasis Nephrolithiasis BPH w urinary obs/LUTS History of urinary retention PUD (peptic ulcer disease) HTN (hypertension) COPD (chronic obstructive pulmonary disease) Obstipation (05/07/20) 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 KASSIDY (obstructive sleep apnea) Hepatitis C Myocardial infarction Macular degeneration Hyperlipidemia Diabetes TIA (transient ischemic attack) (10/29/16) Acute urinary retention Surgical History Hx of shoulder surgery (09/29/21) Hx of laminectomy (07/11/20) Previous back surgery History of appendectomy Hx of thumb surgery History of repair of hiatal hernia Hx of cholecystectomy S/P trigger finger release History of carpal tunnel release H/O laminectomy Social History marital status: number of children: 2 household members: friend(s) and none Tobacco: How many years used: 30 alcohol intake: never caffeine: Yes alcohol intake frequency: holidays/special occasions only Exam <Becky Almazan PA-C - Last Filed: 07/10/25 19:27> Narrative Exam Narrative: GENERAL: 79 year old patient appears stated age. Well-developed patient, in no acute distress. Very hard of hearing. HEAD: Atraumatic. Normocephalic. NECK: Trachea midline. Cervical ROM intact. CARDIOVASCULAR: Regular rate RESPIRATORY: ?Nonlabored respirations. ?Speaking in clear, full sentences. ? EXTREMITIES: Left hand with prior amputation of the 2nd digit at the PIP. Laceration on the dorsal aspect of the left hand overlying the 2nd metatarsal, laceration is 2 cm curved, bleeding controlled on exam. Patient has brisk cap refill in all fingertips, sensation intact to light touch in all fingertips, 2+ bilateral radial pulses. NEURO: AOx3. ?Clear speech. ?Moves all 4 extremities appropriately. SKIN: Dorsal left hand laceration described above. Initial Vital Signs Initial Vital Signs: Vital Signs Temperature 98.0 F 07/10/25 18:15 Pulse Rate 67 07/10/25 18:15 Respiratory Rate 18 07/10/25 18:15 Blood Pressure 125/67 07/10/25 18:15 Pulse Oximetry 99 07/10/25 18:15 Oxygen Delivery Method Room Air 07/10/25 18:15 <Rufus Campoverde MD - Last Filed: 07/11/25 03:30> Initial Vital Signs Initial Vital Signs: Vital Signs Temperature 98.0 F 07/10/25 18:15 Pulse Rate 67 07/10/25 18:15 Respiratory Rate 18 07/10/25 18:15 Blood Pressure 125/67 07/10/25 18:15 Pulse Oximetry 99 07/10/25 18:15 Oxygen Delivery Method Room Air 07/10/25 18:15 Procedures <Becky Almazan PA-C - Last Filed: 07/10/25 19:27> Laceration Repair Laceration 1: Time of procedure: 19:15 Site: hand Side (If applicable): left Size (cm): 2 Description: linear and flap Depth: simple, single layer Local Anesthetic: lidocaine 1% and with epi Amount of anesthesia used (mL): 5 Pre-repair: wound explored, irrigated extensively (Cleansed with a Betadine) and deep structures intact Skin layer closed with: nylon Skin layer suture size: 4-0 Number of sutures: 6 Technique: simple, interrupted Course <Becky Almazan PA-C - Last Filed: 07/10/25 19:27> Orders Ordered: Discontinued Medications Bacitracin (Bacitracin Oint 0.9 Gm Pckt) 1 applic TOP NOW ONE Stop: 07/10/25 18:14 Last Admin: 07/10/25 18:27 Dose: 1 applic Documented By: RLC Diphtheria/Tetanus/Acell Pertussis (Tet,Diph,Pertuss(Acell),Vac/Pf 0.5 Ml Syringe) 0.5 ml IM .ONCE ONE Stop: 07/10/25 18:14 Last Admin: 07/10/25 18:27 Dose: 0.5 ml Documented By: RLC Lidocaine/Epinephrine (Lidocaine 1% W/Epi 10ml) 10 ml SUBCUT NOW ONE Stop: 07/10/25 18:14 Last Admin: 07/10/25 18:25 Dose: 10 ml Documented By: RLC Vital Signs Vital signs: Vital Signs - 8 hr 07/10/25 18:15 Temperature 98.0 F Pulse Rate 67 Respiratory Rate 18 Blood Pressure 125/67 Pulse Oximetry 99 Oxygen Delivery Method Room Air <Rufus Campoverde MD - Last Filed: 07/11/25 03:30> Orders Ordered: Discontinued Medications Bacitracin (Bacitracin Oint 0.9 Gm Pckt) 1 applic TOP NOW ONE Stop: 07/10/25 18:14 Last Admin: 07/10/25 18:27 Dose: 1 applic Documented By: RLC Diphtheria/Tetanus/Acell Pertussis (Tet,Diph,Pertuss(Acell),Vac/Pf 0.5 Ml Syringe) 0.5 ml IM .ONCE ONE Stop: 07/10/25 18:14 Last Admin: 07/10/25 18:27 Dose: 0.5 ml Documented By: RLC Lidocaine/Epinephrine (Lidocaine 1% W/Epi 10ml) 10 ml SUBCUT NOW ONE Stop: 07/10/25 18:14 Last Admin: 07/10/25 18:25 Dose: 10 ml Documented By: RLC Vital Signs Vital signs: Vital Signs - 8 hr 07/10/25 18:15 Temperature 98.0 F Pulse Rate 67 Respiratory Rate 18 Blood Pressure 125/67 Pulse Oximetry 99 Oxygen Delivery Method Room Air MDM - Wound/Laceration <Becky Almazan PA-C - Last Filed: 07/10/25 19:27> Medical Records Attestation: I reviewed the patient's medical records. MDM Narrative Medical decision making narrative: 79-year-old male with a past medical history of hypertension, hyperlipidemia, diabetes who presents to the emergency department for laceration to dorsal aspect of his left hand that occurred 20 minutes prior to arrival. Differential diagnosis includes but isn't limited to left hand laceration, foreign body etc. On exam the patient is in no acute distress, nontoxic-appearing, all vital signs within normal limits. He has a 2 cm linear flap like laceration in the dorsal aspect of the left hand that occurred from a pocket knife, no suspected foreign bodies, no visible foreign bodies, he is still neurovascularly intact distal to the wound. No blood thinners. We will update Tdap today. Patient is agreeable to suture repair. Wound was anesthetized, irrigated, cleansed extensively. Wound was approximated using 6 simple interrupted sutures. Bacitracin and a nonadherent dressing was applied by myself. Discussed proper wound care, suture removal in 7-10 days, ER return precautions. Patient verbalized understanding of all information agreeable with the plan. He is stable for discharge home. Discharge Plan Departure Patient Disposition: Home Clinical Impression: Laceration of left hand Qualifiers: Encounter type: initial encounter Foreign body presence: without foreign body Qualified Code(s): S61.412A - Laceration without foreign body of left hand, initial encounter Instructions: DI for Laceration Repair Activity Restrictions/Additional Instructions: Dear Mr. Mata, Today you had a laceration to your left hand. We have placed 6 sutures. They need to be removed in 7-10 days. You may do this in your doctor's office, the [facility], or here if necessary. Please keep the dressing on your wound clean, dry, and intact for the next 24 hours. After this time, you may remove the dressing and gently clean the wound with soap and water, then pat dry. Keep the wound clean and covered. Avoid soaking the wound in any water such as a bath, pool, or the ocean. If you develop any signs of wound infection such as increased redness, pus drainage, streaking redness, or fevers, please return to the ER immediately for evaluation. Once sutures are removed and the wound has healed, apply sunscreen daily to reduce the appearance of scars. We updated your tetanus shot today. Please follow up with your primary care doctor for ER follow-up. (If you do not have a PCP you can call [phone]. ?to schedule an appointment with an [facility] Primary Care Provider) IF YOU DEVELOP ANY NEW OR WORSENING SYMPTOMS, RETURN TO THE ER! Please read the attached instructions, they highlight more specific treatments and interventions for you at home. Thank you for letting me participate in your care, Becky Almazan PA-C Prescriptions: No Action multivitamin Capsule 1 cap PO BID Qty: 0 Combivent Respimat 4 GM mist 1 puff inhalation PRN PRN (Reason: Wheezing) Qty: 0 simvastatin 40 MG tablet 80 mg PO QHS Qty: 0 gabapentin 100 MG capsule 200 mg PO/SL BID Qty: 0 insulin glargine [Lantus U-100 Insulin] 100 UNIT/1 ML solution 55 unit SQ DAILY Qty: 0 insulin aspart U-100 [Novolog U-100 Insulin aspart] 100 UNIT/1 ML solution 30 unit SQ AC Qty: 0 clotrimazole 1 % cream 1 gm Topical SEE INSTRUCTIONS Qty: 14.1 0RF isosorbide mononitrate 30 mg tablet extended release 24 hr 30 mg PO DAILY Qty: 30 0RF oxycodone-acetaminophen [Percocet] 10-325 mg tablet 2 tab PO Q6H PRN (Reason: pain) Qty: 60 0RF Ozempic 0.25 mg or 0.5 mg(2 mg/1.5 mL) Pen Injector 0.5 mg SUBCUT QWEEK docusate sodium [DOK] 100 mg Capsule 100 mg PO BID Qty: 20 0RF oxycodone 10 mg tablet 10 mg PO Q4H PRN (Reason: pain) Qty: 40 0RF Rx Instructions: 1 tab po every 4-6 hours as needed for severe pain. exempt. post op pain. hydrocodone-acetaminophen 5-325 mg tablet 2 tab PO Q4-6H PRN (Reason: pain) Qty: 20 0RF tamsulosin [Flomax] 0.4 mg capsule 0.4 mg PO .B.i.d. Qty: 0 Referrals: Edgardo Devlin MD [Primary Care Provider, Medical] Stand Alone Forms: Patient Portal/API ED Sign-out <Rufus Campoverde MD - Last Filed: 07/11/25 03:30> Cosign ED Attending Noéature Attestation: I was immediately available in the department for consultation. This documentation has been reviewed and I agree with assessment and plan. Supervised by Rufus Campoverde MD
[2025-07-10] MEDS: LIDOCAINE 1% W/EPI 10ML 10 ML SUBCUT (18:25)
[2025-07-10] MEDS: BACITRACIN OINT 0.9 GM PCKT 1 APPLIC TOP (18:27)
[2025-07-10] MEDS: TET,DIPH,PERTUSS(ACELL),VAC/PF 0.5 ML SYRINGE IM (18:27)
[2025-07-10 19:28] VITALS: BP 132/65; PULSE 68; RESP 18; O2SAT 100
== END 2025-07-10 19:29 | disposition home or self-care (01) ==
PROVIDERS: Emergency Provider Physician Assistant; Family Provider Internal Medicine; PCP Internal Medicine
DX: S61.412A Laceration without foreign body of left hand, initial encounter (principal); W26.0XXA Contact with knife, initial encounter; Z23 Encounter for immunization
CPT/HCPCS: 12001; 90471; 99283; 90715

== ENCOUNTER 2025-08-03 14:53 | Emergency (ER) | payer OTHER, SELFPAY ==
[2021-10-15 10:45] VITALS: BMI 37.5
[2025-08-03] VITALS (13 sets, daily range): BP systolic 185–224; BP diastolic 86–100; PULSE 56–75; RESP 13–29; TEMP 36.7; O2SAT 95–98; BMI 38.0
--- NOTE | 2025-08-03 14:56 | DI.RAD.S_ITS ---
PROCEDURE: XR ELBOW RT MIN 3V INDICATIONS: pain TECHNIQUE: 3 views of the elbow were acquired. COMPARISON: None. FINDINGS: Bones: No fractures or dislocations. No suspicious bony lesions. Soft tissues: No elbow joint effusion. No suspicious soft tissue calcifications. IMPRESSION: No acute bony abnormality or significant joint effusion. Approved by: Amilcar Jefferson M.D. on 08/03/2025 at 15:19
--- NOTE | 2025-08-03 14:56 | DI.CT.S_ITS ---
PROCEDURE: CT TRAUMA CHEST ABDOMEN PELVIS INDICATIONS: Trauma TECHNIQUE: MDCT axial chest images were obtained with IV contrast in the arterial phase. Maximum intensity projections and multiplanar reformats were obtained. MDCT axial abdomen and pelvis images were obtained with IV contrast in the portal venous phase. Multiplanar reformats were obtained. Optional delayed phase scanning may also be obtained Advanced techniques were used to lower patient radiation exposure. COMPARISON:None. FINDINGS Chest: Lungs and pleura: No pneumothorax or hemothorax. No pulmonary contusions or lacerations. No solid pulmonary nodule requiring follow-up. Vascular: No dissection or pseudoaneurysm. No incidental central pulmonary embolism. No hemopericardium. Mediastinum: No mediastinum hematoma. No suspicious mass or lymph nodes. No actionable thyroid nodules. Chest wall: Intact clavicles, scapula, and glenohumeral joint. No displaced rib fractures. Thoracic spine: No acute fracture or traumatic subluxation. ABDOMEN and PELVIS: Liver: No laceration or capsular hematoma. Gallbladder: Cholecystectomy Biliary system: Non-dilated. Pancreas: Unremarkable. Spleen: No laceration or capsular hematoma. Adrenals: No suspicious nodules. Kidneys: No contrast extravasation or hydronephrosis. No solid masses. Vessels and lymph nodes: No pathology lymph nodes by size criteria. No dissection or aneurysm. No retroperitoneal hematoma. Bowel and peritoneum: No suspicious region of mesenteric hemorrhage or hemoperitoneum. No bowel obstruction. Pelvis: Unremarkable bladder. Pelvic ring and femurs: No pelvic ring disruption. No hip fractures. Lumbar spine: No acute fracture or traumatic subluxation. Right SI joint ankylosis. Pelvic ring is intact. L5 decompressive laminectomy without instrumentation Abdominal wall: No drainable fluid collection or hematoma. IMPRESSION: No acute traumatic injury to the chest, abdomen, or pelvis. Approved by: Amilcar Jefferson M.D. on 08/03/2025 at 16:13
--- NOTE | 2025-08-03 14:56 | EKG_ITS ---
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
--- NOTE | 2025-08-03 14:56 | DI.RAD.S_ITS ---
PROCEDURE: XR WRIST RT MIN 3V INDICATIONS: pain TECHNIQUE: 3 views of the wrist were acquired. COMPARISON: None. FINDINGS: Bones: No fractures or dislocations. No suspicious bony lesions. Soft tissues: No suspicious soft tissue calcifications. IMPRESSION: No acute bony abnormality. Approved by: Amilcar Jefferson M.D. on 08/03/2025 at 15:28
--- NOTE | 2025-08-03 14:57 | DI.CT.S_ITS ---
PROCEDURE: CT CERVICAL SPINE WO CON INDICATIONS: Trauma TECHNIQUE: Noncontrast 3 mm thick sections acquired from the skull base to the T4 level. Sagittal and coronal reformats were then constructed. For radiation dose reduction, the following was used: automated exposure control, adjustment of mA and/or kV according to patient size. COMPARISON: [facility], CT, C-SPINE WITHOUT CONTRAST, 11/19/2016, 6:21. FINDINGS: Image quality: Excellent. Bones: No fractures or dislocations. Visualized superior ribs are intact. Soft tissues: Prevertebral soft tissues are normal in thickness. No paravertebral hematomas. No apical pneumothoraces. IMPRESSION: No displaced fracture or traumatic subluxation. Approved by: Amilcar Jefferson M.D. on 08/03/2025 at 16:02
--- NOTE | 2025-08-03 14:57 | DI.CT.S_ITS ---
PROCEDURE: CT HEAD/BRAIN WO CON INDICATIONS: Trauma TECHNIQUE: Noncontrast 4.5 mm thick angled axial sections acquired from the foramen magnum to the vertex, with coronal and sagittal reformats. For radiation dose reduction, the following was used: automated exposure control, adjustment of mA and/or kV according to patient size. COMPARISON: [facility], CT, HEAD WITHOUT CONTRAST, 11/19/2016, 6:21. FINDINGS: CSF spaces: Basal cisterns are patent. No extra-axial fluid collections. Ventricles are normal in size and shape. Brain: No midline shift. No intracranial mass effect or hemorrhage. Rios- white matter interface is normal. Skull and face: Calvarium and visualized facial bones are intact, without suspicious lesions. Frontal scalp hematoma Sinuses: Visualized sinuses and mastoids are clear. IMPRESSION: Frontal scalp hematoma without skull fracture or intracranial hemorrhage Approved by: Amilcar Jefferson M.D. on 08/03/2025 at 16:04
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
[2025-08-03 15:41] LABS: Add Manual Diff / Slide Review NO; Hematocrit 31.9 % (41-53); Hemoglobin 10.3 g/dL (13.5-17.5); Lymphocytes Absolute Auto 1100 /uL (1100-4500); Mean Corpuscular HGB Conc 32.4 % (30-36); Mean Corpuscular Hemoglobin 23.2 PG (26-34); Mean Corpuscular Volume 71.5 fL (80-100); Platelet Count 155 X10^3/uL (150-400)
[2025-08-03 15:47] LABS: INR 1.2 (0.9-1.3); Prothrombin Time 13.5 SECONDS (9.4-12.5)
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
[2025-08-03 15:50] LABS: Lactate (Lactic Acid) 1.0 mmol/L (0.7-2.1); PTT Partial Thromboplastin Tim 27 SECONDS (25.1-36.5)
[2025-08-03 15:52] LABS: Alanine Aminotransferase 17 IU/L (<50); Albumin 3.6 g/dL (3.5-5.0); Albumin Globulin Ratio 1.4 (1.0-2.8); Alkaline Phosphatase 64 U/L (38-126); Blood Urea Nitrogen 24 mg/dL (9-20); Calcium 8.1 mg/dL (8.4-10.2); Carbon Dioxide 24 mmol/L (22-32); Chloride 110 mmol/L (98-107); Estimated Glomerular Filt Rate 44 mL/min (>60); Ethanol (ETOH) < 10 mg/dL (<10); Globulin 2.6 g/dL (1.7-4.1); Glucose 156 mg/dL (70-99); HEMOLYSIS < 15 (0-50); Lipase 119 U/L (23-300); Potassium 3.8 mmol/L (3.4-5.1); Sodium 140 mmol/L (137-145); Total Protein 6.2 g/dL (6.3-8.2)
[2025-08-03 16:58] LABS: Ur Specific Gravity Normal (Normal)
[2025-08-03 17:00] LABS: UR Morphine/Opiate cutoff 300 Negative (Negative); Urine MDMA Negative (Negative); Urine Methamphetamines Negative (Negative); Urine Tetrahydrocannabinol Negative (Negative); Urine Tricyclic Antidepressant Negative (Negative)
--- NOTE | 2025-08-03 17:45 | PC.NURSE ---
iriigated and cleansed lac, then wraped with non adherant and guaze wrap after sutures placed
--- NOTE | 2025-08-03 18:05 | PC.NURSE ---
This nurse ambulated pt from bed to end of room and back to bed, pt able to ambulate with out assistance, pt reports he is wobbly when he walks at baseline, that he does not use walker or cane at home, this nurse asked pt if he would like an assistive device for walking but pt declined. This nurse asked pt if he would like a ride called home, pt refused saying he prefers taxi, uses taxi regularly and has own means for [employer], pt reports short distance from cab to home, approximately 15 feet, with friend Octavia who will likely be there upon arrival.
== END 2025-08-03 18:30 | disposition home or self-care (01) ==
PROVIDERS: Emergency Provider Emergency Medicine; Family Provider Internal Medicine; PCP Internal Medicine
DX: S01.01XA Laceration without foreign body of scalp, initial encounter (principal); S29.9XXA Unspecified injury of thorax, initial encounter; M25.511 Pain in right shoulder; S19.9XXA Unspecified injury of neck, initial encounter; M25.531 Pain in right wrist; M25.521 Pain in right elbow; E11.9 Type 2 diabetes mellitus without complications; I10 Essential (primary) hypertension; V89.2XXA Person injured in unspecified motor-vehicle accident, traffic, initial encounter; R00.1 Bradycardia, unspecified
CPT/HCPCS: 12002; 70450; 71275; 72125; 73030; 73080; 73110; 74177; 80053; 80305; 80320; 83605; 83690; 85025; 85610; 85730; 93005; 96374; 99284; 99285; J1171; Q9967